=== PATIENT | male | born 1940 | race Caucasian/White ===

== ENCOUNTER 2017-03-01 20:22 | Emergency (ER) | payer OTHER ==
[~2017-03-01] VITALS: Ht 170.2 cm; Wt 110.2 kg
[~2017-03-01 20:22] MED LIST: ASPIRIN EC325 MG PO; COZAAR25 MG PO; DICLOFENAC SODI75 MG PO; FERROUS SULFAT325 MG PO; FOLIC ACID1 MG PO; HYDROCODON-ACE1 EA10 PO; IPRAT-ALBUT 0.5-3 ML INH; LIPITOR40 MG PO; METOPROLOL TART25 MG PO; NORCO 5-325 TA1 EACH PO; PROTONIX40 MG PO; SPIRIVA18 MCG INH; VITAMIN D1000 UNI1 PO
--- NOTE | 2017-03-02 17:24 | EKG ---
[facility] [address] [facility] [place] [address] Signed Sinus rhythm with marked sinus arrhythmia Otherwise normal ECG No previous ECGs available Confirmed by MAGDIEL CASANOVA MD ([id number]) on 03/02/2017 5:24:05 PM Electronically Signed By: MAGDIEL CASANOVA MD 03/02/17 1724 PATIENT NAME: MICHELINE BLACK Electrocardiogram DATE OF : 40 PHYSICIAN: MAGDIEL CASANOVA MD REPORT #: [id number] REPORT IS CONFIDENTIAL AND NOT TO BE RELEASED WITHOUT AUTHORIZATION
== END 2017-03-01 22:25 | disposition home or self-care (01) ==
LOC: ED 20:22
DX: R42 Dizziness and giddiness (principal); M54.2 Cervicalgia; I10 Essential (primary) hypertension; Z87.891 Personal history of nicotine dependence; Z95.5 Presence of coronary angioplasty implant and graft; Z90.49 Acquired absence of other specified parts of digestive tract; Z90.89 Acquired absence of other organs; Z98.890 Other specified postprocedural states; Z88.5 Allergy status to narcotic agent; Z79.82 Long term (current) use of aspirin; Z79.899 Other long term (current) drug therapy
CPT/HCPCS: 36415; 70450; 80053; 83880; 84484; 85025; 93005; 93010; 99284

== ENCOUNTER 2017-07-02 11:35 | Emergency (ER) | payer OTHER ==
[~2017-07-02] VITALS: Ht 170.2 cm; Wt 110.2 kg
== END 2017-07-02 11:51 | disposition short-term general hospital (02) ==
LOC: ED 11:35
DX: R05 Cough (principal); R50.9 Fever, unspecified

== ENCOUNTER 2018-08-16 18:41 | Emergency (ER) | payer OTHER ==
[~2018-08-16] VITALS: Ht 170.2 cm; Wt 99.3 kg
[2018-08-16] MEDS ORDERED: ZITHROMAX250 MG PO (20:11)
== END 2018-08-16 20:22 | disposition home or self-care (01) ==
LOC: ED 18:41
DX: J06.9 Acute upper respiratory infection, unspecified (principal); J44.9 Chronic obstructive pulmonary disease, unspecified; I10 Essential (primary) hypertension; Z87.891 Personal history of nicotine dependence; Z95.5 Presence of coronary angioplasty implant and graft; Z88.5 Allergy status to narcotic agent; Z79.82 Long term (current) use of aspirin; Z79.899 Other long term (current) drug therapy
CPT/HCPCS: 71046; 94640; 99283-25

== ENCOUNTER 2019-04-09 12:33 | Emergency (ER) | payer OTHER, MEDICARE ==
[~2019-04-09] VITALS: Ht 170.2 cm; Wt 99.3 kg
--- OUTSIDE RECORDS SUMMARY | ~2019-04-09 | XMS | Encounter Summary ---
Demographics + + + | Address | [address] | | | [place] [address] | + + + | Home Phone [...] | Author | [facility] | | | and [place] | + + + | Organization | [facility] | | | and [place] | + + + | Address | Unknown | + + + | Phone | Unavailable | + + + Support + + +---------+ + | Name | Relationship | Address | Phone | + + +---------+ + | luis buckley | ECON | Unknown | | + + +---------+ + Care Team Providers + +------+ + | Care Methods Analyst Name | Role | Phone | + [...] | +--------+ + + + + | 03/25/ | Hospital | [facility] | [place], | Abdominal aortic | | 2019 | Encounter | [facility] | [facility] [address] | aneurysm (AAA) | | | | [address] [place] | [place], | without rupture | | | | [place], [place] | [place] [address] | (HCC) | | | | [address] | [phone] | | | | | [phone] | | | +--------+ + + + [...] + +---------+ + | Alcohol Use | Drinks/We | oz/Week | Comments | | | ek | | | + + +---------+ + | No [...] + + documented as of this encounter Medications at Time of Discharge + + + +---------+ + + | Medication | Sig | Dispensed | Refills | Start | End Date | | | | | | Date | | + + + +---------+ + + | acetaminophen | Take 650 mg by mouth | | 0 | | | | (TYLENOL) 325 mg | every 4 hours as | | | | | | tablet | needed for Pain. | | | | | + + + +---------+ + + | aspirin 81 MG | Take 81 mg by mouth | | 0 | | | | tablet | Daily. | | | | | + + + +---------+ + + | atorvaSTATin | Take 1 tablet by | 90 | 3 | 03/19/20 | | | (LIPITOR) 40 mg | mouth Daily. | tablet | | 18 | | | tablet | | | | | | + + + +---------+ + + | clopidogrel | Take 1 tablet by | 90 | 3 | 03/21/20 | | | (PLAVIX) 75 mg | mouth Daily. | tablet | | 19 | | | tabletIndications: | | | | | | | Coronary artery | | | | | | | disease, angina | | | | | | | presence | | | | | | | unspecified, | | | | | | | unspecified vessel | | | | | | | or lesion type, | | | | | | | unspecified whether | | | | | | | yurok or | | | | | | | transplanted heart | | | | | | + + + +---------+ + + | colchicine 0.6 mg | Take 0.6 mg by mouth | | 0 | | | | tablet | as needed. | | | | | + + + +---------+ + + | diclofenac | Take 1 tablet by | 90 | 0 | 02/23/20 | | | (VOLTAREN) 75 mg EC | mouth Daily. | tablet | | 19 | | | tabletIndications: | | | | | | | Primary | | | | | | | 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| | | hands, bilateral, | | | | | | | Bilateral hand pain | | | | | | + + + +---------+ + + | ferrous sulfate | Take 325 mg by mouth | | 0 | | | | 325 mg tablet | daily (with | | | | | | | breakfast). | | | | | + + + +---------+ + + | FOLIC ACID PO | Take 1 tablet by | | 0 | | | | | mouth Daily. | | | | | + + + +---------+ + + | Glucosamine 750 MG | Take by mouth. | | 0 | | | | TABS | | | | | | + + + +---------+ + + | levothyroxine | Take 25 mcg by mouth | | 0 | | | | (SYNTHROID) 25 mcg | Daily. | | | | | | tablet | | | | | | + + + +---------+ + + | losartan (COZAAR) | Take 1 tablet by | 90 | 3 | 01/03/20 | | | 25 mg tablet | mouth Daily. | tablet | | 19 | | + + + +---------+ + + | metoprolol | Take 0.5 tablets by | 45 | 3 | 01/08/ | | | succinate | mouth Daily. At | tablet | | 19 | | | (TOPROL-XL) 25 mg 24 | night | | | | | | hr tablet | | | | | | + + + +---------+ + + | Misc Natural | Take 1 capsule by | | 0 | | | | Products (TURMERIC | mouth Daily. | | | | | | CURCUMIN) CAPS | | | | | | + + + +---------+ + + | Multiple | Take 1 capsule by | | 0 | | | | Vitamins-Minerals | mouth Daily. | | | | | | (OCUVITE EXTRA) TABS | | | | | | + + + +---------+ + + | nitroglycerin | Place 0.4 mg under | | 0 | | | | (NITROSTAT) 0.4 mg | the tongue every 5 | | | | | | SL tablet | minutes as needed | | | | | | | for Chest pain. | | | | | + + + +---------+ + + | | Take 750 mg by | | 0 | | | | Pseudoeph-Doxylamine | mouth. | | | | | | -DM-APAP (NYQUIL PO) | | | | | | + + + +---------+ + + documented as of this encounter Plan of Treatment +--------+---------+ + + + | Date | Type | Specialty | Care Team | Description | +--------+---------+ + + + | 09/22/ | Office | Cardiology | Radha, | | | 2020 | Visit | | [address] [address] | | | | | | [place], | | | | | | [place] [address] | | | | | | [phone] | | | | | | | | +--------+---------+ + + + documented as of this encounter Procedures + +--------+ + + + | Procedure Name | Priori | Date/Time | Associated Diagnosis | Comments | | | ty | | | | + +--------+ + + + | US AORTA LIMITED | Routin | 03/25/2019 | Abdominal aortic | Results for this | | | e | 10:44 PDT | aneurysm (AAA) | procedure are in the | | | | | without rupture | results section. | | | | | (HCC) | | + +--------+ + + + documented in this encounter Results US Aorta Limited (03/25/2019 10:44 PDT) + + | Specimen | + + | | + + + + + | Impressions | Performed At | + + + | Fusiform aneurysmal dilatation of the distal infrarenal abdominal | [facility] | | aorta measuring up to 4.8 x 4.4 cm. Dictated and Signed by: | | | James Waldrop MD Electronically signed: 03/25/2019 11:33 AM | | + + + + + + | Narrative | Performed At | + + + | US AORTA LIMITED 03/25/2019 10:21 AM HISTORY: Aorta Aneurysm. | [facility] | | COMPARISON: 06/20/2014. PROTOCOL: Dunham scale and Doppler images | | | of the abdominal aorta. FINDINGS: The proximal abdominal aorta | | | measures 3.1 x 3.1 cm (AP, transverse). The mid abdominal aorta is | | | 2.8 x 3.0 cm. Fusiform aneurysmal dilatation of the distal infrarenal | | | abdominal aorta measuring up to 4.8 x 4.4 cm. Small amount of mural | | | thrombus. The right common iliac artery is 1.2 x 1.1 cm. The left | | | common iliac artery measures 1.5 x 1.3 cm. | | + + + + + | Procedure Note | + + | Hugo, Rad Results In - 03/25/2019 1136 PDT US AORTA LIMITED 03/25/2019 10:21 AM | | | | HISTORY: Aorta Aneurysm. | | | | COMPARISON: 06/20/2014. | | | | PROTOCOL: Dunham scale and Doppler images of the abdominal aorta. | | | | FINDINGS: | | The proximal abdominal aorta measures 3.1 x 3.1 cm (AP, transverse). The mid | | abdominal aorta is 2.8 x 3.0 cm. Fusiform aneurysmal dilatation of the distal | | infrarenal abdominal aorta measuring up to 4.8 x 4.4 cm. Small amount of mural | | thrombus. | | | | The right common iliac artery is 1.2 x 1.1 cm. The left common iliac artery | | measures 1.5 x 1.3 cm. | | | | IMPRESSION: | | Fusiform aneurysmal dilatation of the distal infrarenal abdominal aorta | | measuring up to 4.8 x 4.4 cm. | | | | Dictated and Signed by: James Waldrop MD | | Electronically signed: 03/25/2019 11:33 AM | + + + +---------+ + + | Performing | Address | City[facility] | Phone Number | | Organization | | | | + +---------+ + + | [facility] | | | | + +---------+ + + documented in this encounter Visit Diagnoses + + | Diagnosis | + + | Abdominal aortic aneurysm (AAA) without rupture (HCC) | + + documented in this encounter"
--- OUTSIDE RECORDS SUMMARY | ~2019-04-09 | XMS | Encounter Summary ---
Demographics + + + | Address | [address] | | | [place] [address] | + + + | Home Phone | | + + + | Preferred Language | Unknown | + + + | Marital Status | | + + + | Mu-Ism Affiliation | Unknown | + + + | Race | Unknown | + + + | Ethnic Group | Unknown | + + + Author + + + | Author | [facility] | | | and [place] | + + + | Organization | [facility] | | | and [place] [...] Team Providers + +------+ + | Care Hay Sorter Name | Role | Phone | + +------+ + | Radha Feng | PCP | | + +------+ + Reason for Visit + + + | Reason | Comments | + + + | New Patient | NEW PT: Bilateral Hand Pain ONset x 10+ years | + + + Evaluate & Treat (Routine) + +--------+ + + + + | Status | Reason | Specialty | Diagnoses / | Referred By | Referred To | | | | | Procedures | Contact | Contact | + +--------+ + + + + | Authorized | | Orthopedic | Diagnoses | Jung, | Otoniel | | | | Surgery | Bilateral | Radha Gregory, | Héctor Fragoso MD | | | | | hand pain | [address] | [address] | | | | | | [place] | [place] | | | | | | [address] [place] | [place] [address] | | | | | | [place] | Phone: | | | | | | [address] | [phone] | | | | | | Phone: | Fax: | | | | | | [phone] | [phone] | | | | | | Fax: | | | | | | | [phone] | | + +--------+ + + + + Encounter Details +--------+---------+ + + + | Date | Type | Department | Care Team | Description | +--------+---------+ + + + | 02/22/ | Office | [facility] | Héctor Frederick, | Primary | | 2019 | Visit | ORTHOPEDIC SURGERY | [address] [place] [address] | 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[address] [place] [address] | [place] | hands, bilateral | | | | [place] | [address] | (Primary Dx); | | | | [address] | | Bilateral hand pain; | | | | [phone] | | Primary | | | | | | 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| | both hands | +--------+---------+ + + + Social History [...] Filed Vital Signs + + + + | Vital Sign | Reading | Time Taken | + + + + | Blood Pressure | - | - | + + + + | Pulse | - | - | + + + + | Temperature | - | - | + + + + | Respiratory Rate | - | - | + + + + | Oxygen Saturation | - | - | + + + + | Inhaled Oxygen | - | - | | Concentration | | | + + + + | Weight | 99.8 kg (220 lb) | 02/22/2019954 PDT | + + + + | Height | 170.2 cm (5' 7") | 02/22/2019954 PDT | + + + + | Body Mass Index | 34.46 | 02/22/2019954 PDT | + + + + documented in this encounter Progress Notes Héctor Frederick MD - 02/22/2019 1030 PDTFormatting of this note might be different from jennifer fragoso original. History of present illness: Cosme is a 78 y.o. 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 He doesn't have a history of systemic inflammatory arthritis He does have CAD and is on plavix chronically Past Medical History: Diagnosis Date AAA (abdominal aortic aneurysm) (HCC) Abdominal aortic aneurysm (AAA) (HCC) Achrochordon Adenomatous polyp of colon Age-related nuclear cataract, bilateral Anemia Aniseikonia Bilateral tinnitus Chest pain Chronic low back pain COPD (chronic obstructive pulmonary disease) (HCC) Coronary arteriosclerosis Cough Dry eyes Ectropion of eyelid Essential (primary) hypertension Gout Hearing loss Hemorrhoids Hypertension Hypertensive retinopathy Hypothyroidism Hypothyroidism IBS (irritable bowel syndrome) Keratoconjunctivitis sicca (HCC) Left arm pain Ocular hypertension Refractive amblyopia Sleep apnea Sleep related leg cramps 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 Mwiskvxlo-Ajtaoyhgkz-IO-APAP (NYQUIL PO) Take 750 mg by mouth. No current facility-administered medications on file prior to visit. Family History Problem Relation Age of Onset Cirrhosis Mother of her liver Heart attack Father Other (see comment) Sister back issues Other (see comment) Brother tractor accident Colon cancer Brother Obesity Sister Social History Socioeconomic History Marital status: Spouse name: Not on file Number of children: Not on file Years of education: Not on file Highest education level: Not on file Social Needs Financial resource strain: Not on file Food insecurity - worry: Not on file Food insecurity - inability: Not on file Transportation needs - medical: Not on file Transportation needs - non-medical: Not on file Occupational History Not on file Tobacco Use Smoking status: Former Smoker Smokeless tobacco: Never Used Substance and Sexual Activity Alcohol use: No Drug use: No Sexual activity: Not on file Other Topics Concern Not on file Social History Narrative Exercises- no Caffeine- 1 cup of coffee and 1 cup of tea Review of Systems Eyes: [] Double vision [x] Glasses/contacts [] Failing vision Ear/Nose/Throat: [] Frequent Colds [] Sinus Disease [] Nose obstruction [] Sneezing Spells [] Change in taste [] Artificial teeth [x] Ears ringing [] Ear pain [x] Hearing lo ss [] Teeth problems [x] Hoarseness [] Neck swelling [] Sore throat [] Congestion [] Nosebleeds [] Nasal allergies Respiratory: [x] Asthma/Wheezing [] Pneumonia [] Night sweats [] Shortness of breath [] Chronic cough [] Coughing up blood [] Exposure to tuberculosis Cardiovascular: [x] Heart Problems [x] Hypertension [] Heart murmur [] Palpitations [] Rheumatic fever [] Phlebitis [x] Chest pain [] Ankle swelling [x] Leg cramps [] Rac ing heart [] Skipping beats [] Blood clots Gastrointestinal: [] Abdominal pain [x] Heartburn [] Blood from rectum [x] Colitis [] Gallbladder problems [] Troub le swallowing [] Bloated stomach [x] Change in stools [] Vomiting blood [] Nausea [] Hemorrhoids [] Jaundice [ ] Hepatitis [] Diarrhea [] Constipation [] Diverticulitis Urinary Tract: [] Painful urination [] Kidney Stones [] Any urine leakage [x] Weak urine stream [x] Night urination [] Urine infections [] Bedwetting [] Blood in urine Skin: [] Skin rashes [] Itching/Burning [x] Skin bruises easi ly [] Artificial tanning [] Skin cancer [] Hair loss [] Changes in moles Musculoskeletal: [x] Physical handicaps [x] Back or shoulder pain []Rheumatoid disease [x] Osteoarthritis [x] Joint pain [x] Joint swelling [x]Gout [x] Leg cramps at night Neurological: [] Headaches [] Seizures [] Stroke/TIA [] Faintness [] Tremors [] Numbness [] Dizziness [] Changes in handwriting [] Memory loss [x] Shooting pains Psychiatric: [x] Depression [] Suicidal thoughts [] Sleep pattern changes [] Appetite changes [] Recent counseling [] Nervousness/anxiety [] Physical violence [] Marital problems Endocrine: [x] Thyroid [] Diabetes Systemic: [x]Weight loss/gain (over 10 lbs) []Fever/chills [x]Fatigue [] Sleeping Difficulties [] Speech change [] Voice change Vitals: 02/22/19 0955 PainSc: 6 PainLoc: Hand Estimated body mass index is 34.46 kg/m as calculated from the following: Height as of this encounter: 1.702 m (5' 7"). Weight as of this encounter: 99.8 kg (220 lb). On exam his right wrist has diffuse mild tenderness to palpation over the wrist dorsum He has mild tenderness over the ulnar styloid and with dorsiflexion and volarflexion his ra nge is from 20 degrees dorsiflexion to 30 degrees volarflexion - he has nearly full pronatio n and supination. He is not especially tender about the first cmc joint but both the index f kourtney and long finger mcps are tender and he has about 80 degrees mcp flexion both. The inde x pip joint is tender and has 90 degrees flexion and full extension The left wrist has more normal volarflexion and dorsiflexion but same exam of the index and long mcps and index pip joints No first cmc joint tenderness or clinical subluxation No triggering of any of the fingers Negative phalen sign or durkens compression sign xrays reviewed by me and compared with multiple mini izabella views of both hands and wrists He has diffuse osteoarthritis both wrists right worse than the left He has bone on bone osteoarthritis both index and long mcps both hands He has near bone on bone osteoarthritis both index pip joints 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 The natural history and treatment options discussed at length with him today He is not ready to give up the motion that he would lose with fusion surgery Under sterile conditions I injected both index and long mcps joints with 1/2cc celestone an d 1/2cc naropin I then injected both index finger pip joints with 1/2 cc celestone and 1/2cc naropin He tolerated well with no complications and will return as needed documented in this encou nter Plan of Treatment +--------+---------+ + + + | Date | Type | Specialty | Care Team | Description | +--------+---------+ + + + | 09/22/ | Office | Cardiology | Radha, | | | 2019 | Visit | | [facility] [address] | | | | | | [place], | | | | | | [place] [address] | | | | | | [phone] | | | | | | | | +--------+---------+ + + + documented as of this encounter Visit Diagnoses + + | Diagnosis | + + | Primary osteoarthritis of hands, bilateral - Primary | + + | Bilateral hand pain Pain in limb | + + | Primary osteoarthritis of both hands | + + documented in this encounter Administered Medications + +--------+ +------+------+ + | Medication Order | MAR | Action | Dose | Rate | Site | | | Action | Date | | | | + +--------+ +------+------+ + | betamethasone (CELESTONE | Given | 02/23/20 | 3 mg | | Other | | SOLUSPAN) injection 3 mg 3 mg, | | 19 11:29 | | | (Comment | | Intramuscular, ONCE, 02/22/19 | | PDT | | | ) | | at 1145, For 1 dose, Shake well. | | | | | | | Not for IV use., | | | | | | + +--------+ +------+------+ + +---+---+ | | | +---+---+ + +-------+ +------+---+ + | betamethasone (CELESTONE | Given | 02/23/20 | 3 mg | | Other | | SOLUSPAN) injection 3 mg 3 mg, | | 19 11:28 | | | (Comment | | Intramuscular, ONCE, Mon02/22/19 | | PDT | | | ) | | at 1145, For 1 dose, Shake well. | | | | | | | Not for IV use., | | | | | | + +-------+ +------+---+ + +---+---+ | | | +---+---+ + +-------+ +------+---+ + | betamethasone (CELESTONE | Given | 02/23/20 | 3 mg | | Other | | SOLUSPAN) injection 3 mg 3 mg, | | 19 11:28 | | | (Comment | | Intramuscular, ONCE, Mon02/22/19 | | PDT | | | ) | | at 1145, For 1 dose, Shake well. | | | | | | | Not for IV use., | | | | | | + +-------+ +------+---+ + +---+---+ | | | +---+---+ + +-------+ +------+---+ + | betamethasone (CELESTONE | Given | 02/23/20 | 3 mg | | Other | | SOLUSPAN) injection 3 mg 3 mg, | | 19 11:25 | | | (Comment | | Intramuscular, ONCE, 02/22/19 | | PDT | | | ) | | at 1145, For 1 dose, Shake well. | | | | | | | Not for IV use., | | | | | | + +-------+ +------+---+ + +---+---+ | | | +---+---+ documented in this encounter
--- OUTSIDE RECORDS SUMMARY | ~2019-04-09 | XMS | Clinical Summary ---
Demographics + + + | Address | [address] | | | [place] [address] | + + + | Home Phone | | + + + | Preferred Language | Unknown | + + + | Marital Status | Single | + + + | Orthodoxy Affiliation | Unknown | + + + | Race | Unknown | + + + | Ethnic Group | Unknown | + + + Author + + + | Author | [facility] (Historical as of | | | 01-26-19) | + + + | Organization | [facility] (Historical as of | | | 01-26-19) | + + + | Address | Unknown | + + + | Phone | Unavailable | + + + Support + + +---------+ + | Name | Relationship | Address | Phone | + + +---------+ + | Doris Wiseman ECON | Unknown | | + + +---------+ + Care Team Providers + +------+ + | Care Outpatient Psychiatrist Name | Role | Phone | + +------+ + | Sd Rosales MD | PP | | + +------+ + Allergies + + + + + + | Active Allergy | Reactions | Severity | Noted | Comments | | | | | Date | | + + + + + + | Tramadol | Vertigo | Low | 01/17/20 | | | | | | 13 | | + + + + + + Current Medications + + +--------+---------+------+------+-------+ | Prescription | Sig. | Disp. | Refills | Star | End | Statu | | | | | | t | Date | s | | | | | | Date | | | + + +--------+---------+------+------+-------+ | pantoprazole | Take 40 mg by mouth | | | | | Activ | | (PROTONIX) 40 MG | every morning before | | | | | e | | tablet | breakfast. | | | | | | + + +--------+---------+------+------+-------+ | simvastatin | Take 40 mg by mouth | | | | | Activ | | (ZOCOR) 40 MG tablet | nightly. | | | | | e | + + +--------+---------+------+------+-------+ | enalapril | Take 5 mg by mouth | | | | | Activ | | (VASOTEC) 5 MG | daily. | | | | | e | | tablet | | | | | | | + + +--------+---------+------+------+-------+ | fish oil-omega-3 | Take 1 g by mouth | | | | | Activ | | fatty acids 1000 MG | daily. | | | | | e | | capsule | | | | | | | + + +--------+---------+------+------+-------+ | aspirin 325 MG | Take 325 mg by mouth | | | | | Activ | | buffered tablet | daily. | | | | | e | + + +--------+---------+------+------+-------+ | albuterol | Inhale 2 puffs into | | | | | Activ | | (VENTOLIN HFA) 108 | the lungs every 4 | | | | | e | | (90 BASE) MCG/ACT | (four) hours as | | | | | | | inhaler | needed. | | | | | | + + +--------+---------+------+------+-------+ | levothyroxine | Take 25 mcg by mouth | | | | | Activ | | (SYNTHROID) 25 MCG | daily. | | | | | e | | tablet | | | | | | | + + +--------+---------+------+------+-------+ | clopidogrel | Take 1 tablet by | 90 | 3 | 05/0 | | Activ | | (PLAVIX) 75 MG | mouth daily. | tablet | | 2/20 | | e | | tablet | | | | 18 | | | + + +--------+---------+------+------+-------+ | metoprolol | Take 1 tablet by | 180 | 3 | 05/0 | | Activ | | (LOPRESSOR) 25 MG | mouth 2 (two) times | tablet | | 2/20 | | e | | tablet | daily. | | | 18 | | | + + +--------+---------+------+------+-------+ Active Problems No known active problems Family History + + +------+ + | Medical History | Relation | Name | Comments | + + +------+ + | Cancer | Cousin | | | + + +------+ + | Heart disease | Cousin | | | + + +------+ + | Hypertension | Cousin | | | + + +------+ + | Stroke | Cousin | | | + + +------+ + | Diabetes | Cousin | | | + + +------+ + + +------+--------+ + | Relation | Name | Status | Comments | + +------+--------+ + | Cousin | | | | + +------+--------+ + | Cousin | | | | + +------+--------+ + | Cousin | | | | + +------+--------+ + | Cousin | | | | + +------+--------+ + | Cousin | | | | + +------+--------+ + Social History + +-------+ +--------+------+ | Tobacco Use | Types | Packs/Day | Years | Date | | | | | Used | | + +-------+ +--------+------+ | Former Smoker | | 2 | 52 | | + +-------+ +--------+------+ + +---+---+---+ | Smokeless Tobacco: | | | | | Never Used | | | | + +---+---+---+ + + | Comments: quit 3 years ago | + + + + +---------+ + | Alcohol Use | Drinks/We | oz/Week | Comments | | | ek | | | + + +---------+ + | No | | | | + + +---------+ + + + + | Sex Assigned at | Date Recorded | | | | + + + | Not on file | | + + + Last Filed Vital Signs + + + + | Vital Sign | Reading | Time Taken | + + + + | Blood Pressure | 112/58 | 10/11/2017 7:30 AM PDT | + + + + | Pulse | 63 | 10/11/2017 8:56 AM PDT | + + + + | Temperature | 36.4 C (97.5 F) | 10/11/2017 7:30 AM PDT | + + + + | Respiratory Rate | 20 | 10/11/2017 7:30 AM PDT | + + + + | Oxygen Saturation | 93% | 10/11/2017 7:30 AM PDT | + + + + | Inhaled Oxygen | - | - | | Concentration | | | + + + + | Weight | 106.9 kg (235 lb | 10/10/2017 12:26 PM PDT | | | 10.8 oz) | | + + + + | Height | 170.2 cm (5' 7") | 10/10/2017 12:26 PM PDT | + + + + | Body Mass Index | 36.91 | 10/10/2017 12:26 PM PDT | + + + + Plan of Treatment + + + + + | Health Maintenance | Due Date | Last Done | Comments | + + + + + | Vaccine: | | | | | Dtap/Tdap/Td (1 - | 9 | | | | Tdap) | | | | + + + + + | Vaccine: Zoster (1 | | | | | of 2) | 0 | | | + + + + + | Vaccine: | | | | | Pneumococcal 65+ | 5 | | | | Low/Medium Risk (1 | | | | | of 2 - PCV13) | | | | + + + + + | Vaccine: Influenza | | | | | (#1) | 9 | | | + + + + + Implants + +-------+-------+ +--------+--------+--------+ | Implanted | Type | Area | Manufacture | Device | Expira | Model | | | | | r | | tion | / | | | | | | Identi | Date | Serial | | | | | | fier | | / Lot | + +-------+-------+ +--------+--------+--------+ | Synergy | Stent | Heart | [place] | | 02/02/ | [id number] | | Stent-10/10/2017Implanted: | | | SCIENTIFIC | | 2018 | [id number] | | 10/10/2017 by Kev Flores, | | | | | | 70 / | | MD (Quantity not on file) | | | | | | /[id number] | | | | | | | | 056 | + +-------+-------+ +--------+--------+--------+ Results Not on filefrom Last 3 Months Insurance + +--------+ +------+ + + | Payer | Benefi | Subscriber | Type | Phone | Address | | | t Plan | ID | | | | | | / | | | | | | | Group | | | | | + +--------+ +------+ + + | [place] | [id number] | | [phone]- | [employer] [id number] | | ADMINISTRATION | CHOICE | | | [phone] | [id number] | | | | | | | [address] [place] | | | | | | | [phone] | + +--------+ +------+ + + | [employer] | [place] | [id number] | | [phone] FEE SERVICES [id number] | | ADMINISTRATION | [place] | | | [phone] | [phone] | | | ADMINI | | | | [place] | | | STRATI | | | | [id number] | | | ON | | | | | | | GENERI | | | | | | | C | | | | | + +--------+ +------+ + + + +--------+ +--------+ + + | Guarantor Name | Accoun | Relation to | Date | Phone | Billing Address | | | t Type | Patient | of | | | | | | | | | | + +--------+ +--------+ + + | COSME BLACK | Vetera | Self | [birth year] | Home: | [address] | | | ns | | 1940 | [phone] [place] | | | Admini | | | [phone] | [phone] | | | guero | | | | | | | on | | | | | + +--------+ +--------+ + + | COSME BLAKC | Person | Self | [birth year] | Home: | [address] | | | al/Fam | | 1940 | [phone] | [place] | | | oliva | | | [phone] | [phone] | + +--------+ +--------+ + +
--- OUTSIDE RECORDS SUMMARY | ~2019-04-09 | XMS | Encounter Summary ---
Demographics + + + | Address | [address] | | | [place] [address] | + + + | Home Phone | | + + + | Preferred Language | Unknown | + + + | Marital Status | | + + + | Anglican Affiliation | Unknown | + + + | Race | Unknown | + + + | Ethnic Group | Unknown | + + + Author + + + | Author | [facility] | | | and Tevinana | + + + | Organization | [facility] | | | and [...] Team Providers + +------+ + | Care Patient Access Specialist Name | Role | Phone | [...] + + + | Authorized | | Cardiology | Diagnoses | Jung, | Ethel, | | | | | Abdominal | KRISTINA Nielsen | MD Freddy | | | | | aortic | 77 | [address] | | | | | aneurysm, | [employer] | [address] | | | | | without | [address] [place] | [place], | | | | | rupture | [place], [place] | [place] [address] | | | | | ([facility]) | [address] | Phone: | | | | | Atherosclero | Phone: | [phone] | | | | | tic heart | [phone] | Fax: | | | | | disease of | Fax: | [phone] | | | | | [place] | [phone] | | | | | | coronary [...] | | | FUP | | | + +--------+ + + + + Encounter Details +--------+---------+ + + + | Date | Type | Department | Care Team | Description | +--------+---------+ + + + | 03/21/ | Office | [facility] | Radha, | Coronary artery | | 2019 | Visit | CARDIOLOGY [address] | [address] | disease involving | | | | [place], | [place], | [place] coronary | | | | [place] [address] | [place] [address] | artery of [place] | | | | [phone] | [phone] | heart without angina | | | [...] whether | | | | | | [place] or | | | | | | [...] | Blood Pressure | 120/70 | 03/21/2019 1015 PDT | + + + + | [...] 101.2 kg (223 lb 1.7 | 03/21/2019 1015 PDT | | | oz) | | + + + + | Height | 170.2 cm (5' 7") | 03/21/2019 1015 PDT | + + + + | Body Mass Index | 34.94 | 03/21/2019 1015 PDT | + + + + documented in this encounter Patient Instructions Patient Instructions Jessica Garcia ARNP - 03/21/2019 11:00 PDT1. The current medical regimen is effective; continue present plan and medications. 2. He will follow up in 6 months, or sooner with concerns. documented in this encounter Progress Notes Jessica Garcia ARNP - 03/21/2019 1100 PDTFormatting of this note might be different fr om the original. PATIENT NAME: Cosme Michaud : [...] time a referral to cardiac rehab at [facility] for CAD , and she was to [...] Diagnosis Chest pain Coronary artery disease involving [place] coronary artery of [place] heart without angina pectoris Hypothyroidism AAA (abdominal [...] minute s as needed for Chest pain. Twgotllwj-Sqttvzgcgz-OZ-APAP (NYQUIL PO) Take 750 mg by mouth. [...] precludes rhythm comparison, needs review Confirmed by ETHEL BROOKE, FREDDY ([id number]) on 01/03/2019 11:29:26 AM LAB RESULTS reviewed during visit today primarily from [facility]: LIPID Lab Results Component Value Date [...] the HPI. RESULTS- I reviewed reports from [facility]: No results found. Above data and testing [...] drug-eluting stenton 10/10/[address] Flores. F. Today, 03/21/2019, he is asymptomatic, no chest discomfort. He i s on a medical regimen with dual antiplatelet therapy, aspirin, ARB, beta-rayna and statin . There are no signs or symptoms of overt congestive heart failure, and his physical exam sh ows no significant fluid retention. He is in class I- No symptoms; no limitations of activi ties of the [place] [employer] functional class. Heart failure stage [...] this chart may have been created with [employer] voice recognition software. Occasi onal wrong-word or sound-alike substitutions may have occurred due to the inherent villegas itations of voice recognition software. Please read the chart carefully and recognize, using context, where these substitutions have occurred. documented in this encounter Plan of Treatment +--------+---------+ + + + | Date | Type | Specialty | Care Team | Description | +--------+---------+ + + + | 09/22/ | Office | Cardiology | Radha, | | | 2019 | Visit | | [address]OU [address] | | | | | | [place], | | | | | | [place] [address] | | | | | | [phone] | | | | | | | | +--------+---------+ + + + documented as of this encounter Visit Diagnoses + + | Diagnosis | + + | Coronary artery disease involving [place] coronary artery of [place] heart without | | angina pectoris - Primary | + + | Essential hypertension with goal blood pressure less than 130/80 | + + | Coronary artery disease, angina presence unspecified, unspecified vessel or lesion | | type, unspecified whether [place] or transplanted heart | + + documented in this encounter
--- OUTSIDE RECORDS SUMMARY | ~2019-04-09 | XMS | Encounter Summary ---
Demographics + + + | Address | [address] | | | [place] [address] | + + + | Home Phone | | + + + | Preferred Language | Unknown | + + + | Marital Status | | + + + | Buddhism Affiliation | Unknown | + + + | Race | Unknown | + + + | Ethnic Group | Unknown | + + + Author + + + | Author | [facility] | | | and Tevinana | + + + | Organization | [facility] | [...] Team Providers + +------+ + | Care Purchase Analyst Name | Role | Phone | [...] | | CARDIOLOGY [address] | [address]OU [address] | | | | | [place], | [place], | | | | | [place] [address] | [place] [address] | | | | | [phone] | | | | | | | [...] | | | | | | [place] [address] | | | | | | [phone] | | | | | | | | +--------+---------+ + + + documented as of this encounter Visit Diagnoses Not on filedocumented in this encounter"
--- OUTSIDE RECORDS SUMMARY | ~2019-04-09 | XMS | Clinical Summary ---
Demographics + + + | Address | [address] | | | [place] [address] | + + + | Home Phone | | + + + | Preferred Language | Unknown | + + + | Marital Status | | + + + | Zoroastrian Affiliation | Unknown | + + + | Race | Unknown | + + + | Ethnic Group | Unknown | + + + Author + + + | Author | [facility] | | | and Tevinana | + + + | Organization | [facility] | | [...] Team Providers + +------+ + | Care Garnett Fixer Name | Role | Phone | + [...] + + +---------+------+------+-------+ | nitroglycerin | Place 0.4 mg under | | 0 | | | Activ | | (NITROSTAT) 0.4 mg | the tongue every 5 | | | | | e | | SL tablet | minutes as needed | | | | | | | | for Chest pain. | | | | | | + + + +---------+------+------+-------+ | atorvaSTATin | Take 1 tablet by | 90 | 3 | 10/0 | | Activ | | (LIPITOR) 40 mg | mouth Daily. | tablet | | 8/20 | | e | | tablet | | | | 18 | | | + + + +---------+------+------+-------+ | losartan (COZAAR) | Take 1 tablet by | 90 | 3 | 07/2 | | Activ | | 25 mg tablet | mouth Daily. | tablet | | 4/20 | | e | | | | | | 19 | | | + + + +---------+------+------+-------+ | metoprolol | Take 0.5 tablets by | 45 | 3 | 07/3 | | Activ | | succinate | mouth Daily. At | tablet | | 0/20 | | e | | (TOPROL-XL) 25 mg 24 | night | | | 19 | | | | hr tablet | | | | | | | + + + +---------+------+------+-------+ | diclofenac | Take 1 tablet by | 90 | 0 | / | | Activ | | (VOLTAREN) 75 mg EC | mouth Daily. | tablet | | 3/20 | | e | | tabletIndications: | [...] tablet by | 90 | 3 | / | | Activ | | (PLAVIX) 75 mg | mouth Daily. | tablet | | 0/20 | | e | | tabletIndications: | | | | 19 | | | | Coronary artery | [...] | | | | | | | [place] or | | | | | | | | transplanted heart | | | | | | | + + + +---------+------+------+-------+ | clopidogrel | Take 1 tablet by | 90 | 3 | / | 03/12 | Disco | | (PLAVIX) 75 mg | mouth Daily. | tablet | | / | 0/20 | ntinu | | tabletIndications: | | | | 18 | 19 | ed | | Coronary artery | | | [...] | | | | | | | [place] or | | | | | | | | transplanted heart | | | | | | | + + + +---------+------+------+-------+ | clopidogrel | Take 1 tablet by | 90 | 3 | 03/12 | 03/12 | Disco | | (PLAVIX) 75 mg | mouth Daily. | tablet | | 0/20 | 0/20 | ntinu | | tabletIndications: | | | | 19 | 19 | ed | | Coronary artery | | | [...] | | | | | | | [place] or | | | | | | | | transplanted heart | | | | | | | + + + +---------+------+------+-------+ Active Problems + + + | Problem | Noted Date | + + + | Chest pain [...] + +---+ | Coronary artery disease involving [place] coronary artery of | | | [place] heart without angina pectoris | | + +---+ + + | Overview: [facility] on 03/09/2011 shows non-Q-wave myocardial | | [...] aortic aneurysm (AAA) | | + +---+ | Sleep related leg cramps [...] + + | 03/25/ | Hospital | Radiology | Radha, | Abdominal aortic | | 2019 | Encounter | | LOU Lopez | aneurysm (AAA) | | | | | | without rupture | | | | | | (HCC) | +--------+ + + + + | 03/25/ | Telephone | Cardiology | Radha, | Other (test results) | | 2019 | | | LOU Lopez | | +--------+ + + + + | 03/21/ | Office | Cardiology | Radha, | Coronary artery | | 2018 | Visit | | LOU Lopez | disease involving | | | | | | [place] coronary | | | | | | artery of [place] | | | | | | heart [...] whether | | | | | | [place] or | | | | | | transplanted heart | +--------+ + + + + | 02/22/ | Office | Orthopedic Surgery | Héctor Frederick, | Primary | | 2018 | Visit | | MD | 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| | hands, bilateral | | | | | | (Primary Dx); | | | | | | Bilateral hand pain; | | | | | | Primary | | | | | | 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| | both hands | +--------+ + + + + | 01/08/ | Refill | Cardiology | Radha, | Medication Refill | | 2018 | | | LOU Lopez | | +--------+ + + + + from Last 3 Months Immunizations + + + + | Name | Dates Previously Given | Next Due | + + + + | INFLUENZA PF 4Y OR | 04/06/2017 | | | >,QUAD DERIVED FROM | | | | TISS-CULT | | | + + + + Family [...] + + + + | Pulse | 72 | 01/02/20191111 PDT | + + + + | Temperature | 36.4 C (97.5 F) | 10/11/2017 0857 PDT | + + + + | Respiratory Rate | 20 | 01/02/20191111 PDT | + + + + | Oxygen Saturation | 97% | 10/02/2017 1130 PDT | + + + + | [...] 1015 PDT | + + + + Plan [...] | | | | | | [place] [address] | | | | | | [phone] | | | | | | | [...] Influenza | | 04/06/2017 | | | (#1) | 9 | | | + + + + + Procedures + +--------+ + + + | [...] | + +--------+ + + + | IMAGING REPORT - | | 02/08/2019 | | Results for this | | EXTERNAL SCAN | | 0:00 PDT | | procedure are in the | | | | | | results section. | + +--------+ + + + from Last 3 Months Results US Aorta Limited (03/25/2019 10:44 PDT) [...] | | | + +---------+ + + IMAGING REPORT - EXTERNAL SCAN (02/08/2019 0:00 PDT) + + + | Narrative | Performed At | + + + | Ordered by an | | | unspecified provider. | | + + + from Last 3 Months Insurance + +--------+ +--------+-------+---------+--------+ | Payer | Benefi | Subscriber | Effect | Phone | Address | Type | | | t Plan | ID | denisse | | | | | | / | | Dates | | | | | | Group | | | | | | + +--------+ +--------+-------+---------+--------+ | [employer] | [place] | [id number] | 02/11/20 | | | Indemn | | | NS | | 14-Pre | | | ity | | | ADMIN | | sent | | | | | | [place] | | | | | | | [place] | | | | | | + +--------+ +--------+-------+---------+--------+ | [employer] | [place] | [id number] | 06/12/19 | | | Indemn | [...] | Self | [birth year] | | [address] | | | al/Fam | | 1940 | [phone] | [place] [address] | | | [place] | | | 1 (Home) | | + +--------+ +--------+ + + Advance Directives Patient has advance care planning documents on file. For more information, please contact:[facility] [place] [address]
--- OUTSIDE RECORDS SUMMARY | ~2019-04-09 | XMS | Encounter Summary ---
Demographics + + + | Address | [address] | | | [place] [address] | + + + | Home Phone [...] Author | [facility] | | | and Tevinana | + + + | Organization | [facility] [...] Team Providers + +------+ + | Care Ramp Service Agent Name | Role | Phone | + [...] | Refill | [facility] [place] | [place], | Medication Refill | | 2019 | | CARDIOLOGY [address] | Jessica FIRE [address] [address] | | | | | [place], | [place], | | | | | [place] [address] | [place] [address] | | | | | [phone] | [phone] | | | | | | | [...] [place] | | | | | | [place] [address] | | | | | | [phone] | | | | | | | | +--------+---------+ + + + documented as of this encounter Visit Diagnoses Not on filedocumented in this encounter"
[~2019-04-09 12:33] MED LIST changes: +ZITHROMAX250 MG PO
[2019-04-09] MEDS ORDERED: NORCO 5-325 TA1 EACH PO (14:25)
--- NOTE | 2019-04-10 08:36 | NUR ---
Cardiac Rehabilitation On 04/09/19 patient was noted to have acute pain while riding stationary bike. Patient was instructed to stop exercise and area of right ribs examined after patient states he had a mechanical fall at home a few days ago. 3 cm bruise noted lateral to right nipple and swelling noted inferior to breast. This area was very tender to touch. Patient instructed to seek care, recommended walk in clinic. Later in day patient notified this service that his rib was fractured and physician instructed him to continue being active and he would like to return to rehab session schedule. We will confer with Danica Shepard in physical therapy. Patient was seen at [facility] ED 04/09/19. Records reviewed.
--- NOTE | 2019-04-10 17:45 | EKG ---
[facility] [address] [place] [address] Signed Normal sinus rhythm Normal ECG When compared with ECG of 01-MAR-2017 20:49, No significant change was found Confirmed by MAGDIEL CASANOVA MD ([id number]) on 04/10/2019 5:45:36 PM Electronically Signed By: MAGDIEL CASANOVA MD 04/10/19 1745 PATIENT NAME: SOFIAMICHELINE Electrocardiogram DATE OF : 40 PHYSICIAN: MAGDIEL CASANOVA MD REPORT #: [id number] REPORT IS CONFIDENTIAL AND NOT TO BE RELEASED WITHOUT AUTHORIZATION
== END 2019-04-09 14:34 | disposition home or self-care (01) ==
LOC: ED 12:33
DX: S20.211A Contusion of right front wall of thorax, initial encounter (principal); W18.30XA Fall on same level, unspecified, initial encounter; J43.9 Emphysema, unspecified; I10 Essential (primary) hypertension; Z87.891 Personal history of nicotine dependence; Z88.5 Allergy status to narcotic agent; Z79.899 Other long term (current) drug therapy; Z79.82 Long term (current) use of aspirin
CPT/HCPCS: 71101; 93005; 93010; 99285-25

== ENCOUNTER 2019-07-03 17:27 | Emergency (ER) | payer OTHER ==
[~2019-07-03] VITALS: Ht 170.2 cm; Wt 99.3 kg
[2019-07-03] MEDS ORDERED: KAPSPARGO SPRIN25 MG PO (17:44)
[2019-07-03] MEDS ORDERED: SIMVASTATIN40 MG PO (17:45)
[2019-07-03] MEDS ORDERED: PLAVIX75 MG PO (17:46)
[2019-07-03] MEDS ORDERED: NORCO 5-325 TA1 EACH PO (18:42)
== END 2019-07-03 18:51 | disposition home or self-care (01) ==
LOC: ED 17:27
DX: S51.812A Laceration without foreign body of left forearm, initial encounter (principal); S49.92XA Unspecified injury of left shoulder and upper arm, initial encounter; W11.XXXA Fall on and from ladder, initial encounter; J43.9 Emphysema, unspecified; I10 Essential (primary) hypertension; Z87.891 Personal history of nicotine dependence; Z88.5 Allergy status to narcotic agent; Z79.899 Other long term (current) drug therapy; Z79.82 Long term (current) use of aspirin
CPT/HCPCS: 73030; 90471; 90715; 99283-25

== ENCOUNTER 2019-08-17 19:49 | Emergency (ER) | payer OTHER ==
[~2019-08-17] VITALS: Ht 170.2 cm; Wt 100.7 kg
[~2019-08-17 19:49] MED LIST changes: +KAPSPARGO SPRIN25 MG PO; +PLAVIX75 MG PO; +SIMVASTATIN40 MG PO
[2019-08-17] MEDS ORDERED: LIPITOR40 MG PO (19:59)
[2019-08-17] MEDS ORDERED: KEFLEX500 MG PO (20:41)
[2019-08-17] MEDS ORDERED: BACTRIM DS TAB1 EACH PO (20:41)
== END 2019-08-17 20:55 | disposition home or self-care (01) ==
LOC: ED 19:49
DX: L03.114 Cellulitis of left upper limb (principal); J43.9 Emphysema, unspecified; I10 Essential (primary) hypertension; Z88.5 Allergy status to narcotic agent; Z79.899 Other long term (current) drug therapy; Z79.82 Long term (current) use of aspirin
CPT/HCPCS: 73110; 99283-25; A9270

== ENCOUNTER 2019-10-24 14:33 | Emergency (ER) | payer OTHER ==
[~2019-10-24] VITALS: Ht 170.2 cm; Wt 100.7 kg
--- OUTSIDE RECORDS SUMMARY | ~2019-10-24 | XMS | Encounter Summary ---
Demographics + + + | Address | [address] | | | [place] [address] | + + + | Home Phone | | + + + | Preferred Language | Unknown | + + + | Marital Status | | + + + | Denominational Affiliation | Unknown | + + + | Race | Unknown | + + + | Ethnic Group | Unknown | + + + Author + + + | Author | [facility] | | | and [place] | + + + | Organization | [facility] | | | and [place] | + + + | Address | Unknown | + + + | Phone | Unavailable | + + + Support + + +---------+ + | Name | Relationship | Address | Phone | + + +---------+ + | Doris Neal ECON | Unknown | | + + +---------+ + Care Team Providers + +------+ + | [employer] Paralegal Name | Role | Phone | + +------+ + | Gia Feng NP | PCP | | + +------+ + Reason for Visit + + + | Reason | Comments | + + + | Cardiac Rehab | | + + + Auth/Cert +--------+--------+ + + + + | Status | Reason | Specialty | Diagnoses / | Referred By | Referred To | | | | | Procedures | Contact | Contact | +--------+--------+ + + + + | | | | | | | +--------+--------+ + + + + Encounter Details +--------+---------+ + + + | Date | Type | Department | Care Team | Description | +--------+---------+ + + + | 01/04/ | Office | [facility] | Kavitha Davenport, | Chronic obstructive | | 2018 | Visit | [facility] | [address] | pulmonary disease, | | | | REHABILITATION [address] | [facility], | unspecified COPD | | | | [facility] | [place] [address] | type (HCC) (Primary | | | | [place] [address] | [phone] | Dx) | | | | [phone] | | | +--------+---------+ + + + Social History + +-------+ +--------+------+ | Tobacco Use | Types | Packs/Day | Years | Date | | | | | Used | | + +-------+ +--------+------+ | Former Smoker | | | | | + +-------+ +--------+------+ + +---+---+---+ | Smokeless Tobacco: | | | | | Never Used | | | | + +---+---+---+ + + +---------+ + | Alcohol Use | Drinks/Week | oz/Week | Comments | + + +---------+ + | No | | | | + + +---------+ + + + + | Sex Assigned at | Date Recorded | | | | + + + | Not on file | | + + + + + + + | Job Start Date | Occupation | Industry | + + + + | Not on file | Not on file | Not on file | + + + + + + + + | Travel History | Travel Start | Travel End | + + + + + + | No recent travel history available. | + + documented as of this encounter Progress Estela Maharaj, RAILROAD MECHANIC - 01/04/2018 12:00 PM PDT [facility] [address] [place] [address] Cardiac Rehab Date: 01/04/2018 Patient Information Patient Name: Cosme Michaud Date of : 1940 Age: 77 y.o. Encounter Diagnoses Code Name Primary? J44.9 Chronic obstructive pulmonary disease, unspecified COPD type (HCC) Yes Number of Visits Approved: 21 KX Taken Medications Today? Yes Any Changes in Medications? No Any Problems to Report? No Pain level and location: Home exercise: Denies any adverse symptoms during exercise. Sinus rhythm without ectopy. SBP with an appropriate rise during exertion. Compliant with medications and therapeutic lifestyle changes. Continue monitored exercise. Please see Trendsetter for graphics. Any abnormal vital signs or symptoms will be recorded in progress note. Vital signs record and rhythm strips scanned into Media section each week. Appointment Duration: 50 min Electronically signed by: Estela Bernal RRT, 01/04/2018 12:29 Patient Name: Cosme Michaud/: 1940/ lly signed by Estela Bernal RRT at 01/04/2018 12:30 PM PDTdocumented in this e ncounter Plan of Treatment +--------+---------+ + + + | Date | Type | Specialty | Care Team | Description | +--------+---------+ + + + | 03/24/ | Office | Cardiology | Radha, | | | 2019 | Visit | | [facility] [place] [address] | | | | | [place], | | | | | | [place] [address] | | | | | | [phone] | | | | | | | | +--------+---------+ + + + documented as of this encounter Visit Diagnoses + + | Diagnosis | + + | Chronic obstructive pulmonary disease, unspecified COPD type (HCC) - Primary | + + documented in this encounter"
--- OUTSIDE RECORDS SUMMARY | ~2019-10-24 | XMS | Encounter Summary ---
Demographics + + + | Address | [address] | | | [place] [address] | + + + | Home Phone | | + + + | Preferred Language | Unknown | + + + | Marital Status | | + + + | Restorationist Affiliation | Unknown | + + + | Race | Unknown | + + + | Ethnic Group | Unknown | + + + Author + + + | Author | [facility] | | | and [place] | + + + | Organization | [facility] | | | and [place] [...] Team Providers + +------+ + | Care Shirt Trimmer Name | Role | Phone | + +------+ + | Sd Rosales | PCP | | | MD | | | + +------+ + Reason for Referral Diagnostic/Screening (Routine) +--------+--------+ + + + + | Status | Reason | Specialty | Diagnoses / | Referred By | Referred To | | | | | Procedures | Contact | Contact | +--------+--------+ + + + + | Closed | | Radiology | Diagnoses | Bobby | | | | | | Back pain | Sd | | | | | | Procedures | MD [address] | | | | | | MRI Lumbar | [address] | | | | | | Spine wo | [place] | | | | | | Contrast | [address] | | | | | | | [place] | | | | | | | [address] | | | | | | | Phone: | | | | | | | [phone] | | | | | | | Fax: | | | | | | | [phone] | | +--------+--------+ + + + + Reason for Visit Diagnostic/Screening (Routine) +--------+--------+ + + + + | Status | Reason | Specialty | Diagnoses / | Referred By | Referred To | | | | | Procedures | Contact | Contact | +--------+--------+ + + + + | Closed | | Radiology | Diagnoses | Bobby | | | | | | Back pain | Sd | | | | | | Procedures | MD [address] | | | | | | MRI Lumbar | [address] | | | | | | Spine wo | [place] | | | | | | Contrast | [address] | | | | | | | [place] | | | | | | | [address] | | | | | | | Phone: | | | | | | | [phone] | | | | | | | Fax: | | | | | | | [phone] | | +--------+--------+ + + + + Encounter Details +--------+ + + + + | Date | Type | Department | Care Team | Description | +--------+ + + + + | 02/24/ | Hospital | [facility] | Sd Rosales | Back pain | | 2013 | Encounter | MED CTR MRI [address] | [address] | | | | | [address] [place], | [place] | | | | | [place] [address] | [place] [address] | | | | | [phone] | [phone] | | | | | | | | +--------+ + + + + Social History + +-------+ +--------+------+ | Tobacco Use | Types | Packs/Day | Years | Date | | | | | Used | | + +-------+ +--------+------+ | Never Assessed | | | | | + +-------+ +--------+------+ + + + | Sex Assigned at [...] + + documented as of this encounter Plan of Treatment +--------+---------+ + + + | Date | Type | Specialty | Care Team | Description | +--------+---------+ + + + | 03/24/ | Office | Cardiology | Radha, | | | 2019 | Visit | | [place] [address] | | | | | | [address] [place], | | | | | | [place] [address] | | | | | | [phone] | | | | | | | | +--------+---------+ + + + documented as of this encounter Procedures + +--------+ + + + | Procedure Name | Priori | Date/Time | Associated Diagnosis | Comments | | | ty | | | | + +--------+ + + + | MRI LUMBAR SPINE WO | Routin | 02/24/2014 | Back pain | Results for this | | CONTRAST | e | 4:20 PM | | procedure are in the | | | | PDT | | results section. | + +--------+ + + + documented in this encounter Results MRI Lumbar Spine wo Contrast (02/24/2014 4:20 PM PDT) + + | Specimen | + + | | + + + +--------- --------+ | Narrative | Performe d At | + +--------- --------+ | MRI LUMBAR | [facility] | | SPINE WITHOUT CONTRAST: 02/24/2014 3:50 PM CLINICAL HISTORY: BACK PAIN | LAB | | COMPARISON: None TECHNIQUE: In the 1.5T scanner multiplanar, | | | multisequence imaging of the lumbarspine is performed. FINDINGS: There | | | are 5 lumbar-type vertebral bodies.50% compression deformity ofL1, | | | with no abnormal marrow signal to suggest acuity. Other vertebral | | | bodyheights are normally maintained. Straightening of the normal | | | lumbar lordosis.Minimal retrolisthesis of L1 on L2. Conus terminates | | | at L1. Cauda equina nerve roots are diffusely thickened. 3.8 cm | | | fusiform infrarenal abdominal aortic aneurysm. Multiple simple | | | rightrenal cysts, the largest measuring 2.5 cm. L1-L2: Large | | | broad-based disc bulge across the entire posterior aspect of | | | theinterspace. Mild posterior facet degenerative changes. This | | | combines to producea moderate central canal stenosis with crowding of | | | the cauda equina nerve roots. L2-L3: Moderate broad-based disc bulge. | | | Short pedicles. Moderate posterior facetdegenerative change. These | | | changes combine to produce moderately severe centralcanal stenosis (7 | | | mm) and compaction of the cauda equina nerve roots. L3-L4: Disc space | | | narrowing and posterior surgical changes suggesting laminotomyand | | | discectomy. Anterior epidural lipomatosis and moderate broad-based | | | discbulge. Moderately severe facet degenerative changes. This results | | | in mildcentral canal stenosis and mild bilateral foraminal narrowing. | | | L4-L5: Similar to L3-L4 with discectomy and laminectomy changes. Small | | | recurrentdisc bulge and anterior epidural lipomatosis. Moderately | | | severe facetdegenerative changes. Mild central canal stenosis with | | | moderate foraminalnarrowing right greater than left. L5-S1: Small | | | broad-based disc bulge and moderate facet degenerative | | | changes.Epidural lipomatosis. No central canal stenosis but moderately | | | severe leftforaminal narrowing. IMPRESSION - 1. 3.8 cm fusiform | | | infrarenal abdominal aortic aneurysm. 2. Prior L3-L4 and L4-L5 | | | laminectomy and discectomy. Small recurrent disc bulgesat each of | | | these levels, but only mild central canal stenosis and | | | foraminalnarrowing greatest on the right at L4-L5. 3. Multifactorial | | | moderately severe central canal stenosis at L2-L3. Similarmoderate | | | central canal stenosis at L1-L2. 4. Old 50% compression deformity of | | | L1. 5. 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 | | | Dictated and Signed by: Hua Olivas MD Electronically signed: | | | 02/24/2014 5:05 PM | | |foraminal narrowing. | | | | | |IMPRESSION - | | |1. 3.8 cm fusiform infrarenal abdominal aortic aneurysm. | | | | | |2. Prior L3-L4 and L4-L5 laminectomy and discectomy. Small recurrent disc bulges | | |at each of these levels, but only mild central canal stenosis and foraminal | | |narrowing greatest on the right at L4-L5. | | | | | |3. Multifactorial moderately severe central canal stenosis at L2-L3. Similar | | |moderate central canal stenosis at L1-L2. | | | | | |4. Old 50% compression deformity of L1. | | | | | |5. Thickened cauda equina nerve roots suggesting central canal stenosis has | | |produced some degree of compressive arachnoiditis. | | | | | |Dictated and Signed by: Hua Olivas MD | | | Electronically signed: 02/24/2014 5:05 PM | | + +--------- --------+ + + | Procedure Note | + + | Hugo, Rad Results In - 02/24/2014 5:08 PM PDT MRI LUMBAR SPINE WITHOUT CONTRAST: | | 02/24/2014 3:50 PMCLINICAL HISTORY: BACK PAINCOMPARISON: NoneTECHNIQUE: In the 1.5T | | scanner multiplanar, multisequence imaging of the lumbarspine is performed.FINDINGS: | | There are 5 lumbar-type vertebral bodies.50% compression deformity ofL1, with no | | abnormal marrow signal to suggest acuity. Other vertebral bodyheights are normally | | maintained. Straightening of the normal lumbar lordosis.Minimal retrolisthesis of L1 on | | L2.Conus terminates at L1. Cauda equina nerve roots are diffusely thickened.3.8 cm | | fusiform infrarenal abdominal aortic aneurysm. Multiple simple rightrenal cysts, the | | largest measuring 2.5 cm.L1-L2: Large broad-based disc bulge across the entire posterior | | aspect of theinterspace. Mild posterior facet degenerative changes. This combines to | | producea moderate central canal stenosis with crowding of the cauda equina nerve | | roots.L2-L3: Moderate broad-based disc bulge. Short pedicles. Moderate posterior | | facetdegenerative change. These changes combine to produce moderately severe | | centralcanal stenosis (7 mm) and compaction of the cauda equina nerve roots.L3-L4: Disc | | space narrowing and posterior surgical changes suggesting laminotomyand discectomy. | | Anterior epidural lipomatosis and moderate broad-based discbulge. Moderately severe | | facet degenerative changes. This results in mildcentral canal stenosis and mild | | bilateral foraminal narrowing.L4-L5: Similar to L3-L4 with discectomy and laminectomy | | changes. Small recurrentdisc bulge and anterior epidural lipomatosis. Moderately severe | | facetdegenerative changes. Mild central canal stenosis with moderate foraminalnarrowing | | right greater than left.L5-S1: Small broad-based disc bulge and moderate facet | | degenerative changes.Epidural lipomatosis. No central canal stenosis but moderately | | severe leftforaminal narrowing.IMPRESSION - 1. 3.8 cm fusiform infrarenal abdominal | | aortic aneurysm.2. Prior L3-L4 and L4-L5 laminectomy and discectomy. Small recurrent | | disc bulgesat each of these levels, but only mild central canal stenosis and | | foraminalnarrowing greatest on the right at L4-L5.3. Multifactorial moderately severe | | central canal stenosis at L2-L3. Similarmoderate central canal stenosis at L1-L2.4. Old | | 50% compression deformity of L1.5. 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 | | | |L4-L5: Similar to L3-L4 with discectomy and laminectomy changes. Small recurrent | |disc bulge and anterior epidural lipomatosis. Moderately severe facet | |degenerative changes. Mild central canal stenosis with moderate foraminal | |narrowing right greater than left. | | | |L5-S1: Small broad-based disc bulge and moderate facet degenerative changes. | |Epidural lipomatosis. No central canal stenosis but moderately severe left | |foraminal narrowing. | | | |IMPRESSION - | |1. 3.8 cm fusiform infrarenal abdominal aortic aneurysm. | | | |2. Prior L3-L4 and L4-L5 laminectomy and discectomy. Small recurrent disc bulges | |at each of these levels, but only mild central canal stenosis and foraminal | |narrowing greatest on the right at L4-L5. | | | |3. Multifactorial moderately severe central canal stenosis at L2-L3. Similar | |moderate central canal stenosis at L1-L2. | | | |4. Old 50% compression deformity of L1. | | | |5. Thickened cauda equina nerve roots suggesting central canal stenosis has | |produced some degree of compressive arachnoiditis. | | | |Dictated and Signed by: Hua Olivas MD | | Electronically signed: 02/24/2014 5:05 PM | + + + +---------+ + + | Performing | Address | City/State/Zipcode | Phone Number | | Organization | | | | + +---------+ + + | [facility] | | | [phone] | + +---------+ + + | [facility] | | | [phone] | + +---------+ + + documented in this encounter Visit Diagnoses + + | Diagnosis | + + | Back pain Backache, unspecified | + + documented in this encounter"
--- OUTSIDE RECORDS SUMMARY | ~2019-10-24 | XMS | Encounter Summary ---
Demographics + + + | Address | [address] | | | [place] [address] | + + + | Home Phone | | + + + | Preferred Language | Unknown | + + + | Marital Status | | + + + | Jain Affiliation | Unknown | + + + | Race | Unknown | + + + | Ethnic Group | Unknown | + + + Author + + + | Author | [facility] | | | and [place] | + + + | Organization | [facility] | | | and [place] | [...] Team Providers + +------+ + | Care Casino Cashier Name | Role | Phone | + +------+ + | Radha Feng | PCP | | + +------+ + Reason for Visit + + + | Reason | Comments | + + + | Follow-up | | + + + | Coronary Artery | | | Disease | | + + + | Bradycardia | | + + + | Hypertension | | + + + Follow Up (Routine) +--------+--------+ + + + + | Status | Reason | Specialty | Diagnoses / | Referred By | Referred To | | | | | Procedures | Contact | Contact | +--------+--------+ + + + + | Closed | | Cardiology | Diagnoses | Jung, | Ethel, | | | | | Abdominal | KRISTINA Nielsen | MD Freddy | | | | | aortic | 77 | [address] | | | | | aneurysm, | [place] | [address] | | | | | without | [address] [place] | [place], | | | | | rupture | [place], [place] | [place] [address] | | | | | ([facility]) | [id number] | Phone: | | | | | Atherosclero | Phone: | [phone] | | | | | tic heart | [phone] | Fax: | | | | | disease of | Fax: | [phone] | | | | | kenaitze | [phone] | | | | | | coronary | | | | | | | artery | | | | | | | without | | | | | | | angina | | | | | | | pectoris | | | | | | | Essential | | | | | | | (primary) | | | | | | | hypertension | | | | | | | Procedures | | | | | | | FUP | | | +--------+--------+ + + + + Encounter Details +--------+---------+ + + + | Date | Type | Department | Care Team | Description | +--------+---------+ + + + | 03/21/ | Office | [facility] | Radha, | Coronary artery | | 2018 | Visit | CARDIOLOGY [address] | [address] | disease involving | | | | [address] [place], | [address] [place], | kenaitze coronary | | | | [place] [address] | [place] [address] | artery of kenaitze | | | | [phone] | [phone] | heart without angina | | | | | | pectoris (Primary | | | | | | Dx); Essential | | | | | | hypertension with | | | | | | goal blood pressure | | | | | | less than 130/80; | | | | | | Coronary artery | | | | | | disease, angina | | | | | | presence | | | | | | unspecified, | | | | | | unspecified vessel | | | | | | or lesion type, | | | | | | unspecified whether | | | | | | kenaitze or | | | | | | transplanted heart | +--------+---------+ + + + Social History [...] + + documented as of this encounter Last Filed Vital Signs + + + + + | Vital Sign | Reading | Time Taken | Comments | + + + + + | Blood Pressure | 120/70 | 03/21/2019 10:15 AM | | | | | PDT | | + + + + + | Pulse | - | - | | + + + + + | Temperature | - | - | | + + + + + | Respiratory Rate | - | - | | + + + + + | Oxygen Saturation | - | - | | + + + + + | Inhaled Oxygen | - | - | | | Concentration | | | | + + + + + | Weight | 101.2 kg (223 lb 1.7 | 03/21/2019 10:15 AM | | | | oz) | PDT | | + + + + + | Height | 170.2 cm (5' 7") | 03/21/2019 10:15 AM | | | | | PDT | | + + + + + | Body Mass Index | 34.94 | 03/21/2019 10:15 AM | | | | | PDT | | + + + + + documented in this encounter Patient Instructions Patient Instructions Jessica Garcia ARNP - 03/21/2019 11:00 AM PDT1. The current medic al regimen is effective; continue present plan and medications. 2. He will follow up in 6 months, or sooner with concerns. documented in this encounter Progress Notes Jessica Garcia ARNP - 03/21/2019 11:00 AM PDTFormatting of this note might be differen t from the original. PATIENT NAME: Cosme Michaud : 1940: AGE: 78 y.o. PRIMARY CARE: [facility] OUTPATIENT FOLLOW UP VISIT Date of Service: 03/21/2019 HISTORY OF PRESENT ILLNESS: Cosme Michaud is a 78 y.o. male with a history of coronary artery disease, hypothyro idism, obesity, inactivity, hypertension and COPD. He is being seen today for 2 month follo w up. He was last seen 01/02/19 at which time a referral to cardiac rehab at [facility] for CAD , and she was to start metoprolol succinate 12.5 mg once nightly. Continue taking losartan 2 5 mg once daily, and she would check her blood pressure and pulse twice daily for two weeks and return the log to our office. Follow up in 2 months for office visit, or sooner with myrna canela. Since that time, she was seen by his PCP for 6 month follow up. He has had a good energy level. He tries to stay active. He is going to cardio rehab 2 sidney es a week He has not had any chest pain or discomfort at rest or with exertion. He has n ot noticed shortness of breath. He has not had any lightheadedness or dizziness. He has no t noticed palpitations. He has not had leg swelling. He sleeps on 2 pillows at night, whic h is his norm, and does not wake up at night feeling short of breath. he does not use a CP AP machine or oxygen. MEDICAL, SURGICAL, AND PERSONAL HISTORY Past Medical, Surgical, Family, and Social History are reviewed in EPIC. CURRENT PROBLEMS Patient Active Problem List Diagnosis Chest pain Coronary artery disease involving kenaitze coronary artery of kenaitze heart without angina pectoris Hypothyroidism AAA (abdominal aortic aneurysm) COPD (chronic obstructive pulmonary disease) Essential hypertension with goal blood pressure less than 130/80 Cough Dry eyes Anemia Trichiasis Bilateral tinnitus Ocular hypertension Refractive amblyopia Age-related nuclear cataract, bilateral Hypertensive retinopathy Keratoconjunctivitis sicca Ectropion of eyelid Achrochordon Wrist pain Coronary arteriosclerosis Left arm pain Abdominal aortic aneurysm (AAA) Sleep related leg cramps Aniseikonia Chronic low back pain IBS (irritable bowel syndrome) Hemorrhoids Adenomatous polyp of colon Sleep apnea Hypertension Tobacco dependence in remission Hearing loss Gout CURRENT MEDICATIONS Current Outpatient Medications Medication Sig Dispense Refill acetaminophen (TYLENOL) 325 mg tablet Take 650 mg by mouth every 4 hours as needed for Pain. aspirin 81 MG tablet Take 81 mg by mouth Daily. atorvaSTATin (LIPITOR) 40 mg tablet Take 1 tablet by mouth Daily. 90 tablet 3 clopidogrel (PLAVIX) 75 mg tablet Take 1 tablet by mouth Daily. 90 tablet 3 colchicine 0.6 mg tablet Take 0.6 mg by mouth as needed. diclofenac (VOLTAREN) 75 mg EC tablet Take 1 tablet by mouth Daily. 90 tablet 0 ferrous sulfate 325 mg tablet Take 325 mg by mouth daily (with breakfast). FOLIC ACID PO Take 1 tablet by mouth Daily. Glucosamine 750 MG TABS Take by mouth. levothyroxine (SYNTHROID) 25 mcg tablet Take 25 mcg by mouth Daily. losartan (COZAAR) 25 mg tablet Take 1 tablet by mouth Daily. 90 tablet 3 metoprolol succinate (TOPROL-XL) 25 mg 24 hr tablet Take 0.5 tablets by mouth Daily. At night 45 tablet 3 Misc Natural Products (TURMERIC CURCUMIN) CAPS Take 1 capsule by mouth Daily. Multiple Vitamins-Minerals (OCUVITE EXTRA) TABS Take 1 capsule by mouth Daily. nitroglycerin (NITROSTAT) 0.[address] 0.4 mg under the tongue every 5 minute s as needed for Chest pain. Wpmrmcorf-Eurfxeqsfu-KW-APAP (NYQUIL PO) Take 750 mg by mouth. No current facility-administered medications for this visit. ALLERGIES Allergies Allergen Reactions Tramadol Anxiety ROS Review of Systems Constitutional: Positive for malaise/fatigue. Respiratory: Negative for shortness of breath. Cardiovascular: Negative for chest pain, palpitations and leg swelling. Neurological: Negative for dizziness and weakness. Lightheaded = No OBJECTIVE: PHYSICAL EXAM BP 120/70 | Ht 1.702 m (5' 7") | Wt 101.2 kg (223 lb 1.7 oz) | BMI 34.94 kg/m Physical Exam Constitutional: He is oriented to person, place, and time. He appears well-developed and we ll-nourished. Elderly male individual arrives alone and using a cane, no acute distress. Neck: Normal carotid pulses and no JVD (No JVD) present. Carotid bruit is not present (Angely r). Cardiovascular: Normal rate, regular rhythm, S1 normal, S2 normal and intact distal pulses. PMI is not displaced. Exam reveals no gallop and no friction rub. Murmur heard. Systolic murmur is present with a grade of 2/6. Pulses: Carotid pulses are 2+ on the right side, and 2+ on the left side. Radial pulses are 2+ on the right side, and 2+ on the left side. Posterior tibial pulses are 2+ on the right side, and 2+ on the left side. Pulmonary/Chest: Effort normal and breath sounds normal. No accessory muscle usage. No resp iratory distress. He has no decreased breath sounds. He has no wheezes. He has no rhonchi. H e has no rales. Abdominal: Soft. Normal appearance and normal aorta. He exhibits no abdominal bruit. There is no hepatosplenomegaly. There is no tenderness. Musculoskeletal: He exhibits no edema (no leg edema). Neurological: He is alert and oriented to person, place, and time. Gait normal. Skin: Skin is warm and dry. No cyanosis. Nails show no clubbing. Psychiatric: He has a normal mood and affect. His mood appears not anxious. He does not exh ibit a depressed mood. Vitals reviewed. ECG: I personally independently reviewed ECG tracing during this visit (interpreted and hiral led by another provider): Results for orders placed or performed in visit on 01/02/19 ECG 12 lead Result Value Ref Range INTERPRETATION TEXT Sinus rhythm Otherwise normal ECG When compared with ECG of 17-NOV-2017 13:41, Current undetermined rhythm precludes rhythm comparison, needs review Confirmed by FREDDY DAVENPORT MD ([id number]) on 01/03/2019 11:29:26 AM LAB RESULTS reviewed during visit today primarily from [facility]: LIPID Lab Results Component Value Date CHOL 119 01/02/2019 TRIG 85 01/02/2019 HDL 34 (L) 01/02/2019 LDL 68 01/02/2019 CHOLHDL 3.5 01/02/2019 LDLEX 74 12/05/2018 HDLEX 43 12/05/2018 TRIGEX 99 12/05/2018 CHOLEX 137 12/05/2018 CHEMISTRY Lab Results Component Value Date GLU 110 (H) 01/02/2019 GLUEX 113 (A) 12/05/2018 NA 138 01/02/2019 NAEX 140 12/05/2018 K 3.9 01/02/2019 KEX 4.3 12/05/2018 CL 104 01/02/2019 CLEX 104 12/05/2018 CO2 28 01/02/2019 CO2EX 26 12/05/2018 CALCIUM 9.4 01/02/2019 ALKPHOS 68 01/02/2019 AST 22 01/02/2019 ASTEX 18 12/05/2018 ALT 14 01/02/2019 ALTEX 12 12/05/2018 BILITOT 0.7 01/02/2019 CREA 0.98 01/02/2019 BUN 23 01/02/2019 EGFR >60 10/11/2017 EGFREX 60 12/05/2018 CREEX 1.0 12/05/2018 HEMATOLOGY Lab Results Component Value Date WBC 8.2 01/02/2019 WBCEX 9.3 12/05/2018 HGB 14.2 01/02/2019 HGBEX 14.4 12/05/2018 HCT 43.1 01/02/2019 HCTEX 43.6 12/05/2018 PLT 187 01/02/2019 PLTEX 190 12/05/2018 Lab Results Component Value Date TSHEX 4.570 (A) 12/05/2018 I reviewed records from PCP for office visit on 11/11/18 which is summarized in the HPI. RESULTS- I reviewed reports from [facility]: No results found. Above data and testing is reviewed this visit; testing below is historical data unless othe rwise specified. ASSESSMENT: 1. Coronary artery disease with recurrent chest pain A. Echocardiogram on 11/30/2010 shows normal left ventricular size, wall thickness and motion, preserved left ventricular systolic function, LVEF is 60%, grade 1 left ventricular diastolic dysfunction, mild mitral valve regurgitation, mild tricuspid va lve regurgitation. B. LHC on 03/09/2011 shows non-Q-wave myocardial infarction with a cute coronary syndrome, three-vessel coronary artery disease. However, most important left a nterior descending with subtotal occlusion status post percutaneous transluminal coronary an gioplasty and stenting as above, abdominal aortic aneurysm, hypokinetic apex, likely seconda ry to stunned myocardium. The ejection fraction is around 60%. C. Stress Test on 06/27/2017 shows Regadenoson EKG is negative, abno rmal Regadenoson Sestamibi myocardial perfusion study with a small size, mainly reversible d efect of a mild severity in the mid and distal inferior wall, this suggests potential small size myocardial ischemia of a dominant right coronary artery territories. However, due to the patient's body habitus, inferior/diaphragmatic soft tissue attenuation cannot be complet ottoniel ruled out. Gated SPECT reveals a normal left ventricular wall thickness and motion, pres erved left ventricular systolic function. LVEF by gated SPECT is 75 %. D. Angiogram 10/02/[address] Davenport shows borderline coronary art silvia disease; 70% stenosis at the midportion of the LAD and 70% stenosis to the distal RCA, t here is a right dominate circulation, normal LV systolic function with an EF of 60%, Systemi c blood pressure is normal, there was successful hemostasis with a TR hemostatic band. E. Radial artery approach, instantaneous wave-free ratio of the lef t anterior descending, primary stenting of distal right coronary artery with a 2.75 x 24 mm synergy drug-eluting stenton 10/10/[address] Flores[address] Nile. Today, 03/21/2019, he is asymptomatic, no chest discomfort. He i s on a medical regimen with dual antiplatelet therapy, aspirin, ARB, beta-rayna and statin . There are no signs or symptoms of overt congestive heart failure, and his physical exam sh ows no significant fluid retention. He is in class I- No symptoms; no limitations of activi ties of the [employer] functional class. Heart failure stage A-pre-heart ami lure 2. Bradycardia and history of 4 second pause right after the intervention A. Holter Monitor on 12/21/18 shows the predominant rhythm is normal sinus with the heart rate ranging between 54 and 97 beats per minute, the average heart rat e was 75 beats per minute during the 44:37 hour recording, very rareprematureventricular beats including one couplet, occasional premature atrialbeats including 6paroxysmal atr ial tachycardiaruns and 8 couplets, the longest run was 4 beats at a maximum rate of 156 b eats per minute, 87 runs of sinusbradycardia, the longest run 47 beats (10:43-2) and the m inimum rate 51 beats per minute (09:25-2), the patient did not report any symptoms, by Venkata Davenport MD. B. Today, 03/21/2019, he feels palpitations are well controlled on current regimen. 3. Hypertension A. Today, 03/21/2019, his blood pressure is well controlled. 4. Hyperlipidemia A.Today, 03/21/2019, he remains on atorvastatin. 5. Obstructive sleep apnea A. Today, 03/21/2019, utilizing CPAP 6. Obesity A. Today, 03/21/2019, ongoing cardiac rehabilitation 7. Inactivity A. Today, 03/21/2019, ongoing cardiac rehabilitation 8. COPD A. He mentions this has been better in the past month. PLAN: 1. Patient is doing well and is working on lifestyle modifications and cardiac rehabilitati on. He will continue same therapeutic medical regimen 2. He will follow up in 6 months for office visit, or sooner with concerns. He will conta ct our office sooner if any concerns Portions of this chart may have been created with [employer] voice recognition software. Occasi onal wrong-word or sound-alike substitutions may have occurred due to the inherent villegas itations of voice recognition software. Please read the chart carefully and recognize, using context, where these substitutions have occurred. documented in th is encounter Plan of Treatment +--------+---------+ + + + | Date | Type | Specialty | Care Team | Description | +--------+---------+ + + + | 03/24/ | Office | Cardiology | Radha, | | | 2019 | Visit | | [facility] [address] | | | | | | [place], | | | | | | [place] [address] | | | | | | [phone] | | | | | | | | +--------+---------+ + + + documented as of this encounter Procedures + +--------+ + + + | Procedure Name | Priori | Date/Time | Associated Diagnosis | Comments | | | ty | | | | + +--------+ + + + | ECG - EXTERNAL SCAN | | 04/16/2019 | | Results for this | | | | 12:00 AM | | procedure are in the | | | | PST | | results section. | + +--------+ + + + documented in this encounter Results ECG - EXTERNAL SCAN (04/16/2019 12:00 AM PST) + + + | Narrative | Performed At | + + + | Ordered by an | | | unspecified provider. | | + + + documented in this encounter Visit Diagnoses + + | Diagnosis | + + | Coronary artery disease involving kenaitze coronary artery of kenaitze heart without | | angina pectoris - Primary | + + | Essential hypertension with goal blood pressure less than 130/80 | + + | Coronary artery disease, angina presence unspecified, unspecified vessel or lesion | | type, unspecified whether kenaitze or transplanted heart | + + documented in this encounter
--- OUTSIDE RECORDS SUMMARY | ~2019-10-24 | XMS | Encounter Summary ---
Demographics + + + | Address | [address] | | | [place] [address] | + + + | Home Phone | | + + + | Preferred Language | Unknown | + + + | Marital Status | | + + + | Scientology Affiliation | Unknown | + + + | Race | Unknown | + + + | Ethnic Group | Unknown | + + + Author + + + | Author | [facility] | | | and [place] | + + + | Organization | [facility] | | | and [place] [...] Team Providers + +------+ + | Care Wood Tool Maker Name | Role | Phone | + +------+ + | Radha Feng | PCP | | + +------+ + Reason for Visit +--------+ + | Reason | Comments | +--------+ + | Other | | +--------+ + Encounter Details +--------+ + + + + | Date | Type | Department | Care Team | Description | +--------+ + + + + | 09/22/ | Telephone | [facility] | Radha, | Other | | 2020 | | CARDIOLOGY [address] | Jessica BARREL ROLLER OPERATOR [address] | | | | | [place], | [place], | | | | | [place] [address] | [place] [address] | | | | | [phone] | | | | | | | [...] | | | | | | [place], | | | | | | [place] [address] | | | | | | [phone] | | | | | | | | +--------+---------+ + + + documented as of this encounter Visit Diagnoses Not on filedocumented in this encounter"
--- OUTSIDE RECORDS SUMMARY | ~2019-10-24 | XMS | Encounter Summary ---
Demographics + + + | Address | [address] | | | [place] [address] | + + + | Home Phone | | + + + | Preferred Language | Unknown | + + + | Marital Status | | + + + | Cheondoism Affiliation | Unknown | + + + | Race | Unknown | + + + | Ethnic Group | Unknown | + + + Author + + + | Author | [facility] | | | and [place] | + + + | Organization | [facility] | | | and [place] | [...] Team Providers + +------+ + | Care Tower Crane Operator Name | Role | Phone | + +------+ + | Gia Feng NP | PCP | | + +------+ + Reason for Visit + + + | Reason | Comments | + + + | Appointment | HOLTER MONITOR | + + + Encounter Details +--------+ + + + + | Date | Type | Department | Care Team | Description | +--------+ + + + + | 04/11/ | Telephone | [facility] | NielsvishalrupinderKavitha, | Appointment (HOLTER | | 2018 | | CARDIOLOGY [address] | MD [address] | MONITOR) | | | | [place], | [place], | | | | | [place] [address] | [place] [address] | | | | | [phone] | | | | | | | [...] | | | | | | [place] | | | | | | [place] [address] | | | | | | [phone] | | | | | | | | +--------+---------+ + + + documented as of this encounter Visit Diagnoses Not on filedocumented in this encounter"
--- OUTSIDE RECORDS SUMMARY | ~2019-10-24 | XMS | Encounter Summary ---
Demographics + + + | Address | [address] | | | [place] [address] | + + + | Home Phone | | + + + | Preferred Language | Unknown | + + + | Marital Status | | + + + | Scientologist Affiliation | Unknown | + + + | Race | Unknown | + + + | Ethnic Group | Unknown | + + + Author + + + | Author | [facility] | | | and Tevinana | + + + | Organization | [facility] | | | and Tevinana | [...] Team Providers + +------+ + | Care Center Manager Name | Role | Phone | + +------+ + | Gia Feng NP | PCP | | + +------+ + Encounter Details +--------+ + + + + | Date | Type | Department | Care Team | Description | +--------+ + + + + | 03/09/ | Orders Only | [facility] | Kev Dudley MD | | | 2010 | | CONVERSION | [address] | | | | | [address] | [place] [address] | | | | | [address] [place], [place] | [phone] | | | | | [address] | | | | | | [phone] | | | +--------+ + + + [...] | Cardiology | Radha, | | | 2020 | Visit | | [address] | | | | | | [place], | | | | | | [place] [address] | | | | | | [phone] | | | | | | | | +--------+---------+ + + + documented as of this encounter Procedures + +--------+ + + + | Procedure Name | Priori | Date/Time | Associated Diagnosis | Comments | | | ty | | | | + +--------+ + + + | CV CARDIAC PROCEDURE | Routin | 03/09/2011 | | Results for this | | | e | 1:21 PM | | procedure are in the | | | | PDT | | results section. | + +--------+ + + + documented in this encounter Results CV CARDIAC PROCEDURE (03/09/2011 1:21 PM PDT) + + | Specimen | + + | | + + + + + | Narrative | Performed At | + + + | formerly [facility] [id number] Ph: | | | Patient Name: COSME BLACK Date of : | | | 1940 Medical Record: [id number] Account: [id number] | | | Exam Date/Time: 03/09/2011 11:37 Ordering | | | Physician: KEV DUDLEY Order Detail: [id number] Exam Description: | | | [facility] CORONARY ANGIO | | | | | | PROCEDURES 1. Left heart catheterization with left ventriculogram. | | | 2. Selective coronary angiography. 3. Abdominal aortic angiography. | | | 4. Percutaneous transluminal coronary angioplasty of mid left anterior | | | descending with 3.0 x 12 mm Trek balloon followed by stenting | | | with 3.0 x 15 mm Promus drug-eluting stent. INDICATIONS This | | | is a 70 year old with tobacco dependence, hypertension, and | | | hyperlipidemia, who presented with chest pain and mildly positive | | | troponin. During his observation today in the hospital, he developed | | | 5/10 chest pain and he was brought down to the catheterization lab on | | | emergent basis. For details regarding his presentation, kindly refer | | | to the history and physical provided. DESCRIPTION OF PROCEDURE | | | The patient was brought to the catheterization lab in the fasting | | | state and was prepped and draped in the usual sterile fashion. | | | Arterial access was obtained via right femoral artery and a 6-Vatican Citizen | | | arterial sheath was placed. A 6-Vatican Citizen JL4 catheter was then advanced | | | under fluoroscopic guidance and engaged with the ostium of the left | | | main coronary artery, and multiple projections of the left coronary | | | systems were obtained with the use of contrast injections. The | | | catheter was then exchanged to a 6-V[place] Citizen JR4 catheter, which was | | | advanced under fluoroscopic guidance and engaged with the ostium of | | | the right coronary artery, and multiple projections of the right | | | coronary artery were obtained with the use of contrast injections. | | | The catheter was then exchanged to a 6-V[place] Citizen pigtail catheter which | | | was advanced into the left ventricle, and projections of left | | | ventricular function in the GONZALES view were done with contrast | | | injections. Because of the tortuosity of the iliac system, the | | | 6-Vatican Citizen sheath was exchanged to a 35 cm 7-Vatican Citizen sheath, which | | | allowed us to engage the JR4 guider with the left main. Aortogram was | | | done to evaluate the abdominal aorta. FINDINGS HEMODYNAMICS | | | Pressures: Aortic pressure 143/67 with a mean of 99. LV 144/17. | | | Gradient: There was no gradient between the LV and aorta. CORONARY | | | ANGIOGRAPHY The coronary system was right dominant. 1. Left main | | | bifurcated into the LAD and left circumflex. Left main artery was | | | free of significant disease. 2. Left anterior descending artery has | | | 30% proximal stenosis. The vessel, however, then had subtotal | | | occlusion with JAI-2 flow in it right before the second diagonal | | | branch. 3. The circumflex coronary artery has a 30% proximal | | | stenosis. 4. The right coronary artery was dominant vessel. A 50% | | | plaque stenosis was found after the RV branch. The PDA branch has | | | a 60% stenosis. LEFT VENTRICULOGRAM Left ventriculogram in GONZALES | | | view at the end of the procedure showed hypokinetic apex with | | | ejection fraction of 60%. ABDOMINAL ANGIOGRAM The abdominal | | | aortic angiography was remarkable for the presence of infrarenal | | | aneurysm. The ostium of the right common iliac artery appears to be | | | severely diseased. DESCRIPTION OF INTERVENTIONAL TECHNIQUE The | | | patient has unstable angina pectoris with enzyme leaks and subtotal | | | occlusion of the LAD with JAI-2 flow. With that, I proceeded with | | | intervention, and JL4 guider catheter was advanced and engaged with | | | the ostium of the left main, and heparin and Integrilin were given. | | | BMW guidewire was then threaded into the LAD and placed distally, | | | followed by angioplasty with 3.0 x 12 mm Trek balloon. The area of | | | concern was then stented with 3.0 x 15 mm Promus drug-eluting stent | | | with excellent result. The patient tolerated the procedure well and | | | became pain free at the end of the procedure. ESTIMATED BLOOD | | | LOSS Less than 50 mL. CONCLUSION 1. Non-Q-wave myocardial | | | infarction with acute coronary syndrome. 2. Three-vessel coronary | | | artery disease. However, most important left anterior descending | | | with subtotal occlusion status post percutaneous transluminal | | | coronary angioplasty and stenting as above. 3. Abdominal aortic | | | aneurysm. 4. 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 The ejection fraction is around 60%. | | | RECOMMENDATIONS Patient will need aggressive medical therapy. | | | P A KAMRYN/ana laura/[id number]/ | | | Read by KEV DUDLEY MD 03/09/2011 10:36 P Electronically | | | signed by Kev Dudley MD on 04/07/2011 9:14 AM | | + + + + + | Procedure Note | + + | Maximo Arias - 02/02/2019 10:51 AM PDT | | [facility] | | [facility] [address] | | | | | | Patient Name: COSME BLACK | | Date of : 1940 | | Medical Record: [id number] | | Account: [id number] | | | | | | Exam Date/Time: 03/09/2011 11:37 | | Ordering Physician: KEV DUDLEY | | Order Detail: [id number] | | Exam Description: [facility] | | | | PROCEDURES | | 1. Left heart catheterization with left ventriculogram. | | 2. Selective coronary angiography. | | 3. Abdominal aortic angiography. | | 4. Percutaneous transluminal coronary angioplasty of mid left anterior | | descending with 3.0 x 12 mm Trek balloon followed by stenting with | | 3.0 x 15 mm Promus drug-eluting stent. | | | | INDICATIONS | | This is a 70 year old with tobacco dependence, hypertension, and | | hyperlipidemia, who presented with chest pain and mildly positive | | troponin. During his observation today in the hospital, he developed | | 5/10 chest pain and he was brought down to the catheterization lab on | | emergent basis. For details regarding his presentation, kindly refer to | | the history and physical provided. | | | | DESCRIPTION OF PROCEDURE | | The patient was brought to the catheterization lab in the fasting state | | and was prepped and draped in the usual sterile fashion. Arterial access | | was obtained via right femoral artery and a 6-Vatican Citizen arterial sheath was | | placed. A 6-Vatican Citizen JL4 catheter was then advanced under fluoroscopic | | guidance and engaged with the ostium of the left main coronary artery, | | and multiple projections of the left coronary systems were obtained with | | the use of contrast injections. The catheter was then exchanged to a | | 6-[place] Citizen JR4 catheter, which was advanced under fluoroscopic guidance | | and engaged with the ostium of the right coronary artery, and multiple | | projections of the right coronary artery were obtained with the use of | | contrast injections. The catheter was then exchanged to a 6-[place] Citizen | | pigtail catheter which was advanced into the left ventricle, and | | projections of left ventricular function in the GONZALES view were done with | | contrast injections. Because of the tortuosity of the iliac system, the | | 6-V[place] Citizen sheath was exchanged to a 35 cm 7-Vatican Citizen sheath, which allowed | | us to engage the JR4 guider with the left main. Aortogram was done to | | evaluate the abdominal aorta. | | | | FINDINGS | | | | HEMODYNAMICS | | Pressures: Aortic pressure 143/67 with a mean of 99. LV 144/17. | | Gradient: There was no gradient between the LV and aorta. | | | | CORONARY ANGIOGRAPHY | | The coronary system was right dominant. | | 1. Left main bifurcated into the LAD and left circumflex. Left main | | artery was free of significant disease. | | 2. Left anterior descending artery has 30% proximal stenosis. The | | vessel, however, then had subtotal occlusion with JAI-2 flow in it | | right before the second diagonal branch. | | 3. The circumflex coronary artery has a 30% proximal stenosis. | | 4. The right coronary artery was dominant vessel. A 50% plaque stenosis | | was found after the RV branch. The PDA branch has a 60% stenosis. | | | | LEFT VENTRICULOGRAM | | Left ventriculogram in GONZALES view at the end of the procedure showed | | hypokinetic apex with ejection fraction of 60%. | | | | ABDOMINAL ANGIOGRAM | | The abdominal aortic angiography was remarkable for the presence of | | infrarenal aneurysm. The ostium of the right common iliac artery appears | | to be severely diseased. | | | | DESCRIPTION OF INTERVENTIONAL TECHNIQUE | | The patient has unstable angina pectoris with enzyme leaks and subtotal | | occlusion of the LAD with JAI-2 flow. With that, I proceeded with | | intervention, and JL4 guider catheter was advanced and engaged with the | | ostium of the left main, and heparin and Integrilin were given. BMW | | guidewire was then threaded into the LAD and placed distally, followed | | by angioplasty with 3.0 x 12 mm Trek balloon. The area of concern was | | then stented with 3.0 x 15 mm Promus drug-eluting stent with excellent | | result. The patient tolerated the procedure well and became pain free at | | the end of the procedure. | | | | ESTIMATED BLOOD LOSS | | Less than 50 mL. | | | | CONCLUSION | | 1. Non-Q-wave myocardial infarction with acute coronary syndrome. | | 2. Three-vessel coronary artery disease. However, most important left | | anterior descending with subtotal occlusion status post percutaneous | | transluminal coronary angioplasty and stenting as above. | | 3. Abdominal aortic aneurysm. | | 4. 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 The | | ejection fraction is around 60%. | | | | RECOMMENDATIONS | | Patient will need aggressive medical therapy. | | | | | | P | | A | | KAMRYN/ana laura/[id number]/ | | | | Read by | | KEV DUDLEY MD 03/09/2011 10:36 P | | | | | + + documented in this encounter Visit Diagnoses Not on filedocumented in this encounter"
--- OUTSIDE RECORDS SUMMARY | ~2019-10-24 | XMS | Encounter Summary ---
Demographics + + + | Address | [address] | | | [place] [address] | + + + | Home Phone | | + + + | Preferred Language | Unknown | + + + | Marital Status | | + + + | Gnosticist Affiliation | Unknown | + + + | Race | Unknown | + + + | Ethnic Group | Unknown | + + + Author + + + | Author | [facility] | | | and [place] | + + + | Organization | [facility] | | | and Tevinana [...] Team Providers + +------+ + | Care Police Detective Name | Role | Phone | + +------+ + PCP | Unavailable | + +------+ + Encounter Details +--------+ + + + + | Date | Type | Department | Care Team | Description | +--------+ + + + + | 07/15/ | Hospital | [facility] | Sd Rosales | | | 2011 - | Encounter | [facility] | MD [address] | | | | | [address] | [place] | | | / | | [place] [address] | [place] [address] | | | 2011 | | [phone] | [phone] | | | | | | | [...] [place], | | | | | | [place] [address] | | | | | | [phone] | | | | | | | | +--------+---------+ + + + documented as of this encounter Visit Diagnoses Not on filedocumented in this encounter"
--- OUTSIDE RECORDS SUMMARY | ~2019-10-24 | XMS | Encounter Summary ---
Demographics + + + | Address | [address] | | | [place] [address] | + + + | Home Phone | | + + + | Preferred Language | Unknown | + + + | Marital Status | | + + + | Denominational Affiliation | Unknown | + + + | Race | Unknown | + + + | Ethnic Group | Unknown | + + + Author + + + | Author | [facility] | | | and [place] | + + + | Organization | [facility] | | | and [place] | [...] Team Providers + +------+ + | Care Mud Grinder Name | Role | Phone | + +------+ + | Gai Feng NP | PCP | | + +------+ + Encounter Details +--------+ + + + + | Date | Type | Department | Care Team | Description | +--------+ + + + + | 10/02/ | Orders Only | [facility] | Conversion | | | 2018 | | CONVERSION [address] | Transaction, | | | | | [address] | Provider Unknown | | | | | [place] | [phone] | | | | | [address] | | | | | | | [...] [place], | | | | | | [place] [address] | | | | | | [phone] | | | | | | | | +--------+---------+ + + + documented as of this encounter Procedures + +--------+ + + + | Procedure Name | Priori | Date/Time | Associated Diagnosis | Comments | | | ty | | | | + +--------+ + + + | CV CARDIAC PROCEDURE | Routin | 10/02/2017 | | Results for this | | | e | 11:14 AM | | procedure are in the | | | | PDT | | results section. | + +--------+ + + + documented in this encounter Results CV CARDIAC PROCEDURE (10/02/2017 11:14 AM PDT) + + | Specimen | + + | | + + + + + | Narrative | Performed At | + + + | This is a non-reportable procedure without a radiologist report and | | | is used for image storage only | | + + + + + | Procedure Note | + + | Maximo Arias - 02/01/2019 10:31 AM PDT This is a non-reportable procedure | | without a radiologist report and isused for image storage only | + + documented in this encounter Visit Diagnoses Not on filedocumented in this encounter"
--- OUTSIDE RECORDS SUMMARY | ~2019-10-24 | XMS | Encounter Summary ---
Demographics + + + | Address | [address] | | | [place] [address] | + + + | Home Phone | | + + + | Preferred Language | Unknown | + + + | Marital Status | | + + + | Hoahaoism Affiliation | Unknown | + + + | Race | Unknown | + + + | Ethnic Group | Unknown | + + + Author + + + | Author | [facility] | | | and [place] | + + + | Organization | [facility] | | | and [...] Team Providers + +------+ + | Care Cocoa Bean Roaster Helper Name | Role | Phone | + +------+ + | Gia Feng NP | PCP | | + +------+ + Reason for Visit +--------+ + | Reason | Comments | +--------+ + | Other | records sent - [facility] | +--------+ + Encounter Details +--------+ + + + + | Date | Type | Department | Care Team | Description | +--------+ + + + + | 09/14/ | Telephone | [facility] | Kavitha Davenport, | Other (records sent | | 2018 | | CARDIOLOGY [address] | MD [address] [place] | - [facility]) | | | | [place], | [place], | | | | | [address] | [address] | | | | | [phone] | [phone] | | | | | | | [...] [place] | | | | | | [place] [address] | | | | | | [phone] | | | | | | | | +--------+---------+ + + + documented as of this encounter Visit Diagnoses Not on filedocumented in this encounter"
--- OUTSIDE RECORDS SUMMARY | ~2019-10-24 | XMS | Encounter Summary ---
Demographics + + + | Address | [address] | | | [place] [address] | + + + | Home Phone | | + + + | Preferred Language | Unknown | + + + | Marital Status | | + + + | Jehovah'S Witness Affiliation | Unknown | + + + | Race | Unknown | + + + | Ethnic Group | Unknown | + + + Author + + + | Author | [facility] | | | and [place] | + + + | Organization | [facility] | | | and [place]evinana [...] Team Providers + +------+ + | Care Contact Assembler Name | Role | Phone | + +------+ + | Gia Feng NP | PCP | | + +------+ + Reason for Visit +--------+ + | Reason | Comments | +--------+ + | Other | appointment rescheduled | +--------+ + Encounter Details +--------+ + + + + | Date | Type | Department | Care Team | Description | +--------+ + + + + | 09/12/ | Telephone | [facility] | Kavitha Davenport, | Other (appointment | | 2018 | | CARDIOLOGY [address] | MD [address] [place] | rescheduled) | | | | [place], | [place], | | | | | [place] [address] | [place] [address] | | | | | [phone] | [phone] | | | | | | | [...] [place], | | | | | | [place] [address] | | | | | | [phone] | | | | | | | | +--------+---------+ + + + documented as of this encounter Visit Diagnoses Not on filedocumented in this encounter"
--- OUTSIDE RECORDS SUMMARY | ~2019-10-24 | XMS | Encounter Summary ---
Demographics + + + | Address | [address] | | | [place] [address] | + + + | Home Phone | | + + + | Preferred Language | Unknown | + + + | Marital Status | | + + + | Amish Affiliation | Unknown | + + + | Race | Unknown | + + + | Ethnic Group | Unknown | + + + Author + + + | Author | [facility] | | | and Tevinana | + + + | Organization | [facility] | | | and Tevinana [...] Team Providers + +------+ + | Care Enterprise Application Administrator Name | Role | Phone | + [...] Bobby | | | | | | Spinal | Sd | | | | | | stenosis | MD Fernando | | | | | | Procedures | 77 | | | | | | MRI Lumbar | [place] | | | | | | Spine wo | DR [place] | | | | | | Contrast | [place] | | | | | | | [address] | | | | | | | Phone: | | | | | | | [phone] | | | | | | | Fax: | | | | | | | [phone] | | +--------+--------+ + + + + Reason for Visit Auth/Cert +--------+--------+ + + + + | Status | Reason | Specialty | Diagnoses / | Referred By | Referred To | | | | | Procedures | Contact | Contact | +--------+--------+ + + + + | Closed | | | | | | +--------+--------+ + + + + Encounter Details +--------+ + + + + | Date | Type | Department | Care Team | Description | +--------+ + + + + | 06/20/ | Hospital | [facility] | Sd Rosales | Spinal stenosis | | 2015 | Encounter | MED CTR MRI [address] | MD Fernando [address] | | | | | [place], | [place] | | | | | [place] [address] | [place] [address] | | | | | [phone] | [phone] | | | | | | | [...] [place], | | | | | | [place] [address] | | | | | | [phone] | | | | | | | | +--------+---------+ + + + documented as of this encounter Procedures + +--------+ + + + | Procedure Name | Priori | Date/Time | Associated Diagnosis | Comments | | | ty | | | | + +--------+ + + + | MRI LUMBAR SPINE WO | Routin | 06/20/2014 | Spinal stenosis | Results for this | | CONTRAST | e | 1:58 PM | | procedure are in the | | | | PST | | results section. | + +--------+ + + + documented in this encounter Results MRI Lumbar Spine wo Contrast (06/20/2014 1:58 PM PST) + + | Specimen | + + | | + + + + + | Narrative | Performed At | + + + | EXAM: MRI LUMBAR SPINE WO CONTRAST dated 06/20/2014 11:50 AM | [facility] | | HISTORY:SPINAL STENOSIS COMPARISON: Lumbar spine MRI dated | LAB | | February 24, 2014. TECHNIQUE: Multiplanar multisequence MR | | | imaging of the lumbar spine without contrast. This is performed on | | | a 1.5Tesla MRI scanner. FINDINGS:There are 5 lumbar-type | | | vertebral bodies. This is either assumed for counting purposes or | | | documented on prior studies. There is no significant scoliosis. | | | There is stable mild minimal retrolisthesis of L1, L2, and L5. | | | Stable moderate central compression deformity of L1. Stable mild | | | superior endplate deformity at T12. Diffuse disc desiccation and | | | disc narrowing. There are mild Modic type I endplate changes at | | | L3-L4 and L4-L5. The conus is seen terminating at the thoracolumbar | | | junction. The visible distal cord is unremarkable. Postsurgical | | | changes are present at L3 and L4 posteriorly. T11-T12 and T12-L1 are | | | relatively unremarkable and unchanged as seen on the sagittal | | | sequence. The following levels are evaluated in the axial plane: | | | L1-2: Retrolisthesis. Circumferential disc bulge. Facet | | | arthrosis bilaterally. Mild narrowing of the central spinal canal. | | | Mild to moderate encroachment on the left subarticular recess. | | | Mild bilateral neural foraminal narrowing. Prominent epidural fat. | | | This level is unchanged. L2-3: Circumferential disc bulge. | | | Facet arthrosis. Moderate narrowing of the central spinal canal. | | | Prominent epidural fat contributes to central spinal canal | | | narrowing. Mild right and jcgt-fi-wndhgjwf left neural foraminal | | | narrowing. This level has not significantly progressed. L3-4: | | | Circumferential disc bulge. Moderate bilateral facet arthrosis. | | | Encroachment in the subarticular recesses bilaterally. Posterior | | | decompressive changes. Moderate left and raep-ky-mpoushcm right | | | neural foraminal narrowing. This level is unchanged. L4-5: | | | Circumferential disc bulge and developing marginal osteophytes. | | | Bilateral facet arthrosis. Posterior decompressive changes. | | | Encroachment on the subarticular recesses right greater than left. | | | Bilateral neural foraminal narrowing. This is moderate to severe | | | on the right in moderate on the left. This may be slightly | | | progressed on the right. L5-S1: Retrolisthesis. Circumferential | | | disc bulge and marginal osteophytes. Mild facet arthrosis | | | bilaterally. The central spinal canal at this level is small mostly | | | due to epidural fat. The canal is unchanged. There is bilateral | | | neural foraminal narrowing. This is moderate to severe bilaterally | | | and unchanged. Stable T2 hyperintensity in the inferior right | | | kidney. This is probably a cyst. 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 | | | IMPRESSION - Slight progression of moderate to severe neural | | | foraminal narrowing on the right at L4-L5. Central spinal canal | | | narrowing and encroachment on the subarticular recesses at L2-L3, | | | L3-L4, L4-L5. Details are as above. Mild Modic type I endplate | | | changes at L3-L4 and L4-L5 could indicate a component of instability. | | | Dictated and Signed by: Weston Stephenson MD Electronically | | | signed: 06/20/2014 3:47 PM | | + + + + + | Procedure Note | + + | Maximo Arias Results In - 06/20/2014 3:51 PM PST EXAM: MRI LUMBAR SPINE WO CONTRAST | | dated 06/20/2014 11:50 AMHISTORY:SPINAL STENOSISCOMPARISON: Lumbar spine MRI dated | | February 24, 2014.TECHNIQUE: Multiplanar multisequence MR imaging of the lumbar spine | | withoutcontrast. This is performed on a 1.5Tesla MRI scanner. FINDINGS:There are 5 | | lumbar-type vertebral bodies. This is either assumed forcounting purposes or documented | | on prior studies. There is no significantscoliosis. There is stable mild minimal | | retrolisthesis of L1, L2, and L5. Stable moderate central compression deformity of L1. | | Stable mild superiorendplate deformity at T12. Diffuse disc desiccation and disc | | narrowing. Thereare mild Modic type I endplate changes at L3-L4 and L4-L5. The conus | | is seenterminating at the thoracolumbar junction. The visible distal cord | | isunremarkable. Postsurgical changes are present at L3 and L4 posteriorly. T11-T12 and | | T12-L1 are relatively unremarkable and unchanged as seen on thesagittal sequence.The | | following levels are evaluated in the axial plane:L1-2: Retrolisthesis. Circumferential | | disc bulge. Facet arthrosis bilaterally. Mild narrowing of the central spinal canal. | | Mild to moderate encroachment onthe left subarticular recess. Mild bilateral neural | | foraminal narrowing. Prominent epidural fat. This level is unchanged. L2-3: | | Circumferential disc bulge. Facet arthrosis. Moderate narrowing of thecentral spinal | | canal. Prominent epidural fat contributes to central spinalcanal narrowing. Mild right | | and irxr-iz-jbminpoi left neural foraminalnarrowing. This level has not significantly | | progressed.L3-4: Circumferential disc bulge. Moderate bilateral facet arthrosis. | | Encroachment in the subarticular recesses bilaterally. Posterior decompressivechanges. | | Moderate left and ipkm-cx-eyoeobnp right neural foraminal narrowing. This level is | | unchanged. L4-5: Circumferential disc bulge and developing marginal osteophytes. | | Bilateralfacet arthrosis. Posterior decompressive changes. Encroachment on | | thesubarticular recesses right greater than left. Bilateral neural foraminalnarrowing. | | This is moderate to severe on the right in moderate on the left. This may be slightly | | progressed on the right. L5-S1: Retrolisthesis. Circumferential disc bulge and marginal | | osteophytes. Mild facet arthrosis bilaterally. The central spinal canal at this level | | issmall mostly due to epidural fat. The canal is unchanged. There is bilateralneural | | foraminal narrowing. This is moderate to severe bilaterally andunchanged. Stable T2 | | hyperintensity in the inferior right kidney. This is probably a cyst. Aneurysmal | | dilatation of the infrarenal abdominal aorta measures about 3.8 cmand is | | unchanged.IMPRESSION - Slight progression of moderate to severe neural foraminal | | narrowing on the rightat L4-L5.Central spinal canal narrowing and encroachment on the | | subarticular recesses atL2-L3, L3-L4, L4-L5. Details are as above.Mild Modic type I | | endplate changes at L3-L4 and L4-L5 could indicate a componentof instability.Dictated | | and Signed by: Weston Stephenson MD Electronically signed: 06/20/2014 3:47 PM | |L4-5: Circumferential disc bulge and developing marginal osteophytes. Bilateral | |facet arthrosis. Posterior decompressive changes. Encroachment on the | |subarticular recesses right greater than left. Bilateral neural foraminal | |narrowing. This is moderate to severe on the right in moderate on the left. | |This may be slightly progressed on the right. | | | |L5-S1: Retrolisthesis. Circumferential disc bulge and marginal osteophytes. | |Mild facet arthrosis bilaterally. The central spinal canal at this level is | |small mostly due to epidural fat. The canal is unchanged. There is bilateral | |neural foraminal narrowing. This is moderate to severe bilaterally and | |unchanged. | | | |Stable T2 hyperintensity in the inferior right kidney. This is probably a cyst. | | Aneurysmal dilatation of the infrarenal abdominal aorta measures about 3.8 cm | |and is unchanged. | | | |IMPRESSION - | | | |Slight progression of moderate to severe neural foraminal narrowing on the right | |at L4-L5. | | | |Central spinal canal narrowing and encroachment on the subarticular recesses at | |L2-L3, L3-L4, L4-L5. Details are as above. | | | |Mild Modic type I endplate changes at L3-L4 and L4-L5 could indicate a component | |of instability. | | | |Dictated and Signed by: Weston Stephenson MD | | Electronically signed: 06/20/2014 3:47 PM | + + + +---------+ + + | Performing | Address | City/State/Zipcode | Phone Number | | Organization | | | | + +---------+ + + | [facility] | | | [phone] | + +---------+ + + | [facility] | | | [phone] | + +---------+ + + documented in this encounter Visit Diagnoses + + | Diagnosis | + + | Spinal stenosis Spinal stenosis, unspecified region other than cervical | + + documented in this encounter"
--- OUTSIDE RECORDS SUMMARY | ~2019-10-24 | XMS | Encounter Summary ---
Demographics + + + | Address | [address] | | | [place] [address] | + + + | Home Phone | | + + + | Preferred Language | Unknown | + + + | Marital Status | | + + + | Adventist Affiliation | Unknown | + + + | Race | Unknown | + + + | Ethnic Group | Unknown | + + + Author + + + | Author | [facility] | | | and Tevinana | + + + | Organization | [facility] [...] Team Providers + +------+ + | Care Laborer Vegetable Farm Name | Role | Phone | + +------+ + PCP | Unavailable | + +------+ + Encounter Details +--------+ + + + + | Date | Type | Department | Care Team | Description | +--------+ + + + + | 09/20/ | Hospital | [facility] | Eddie Lyles, | | | 2012 | Encounter | MED CTR EMERGENCY | [address] | | | | | CENTER [address] | [place] | | | | | [place] | [address] | | | | | [address] | | | | | | [phone] | | | +--------+ + + + [...] [place], | | | | | | [place] [address] | | | | | | [phone] | | | | | | | | +--------+---------+ + + + documented as of this encounter Procedures + +--------+ + + + | Procedure Name | Priori | Date/Time | Associated Diagnosis | Comments | | | ty | | | | + +--------+ + + + | XR CHEST PA AND | Routin | 09/20/2012 | | Results for this | | LATERAL | e | 4:33 PM | | procedure are in the | | | | PDT | | results section. | + +--------+ + + + documented in this encounter Results XR Chest PA and Lateral (09/20/2012 4:33 PM PDT) + + | Specimen | + + | | + + + + + | Narrative | Performed At | + + + | [facility] | [facility] | | [address] | [facility] | | [ rep [address]] [ rep [facility] | | st zip] Signed | - IMAGING | | | | | Patient Name: COSME BLACK | | | Physician: ALEXSANDER : 1940 Age: 72 Sex: M Unit | | | #: [id number] Exam Date: 09/20/12 Location: | | | ER Report #: [id number] Page: | | | %(RAD)RES..mtdd.print.filter("pg") of %(RAD) | | | RES..mtdd.print.filter("tpg") | | | | | | Accession Number: [id number] | | | CHEST X-RAY 09/20/2012 CLINICAL HISTORY: COUGH FOR TWO | | | WEEKS. COMPARISON: None. FINDINGS: Three views | | | of the chest were obtained. There is mild scar involving the | | | bilateral lung bases. There is hyperaeration. Bilateral lungs are | | | otherwise clear. Heart is of normal size. There is atherosclerosis | | | of the aorta. Mild spondylosis is present of the thoracic spine. | | | Moderate compression fracture is visualized of presumably L1. | | | IMPRESSION: 1. NO ACUTE FINDINGS. 2. MODERATE | | | COMPRESSION FRACTURE OF PRESUMABLY L1. Dictated Date/Time: | | | 09/20/2012 16:33 Transcribed Date/Time: 09/20/2012 16:41 | | | Soil Chemist: <<Signature on File>> | | | | | | Slade Lowe MD09/20/12 2301 <Electronically signed by Slade Lowe | | | MD> Slade Lowe MD 09/20/12 1633 Soil Chemist: | | | [employer] [id number]/11/13 1641 Eddie Lyles MD | | | | | + + + + + + + + | Performing | Address | City/State/Zipcode | Phone Number | | Organization | | | | + + + + + | [facility] | [address] | [place] | [phone] | | [facility] | | [address] | | | - IMAGING | | | | + + + + + documented in this encounter Visit Diagnoses Not on filedocumented in this encounter
--- OUTSIDE RECORDS SUMMARY | ~2019-10-24 | XMS | Encounter Summary ---
Demographics + + + | Address | [address] | | | [place] [address] | + + + | Home Phone | | + + + | Preferred Language | Unknown | + + + | Marital Status | | + + + | Taoist Affiliation | Unknown | + + + | Race | Unknown | + + + | Ethnic Group | Unknown | + + + Author + + + | Author | [facility] | | | and Tevinana | + + + | Organization | [facility] | | | and Tevinana [...] Team Providers + +------+ + | Care Special Crimes Investigator Name | Role | Phone | + +------+ + | Gia Feng NP | PCP | | + +------+ + Reason for Visit Auth/Cert +--------+--------+ + [...] Description | +--------+---------+ + + + | 01/11/ | Office | [facility] | Kavitha Davenport, | Chronic obstructive | | 2018 | Visit | MED CTR CARDIAC | MD Patrick Lamb [place] | pulmonary disease, | | | | REHABILITATION [address] | [facility], | unspecified COPD | | | | [facility] [place] [address] | type (HCC) (Primary | | | | [place] [address] | [phone] | Dx) | | | | [phone] | | | +--------+---------+ + + + [...] + documented as of this encounter Progress Milagros Gale-Estela Pandey, PSYCHODRAMATIST - 01/11/2018 12:00 PM PDT [facility] [address] [facility] [address] Cardiac Rehab Date: 01/11/2018 Patient Information Patient Name: Cosme Michaud Date [...] min Electronically signed by: Estela Bernal RRT, 01/11/2018 12:33 Patient Name: Cosme Michaud/: 1940/ lly signed by Estela Bernal RRT at 01/11/2018 12:33 PM PDTdocumented in this e ncounter Plan of Treatment +--------+---------+ + + + | Date | Type | Specialty | Care Team | Description | +--------+---------+ + + + | 03/24/ | Office | Cardiology | Radha, | | | 2019 | Visit | | [place] [address] | | | | | | [place], | | | | | | [place] [address] | | | | | | [phone] | | | | | | | | +--------+---------+ + + + documented as of this encounter Visit Diagnoses + + | Diagnosis | + + | Chronic obstructive pulmonary disease, unspecified COPD type (HCC) - Primary | + + documented in this encounter"
--- OUTSIDE RECORDS SUMMARY | ~2019-10-24 | XMS | Encounter Summary ---
Demographics + + + | Address | [address] | | | [place] [address] | + + + | Home Phone | | + + + | Preferred Language | Unknown | + + + | Marital Status | | + + + | Protestant Affiliation | Unknown | + + + | Race | Unknown | + + + | Ethnic Group | Unknown | + + + Author + + + | Author | [facility] | | | and Tevinana | + + + | Organization | [facility] | | | [...] Team Providers + +------+ + | Care Unitizer Name | Role | Phone | + [...] | | aortic | 77 | [address] | | | | | aneurysm, | [place] | [address] | | | | | without | [address] [place] | [place], | | | | | rupture | [place], [place] | [place] [address] | | | | | ([facility]) | [address] | Phone: | | | | | [employer] | Phone: | [phone] | | | | | tic heart | [phone] | Fax: | | | | | disease of | Fax: | [phone] | | | | | [place] | [phone] | | | | | | coronary [...] + + | 03/21/ | Office | [facility] | Radha, | Coronary artery | | 2018 | Visit | CARDIOLOGY [address] | [place] [address] | disease involving | | | | [place], | [place], | [place] coronary | | | | [place] [address] | [place] [address] | artery of [place] | | | | [phone] | [phone] | heart without angina | | | [...] whether | | | | | | [place] or | | | | | | [...] time a referral to cardiac rehab at [facility] for CAD , and she was to [...] Diagnosis Chest pain Coronary artery disease involving [place] coronary artery of [place] heart without angina pectoris Hypothyroidism AAA (abdominal [...] minute s as needed for Chest pain. Nfgadrxmk-Qvlbdwkupx-YZ-APAP (NYQUIL PO) Take 750 mg by mouth. [...] needs review Confirmed by FREDDY DAVENPORT MD ([id number]) on 01/03/2019 11:29:26 AM LAB RESULTS reviewed during visit today primarily from [facility]: LIPID Lab Results Component Value Date CHOL [...] the HPI. RESULTS- I reviewed reports from [facility]: No results found. Above data and testing [...] no limitations of activi ties of the [employer] functional class. Heart failure stage [...] this chart may have been created with [employer] voice recognition software. Occasi onal wrong-word or [...] [address] | | | | | | [place], | | | | | | [place] [address] | | | | | | [phone] | | | | | | | [...] + + | Coronary artery disease involving [place] coronary artery of [place] heart without | | angina pectoris - Primary | + + | Essential hypertension with goal blood pressure less than 130/80 | + + | Coronary artery disease, angina presence unspecified, unspecified vessel or lesion | | type, unspecified whether [place] or transplanted heart | + + documented in this encounter
--- OUTSIDE RECORDS SUMMARY | ~2019-10-24 | XMS | Encounter Summary ---
Demographics + + + | Address | [address] | | | [place] [address] | + + + | Home Phone | | + + + | Preferred Language | Unknown | + + + | Marital Status | | + + + | Taoist Affiliation | Unknown | + + + | Race | Unknown | + + + | Ethnic Group | Unknown | + + + Author + + + | Author | [facility] | | | and Tevinana | + + + | Organization | [facility] | | | and Tevinana [...] Team Providers + +------+ + | Care Student Development Advisor Name | Role | Phone | + +------+ + | Gia Feng NP | PCP | | + +------+ + Reason for Visit + + + | Reason | Comments | + + + | Follow-up | | + + + | Carotid Artery | | | Disease | | + + + | Chest Pain | | + + + | Hypertension | | + + + Evaluate & Treat (Routine) +--------+--------+ + + + + | Status | Reason | Specialty | Diagnoses / | Referred By | Referred To | | | | | Procedures | Contact | Contact | +--------+--------+ + + + + | Closed | | Cardiology | Diagnoses | Feng, | Ethel, | | | | | Chest pain | KRISTINA Nielsen | MD Kavitha | | | | | Procedures | [address] | | | | | PIE MAKER MACHINE - SUW | [place] | [address] | | | | | READ STRESS | DR [place] | [place], | | | | | TEST OF | [place] | [place] [address] | | | | | [birth year] | [id number] | Phone: | | | | | | Phone: | [phone] | | | | | | [phone] | Fax: | | | | | | Fax: | [phone] | | | | | | [phone] | | +--------+--------+ + + + + Encounter Details +--------+---------+ + + + | Date | Type | Department | Care Team | Description | +--------+---------+ + + + | 03/19/ | Office | [facility] | Kavitha Davenport, | Coronary artery | | 2018 | Visit | CARDIOLOGY [address] | disease involving | | | | [address] [place], | [place], | [place] coronary | | | | [place] [address] | [place] [address] | artery of [place] | | | | [phone] | [phone] | heart without angina | | | | | | pectoris (Primary | | | | | | Dx); Essential | | | | | | hypertension with | | | | | | goal blood pressure | | | | | | less than 130/80 | +--------+---------+ + + + Social History [...] + + + | Blood Pressure | 144/78 | 03/19/2018 2:25 PM | | | | | PDT | | + + + + + | Pulse | 50 | 03/19/2018 2:25 PM | | | | | PDT | | + + + + + | Temperature | - | - | | + + + + + | Respiratory Rate | 16 | 03/19/2018 2:25 PM | | | | | PDT | | + + + + + | Oxygen Saturation | - | - | | + + + + + | Inhaled Oxygen | - | - | | | Concentration | | | | + + + + + | Weight | 102 kg (224 lb 13.9 | 03/19/2018 2:25 PM | | | | oz) | PDT | | + + + + + | Height | 170.2 cm (5' 7") | 03/19/2018 2:25 PM | | | | | PDT | | + + + + + | Body Mass Index | 35.22 | 03/19/2018 2:25 PM | | | | | PDT | | + + + + + documented in this encounter Patient Instructions Patient Instructions Grisel Wilson RN - 03/19/2018 2:30 PM PDTIncrease Lipitor to 40 m g daily. Increase Losartan to 50 mg daily. Stop taking Metoprolol. Holter Monitor : 48 hour Date: Check-In Time: Where to Check in: Blood test: Fasting- 12 hours prior to test, no food, no caffiene, water is ok Date Due: 3 months Where to go for labs: [facility] [address] [facility]. Follow up appointment: 6 months Provider: Kavitha Davenport MD Date: Check-In Time: documented in this encounter Progress Notes Kavitha Davenport MD - 03/19/2018 2:30 PM PDTFormatting of this note might be different f rom the original. PATIENT NAME: Cosme Michaud : 1940: AGE: 77 y.o. PRIMARY CARE: Gia Feng NP OUTPATIENT FOLLOW UP VISIT Date of Service: 03/19/2018 HISTORY OF PRESENT ILLNESS: Cosme Michaud is a 77 y.o. male with a history of coronary artery disease, hypothyro idism, obesity, inactivity, hypertension and COPD. He is being seen today for follow up connie nary artery disease. He was last seen 11/17/2017 at which time patient was enrolled to cardiac rehab. Since that t maurilio, he stopped going to cardiac rehab due to taking care of his girl friend. Today, patient reports one episode of chest pain in the past four months. He did not use nitroglycerin. He reports feeling dizziness and lightheadedness at time. Patient is physically inactive. Syed ramos denies breathlessness or palpitations. There is no ankle or leg swelling. Patient can sleep on one pillow at night without difficulty breathing. MEDICAL, SURGICAL, AND PERSONAL HISTORY Past Medical, Surgical, Family, and Social History are reviewed in EPIC. CURRENT PROBLEMS Patient Active Problem List Diagnosis Chest pain Coronary artery disease involving [place] coronary artery of [place] heart without angina pectoris Hypothyroidism AAA (abdominal [...] Hearing loss Gout CURRENT MEDICATIONS Current Outpatient Prescriptions Medication Sig Dispense Refill acetaminophen (TYLENOL) 325 mg tablet Take 650 mg by mouth every 4 hours as needed for Pain. aspirin 81 MG tablet Take 81 mg by mouth Daily. atorvaSTATin (LIPITOR) 20 mg tablet Take 1 tablet by mouth Daily. clopidogrel (PLAVIX) 75 mg tablet Take 1 tablet by mouth Daily. 90 tablet 3 colchicine 0.6 mg tablet Take 0.6 mg by mouth as needed. ferrous sulfate 325 mg tablet Take 325 mg by mouth daily (with breakfast). FOLIC ACID PO Take 1 tablet by mouth Daily. Glucosamine 750 MG TABS Take by mouth. levothyroxine (SYNTHROID) 25 mcg tablet Take 25 mcg by mouth Daily. losartan (COZAAR) 25 mg tablet Take 25 mg by mouth Daily. metoprolol tartrate (LOPRESSOR) 25 mg tablet Take 25 mg by mouth 2 times daily. Misc Natural Products (TURMERIC CURCUMIN) CAPS Take 1 capsule by mouth Daily. Multiple Vitamins-Minerals (OCUVITE EXTRA) TABS Take 1 capsule by mouth Daily. nitroglycerin (NITROSTAT) 0.[address] 0.4 mg under the tongue every 5 minute s as needed for Chest pain. Sdtgsdmss-Baszqrymwk-XV-APAP (NYQUIL PO) Take 750 mg by mouth. No current facility-administered medications for this visit. ALLERGIES Allergies Allergen Reactions Tramadol Anxiety ROS Review of Systems Constitutional: Negative for malaise/fatigue. Respiratory: Negative for shortness of breath. Cardiovascular: Positive for chest pain. Negative for palpitations and leg swelling. Neurological: Positive for dizziness. Negative for weakness. Lightheaded = No OBJECTIVE: PHYSICAL EXAM BP 144/78 | Pulse 50 | Resp 16 | Ht 1.702 m (5' 7") | Wt 102 kg (224 lb 13.9 oz) | BMI 35.22 kg/m Physical Exam Constitutional: He is oriented to person, place, and time. He appears well-developed and we ll-nourished. Elderly male individual arrives with his dog, no acute distress. Neck: Normal carotid pulses and no JVD present. Carotid bruit is not present. Cardiovascular: Normal rate, regular rhythm, S1 normal, S2 normal, normal heart sounds and intact distal pulses. PMI is not displaced. Exam reveals no gallop and no friction rub. No murmur heard. Pulses: Carotid pulses are 2+ on the right side, and 2+ on the left side. Posterior tibial pulses are 2+ on the right side, and 2+ on the left side. Pulmonary/Chest: Effort normal and breath sounds normal. No accessory muscle usage. No resp iratory distress. He has no wheezes. He has no rhonchi. He has no rales. Abdominal: Soft. Normal appearance and normal aorta. He exhibits no abdominal bruit. There is no hepatosplenomegaly. There is no tenderness. Musculoskeletal: He exhibits no edema. Neurological: He is alert and oriented to person, place, and time. Gait normal. Skin: Skin is warm and dry. No cyanosis. Nails show no clubbing. Psychiatric: He has a normal mood and affect. His mood appears not anxious. He does not exh ibit a depressed mood. LAB RESULTS reviewed during visit today primarily from [facility]: LIPID Lab Results Component Value Date CHOL 124 (L) 11/17/2017 TRIG 148 11/17/2017 HDL 33 11/17/2017 LDL 61 11/17/2017 CHOLHDL 3.8 11/17/2017 LDLEX 49 12/04/2017 HDLEX 35 12/04/2017 TRIGEX 121 12/04/2017 CHOLEX 108 12/04/2017 CHEMISTRY Lab Results Component Value Date GLU 111 (H) 10/02/2017 GLUEX 118 12/04/2017 NA 135 (L) 10/02/2017 NAEX 137 12/04/2017 K 4.8 10/02/2017 KEX 4.3 12/04/2017 CL 102 10/02/2017 CLEX 103 12/04/2017 CO2 24 10/02/2017 CO2EX 24 12/04/2017 CALCIUM 8.8 10/02/2017 ASTEX 18 12/04/2017 CREA 0.91 10/02/2017 BUN 18 10/02/2017 EGFREX 81.8 12/04/2017 CREEX 0.9 12/04/2017 HEMATOLOGY Lab Results Component Value Date WBC 7.2 11/17/2017 WBCEX 7.7 12/04/2017 HGB 14.5 11/17/2017 HGBEX 14.0 12/04/2017 HCT 42.3 11/17/2017 HCTEX 41.3 12/04/2017 PLT 238 11/17/2017 PLTEX 226 12/04/2017 Above data and testing is reviewed this visit; testing below is historical data unless othe rwise specified. ASSESSMENT: 1. Coronary artery disease with recurrent chest pain A. Echocardiogram on 11/30/2010 shows normal left ventricular size, wall thickness and gladis on, preserved left ventricular systolic function, LVEF is 60%, grade 1 left ventricular west tolic dysfunction, mild mitral valve regurgitation, mild tricuspid valve regurgitation. B. LHC on 03/09/2011 shows non-Q-wave myocardial infarction with acute coronary syndrome, three-vessel coronary artery disease. However, most important left anterior descending with subtotal occlusion status post percutaneous transluminal coronary angioplasty and stenting a s above, abdominal aortic aneurysm, hypokinetic apex, likely secondary to stunned myocardium . The ejection fraction is around 60%. C. Stress Test on 06/27/2017 shows regadenoson EKG is negative, abnormal Regadenoson Sestam ibi myocardial perfusion study with a small size, mainly reversible defect of a mild severit y in the mid and distal inferior wall, this suggests potential small size myocardial ischemi a of a dominant right coronary artery territories. However, due to the patient's body habit us, inferior/diaphragmatic soft tissue attenuation cannot be completely ruled out. Gated SPE CT reveals a normal left ventricular wall thickness and motion, preserved left ventricular s ystolic function. LVEF by gated SPECT is 75 %. D. Angiogram 10/02/[address] Davenport shows borderline coronary artery disease; 70% stenos is at the midportion of the LAD and 70% stenosis to the distal RCA, there is a right dominat e circulation, normal LV systolic function with an EF of 60%, Systemic blood pressure is nor mal, there was successful hemostasis with a TR hemostatic band. E. Radial artery approach, instantaneous wave-free ratio of the left anterior descending, primary stenting of distal right coronary artery with a 2.75 x 24 mm synergy drug-eluting s tent on 10/10/[address] Jamali. Dowd. Today, patient reports one episode of chest pain in the past four months. He reports fe eling dizziness and lightheadedness. Patient is physically inactive. There is no signs and s ymptoms of overt congestive heart failure. He is in a class I of [place] [employer] functional class. There is no fluid retention on physical examination. 2. Bradycardia and history of 4 second pause right after the intervention A. He reports occasional dizziness and lightheadedness but no syncope. 3. Hypertension A. Today blood pressure in office is well controlled. 4. Hyperlipidemia A. Patient is on atorvastatin 20 mg and will be increased to 40 mg today. 5. Obstructive sleep apnea A. He does not want to wear CPAP machine. 6. Obesity 7. Inactivity A. Patient has not been physically active but would like to restart cardiac rehab. 8. COPD A. He mentions this has been better in the past month. PLAN: 1. Stop metoprolol to bring his heart rate up. 2. Schedule patient for 48 hour Holter monitor for bradycardia. 3. Increase atorvastatin to 40 mg once a day. Patient has history of CAD. Guidelines recom mend high-intensity statin. 4. Check LFT and lipid in three months. 5. Increase losartan to 50 mg once a day to offset high blood pressure. 6. Enroll patient into cardiac rehab program in [place]. 7. I recommend a therapeutic lifestyle change including walking 30 minutes a day, choosing healthy choices of diet , including DASH diet and weight reduction. 8. Follow up in 6 months or sooner with concerns. I, Kiley Pringle, am acting as a scribe on behalf of, and in the presence of Kavitha valenzuela MD. I have reviewed and edited this note. Kiley Pringle Press Operator Heavy Duty 03/19/2018 I, Kavitha Davenport MD, personally performed the services described in this documentation, as scribed in my presence and it is both accurate and complete. Kiley Pringle Med Ass t 03/19/2018 14:36 Electronically signed by: Kavitha Davenport MD [facility] 03/19/2018 Portions of this chart may have been created with [employer] voice recognition software. Occasi onal wrong-word or sound-alike substitutions may have occurred due to the inherent villegas itations of voice recognition software. Please read the chart carefully and recognize, using context, where these substitutions have occurred documented in this encounter Plan of Treatment +--------+---------+ + + + | Date | Type | Specialty | Care Team | Description | +--------+---------+ + + + | 03/24/ | Office | Cardiology | Radha, | | | 2020 | Visit | | [facility] [address] | | | | | | [place], | | | | | | [place] [address] | | | | | | [phone] | | | | | | | | +--------+---------+ + + + + +------+--------+ + + | Name | Type | Priori | Associated Diagnoses | Order Schedule | | | | ty | | | + +------+--------+ + + | Hepatic Function | Lab | Routin | Coronary artery | 1 Occurrences | | Panel | | e | disease involving | starting 03/19/2018 | | | | | [place] coronary | until 06/19/2018 | | | | | artery of [place] | | | | | | heart without angina | | | | | | pectoris | | + +------+--------+ + + | Lipid Panel | Lab | Routin | Coronary artery | 1 Occurrences | | | | e | disease involving | starting 03/19/2018 | | | | | [place] coronary | until 06/19/2018 | | | | | artery of [place] | | | | | | heart without angina | | | | | | pectoris | | + +------+--------+ + + documented as of this encounter Results Holter monitor - 48 hour (12/21/2018 3:36 PM PDT) + + + | Narrative | Performed At | + + + | Kavitha Davenport MD 12/21/2018 15:46 PATIENT NAME: Ángel SHI | | Cosme Michaud : 1940: AGE: 78 y.o. | | | PRIMARY CARE: Gia Feng | | | PIE MAKER MACHINE READING CARAMEL MAKER: Kavitha Davenport MD 48-HOUR HOLTER | | | MONITOR REPORT DATE: 12/19/2018 IMPRESSION: 1. | | | The predominant rhythm is normal sinus with the heart rate ranging | | | between 54 and 97 beats per minute. The average heart rate was 75 | | | beats per minute during the 44:37 hour recording. 2. Very rare | | | premature ventricular beats including one couplet. 3. Occasional | | | premature atrial beats including 6 paroxysmal atrial tachycardia | | | runs and 8 couplets. The longest run was 4 beats at a maximum rate | | | of 156 beats per minute. 4. 87 runs of sinus bradycardia, the | | | longest run 47 beats (10:43-2) and the minimum rate 51 beats per | | | minute (09:25-2). 5. The patient did not report any symptoms. | | | Signed by: Kavitha Davenport MD [facility] 12/21/2018, 15:36 | | + + + + +---------+ + + | Performing | Address | City/State/Zipcode | Phone Number | | Organization | | | | + +---------+ + + | [facility] | | | | + +---------+ + + documented in this encounter Visit Diagnoses + + | Diagnosis | + + | Coronary artery disease involving [place] coronary artery of [place] heart without | | angina pectoris - Primary | + + | Essential hypertension with goal blood pressure less than 130/80 | + + documented in this encounter
--- OUTSIDE RECORDS SUMMARY | ~2019-10-24 | XMS | Encounter Summary ---
Demographics + + + | Address | [address] | | | [place] [address] | + + + | Home Phone | | + + + | Preferred Language | Unknown | + + + | Marital Status | | + + + | Uatsdin Affiliation | Unknown | + + + | Race | Unknown | + + + | Ethnic Group | Unknown | + + + Author + + + | Author | [facility] | | | and [place] | + + + | Organization | [facility] | | | and [place] | [...] Team Providers + +------+ + | Care Endoscopy Registered Nurse Name | Role | Phone | + +------+ + | Gia Feng NP | PCP | | + +------+ + Reason for Referral Evaluate & Treat (Routine) +--------+ + + + + + | Status | Reason | Specialty | Diagnoses / | Referred By | Referred To | | | | | Procedures | Contact | Contact | +--------+ + + + + + | Closed | Specialty | Cardiac | Diagnoses | Ethel | [facility] | | | Services | Rehabilitatio | Coronary | MD Freddy | | | | Required | n | artery | [address] | Rehabilitatio | | | | | disease, | [address] | [address] | | | | | angina | [place], | [address] [place] | | | | | presence | [place] [address] | [place], [place] | | | | | unspecified, | Phone: | [phone] | | | | | unspecified | [phone] | Phone: | | | | | vessel or | Fax: | [phone] | | | | | lesion type, | [phone] | Fax: | | | | | unspecified | | [phone] | | | | | whether | | | | | | | [place] or | | | | | | | transplanted | | | | | | | heart Post | | | | | | | PTCA | | | | | | | Procedures | | | | | | | [place] | | | | | | | OUTPATIENT | | | | | | | CARDIAC | | | | | | | REHAB W/O | | | | | | | CONT ECG | | | | | | | MONITOR | | | +--------+ + + + + + Reason for Visit + + + | Reason | Comments | + + + | Follow-up | | + + + | Coronary Artery | | | Disease | | + + + | Chest Pain | | + + + Evaluate & [...] Chest pain | KRISTINA Nielsen | MD Freddy | | | | | Procedures | | [address] [place] [address] | | | | | BURNT LIME DRAWER - SUW | [place] | [address] | | | | | READ STRESS | DR [address]OPE[address] | [place], | | | | | TEST OF | [place] | [place] [address] | | | | | 06-27-17 | [address] | Phone: | | | | | | Phone: | [phone] | | | | | | [phone] | Fax: | | | | | | Fax: | [phone] | | | | | | [phone] | | +--------+--------+ + + + + Encounter Details +--------+---------+ + + + | Date | Type | Department | Care Team | Description | +--------+---------+ + + + | 11/17/ | Office | [facility] | Freddy Davenport, | Chest pain, | | 2017 | Visit | CARDIOLOGY [address] | [address] | unspecified type | | | | [address] [place], | [address], | (Primary Dx); | | | | [place] [address] | [place] [address] | Coronary artery | | | | [phone] | [phone] | disease, angina | | | | | | presence | | | | | | unspecified, | | | | | | unspecified vessel | | | | | | or lesion type, | | | | | | unspecified whether | | | | | | [place] or | | | | | | transplanted heart; | | | | | | Encounter for lipid | | | | | | screening for | | | | | | cardiovascular | | | | | | disease; Post PTCA | +--------+---------+ + + + Social History [...] + + + | Blood Pressure | 140/80 | 11/17/2017 1:31 PM | | | | | PDT | | + + + + + | Pulse | 42 | 11/17/2017 1:31 PM | irregular | | | | PDT | | + + + + + | Temperature | - | - | | + + + + + | Respiratory Rate | 16 | 11/17/2017 1:31 PM | | | | | PDT | | + + + + + | Oxygen Saturation | - | - | | + + + + + | Inhaled Oxygen | - | - | | | Concentration | | | | + + + + + | Weight | 105 kg (231 lb 7.7 | 11/17/2017 1:31 PM | | | | oz) | PDT | | + + + + + | Height | 170.2 cm (5' 7") | 11/17/2017 1:31 PM | | | | | PDT | | + + + + + | Body Mass Index | 36.26 | 11/17/2017 1:31 PM | | | | | PDT | | + + + + + documented in this encounter Patient Instructions Patient Instructions Francine Baker RN - 11/17/2017 2:00 PM PDT Referral to cardiac rehab, someone from that department will call and schedule with you Follow up appointment: 4-6 months Provider: Freddy Davenport MD Date: Check-In Time: documented in this encounter Progress Notes Freddy Davenport MD - 11/17/2017 2:00 PM PDTFormatting of this note might be different f rom the original. PATIENT NAME: Cosme Michaud : 1940: AGE: 77 y.o. PRIMARY CARE: Gia Feng NP OUTPATIENT FOLLOW UP VISIT Date of Service: 11/17/2017 HISTORY OF PRESENT ILLNESS: Cosme Michaud is a 77 y.o. male with a history of coronary artery disease, hypothyro idism, obesity, inactivity, hypertension and COPD. He is being seen today for chest pain. He was last seen 09/14/17 at which time patient was to increase atorvastatin to 40 mg and pat ient was to have his LFT and lipid panel checked. Since that time, patient had a left heart cath done as [place] which revealed significant stenosis on the mid RCA. Patient had a mi d RCA stent done by on 10/10/17. Today, patient is feeling better. No further chest pain. Shortness of breath and stamina is improving significantly. Patient has no complaints of ankle or leg swelling. Patient is physically inactive but enjoys walking his dog. Patient has no chest pain or chest discomf ort both at rest and on exertion. Patient denies breathlessness. Patient has no complaints o f palpitation dizziness or lightheadedness. Patient can sleep on one pillow at night withou t difficulty breathing. MEDICAL, SURGICAL, AND PERSONAL HISTORY Past Medical, Surgical, Family, and Social History are reviewed in EPIC. CURRENT PROBLEMS Patient Active Problem List Diagnosis Chest pain Coronary artery disease involving [place] coronary artery of [place] heart without angina pectoris Hypothyroidism AAA (abdominal aortic aneurysm) COPD (chronic obstructive pulmonary disease) Essential hypertension with goal blood pressure less than 130/80 CURRENT MEDICATIONS Current Outpatient Prescriptions Medication Sig [...] 25 mg by mouth 2 times daily. Multiple Vitamins-Minerals (OCUVITE EXTRA) TABS Take 1 capsule by mouth Daily. Ihrxjjjbj-Kszmxicgam-MG-APAP (NYQUIL PO) Take 750 mg by mouth. No current facility-administered medications for this visit. ALLERGIES Allergies Allergen Reactions Tramadol Anxiety ROS Review of Systems Constitutional: Negative for malaise/fatigue. Respiratory: Positive for shortness of breath. Wheezing: because of COPD. Cardiovascular: Positive for chest pain (very little thinks its heartburn). Negative for pa lpitations and leg swelling. Neurological: Positive for dizziness (vertigo). Negative for weakness. Lightheaded = No OBJECTIVE: PHYSICAL EXAM BP 140/80 | Pulse (!) 42 Comment: irregular | Resp 16 | Ht 1.702 m (5' 7") | Wt 105 kg ( 231 lb 7.7 oz) | BMI 36.26 kg/m Physical Exam Constitutional: He is oriented to person, place, and time. He appears well-developed and we ll-nourished. No distress. Male individual arrives with his dog, without acute distress. HENT: Head: Normocephalic. Mouth/Throat: Mucous membranes are not cyanotic. Eyes: Lids are normal. Neck: Normal carotid pulses, no hepatojugular reflux and no JVD present. Carotid bruit is n ot present. No tracheal deviation present. Cardiovascular: Normal rate, regular rhythm, S1 normal, S2 normal and normal pulses. PMI i s not displaced. Exam reveals no gallop, no S3 and no S4. No murmur heard. Pulses: Carotid pulses are 2+ on the right side, and 2+ on the left side. Femoral pulses are 2+ on the right side, and 2+ on the left side. Dorsalis pedis pulses are 2+ on the right side, and 2+ on the left side. Posterior tibial pulses are 2+ on the right side, and 2+ on the left side. Pulmonary/Chest: Effort normal and breath sounds normal. No accessory muscle usage. No resp iratory distress. He has no wheezes. He has no rhonchi. He has no rales. Abdominal: Soft. Normal appearance and bowel sounds are normal. He exhibits no abdominal br uit. There is no hepatosplenomegaly. There is no tenderness. Musculoskeletal: He exhibits edema (bilateral trace leg swelling). Neurological: He is alert and oriented to person, place, and time. Gait normal. Skin: Skin is warm and dry. He is not diaphoretic. No cyanosis. No pallor. Nails show no cl ubbing. Psychiatric: He has a normal mood and affect. His mood appears not anxious. He does not exh ibit a depressed mood. ECG: Sinus bradycardia LAB RESULTS reviewed during visit today primarily from [facility]: LIPID Lab Results Component Value Date CHOL 124 (L) 11/17/2017 TRIG 148 11/17/2017 HDL 33 11/17/2017 LDL 61 11/17/2017 CHOLHDL 3.8 11/17/2017 CHEMISTRY Lab Results Component Value Date GLU 111 (H) 10/02/2017 NA 135 (L) 10/02/2017 K 4.8 10/02/2017 CL 102 10/02/2017 CO2 24 10/02/2017 CALCIUM 8.8 10/02/2017 CREA 0.91 10/02/2017 BUN 18 10/02/2017 HEMATOLOGY Lab Results Component Value Date WBC 7.2 11/17/2017 HGB 14.5 11/17/2017 HCT 42.3 11/17/2017 PLT 238 11/17/2017 Above data and testing is reviewed this [...] 2.75 x 24 mm synergy drug-eluting s tent. F. Today, patient is feeling better. No further chest pain. Shortness of breath and stam michael is improving significantly. Patient has no complaints of ankle or leg swelling. Patient is physically inactive but enjoys walking his dog. Patient has no chest pain or chest dis comfort both at rest and on exertion. There is no signs and symptoms of overt congestive heart failure. He is in a class II of [place] Heart Association functional class. There is bilateral trace leg swelling on physi bianca examination. He is on a combination of aspirin, Lipitor, clopidogrel, metoprolol and losartan. 2. Bradycardia and history of 4 second pause right after the intervention A. Patient has no symptoms. 3.Hypertension A. Today's blood pressure is well-controlled. 4.. Hyperlipidemia A. He is on atorvastatin 20 mg. 5. Obstructive sleep apnea A. Patient does not wear CPAP machine 6. Obesity 7. Inactivity 8. COPD PLAN: 1. Enroll into cardiac rehab 2. Today, patient is doing well from cardiac standpoint. I will continue with current medi bianca regimen. 3. I recommend a therapeutic lifestyle change including walking 30 minutes a day, choosing healthy choices of diet , including DASH diet and weight reduction. 4. Follow-up 4 to 6 months I Shannan Leyva am acting as a scribe on behalf of, and in the presence of Karena Hudson. I have reviewed and edited this note. Shannan Leyva CMA 11/17/2017 I, Freddy Davenport MD, personally performed the services described in this documentation, as scribed in my presence and it is both accurate and complete. Shannan Leyva CMA 11/17/2017 14:09 Electronically signed by: Freddy Davenport MD [facility] 11/17/2017 Portions of this chart may have been created with [employer] voice recognition software. Occasi onal wrong-word or [...] [address] | | | | | | [address], | | | | | | [place] [address] | | | | | | [phone] | | | | | | | | +--------+---------+ + + + + + +--------+ + + | Name | Type | Priori | Associated Diagnoses | Order Schedule | | | | ty | | | + + +--------+ + + | Referral to Cardiac | Outpatient | Routin | Coronary artery | 1 Occurrences | | Rehab | Referral | e | disease, angina | starting 11/17/2017 | | | | | presence | until 11/17/2018 | | | | | unspecified, | | | | | | unspecified vessel | | | | | | or lesion type, | | | | | | unspecified whether | | | | | | [place] or | | | | | | transplanted heart | | | | | | Post PTCA | | + + +--------+ + + documented as of this encounter Procedures + +--------+ + + + | Procedure Name | Priori | Date/Time | Associated Diagnosis | Comments | | | ty | | | | + +--------+ + + + | ECG 12 LEAD | Routin | 11/17/2017 | Coronary artery | Results for this | | | e | 2:25 PM | disease, angina | procedure are in the | | | | PDT | presence | results section. | | | | | unspecified, | | | | | | unspecified vessel | | | | | | or lesion type, | | | | | | unspecified whether | | | | | | [place] or | | | | | | transplanted heart | | + +--------+ + + + | LIPID PANEL | Routin | 11/17/2017 | Encounter for | Results for this | | | e | 12:28 PM | lipid screening for | procedure are in the | | | | PDT | cardiovascular | results section. | | | | | disease | | + +--------+ + + + | CBC WITH | Routin | 11/17/2017 | Chest pain, | Results for this | | DIFFERENTIAL | e | 12:28 PM | unspecified type | procedure are in the | | | | PDT | Coronary artery | results section. | | | | | disease, angina | | | | | | presence | | | | | | unspecified, | | | | | | unspecified vessel | | | | | | or lesion type, | | | | | | unspecified whether | | | | | | [place] or | | | | | | transplanted heart | | + +--------+ + + + documented in this encounter Results ECG 12 lead (11/17/2017 2:25 PM PDT) + + + + + + | Component | Value | Ref Range | Performed | Pathologist | | | | | At | Signature | + + + + + + | VENTRICULAR | 51 | BPM | [facility] | | | RATE EKG | | | | | + + + + + + | ATRIAL RATE | 51 | BPM | [facility] | | + + + + + + | P-R | 192 | ms | [facility] | | | INTERVAL | | | | | + + + + + + | QRS | 76 | ms | [facility] | | | DURATION | | | | | + + + + + + | Q-T | 460 | ms | [facility] | | | INTERVAL | | | | | + + + + + + | Q-T | 423 | ms | [facility] | | | INTERVAL | | | | | | (CORRECTED) | | | | | + + + + + + | P WAVE AXIS | 45 | degrees | [facility] | | + + + + + + | QRS AXIS | 46 | degrees | [facility] | | + + + + + + | T AXIS | 60 | degrees | [facility] | | + + + + + + | INTERPRETAT | Sinus | | [facility] | | | ION TEXT | bradycardiaOtherwise | | | | | | normal ECGWhen compared | | | | | | with ECG of 14-SEP-2017 | | | | | | 13:59,No significant | | | | | | change was | | | | | | foundConfirmed by | | | | | | ETHEL BROOKE, FREDDY | | | | | | ([id number]) on 11/17/2017 | | | | | | 2:24:57 PM | | | | + + + + + + + + | Specimen | + + | | + + + + + | Narrative | Performed At | + + + | | | + + + + +---------+ + + | Performing | Address | City/State/Zipcode | Phone Number | | Organization | | | | + +---------+ + + | [facility] | | | | + +---------+ + + Lipid Panel (11/17/2017 12:28 PM PDT) + + + + + + | Component | Value | Ref Range | Performed | Pathologist | | | | | At | Signature | + + + + + + | Triglycerid | 148 | 35 - 160 mg/dL | [facility] | | | es | | | [facility] | | | | | | MEDICAL | | | | | | CENTER - | | | | | | LABORATORY | | + + + + + + | Cholesterol | 124 (L) | 150 - 200 mg/dL | [facility] | | | | | | [facility] | | | | | | MEDICAL | | | | | | CENTER - | | | | | | LABORATORY | | + + + + + + | HDL | 33Comment: New HDL | 28 - 83 mg/dL | [facility] | | | | Reference Range as of | | [facility] | | | | February 19, 2015 | | MEDICAL | | | | Values may be 10-20% | | CENTER - | | | | lower with new, | | LABORATORY | | | | standardized method. | | | | + + + + + + | Chol/HDL | 3.8 | | [facility] | | | Ratio | | | [facility] | | | | | | MEDICAL | | | | | | CENTER - | | | | | | LABORATORY | | + + + + + + | LDL, | 61 | <=130 mg/dL | [facility] | | | Calculated | | | [facility] | | | | | | MEDICAL | | | | | | CENTER - | | | | | | LABORATORY | | + + + + + + + + | Specimen | + + | Blood | + + + + + + + | Performing | Address | City/State/Zipcode | Phone Number | | Organization | | | | + + + + + | [facility] | [address] | [place] | [phone] | | [facility] | | [address] | | | - LABORATORY | | | | + + + + + CBC with Differential (11/17/2017 12:28 PM PDT) + +---------+ + + + | Component | Value | Ref Range | Performed | Pathologist | | | | | At | Signature | + +---------+ + + + | WBC | 7.2 | 4.0 - 11.0 K/uL | [facility] | | | | | | [facility] | | | | | | MEDICAL | | | | | | CENTER - | | | | | | LABORATORY | | + +---------+ + + + | RBC | 4.65 | 4.30 - 5.70 | [facility] | | | | | M/uL | [facility] | | | | | | MEDICAL | | | | | | CENTER - | | | | | | LABORATORY | | + +---------+ + + + | Hemoglobin | 14.5 | 13.5 - 18.0 | [facility] | | | | | g/dL | [facility] | | | | | | MEDICAL | | | | | | CENTER - | | | | | | LABORATORY | | + +---------+ + + + | Hematocrit | 42.3 | 40.0 - 51.0 % | [facility] | | | | | | [facility] | | | | | | MEDICAL | | | | | | CENTER - | | | | | | LABORATORY | | + +---------+ + + + | MCV | 91.0 | 83.0 - 101.0 fL | [facility] | | | | | | [facility] | | | | | | MEDICAL | | | | | | CENTER - | | | | | | LABORATORY | | + +---------+ + + + | MCH | 31.1 | 28.0 - 35.0 pg | [facility] | | | | | | [facility] | | | | | | MEDICAL | | | | | | CENTER - | | | | | | LABORATORY | | + +---------+ + + + | MCHC | 34.2 | 32.0 - 36.0 | [facility] | | | | | g/dL | [facility] | | | | | | MEDICAL | | | | | | CENTER - | | | | | | LABORATORY | | + +---------+ + + + | RDW-CV | 13.5 | <15.0 % | [facility] | | | | | | [facility] | | | | | | MEDICAL | | | | | | CENTER - | | | | | | LABORATORY | | + +---------+ + + + | Platelet | 238 | 140 - 440 K/uL | [facility] | | | Count | | | [facility] | | | | | | MEDICAL | | | | | | CENTER - | | | | | | LABORATORY | | + +---------+ + + + | MPV | 8.2 | fL | [facility] | | | | | | [facility] | | | | | | MEDICAL | | | | | | CENTER - | | | | | | LABORATORY | | + +---------+ + + + | % | 59.6 | 45.0 - 82.0 % | [facility] | | | Neutrophils | | | [facility] | | | | | | MEDICAL | | | | | | CENTER - | | | | | | LABORATORY | | + +---------+ + + + | % | 27.8 | 20.0 - 45.0 % | [facility] | | | Lymphocytes | | | [facility] | | | | | | MEDICAL | | | | | | CENTER - | | | | | | LABORATORY | | + +---------+ + + + | % Monocytes | 7.2 | 4.0 - 12.0 % | [facility] | | | | | | [facility] | | | | | | MEDICAL | | | | | | CENTER - | | | | | | LABORATORY | | + +---------+ + + + | % | 4.1 | 0.0 - 5.0 % | [facility] | | | Eosinophils | | | [facility] | | | | | | MEDICAL | | | | | | CENTER - | | | | | | LABORATORY | | + +---------+ + + + | % Basophils | 1.3 (H) | 0.0 - 1.0 % | [facility] | | | | | | [facility] | | | | | | [facility] | | | | | | CENTER - | | | | | | LABORATORY | | + +---------+ + + + | Absolute | 4.30 | 1.80 - 8.50 | [facility] | | | Neutrophils | | K/uL | [facility] | | | | | | MEDICAL | | | | | | CENTER - | | | | | | LABORATORY | | + +---------+ + + + | Absolute | 2.00 | 0.60 - 3.20 | [facility] | | | Lymphocytes | | K/uL | [facility] | | | | | | MEDICAL | | | | | | CENTER - | | | | | | LABORATORY | | + +---------+ + + + | Absolute | 0.50 | 0.00 - 1.00 | [facility] | | | Monocytes | | K/uL | [facility] | | | | | | MEDICAL | | | | | | CENTER - | | | | | | LABORATORY | | + +---------+ + + + | Absolute | 0.30 | 0.00 - 0.40 | [facility] | | | Eosinophils | | K/uL | [facility] | | | | | | MEDICAL | | | | | | CENTER - | | | | | | LABORATORY | | + +---------+ + + + | Absolute | 0.10 | 0.00 - 0.10 | [facility] | | | Basophils | | K/uL | [facility] | | | | | | MEDICAL | | | | | | CENTER - | | | | | | LABORATORY | | + +---------+ + + + + + | Specimen | + + | Blood | + + + + + + + | Performing | Address | City/State/Zipcode | Phone Number | | Organization | | | | + + + + + | [facility] | [address] | [place] | [phone] | | [facility] | | [address] | | | - LABORATORY | | | | + + + + + documented in this encounter Visit Diagnoses + + | Diagnosis | + + | Chest pain, unspecified type - Primary | + + | Coronary artery disease, angina presence unspecified, unspecified vessel or lesion | | type, unspecified whether [place] or transplanted heart | + + | Encounter for lipid screening for cardiovascular disease | + + | Post PTCA Postsurgical percutaneous transluminal coronary angioplasty status | + + documented in this encounter
--- OUTSIDE RECORDS SUMMARY | ~2019-10-24 | XMS | Encounter Summary ---
Demographics + + + | Address | [address] | | | [place] [address] | + + + | Home Phone | | + + + | Preferred Language | Unknown | + + + | Marital Status | | + + + | Mandaeism Affiliation | Unknown | + + + | Race | Unknown | + + + | Ethnic Group | Unknown | + + + Author + + + | Author | [facility] | | | and [place] | + + + | Organization | [facility] | | | and [...] Team Providers + +------+ + | Care Semiautomatic Taper Operator Name | Role | Phone | [...] | +--------+ + + + + | 12/19/ | Hospital | [facility] | Kavitha Davenport, | Coronary artery | | 2019 | Encounter | MED [facility] | [address] [facility] | disease involving | | | | MEDICINE [address] [place], | [place] coronary | | | | [place], | [place] [address] | artery of [place] | | | | [place] [address] | [phone] | heart without angina | | | | [phone] | | pectoris; | | | | | | Palpitations | +--------+ + + + + Social [...] Daily. | tablet | | 18 | 0 | | tablet | | | | | | + + + +---------+ + + | clopidogrel | Take 1 tablet by | 90 | 3 | 10/03/19 | | | (PLAVIX) 75 mg | mouth Daily. | tablet | | 18 | 9 | | tabletIndications: | | | | [...] | | | | | | | [place] or | | | | | | | transplanted heart | | | | | | + + + +---------+ + + | losartan (COZAAR) | Take 1 tablet by | 90 | 3 | 03/19/20 | | | 50 mg tablet | mouth Daily. | tablet | | 18 | 9 | + + + +---------+ + + | nitroglycerin | Place 0.4 mg under | | 0 | | | | (NITROSTAT) 0.4 mg | the tongue every 5 | | | | 0 | | SL tablet | minutes as [...] [place], | | | | | | [place] [address] | | | | | | [phone] | | | | | | | | +--------+---------+ + + + documented as of this encounter Procedures + +--------+ + + + | Procedure Name | Priori | Date/Time | Associated Diagnosis | Comments | | | ty | | | | + +--------+ + + + | HOLTER MONITOR - 48 | Routin | 12/21/2018 | Coronary artery | Results for this | | HOUR | e | 3:36 PM | disease involving | procedure are in the | | | | PDT | [place] coronary | results section. | | | | | artery of [place] | | | | | | heart without angina | | | | | | pectoris | | + +--------+ + + + documented in this encounter Results Holter monitor - 48 hour (12/21/2018 3:36 PM PDT) + + + | Narrative | Performed At | + + + | Kavitha Davenport MD 12/21/2018 15:46 PATIENT NAME: | NICOLE SHI | | Cosme Michaud : 1940: AGE: 78 y.o. | | | PRIMARY CARE: Gia Feng, | | | MACHINE PAN GREASER READING DISHWASHER: Kavitha Davenport MD 48-HOUR HOLTER | | [...] | | Signed by: Kavitha Davenport MD [facility] 12/21/2018, 15:36 | | + + + + +---------+ + + | Performing | Address | City/State/Zipcode | Phone Number | | Organization | | | | + +---------+ + + | [facility] | | | | + +---------+ + + documented in this encounter Visit Diagnoses + + | Diagnosis | + + | Coronary artery disease involving [place] coronary artery of [place] heart without | | angina pectoris | + + | Palpitations | + + documented in this encounter"
--- OUTSIDE RECORDS SUMMARY | ~2019-10-24 | XMS | Encounter Summary ---
Demographics + + + | Address | [address] | | | [place] [address] | + + + | Home Phone | | + + + | Preferred Language | Unknown | + + + | Marital Status | | + + + | Oriental Orthodox Affiliation | Unknown | + + + | Race | Unknown | + + + | Ethnic Group | Unknown | + + + Author + + + | Author | [facility] | | | and [place] | + + + | Organization | [facility] [...] Team Providers + +------+ + | Care Hair Cutter Name | Role | Phone | + [...] + + + | | | | Diagnoses | | | | | | | lhc | | | | | | | Procedures | | | | | | | IA CATH PLMT | | | | | | | L HRT & | | | | | | | ARTS W/NJX & | | | | | | | ANGIO IMG | | | | | | | S&I CV LHC | | | +--------+--------+ + + + + Encounter Details +--------+---------+ + + + | Date | Type | Department | Care Team | Description | +--------+---------+ + + + | 10/02/ | Surgery | [facility] | Kavitha Davenport, | CV LHC | | 2018 | | MED CTR CV INTRA OP | MD [address] | | | | | [address] | [address] [place], | | | | | [place], [place] | [place] [address] | | | | | [address] | [phone] | | | | | [phone] | | | +--------+---------+ + + + [...] + + + | Blood Pressure | 136/64 | 10/02/2017 11:30 AM | | | | | PDT | | + + + + + | Pulse | 77 | 10/02/2017 11:30 AM | | | | | PDT | | + + + + + | Temperature | 36.3 C (97.3 F) | 10/02/2017 8:58 AM | | | | | PDT | | + + + + + | Respiratory Rate | 16 | 10/02/2017 11:30 AM | | | | | PDT | | + + + + + | Oxygen Saturation | 97% | 10/02/2017 11:30 AM | | | | | PDT | | + + + + + | Inhaled Oxygen | - | - | | | Concentration | | | | + + + + + | Weight | 109.6 kg (241 lb 10 | 10/02/2017 7:21 AM | | | | oz) | PDT | | + + + + + | Height | 170.2 cm (5' 7") | 10/02/2017 7:21 AM | | | | | PDT | | + + + + + | Body Mass Index | 37.84 | 10/02/2017 7:21 AM | | | | | PDT | | + + + + + documented in this encounter Discharge Instructions Instructions Grace Mtz RN - 10/02/2017Formatting of this note might be different fro m the original. Discharge Instructions for Cardiac Catheterization Cardiac catheterizationis aprocedureto look for blocked areas in the blood vessels th at send blood to the heart.A thin, flexible tube (catheter) is put in a blood vessel in yo ur groin or arm. The healthcare provider injects contrast fluidinto your blood, which then flows to your heart.X-rays picturesare taken of your heart. Your provider will review t he results with you. Be sure to ask any questions you have before you leave. This sheet will help you take care of yourself at home. Home care Don't drive or make any important decisions for at least 24 hours after receiving any ty pe of sedation or anesthesia. Arrange to have a responsible adult drive you home after your procedure. Only do light and easy activities forthe next2 to 3days. Ask for help with chores and errands while you recover. Have someone drive you to your appointments. Don't lift anything heavyfor a while. Your healthcare team will tell you when it's saf e to lift again. Ask your healthcare team when you can expect to return to work. Unless your job involves lifting, you may be able to return to your normal activities within a couple of days. Take your medicines as directed. Don't skip doses. Drink6 to 8glasses of water a day. This is to help flush the contrast dye out of you r body. Call your healthcare team if your urine has any change in color. Take your temperature each day for 7 days. If you feel cold and clammy or start sweating , take your temperature right away and call your healthcare team. Check your incisions every day for signs of infection. These include redness, swelling, and drainage. It is normal to have a small bruise or bump where the catheter was inserted. A bruise that is getting larger is not normal and should be reported to your healthcare team. If you see blood forming in the incision, call your healthcare team. Go to the emergency de partment if you have uncontrolled bleeding from the artery site. This is especially true if you take medicines that make it hard for your blood to clot. Examples are aspirin, clopidogr el, and warfarin. Eat a healthy diet. Make sure it is low in fat, salt, and cholesterol. Ask your healthca re team for diet information. Stop smoking. Enroll in a stop-smoking program or ask your healthcare team for help. Sto p-smoking programs can be life saving. Exercise as your healthcare team tells you to. Your healthcare teammay recommend you s tart a cardiac rehabilitation program. Cardiac rehab is an exercise program in which trained healthcare staff watch your progress and stress on your heart while you exercise. Ask your team how to enroll. Don't swim or take baths until your healthcare team says it s OK. You can shower the d ay after the procedure. Keep the site clean and dry. This keeps the incision from getting we t and infected until the skin and artery can heal. Be sure to follow all after-care instructions. Follow-up care Make a follow-up appointment as advised by our staff. It's common to have a follow-up ap pointment 2 to 4 weeks after an angioplasty or coronary stent procedure. Make a yearly appointment, too. This isto make sure you are still doing well and not h aving any new symptoms. Don't wait for a follow-up appointment if your medicines aren't working or you are havin g heart-related symptoms. When to seek medical care Call your healthcare provider right away if you have any of the following: Chest pain Constant or increasing pain or numbness in your leg Fever of 100.4F(38.0C) or higher, or as directed by your healthcare provider Symptoms of infection. These include redness, swelling, drainage, or warmth at the incis ion site. Shortness of breath A leg that feels cold or appears blue Bleeding, bruising, or a lot ofswelling where the catheter was inserted Blood in your urine Black or tarry stools Any unusual bleeding Date Last Reviewed: 03/12/201619996720-5605 [employer]. [address] [place] [id number]. All righ ts reserved. This information is not intended as a substitute for professional medical care. Always follow your healthcare professional's instructions. documented in this encounter Medications at Time of Discharge [...] atorvaSTATin | Take 1 tablet by | | 0 | 10/03/19 | | | (LIPITOR) 20 mg | mouth Daily. | | | 18 | 8 | | tablet | | | | | | + + + +---------+ + + | cholecalciferol | Take 1,000 Units by | | 0 | | | | (VITAMIN D-3) 1000 | mouth Daily. | | | | 8 | | units TABS | | | | | | + + + +---------+ + + | diclofenac | Take 35 mg by mouth | | 0 | | | | (ZORVOLEX) 35 mg | as needed for Pain. | | | | 8 | | capsule | | | | | | + + + +---------+ + + | losartan (COZAAR) | Take 25 mg by mouth | | 0 | | | | 25 mg tablet | Daily. | | | | 8 | + + + +---------+ + + | metoprolol | Take 25 mg by mouth | | 0 | | | | tartrate (LOPRESSOR) | 2 times daily. | | | | 8 | | 25 mg tablet | | | | | | [...] [place], | | | | | | [place] [address] | | | | | | [phone] | | | | | | | | +--------+---------+ + + + documented as of this encounter Procedures + +--------+ + + + | Procedure Name | Priori | Date/Time | Associated Diagnosis | Comments | | | ty | | | | + +--------+ + + + | CV LHC | Routin | 10/02/2017 | | Results for this | | | e | 9:46 AM | | procedure are in the | | | | PDT | | results section. | + +--------+ + + + | EXTRA XAVIERENDER TOP | Routin | 10/02/2017 | | Results for this | | TUBE | e | 7:54 AM | | procedure are in the | | | | PDT | | results section. | + +--------+ + + + | EXTRA BLUE TOP TUBE | Routin | 10/02/2017 | | Results for this | | | e | 7:54 AM | | procedure are in the | | | | PDT | | results section. | + +--------+ + + + | BASIC METABOLIC | STAT | 10/02/2017 | | Results for this | | PANEL | | 7:54 AM | | procedure are in the | | | | PDT | | results section. | + +--------+ + + + documented in this encounter Results CV CARDIAC PROCEDURE (10/02/2017 9:46 AM PDT) + + | Specimen | + + | | + + + + + | Narrative | Performed At | + + + | [facility] | [facility] | | MD Ethel 10/02/2017 11:15 CARDIAC CATHETERIZATION and | | | CORONARY ANGIOGRAPHY PATIENT NAME/: Cosme Michaud, | | | (1940) OF PROCEDURE: | | | 10/02/2017 LENS GAUGER: Kavitha Davenport MD PROCEDURES | | | PERFORMED:Coronary AngiographyLeft Heart CatheterizationLeft | | | Ventriculography Indications: Chest pain DESCRIPTION OF PROCEDURE: | | | Informed consent was obtained from the patient, and a time-out was | | | performed to verify the patient's identification and planned | | | procedure. The patient's right wrist was then prepped and draped in | | | the usual sterile fashion, and anesthetized with 1mL of buffered 1% | | | lidocaine. For arterial access modified Seldinger technique was used | | | to place a 6 Fr. sheath in the right radial artery (a normal Dallin's | | | test was performed prior to the procedure). Right heart | | | catheterization was not performed on this patient. After crossing | | | the aortic valve, left ventriculography was performed in the GONZALES | | | projection. Selective coronary angiogram was then performed in | | | several sagittal and oblique projections. Alessia diagnostic catheters | | | were used for this procedure. The patient received a total of 1 mg | | | of Versed and 50 mcg of fentanyl intravenously for conscious sedation | | | during the procedure. A total of 80 mL Omnipaque 350 contrast was | | | utilized. During procedure a total of 400 mcg nitroglycerin, and 0 | | | mcg nicardipine were given via the radial sheath, and 4000 units | | | heparin was given intravenously. The procedure had no immediate | | | complications. At the conclusion of the procedure, the sheath was | | | removed and hemostasis obtained with a TR hemostatic band. FINDINGS: | | | Hemodynamics: Ao - 98/65 mm Hg with a mean of 79 mm HgLV - 113/27 mm | | | HgLVEDP -21 mm Hg Left ventriculography: The left ventricular size | | | and function were normal. LVEF is calculated at 60%. There is no | | | mitral valve regurgitation noted. Left main artery: The left main | | | artery is a medium caliber vessel that bifurcates into the left | | | anterior descending artery and left circumflex artery. Left main | | | artery has mild diffuse disease. Left anterior descending artery: | | | The left anterior descending artery is a large caliber vessel that | | | wraps around the apex and gives rise to 2 diagonal branches. 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 It gives rise to 3 diagonal branches. Left circumflex | | | artery: The left circumflex artery is a medium caliber vessel that | | | is non dominant. The vessel has mild diffuse disease. It gives | | | rise to 2 OM branches. Right coronary artery: The right coronary | | | artery is a large caliber vessel that is dominant. The vessel has | | | Borderline 70% stenosis at the distal portion. It gives rise to a | | | PDA and Posterolateral branches. CONCLUSIONS:1. Borderline coronary | | | artery disease; 70% stenosis at the midportion of the LAD and 70% | | | stenosis to the distal RCA2. There is a right dominate circulation.3. | | | Normal LV systolic function with an EF of 60%4. Systemic blood | | | pressure is normal.5. There was successful hemostasis with a TR | | | hemostatic band. PLAN:1. Coronary revascularization with PCI of LAD | | | were abnormal stress test is.2. Case was discussed with Dr. Flores, | | | interventionalists at [facility] in [facility]. Electronically | | | signed by: Kavitha Davenport MD on 10/02/2017 at 11:07 PRIMARY CARE | | | PROVIDER:Gia Feng NP | | |FINDINGS: | | | | | |Hemodynamics: | | | | | |Ao - 98/65 mm Hg with a mean of 79 mm Hg | | |LV - 113/27 mm Hg | | |LVEDP -21 mm Hg | | | | | |Left ventriculography: The left ventricular size and function | | |were normal. LVEF is calculated at 60%. There is no mitral | | |valve regurgitation noted. | | | | | |Left main artery: The left main artery is a medium caliber | | |vessel that bifurcates into the left anterior descending artery | | |and left circumflex artery. Left main artery has mild diffuse | | |disease. | | | | | |Left anterior descending artery: The left anterior descending | | |artery is a large caliber vessel that wraps around the apex and | | |gives rise to 2 diagonal branches. 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 It gives | | |rise to 3 diagonal branches. | | | | | |Left circumflex artery: The left circumflex artery is a medium | | |caliber vessel that is non dominant. The vessel has mild | | |diffuse disease. It gives rise to 2 OM branches. | | | | | | | | |Right coronary artery: The right coronary artery is a large | | |caliber vessel that is dominant. The vessel has Borderline 70% | | |stenosis at the distal portion. It gives rise to a PDA and | | |Posterolateral branches. | | | | | | | | | | | | | | |CONCLUSIONS: | | |1. Borderline coronary artery disease; 70% stenosis at the | | |midportion of the LAD and 70% stenosis to the distal RCA | | |2. There is a right dominate circulation. | | |3. Normal LV systolic function with an EF of 60% | | |4. Systemic blood pressure is normal. | | |5. There was successful hemostasis with a TR hemostatic band. | | | | | | | | |PLAN: | | |1. Coronary revascularization with PCI of LAD were abnormal | | |stress test is. | | |2. Case was discussed with Dr. Flores, interventionalists at | | |[facility] in [facility]. | | | | | | | | | | | | | | | | | | | | | | | |PRIMARY CARE PROVIDER: | | |Gia Feng NP | | | | | + + + + +---------+ + + | Performing | Address | City/State/Zipcode | Phone Number | | Organization | | | | + +---------+ + + | [facility] | | | | + +---------+ + + Extra Lavender Top Tube (10/02/2017 7:54 AM PDT) + +-------+ + + + | Component | Value | Ref Range | Performed | Pathologist | | | | | At | Signature | + +-------+ + + + | Extra | Done | | [facility] | | | Lavender | | | [facility] | | | Top Tube | | | MEDICAL | | | | | | CENTER - | | | | | | LABORATORY | | + +-------+ + + + + + | Specimen | + + | Blood | + + + + + + + | Performing | Address | City/State/Zipcode | Phone Number | | Organization | | | | + + + + + | [facility] | [address] | [place] | [phone] | | [facility] | | [address] | | | - LABORATORY | | | | + + + + + Extra Blue Top Tube (10/02/2017 7:54 AM PDT) + +-------+ + + + | Component | Value | Ref Range | Performed | Pathologist | | | | | At | Signature | + +-------+ + + + | Extra Blue | Done | | [facility] | | | Top Tube | | | [facility] | | | | | | MEDICAL | | | | | | CENTER - | | | | | | LABORATORY | | + +-------+ + + + + + | Specimen | + + | Blood | + + + + + + + | Performing | Address | City/State/Zipcode | Phone Number | | Organization | | | | + + + + + | [facility] | [address] | [place] | [phone] | | [facility] | | [address] | | | - LABORATORY | | | | + + + + + Basic Metabolic Panel (10/02/2017 7:54 AM PDT) + + + + + + | Component | Value | Ref Range | Performed | Pathologist | | | | | At | Signature | + + + + + + | Na | 135 (L) | 136 - 149 | [facility] | | | | | mmol/L | [facility] | | | | | | MEDICAL | | | | | | CENTER - | | | | | | LABORATORY | | + + + + + + | K | 4.8Comment: AMYLASE, | 3.5 - 5.1 | [facility] | | | | AMMONIA, CPK, INORGANIC | mmol/L | [facility] | | | | PHOSPHORUS, IRON, K+, | | MEDICAL | | | | LACTIC ACID, LDH, | | CENTER - | | | | MAGNESIUM, SGOT/AST, | | LABORATORY | | | | SGPT/ALT, TOTAL | | | | | | BILIRUBIN, DIRECT | | | | | | BILIRUBIN URIC ACID, | | | | | | AND GAMMA GT may be | | | | | | adversely affected by 3+ | | | | | | hemolysis. | | | | + + + + + + | Cl | 102 | 98 - 109 mmol/L | [facility] | | | | | | [facility] | | | | | | MEDICAL | | | | | | CENTER - | | | | | | LABORATORY | | + + + + + + | CO2 | 24 | 24 - 31 mmol/L | [facility] | | | | | | [facility] | | | | | | MEDICAL | | | | | | CENTER - | | | | | | LABORATORY | | + + + + + + | Anion Gap | 9 | 3 - 16 mmol/L | [facility] | | | | | | [facility] | | | | | | MEDICAL | | | | | | CENTER - | | | | | | LABORATORY | | + + + + + + | Glucose | 111 (H) | 70 - 109 mg/dL | [facility] | | | | | | [facility] | | | | | | MEDICAL | | | | | | CENTER - | | | | | | LABORATORY | | + + + + + + | BUN | 18 | 7 - 18 mg/dL | [facility] | | | | | | [facility] | | | | | | MEDICAL | | | | | | CENTER - | | | | | | LABORATORY | | + + + + + + | Creatinine | 0.91 | 0.60 - 1.30 | [facility] | | | | | mg/dL | [facility] | | | | | | MEDICAL | | | | | | CENTER - | | | | | | LABORATORY | | + + + + + + | eGFR if not | >60Comment: GLOMERULAR | >=60 | [facility] | | | | FILTRATION | mL/min/1.73m2 | [facility] | | | STATELESS | RATE,ESTIMATED | | MEDICAL | | | | mL/min/1.52v3Zmht than | | CENTER - | | | | 60 Chronic kidney | | LABORATORY | | | | disease,if found over a | | | | | | 3-month period.Less than | | | | | | 15 Kidney failureFor | | | | | | | | | | | | Americans,multiply the | | | | | | calculated GFR by 1.21. | | | | | | | | | | + + + + + + | Calcium | 8.8 | 8.3 - 10.5 | [facility] | | | | | mg/dL | [facility] | | | | | | MEDICAL | | | | | | CENTER - | | | | | | LABORATORY | | + + + + + + | BUN/Creatin | 19.8 | | [facility] | | | ine Ratio | | | [facility] | | [...] | + + + + + | [facility] | [address] | [place] | [phone] | | [facility] | | [address] | | | - LABORATORY | | | | + + + + + documented in this encounter Visit Diagnoses Not on filedocumented in this encounter Administered Medications + +--------+---------+------+------+------+ | Medication Order | MAR | Action | Dose | Rate | Site | | | Action | Date | | | | + +--------+---------+------+------+------+ + +---+ | acetaminophen (TYLENOL) tablet | | | 650 mg 650 mg, Oral, EVERY 6 | | | HOURS PRN, Pain, Fever, Starting | | | 10/02/17 at 1000, | | | Post-op/Phase II | | + +---+ | | | + +---+ + +-------+ +-------+---+---+ | albuterol-ipratropium (DUONEB) | Given | 10/03/19 | 3 mLs | | | | 2.5-0.5 mg/3 mL nebulizer | | 18 7:51 | | | | | solution 3 mL 3 mL, | | AM PDT | | | | | Nebulization, ONCE, Mon10/02/17 | | | | | | | at 0800, For 1 dose, Pre-op | | | | | | + +-------+ +-------+---+---+ +---+---+ | | | +---+---+ + +-------+ +--------+---+ + | fentaNYL (PF) injection ONCE | Given | 10/03/19 | 25 mcg | | Left Arm | | PRN, Starting 10/02/17 at | | 18 9:37 | | | | | 0924, Intra-op | | AM PDT | | | | + +-------+ +--------+---+ + +-------+ +--------+---+ + | Given | 10/03/19 | 50 mcg | | Left Arm | | | 18 9:24 | | | | | | AM PDT | | | | +-------+ +--------+---+ + +---+---+ | | | +---+---+ + +-------+ +--------+---+---+ | heparin 1,000 units/mL | Given | 10/03/19 | 4,000 | | | | injection ONCE PRN, Starting Mon | | 18 9:30 | Units | | | | 10/02/17 at 0930, Intra-op | | AM PDT | | | | + +-------+ +--------+---+---+ +---+---+ | | | +---+---+ + +-------+ +--------+---+---+ | iohexol (OMNIPAQUE 350) 350 | Given | 10/03/19 | 80 mLs | | | | mg/mL injection ONCE PRN, | | 18 9:42 | | | | | Starting Mon10/02/17 at 0942, | | AM PDT | | | | | Intra-op | | | | | | + +-------+ +--------+---+---+ + +---+ | | | + +---+ | lidocaine 1%-EPINEPHrine | | | 1:100,000 injection 5 mL 5 mL, | | | Infiltration, ONCE PRN, for | | | oozing at cardiac cath site, | | | Starting 10/02/17 at 1000, For | | | 1 dose, For continued oozing | | | after sheath removal despite | | | pressure dressing and manual | | | pressure. Inject to affected area | | | x 1 followed by 10 minutes of | | | manual compression., | | | Post-op/Phase II | | + +---+ | | | + +---+ + +-------+ +------+---+---+ | lidocaine buffered 1% injection | Given | 10/03/19 | 1 mL | | | | ONCE PRN, Starting 10/02/17 | | 18 9:27 | | | | | at 0927, Intra-op | | AM PDT | | | | + +-------+ +------+---+---+ +---+---+ | | | +---+---+ + +-------+ +------+---+---+ | midazolam (VERSED) 1 mg/mL | Given | 10/03/19 | 1 mg | | | | injection ONCE PRN, Starting Mon | | 18 9:24 | | | | | 10/02/17 at 0924, Intra-op | | AM PDT | | | | + +-------+ +------+---+---+ +---+---+ | | | +---+---+ + +-------+ +--------+---+---+ | nitroglycerin (NITROSTAT) SL | Given | 10/03/19 | 0.4 mg | | | | tablet 0.4 mg 0.4 mg, | | 18 11:50 | | | | | Sublingual, EVERY 5 MIN PRN, | | AM PDT | | | | | Chest pain, Starting 10/02/17 | | | | | | | at 1000, May give up to 3 doses. | | | | | | | Notify physician after 2nd dose | | | | | | | given. Hold for SBP<100, | | | | | | | Post-op/Phase II | | | | | | + +-------+ +--------+---+---+ +---+---+ | | | +---+---+ + +-------+ +---------+---+---+ | nitroglycerin 100 mcg/mL | Given | 10/03/19 | 200 mcg | | | | syringe ONCE PRN, Starting Mon | | 18 9:30 | | | | | 10/02/17 at 0930, Intra-op | | AM PDT | | | | + +-------+ +---------+---+---+ + +---+ | | | + +---+ | ondansetron (ZOFRAN) injection | | | 4-8 mg 4-8 mg, Intravenous, | | | EVERY 6 HOURS PRN, Nausea, | | | Vomiting, Starting 10/02/17 at | | | 1000, Post-op/Phase II | | + +---+ | | | + +---+ + +---------+ +---+-------+---+ | sodium chloride 0.9% (NS) | New Bag | 10/03/19 | | 125 | | | infusion at 125 mL/hr, | | 18 7:54 | | mL/hr | | | Intravenous, CONTINUOUS, Starting | | AM PDT | | | | | 10/02/17 at 0745, For | | | | | | | procedure only, not to exceed 1 | | | | | | | liter., Pre-op | | | | | | + +---------+ +---+-------+---+ +---+---+ | | | +---+---+ documented in this encounter
--- OUTSIDE RECORDS SUMMARY | ~2019-10-24 | XMS | Encounter Summary ---
Demographics + + + | Address | [address] | | | [place] [address] | + + + | Home Phone | | + + + | Preferred Language | Unknown | + + + | Marital Status | | + + + | Sabianism Affiliation | Unknown | + + + | Race | Unknown | + + + | Ethnic Group | Unknown | + + + Author + + + | Author | [facility] | | | and [place] | + + + | Organization | [facility] | | | and [...] Team Providers + +------+ + | Care Field Operations Supervisor Name | Role | Phone | + +------+ + | Radha Feng | PCP | | + +------+ + Encounter Details +--------+ + + + + | Date | Type | Department | Care Team | Description | +--------+ + + + + | 09/18/ | Abstract | [facility] | Lori Gaspar | | | 2020 | | CARDIOLOGY [address] | | | | | [place], | [address] [place], | | | | | [place] [address] | [place] [address] | | | | | [phone] | [phone] | | | | | | | [...] [place], | | | | | | [place] [address] | | | | | | [phone] | | | | | | | | +--------+---------+ + + + documented as of this encounter Procedures + +--------+ + + + | Procedure Name | Priori | Date/Time | Associated Diagnosis | Comments | | | ty | | | | + +--------+ + + + | EXTERNAL LAB: BUN | Routin | 05/03/2019 | | Results for this | | | e | | | procedure are in the | | | | | | results section. | + +--------+ + + + | EXTERNAL LAB: | Routin | 05/03/2019 | | Results for this | | GLUCOSE | e | | | procedure are in the | | | | | | results section. | + +--------+ + + + | EXTERNAL LAB: PSA | Routin | 05/03/2019 | | Results for this | | | e | | | procedure are in the | | | | | | results section. | + +--------+ + + + | EXTERNAL LAB: ALT | Routin | 05/03/2019 | | Results for this | | | e | | | procedure are in the | | | | | | results section. | + +--------+ + + + | EXTERNAL LAB: AST | Routin | 05/03/2019 | | Results for this | | | e | | | procedure are in the | | | | | | results section. | + +--------+ + + + | EXTERNAL LAB: | Routin | 05/03/2019 | | Results for this | | ALKALINE PHOSPHATASE | e | | | procedure are in the | | | | | | results section. | + +--------+ + + + | EXTERNAL LAB: | Routin | 05/03/2019 | | Results for this | | BILIRUBIN, TOTAL | e | | | procedure are in the | | | | | | results section. | + +--------+ + + + | EXTERNAL LAB: | Routin | 05/03/2019 | | Results for this | | ALBUMIN | e | | | procedure are in the | | | | | | results section. | + +--------+ + + + | EXTERNAL LAB: | Routin | 05/03/2019 | | Results for this | | PROTEIN, TOTAL | e | | | procedure are in the | | | | | | results section. | + +--------+ + + + | EXTERNAL LAB: | Routin | 05/03/2019 | | Results for this | | CALCIUM | e | | | procedure are in the | | | | | | results section. | + +--------+ + + + | EXTERNAL LAB: CARBON | Routin | 05/03/2019 | | Results for this | | DIOXIDE | e | | | procedure are in the | | | | | | results section. | + +--------+ + + + | EXTERNAL LAB: | Routin | 05/03/2019 | | Results for this | | CHLORIDE | e | | | procedure are in the | | | | | | results section. | + +--------+ + + + | EXTERNAL LAB: | Routin | 05/03/2019 | | Results for this | | POTASSIUM | e | | | procedure are in the | | | | | | results section. | + +--------+ + + + | EXTERNAL LAB: SODIUM | Routin | 05/03/2019 | | Results for this | | | e | | | procedure are in the | | | | | | results section. | + +--------+ + + + | EXTERNAL LAB: CBC | Routin | 05/03/2019 | | Results for this | | | e | | | procedure are in the | | | | | | results section. | + +--------+ + + + | EXTERNAL LAB: CBC | Routin | 05/03/2019 | | Results for this | | | e | | | procedure are in the | | | | | | results section. | + +--------+ + + + | EXTERNAL LAB: TSH | Routin | 05/03/2019 | | Results for this | | | e | | | procedure are in the | | | | | | results section. | + +--------+ + + + | EXTERNAL LAB: | Routin | 05/03/2019 | | Results for this | | TRIGLYCERIDES | e | | | procedure are in the | | | | | | results section. | + +--------+ + + + | EXTERNAL LAB: | Routin | 05/03/2019 | | Results for this | | CHOLESTEROL, HDL | e | | | procedure are in the | | | | | | results section. | + +--------+ + + + | EXTERNAL LAB: | Routin | 05/03/2019 | | Results for this | | CHOLESTEROL, TOTAL | e | | | procedure are in the | | | | | | results section. | + +--------+ + + + | EXTERNAL LAB: | Routin | 05/03/2019 | | Results for this | | CHOLESTEROL, LDL | e | | | procedure are in the | | | | | | results section. | + +--------+ + + + | EXTERNAL LAB: EGFR | Routin | 05/03/2019 | | Results for this | | | e | | | procedure are in the | | | | | | results section. | + +--------+ + + + | EXTERNAL LAB: | Routin | 05/03/2019 | | Results for this | | CREATININE | e | | | procedure are in the | | | | | | results section. | + +--------+ + + + | LIPID PANEL | Routin | 05/03/2019 | | Results for this | | | e | | | procedure are in the | | | | | | results section. | + +--------+ + + + | CBC WITH | Routin | 05/03/2019 | | Results for this | | DIFFERENTIAL | e | | | procedure are in the | | | | | | results section. | + +--------+ + + + | COMPREHENSIVE | Routin | 05/03/2019 | | Results for this | | METABOLIC PANEL | e | | | procedure are in the | | | | | | results section. | + +--------+ + + + documented in this encounter Results Lipid Panel (05/03/2019) + +---------+ + + + | Component | Value | Ref Range | Performed | Pathologist | | | | | At | Signature | + +---------+ + + + | Chol/HDL | 2.6 (A) | 3.7 - 6.7 | | | | Ratio | | | | | + +---------+ + + + | Non-HDL | 67 (A) | 130 | | | | Cholesterol | | | | | + +---------+ + + + + + | Specimen | + + | Blood | + + Comprehensive Metabolic Panel (05/03/2019) + +-------+ + + + | Component | Value | Ref Range | Performed | Pathologist | | | | | At | Signature | + +-------+ + + + | Globulin | 2.3 | 2.3 - 3.5 | | | + +-------+ + + + + + | Specimen | + + | Blood | + + External Lab: BUN (05/03/2019) + +-------+ + + + | Component | Value | Ref Range | Performed | Pathologist | | | | | At | Signature | + +-------+ + + + | BUN, | 16 | 7 - 23 | EXTERNAL | | | External | | | LAB | | + +-------+ + + + + +---------+ + + | Performing | Address | City/State/Zipcode | Phone Number | | Organization | | | | + +---------+ + + | EXTERNAL LAB | | | | + +---------+ + + External Lab: Glucose (05/03/2019) + +-------+ + + + | Component | Value | Ref Range | Performed | Pathologist | | | | | At | Signature | + +-------+ + + + | Glucose, | 87 | 71 - 109 | EXTERNAL | | | External | | | LAB | | + +-------+ + + + + +---------+ + + | Performing | Address | City/State/Zipcode | Phone Number | | Organization | | | | + +---------+ + + | EXTERNAL LAB | | | | + +---------+ + + External Lab: ALT (05/03/2019) + +-------+ + + + | Component | Value | Ref Range | Performed | Pathologist | | | | | At | Signature | + +-------+ + + + | ALT, | 12 | 9 - 57 | EXTERNAL | | | External | | | LAB | | + +-------+ + + + + +---------+ + + | Performing | Address | City/State/Zipcode | Phone Number | | Organization | | | | + +---------+ + + | EXTERNAL LAB | | | | + +---------+ + + External Lab: AST (05/03/2019) + +-------+ + + + | Component | Value | Ref Range | Performed | Pathologist | | | | | At | Signature | + +-------+ + + + | AST, | 20 | 14 - 44 | EXTERNAL | | | External | | | LAB | | + +-------+ + + + + +---------+ + + | Performing | Address | City/State/Zipcode | Phone Number | | Organization | | | | + +---------+ + + | EXTERNAL LAB | | | | + +---------+ + + External Lab: Alkaline Phosphatase (05/03/2019) + +-------+ + + + | Component | Value | Ref Range | Performed | Pathologist | | | | | At | Signature | + +-------+ + + + | ALP, | 82 | 45 - 129 | EXTERNAL | | | External | | | LAB | | + +-------+ + + + + +---------+ + + | Performing | Address | City/State/Zipcode | Phone Number | | Organization | | | | + +---------+ + + | EXTERNAL LAB | | | | + +---------+ + + External Lab: Bilirubin, Total (05/03/2019) + +-------+ + + + | Component | Value | Ref Range | Performed | Pathologist | | | | | At | Signature | + +-------+ + + + | Bilirubin, | 0.5 | 0.2 - 1.3 | EXTERNAL | | | Total, | | | LAB | | | External | | | | | + +-------+ + + + + +---------+ + + | Performing | Address | City/State/Zipcode | Phone Number | | Organization | | | | + +---------+ + + | EXTERNAL LAB | | | | + +---------+ + + External Lab: Albumin (05/03/2019) + +-------+ + + + | Component | Value | Ref Range | Performed | Pathologist | | | | | At | Signature | + +-------+ + + + | Albumin, | 4.5 | 3.5 - 5 | EXTERNAL | | | External | | | LAB | | + +-------+ + + + + +---------+ + + | Performing | Address | City/State/Zipcode | Phone Number | | Organization | | | | + +---------+ + + | EXTERNAL LAB | | | | + +---------+ + + External Lab: Protein, Total (05/03/2019) + +-------+ + + + | Component | Value | Ref Range | Performed | Pathologist | | | | | At | Signature | + +-------+ + + + | Protein, | 6.8 | 6.5 - 8.2 | EXTERNAL | | | Total, | | | LAB | | | External | | | | | + +-------+ + + + + +---------+ + + | Performing | Address | City/State/Zipcode | Phone Number | | Organization | | | | + +---------+ + + | EXTERNAL LAB | | | | + +---------+ + + External Lab: Calcium (05/03/2019) + +-------+ + + + | Component | Value | Ref Range | Performed | Pathologist | | | | | At | Signature | + +-------+ + + + | Calcium, | 9.3 | 8.4 - 10.5 | EXTERNAL | | | External | | | LAB | | + +-------+ + + + + +---------+ + + | Performing | Address | City/State/Zipcode | Phone Number | | Organization | | | | + +---------+ + + | EXTERNAL LAB | | | | + +---------+ + + External Lab: Carbon Dioxide (05/03/2019) + +-------+ + + + | Component | Value | Ref Range | Performed | Pathologist | | | | | At | Signature | + +-------+ + + + | Carbon | 25 | 21 - 32 | EXTERNAL | | | Dioxide, | | | LAB | | | External | | | | | + +-------+ + + + + +---------+ + + | Performing | Address | City/State/Zipcode | Phone Number | | Organization | | | | + +---------+ + + | EXTERNAL LAB | | | | + +---------+ + + External Lab: Chloride (05/03/2019) + +-------+ + + + | Component | Value | Ref Range | Performed | Pathologist | | | | | At | Signature | + +-------+ + + + | Chloride, | 103 | 98 - 107 | EXTERNAL | | | External | | | LAB | | + +-------+ + + + + +---------+ + + | Performing | Address | City/State/Zipcode | Phone Number | | Organization | | | | + +---------+ + + | EXTERNAL LAB | | | | + +---------+ + + External Lab: Potassium (05/03/2019) + +-------+ + + + | Component | Value | Ref Range | Performed | Pathologist | | | | | At | Signature | + +-------+ + + + | Potassium, | 4.4 | 3.5 - 5.1 | EXTERNAL | | | External | | | LAB | | + +-------+ + + + + +---------+ + + | Performing | Address | City/State/Zipcode | Phone Number | | Organization | | | | + +---------+ + + | EXTERNAL LAB | | | | + +---------+ + + External Lab: Sodium (05/03/2019) + +-------+ + + + | Component | Value | Ref Range | Performed | Pathologist | | | | | At | Signature | + +-------+ + + + | Sodium, | 140 | 133 - 145 | EXTERNAL | | | External | | | LAB | | + +-------+ + + + + +---------+ + + | Performing | Address | City/State/Zipcode | Phone Number | | Organization | | | | + +---------+ + + | EXTERNAL LAB | | | | + +---------+ + + External Lab: Triglycerides (05/03/2019) + +-------+ + + + | Component | Value | Ref Range | Performed | Pathologist | | | | | At | Signature | + +-------+ + + + | Triglycerid | 104 | 51 - 152 | EXTERNAL | | | es, | | | LAB | | | External | | | | | + +-------+ + + + + + | Specimen | + + | Blood | + + + +---------+ + + | Performing | Address | City/State/Zipcode | Phone Number | | Organization | | | | + +---------+ + + | EXTERNAL LAB | | | | + +---------+ + + External Lab: Cholesterol, HDL (05/03/2019) + +-------+ + + + | Component | Value | Ref Range | Performed | Pathologist | | | | | At | Signature | + +-------+ + + + | HDL | 42 | 35 - 80 mg/dl | EXTERNAL | | | Cholesterol | | | LAB | | | , External | | | | | + +-------+ + + + + + | Specimen | + + | Blood | + + + +---------+ + + | Performing | Address | City/State/Zipcode | Phone Number | | Organization | | | | + +---------+ + + | EXTERNAL LAB | | | | + +---------+ + + External Lab: Cholesterol, Total (05/03/2019) + +-------+ + + + | Component | Value | Ref Range | Performed | Pathologist | | | | | At | Signature | + +-------+ + + + | Cholesterol | 109 | 50 - 200 mg/dl | EXTERNAL | | | , Total, | | | LAB | | | External | | | | | + +-------+ + + + + + | Specimen | + + | Blood | + + + +---------+ + + | Performing | Address | City/State/Zipcode | Phone Number | | Organization | | | | + +---------+ + + | EXTERNAL LAB | | | | + +---------+ + + External Lab: Cholesterol, LDL (05/03/2019) + +-------+ + + + | Component | Value | Ref Range | Performed | Pathologist | | | | | At | Signature | + +-------+ + + + | LDL | 63 | 0 - 129 | EXTERNAL | | | Cholesterol | | | LAB | | | , Direct, | | | | | | External | | | | | + +-------+ + + + + + | Specimen | + + | Blood | + + + +---------+ + + | Performing | Address | City/State/Zipcode | Phone Number | | Organization | | | | + +---------+ + + | EXTERNAL LAB | | | | + +---------+ + + External Lab: eGFR (05/03/2019) + +-------+ + + + | Component | Value | Ref Range | Performed | Pathologist | | | | | At | Signature | + +-------+ + + + | eGFR, | 60 | 60 | EXTERNAL | | | External | | | LAB | | + +-------+ + + + + + | Specimen | + + | Blood | + + + +---------+ + + | Performing | Address | City/State/Zipcode | Phone Number | | Organization | | | | + +---------+ + + | EXTERNAL LAB | | | | + +---------+ + + External Lab: Creatinine (05/03/2019) + +-------+ + + + | Component | Value | Ref Range | Performed | Pathologist | | | | | At | Signature | + +-------+ + + + | Creatinine, | 1.1 | 0.8 - 1.5 | EXTERNAL | | | External | | | LAB | | + +-------+ + + + + + | Specimen | + + | Blood | + + + +---------+ + + | Performing | Address | City/State/Zipcode | Phone Number | | Organization | | | | + +---------+ + + | EXTERNAL LAB | | | | + +---------+ + + CBC with Differential (05/03/2019) + +-------+ + + + | Component | Value | Ref Range | Performed | Pathologist | | | | | At | Signature | + +-------+ + + + | MCH | 30.7 | 27.0 - 31.0 pg | | | + +-------+ + + + | MCHC | 33.2 | 32.0 - 36.0 | | | | | | g/dL | | | + +-------+ + + + | % Basophils | 1.3 | 0.0 - 2.0 % | | | + +-------+ + + + + + | Specimen | + + | Blood | + + External Lab: PSA (05/03/2019) + +-------+ + + + | Component | Value | Ref Range | Performed | Pathologist | | | | | At | Signature | + +-------+ + + + | PSA, | 1.4 | 0 - 4 | EXTERNAL | | | External | | | LAB | | + +-------+ + + + + +---------+ + + | Performing | Address | City/State/Zipcode | Phone Number | | Organization | | | | + +---------+ + + | EXTERNAL LAB | | | | + +---------+ + + External Lab: CBC (05/03/2019) + +-------+ + + + | Component | Value | Ref Range | Performed | Pathologist | | | | | At | Signature | + +-------+ + + + | WBC, | 6.9 | 3 - 10.6 | EXTERNAL | | | External | | | LAB | | + +-------+ + + + | HGB, | 13.5 | 11.8 - 17.1 | EXTERNAL | | | External | | | LAB | | + +-------+ + + + | HCT, | 40.7 | 36 - 51 | EXTERNAL | | | External | | | LAB | | + +-------+ + + + | PLT, | 205 | 150 - 400 | EXTERNAL | | | External | | | LAB | | + +-------+ + + + | Neutrophils | 65.8 | 44 - 74 | EXTERNAL | | | %, | | | LAB | | | External | | | | | + +-------+ + + + | Lymphocytes | 21.7 | 15 - 42 | EXTERNAL | | | %, | | | LAB | | | External | | | | | + +-------+ + + + | Monocytes | 7.0 | 4 - 13 | EXTERNAL | | | %, External | | | LAB | | + +-------+ + + + | Eosinophils | 3.9 | 0 - 7 | EXTERNAL | | | %, | | | LAB | | | External | | | | | + +-------+ + + + | Neutrophils | 4.5 | 1.2 - 7 | EXTERNAL | | | , Absolute, | | | LAB | | | External | | | | | + +-------+ + + + | Lymphocytes | 1.5 | 0.6 - 3.4 | EXTERNAL | | | , Absolute, | | | LAB | | | External | | | | | + +-------+ + + + | Monocytes, | 0.5 | 0.5 - 1 | EXTERNAL | | | Absolute, | | | LAB | | | External | | | | | + +-------+ + + + | Eosinophils | 0.3 | 0 - 0.5 | EXTERNAL | | | , Absolute | | | LAB | | + +-------+ + + + | Basophils, | 0.1 | 0 - 0.2 | EXTERNAL | | | Absolute | | | LAB | | + +-------+ + + + | RBC, | 4.40 | 3.86 - 5.7 | EXTERNAL | | | External | | | LAB | | + +-------+ + + + | MCV, | 93 | 81 - 102 | EXTERNAL | | | External | | | LAB | | + +-------+ + + + | RDW, | 12.7 | 11.2 - 16.2 | EXTERNAL | | | External | | | LAB | | + +-------+ + + + + +---------+ + + | Performing | Address | City/State/Zipcode | Phone Number | | Organization | | | | + +---------+ + + | EXTERNAL LAB | | | | + +---------+ + + External Lab: TSH (05/03/2019) + +-------+ + + + | Component | Value | Ref Range | Performed | Pathologist | | | | | At | Signature | + +-------+ + + + | TSH, | 4.080 | 0.3 - 4.25 | EXTERNAL | | | External | | | LAB | | + +-------+ + + + + + | Specimen | + + | Blood | + + + +---------+ + + | Performing | Address | City/State/Zipcode | Phone Number | | Organization | | | | + +---------+ + + | EXTERNAL LAB | | | | + +---------+ + + External Lab: CBC (05/03/2019) + +-------+ + + + | Component | Value | Ref Range | Performed | Pathologist | | | | | At | Signature | + +-------+ + + + | WBC, | n | | EXTERNAL | | | External | | | LAB | | + +-------+ + + + + +---------+ + + | Performing | Address | City/State/Zipcode | Phone Number | | Organization | | | | + +---------+ + + | EXTERNAL LAB | | | | + +---------+ + + documented in this encounter Visit Diagnoses Not on filedocumented in this encounter"
--- OUTSIDE RECORDS SUMMARY | ~2019-10-24 | XMS | Encounter Summary ---
Demographics + + + | Address | [address] | | | [place] [address] | + + + | Home Phone | | + + + | Preferred Language | Unknown | + + + | Marital Status | | + + + | Jainism Affiliation | Unknown | + + + | Race | Unknown | + + + | Ethnic Group | Unknown | + + + Author + + + | Author | [facility] | | | and [place] | + + + | Organization | [facility] | | | and [place] [...] Team Providers + +------+ + | Care Print Developer Automatic Name | Role | Phone | + [...] Description | +--------+---------+ + + + | 12/21/ | Office | [facility] | Kavitha Davenport, | Coronary artery | | 2018 | Visit | [facility] | MD [address] | disease involving | | | | REHABILITATION [address] [place], | comanche coronary | | | | [address] [place] | [place] [address] | artery of comanche | | | | [place] [address] | [phone] | heart without angina | | | | [phone] | | pectoris (Primary | | | | | | Dx); Post PTCA | +--------+---------+ + + + [...] + + documented as of this encounter Jose Eduardo Elizondo - 12/21/2017 12:[address] [facility] [address] [place] [address] Cardiac Rehab Date: 12/21/2017 Patient Information Patient Name: Cosme Michaud Date of : 1940 Age: 77 y.o. Encounter Diagnoses Code Name Primary? 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 Yes Z98.61 Post PTCA Number of Visits Approved: 21 KX Taken [...] Appointment Duration: 50 min Electronically signed by: Jose Eduardo Rice, 12/21/2017 11:49 Patient Name: Cosme Michaud/: 1940/ lly signed by Jose Eduardo Rice at 12/21/2017 11:50 AM PDTdocumented in this encounter Plan of Treatment +--------+---------+ + + + | Date | Type | Specialty | Care Team | Description | +--------+---------+ + + + | 03/24/ | Office | Cardiology | Radha, | | | 2019 | Visit | | [place] [address] | | | | | [place], | | | | | | [place] [address] | | | | | | [phone] | | | | | | | | +--------+---------+ + + + documented as of this encounter Visit Diagnoses + + | Diagnosis | + + | Coronary artery disease involving comanche coronary artery of comanche heart without | | angina pectoris - Primary | + + | Post PTCA Postsurgical percutaneous transluminal coronary angioplasty status | + + documented in this encounter"
--- OUTSIDE RECORDS SUMMARY | ~2019-10-24 | XMS | Encounter Summary ---
Demographics + + + | Address | [address] | | | [place] [address] | + + + | Home Phone | | + + + | Preferred Language | Unknown | + + + | Marital Status | | + + + | Rastafarian Affiliation | Unknown | + + + | Race | Unknown | + + + | Ethnic Group | Unknown | + + + Author + + + | Author | [facility] | | | and [place]evin[place] | + + + | Organization | [facility] | | | and [...] Team Providers + +------+ + | Care Avionics Technician Name | Role | Phone | + +------+ + | Gia Feng NP | PCP | | + +------+ + Encounter Details +--------+ + + + + | Date | Type | Department | Care Team | Description | +--------+ + + + + | 02/14/ | Orders Only | [facility] | [place] | | | 2013 | | CONVERSION | [address] | | | | | INTERFACES [address] | [place] | | | | | [address] [place], [place] | [address] | | | | | [address] | | | | | | [phone] | | | +--------+ + + + [...] [place], | | | | | | [place] [address] | | | | | | [phone] | | | | | | | | +--------+---------+ + + + documented as of this encounter Procedures + +--------+ + + + | Procedure Name | Priori | Date/Time | Associated Diagnosis | Comments | | | ty | | | | + +--------+ + + + | MRI LUMBAR SPINE WO | Routin | 02/14/2013 | | Results for this | | CONTRAST | e | 1:50 PM | | procedure are in the | | | | PDT | | results section. | + +--------+ + + + documented in this encounter Results MRI Lumbar Spine wo Contrast (02/14/2013 1:50 PM PDT) + + | Specimen | + + | | + + + + + | Impressions | Performed At | + + + | 1. Fairly stable examination over the intervening year, but there | | | is moderate and likely significant spinal stenosis at L3-L4 and | | | L4-L5. Scarring in the operative bed, discussed by disease and perhaps | | | scarring descending nerve roots also. 2. Stable L1 compression | | | fracture. No acute signal abnormalities although this pain lumbar | | | osteophytosis and disc disease 3. Infrarenal abdominal aortic | | | aneurysm, not new but perhaps larger by 1 or 2 mm. 4. Moderate | | | symmetric and likely significant foraminal stenosis at L5-S1 may be | | | slightly worse. Significant borderline severe foraminal stenosis at | | | L3-L4 and at L4-L5 as discussed above. See above report for full | | | details, incidental findings and other levels. Electronically | | | signed by Frank Scott MD on 02/15/2013 8:57 AM | | + + + + + + | Narrative | Performed At | + + + | HISTORY: 72 year-old male with pain, periodic loss of sensation in | | | both legs, bilateral radiculopathy TECHNIQUE: MR of the lumbar | | | spine without contrast. Prior study for comparison, 20 December 2011 | | | FINDINGS: Lumbar spine is stable in alignment, straightened than | | | slightly focally kyphotic at the stable L1 compression fracture. No | | | focal anterolisthesis, but this translocates the upper lumbar spine | | | posteriorly somewhat, although gradually-accentuates effects of the | | | local disc endplate disease at L1-L2 to be discussed below. L1 has | | | lost about 40% of its height. Signal texture of the spinal column | | | is is without aggressive lesion or acute fracture, but there is | | | endplate signal abnormality particularly across the node desiccated | | | L3-L4 disc space. Ambriz lumbar osteoarthropathy-the signal changes at | | | other levels are senescent and nonacute in appearance. Disc | | | spaces are most desiccated at L3-L4 and L4-L5 but there is an element | | | of disc desiccation and disc space narrowing throughout. Conus | | | ends at L1, normal in position, signal texture and configuration. | | | Paraspinal soft tissues, to limitations of collimation and technique | | | are notable for a aneurysm of the infrarenal abdominal aorta which | | | measures maximally 3.5 cm, with mixed signal texture and | | | atherosclerotic vascular disease-no adjacent fluid or inflammatory | | | change. Cysts from both kidneys and a small intramuscular lipoma | | | in the left iliopsoas muscle. T12-L1: Facet hypertrophy symmetric | | | with mild impact upon the bilateral foramina only L1-L2: Disc | | | osteophyte complex extends about 4 mm behind L2 endplate, with facet | | | arthropathy there is mild narrowing of the canal with focal anterior, | | | ventral indentation of the thecal sac near the descending left L2 | | | nerve. Lateral disc osteophyte disease is greater on right, | | | apparently abuts the exiting right L1 nerve. Findings here are | | | slightly worse, but not new. L2-L3: Ligamentous hypertrophy and | | | facet arthropathy. Lateral bulge of the disc is greater on the right, | | | no image 14 series 6. Measures about 3 mm from the endplate. The | | | exiting nerves seem to escape. Mild narrowing of the canal. L3-L4: | | | Significant left lateral osteophytosis, facet arthropathy and | | | ligamentous thickening combine to cause moderate narrowing of the | | | canal. Stable. There is moderate to severe stenosis of the left | | | foramina and the exiting left L4, and descending L3 nerve is may all | | | be affected. The right L3 nerve likely escapes, but there is at least | | | some intact and mild to moderate narrowing of the right foramina, | | | unchanged. L4-L5: Patient is post right laminectomy. Marked facet | | | and ligamentous hypertrophy with significant disc osteophyte disease, | | | stable but likely significant moderate stenosis of the canal. Exiting | | | L4 nerves, descending nerves are all likely affected and there is | | | probably scarring to the right of midline. The disc osteophyte | | | complex itself measures at least 4 mm from the endplate, but is | | | difficult to fully distinguish given poor tissue planes and scarring. | | | L5-S1: Facet arthropathy and lateral disc endplate production | | | causing moderate and likely significant bilateral foraminal stenosis. | | | Maybe some spurring about the descending nerves-the canal is not | | | highly stenosed. SI joints are symmetric with arthropathy | | + + + + ----+ | Procedure Note | + ----+ | Maximo Arias - 02/01/2019 3:02 PM PDT HISTORY: 72 year-old male with pain, | | periodic loss of sensation in both legs, bilateral radiculopathy TECHNIQUE: MR of the | | lumbar spine without contrast. Prior study for comparison, 20 December 2011 FINDINGS: Lumbar | | spine is stable in alignment, straightened than slightly focally kyphotic at the stable | | L1 compression fracture. No focal anterolisthesis, but this translocates the upper | | lumbar spine posteriorly somewhat, although gradually-accentuates effects of the local | | disc endplate disease at L1-L2 to be discussed below. L1 has lost about 40% of its | | height. Signal texture of the spinal column is is without aggressive lesion or acute | | fracture, but there is endplate signal abnormality particularly across the node | | desiccated L3-L4 disc space. Ambriz lumbar osteoarthropathy-the signal changes at other | | levels are senescent and nonacute in appearance. Disc spaces are most desiccated at | | L3-L4 and L4-L5 but there is an element of disc desiccation and disc space narrowing | | throughout. Conus ends at L1, normal in position, signal texture and configuration. | | Paraspinal soft tissues, to limitations of collimation and technique are notable for a | | aneurysm of the infrarenal abdominal aorta which measures maximally 3.5 cm, with mixed | | signal texture and atherosclerotic vascular disease-no adjacent fluid or inflammatory | | change. Cysts from both kidneys and a small intramuscular lipoma in the left iliopsoas | | muscle. T12-L1: Facet hypertrophy symmetric with mild impact upon the bilateral foramina | | only L1-L2: Disc osteophyte complex extends about 4 mm behind L2 endplate, with facet | | arthropathy there is mild narrowing of the canal with focal anterior, ventral | | indentation of the thecal sac near the descending left L2 nerve. Lateral disc osteophyte | | disease is greater on right, apparently abuts the exiting right L1 nerve. Findings here | | are slightly worse, but not new. L2-L3: Ligamentous hypertrophy and facet arthropathy. | | Lateral bulge of the disc is greater on the right, no image 14 series 6. Measures about | | 3 mm from the endplate. The exiting nerves seem to escape. Mild narrowing of the canal. | | L3-L4: Significant left lateral osteophytosis, facet arthropathy and ligamentous | | thickening combine to cause moderate narrowing of the canal. Stable. There is moderate | | to severe stenosis of the left foramina and the exiting left L4, and descending L3 nerve | | is may all be affected. The right L3 nerve likely escapes, but there is at least some | | intact and mild to moderate narrowing of the right foramina, unchanged. L4-L5: Patient | | is post right laminectomy. Marked facet and ligamentous hypertrophy with significant | | disc osteophyte disease, stable but likely significant moderate stenosis of the canal. | | Exiting L4 nerves, descending nerves are all likely affected and there is probably | | scarring to the right of midline. The disc osteophyte complex itself measures at least 4 | | mm from the endplate, but is difficult to fully distinguish given poor tissue planes | | and scarring. L5-S1: Facet arthropathy and lateral disc endplate production causing | | moderate and likely significant bilateral foraminal stenosis. Maybe some spurring about | | the descending nerves-the canal is not highly stenosed. SI joints are symmetric with | | arthropathy IMPRESSION: 1. Fairly stable examination over the intervening year, but | | there is moderate and likely significant spinal stenosis at L3-L4 and L4-L5. Scarring in | | the operative bed, discussed by disease and perhaps scarring descending nerve roots | | also. 2. Stable L1 compression fracture. No acute signal abnormalities although this | | pain lumbar osteophytosis and disc disease 3. Infrarenal abdominal aortic aneurysm, not | | new but perhaps larger by 1 or 2 mm. 4. Moderate symmetric and likely significant | | foraminal stenosis at L5-S1 may be slightly worse. Significant borderline severe | | foraminal stenosis at L3-L4 and at L4-L5 as discussed above. See above report for full | | details, incidental findings and other levels. | | | |3. Infrarenal abdominal aortic aneurysm, not new but perhaps larger by 1 or 2 mm. | | | |4. Moderate symmetric and likely significant foraminal stenosis at L5-S1 may be slightly wo rse. Significant borderline severe foraminal stenosis at L3-L4 and at L4-L5 as discussed abo ve. | | | |See above report for full details, incidental findings and other levels. | | | | | + ----+ documented in this encounter Visit Diagnoses Not on filedocumented in this encounter"
--- OUTSIDE RECORDS SUMMARY | ~2019-10-24 | XMS | Encounter Summary ---
Demographics + + + | Address | [address] | | | [place] [address] | + + + | Home Phone | | + + + | Preferred Language | Unknown | + + + | Marital Status | | + + + | Baptist Affiliation | Unknown | + + + | Race | Unknown | + + + | Ethnic Group | Unknown | + + + Author + + + | Author | and [facility] | | | and [place] | + + + | Organization | [facility] | | | and Tevinana [...] Team Providers + +------+ + | Care Clinical Trial Manager Name | Role | Phone | [...] Description | +--------+---------+ + + + | 12/14/ | Office | [facility] | Kavitha Davenport, | Coronary artery | | 2018 | Visit | MED CTR [facility]AC | [place] [address] [facility] | disease, angina | | | | REHABILITATION [address] | [address] [place], | presence | | | | [address] [place] | [place] [address] | unspecified, | | | | [place] [address] | [phone] | unspecified vessel | | | | [phone] | | or lesion type, | | | | | | unspecified whether | | | | | | [place] or | | | | | | transplanted heart | | | | | | (Primary Dx); Post | | | | | | PTCA; Coronary | | | | | | artery disease | | | | | | involving [place] | | | | | | coronary artery of | | | | | | [place] heart without | | | | | | angina pectoris | +--------+---------+ + + + Social History [...] + documented as of this encounter Progress Notes Regla Light RN - 12/14/2017 12:00 PM PDT [facility] [address] [place] [address] Cardiac Rehab Date: 12/14/2017 Patient Information Patient Name: Cosme Michaud Date of : 1940 Age: 77 y.o. Encounter Diagnoses Code Name Primary? I25.10 Coronary artery disease, angina presence unspecified, unspecified vessel or lesi on type, unspecified whether [place] or transplanted heart Yes Z98.61 Post PTCA Number of Visits [...] Appointment Duration: 50 min Electronically signed by: Regla Light RN, 12/14/2017 12:17 Patient Name: Cosme Michaud/: 1940/ documented in this enco unter Plan of Treatment +--------+---------+ + + + | Date | Type | Specialty | Care Team | Description | +--------+---------+ + + + | 03/24/ | Office | Cardiology | [place], | | | 2019 | Visit | | [place] [address] | | | | | | [place], | | | | | | [place] [address] | | | | | | [phone] | | | | | | | | +--------+---------+ + + + documented as of this encounter Visit Diagnoses + + | Diagnosis | + + | Coronary artery disease, angina presence unspecified, unspecified vessel or lesion | | type, unspecified whether [place] or transplanted heart - Primary | + + | Post PTCA Postsurgical percutaneous transluminal coronary angioplasty status | + + | Coronary artery disease involving [place] coronary artery of [place] heart without | | angina pectoris | + + documented in this encounter"
--- OUTSIDE RECORDS SUMMARY | ~2019-10-24 | XMS | Encounter Summary ---
Demographics + + + | Address | [address] | | | [place] [address] | + + + | Home Phone | | + + + | Preferred Language | Unknown | + + + | Marital Status | | + + + | Rastafari Affiliation | Unknown | + + + | Race | Unknown | + + + | Ethnic Group | Unknown | + + + Author + + + | Author | [facility] | | | and [place]evinana | + + + | Organization | [facility] | | | and [...] Team Providers + +------+ + | Care Cinnamon Grinder Name | Role | Phone | + +------+ + | Radha Feng | PCP | | + +------+ + Reason for Visit +--------+ + | Reason | Comments | +--------+ + | Other | test results | +--------+ + Encounter Details +--------+ + + + + | Date | Type | Department | Care Team | Description | +--------+ + + + + | 03/25/ | Telephone | [facility] | Radha, | Other (test results) | | 2019 | | CARDIOLOGY [address] | [facility] [address] | | | | | [place], | [place], | | | | | [place] [address] | [place] [address] | | | | | [phone] | [phone] | | | | | | | [...] [place] | | | | | | [place] [address] | | | | | | [phone] | | | | | | | | +--------+---------+ + + + documented as of this encounter Visit Diagnoses Not on filedocumented in this encounter"
--- OUTSIDE RECORDS SUMMARY | ~2019-10-24 | XMS | Encounter Summary ---
Demographics + + + | Address | [address] | | | [place] [address] | + + + | Home Phone | | + + + | Preferred Language | Unknown | + + + | Marital Status | | + + + | Moravian Affiliation | Unknown | + + + | Race | Unknown | + + + | Ethnic Group | Unknown | + + + Author + + + | Author | [facility] | | | and Tevinana | + + + | Organization | [facility] | | | and [place]evinana [...] Team Providers + +------+ + | Care Mutuel Teller Name | Role | Phone | + [...] Description | +--------+---------+ + + + | 01/25/ | Office | [facility] | Kavitha Davenport, | Post PTCA (Primary | | 2018 | Visit | MED CTR CARDIAC | [place] [address] | Dx); Coronary artery | | | | REHABILITATION [address] | [address] [place], | disease involving | | | | [address] [place] | [place] [address] | [place] coronary | | | | [place] [address] | [phone] | artery of [place] | | | | [phone] | | heart without angina | | | | | | pectoris | +--------+---------+ + + + Social [...] + documented as of this encounter Progress Jose Eduardo Lee - [facility]2018 [facility] [address] [place] [address] Cardiac Rehab Date: 01/25/2018 Patient Information Patient Name: Cosme Michaud Date of : 1940 Age: 77 y.o. No diagnosis found. Number of Visits Approved: 21 KX Taken [...] min Electronically signed by: Jose Eduardo Rice, 01/25/2018 12:17 Patient Name: Cosme Michaud/: 1940/ lly signed by Jose Eduardo Rice at 01/25/2018 12:18 PM PDTdocumented in this encounter Plan of Treatment +--------+---------+ + + + | Date | Type | Specialty | Care Team | Description | +--------+---------+ + + + | 03/24/ | Office | Cardiology | Radha, | | | 2019 | Visit | | [place] [address] | | | | | | [place], | | | | | | [place] [address] | | | | | | [phone] | | | | | | | | +--------+---------+ + + + documented as of this encounter Visit Diagnoses + + | Diagnosis | + + | Post PTCA - Primary Postsurgical percutaneous transluminal coronary angioplasty | | status | + + | Coronary artery disease involving [place] coronary artery of [place] heart without | | angina pectoris | + + documented in this encounter"
--- OUTSIDE RECORDS SUMMARY | ~2019-10-24 | XMS | Encounter Summary ---
Demographics + + + | Address | [address] | | | [place] [address] | + + + | Home Phone | | + + + | Preferred Language | Unknown | + + + | Marital Status | | + + + | Zoroastrianism Affiliation | Unknown | + + + | Race | Unknown | + + + | Ethnic Group | Unknown | + + + Author + + + | Author | [facility] | | | and Tevinana | + + + | Organization | [facility] | | | and [...] Team Providers + +------+ + | Care Tie Maker Name | Role | Phone | [...] [place] | | | | | [address], [place] | [address] | | | | | [address] | | | | | | [phone] | | | +--------+ + + + [...] [place], | | | | | | [place] [address] | | | | | | [phone] | | | | | | | | +--------+---------+ + + + documented as of this encounter Procedures + +--------+ + + + | Procedure Name | Priori | Date/Time | Associated Diagnosis | Comments | | | ty | | | | + +--------+ + + + | MRI THORACIC SPINE | Routin | 02/14/2013 | | Results for this | | WO CONTRAST | e | 1:31 PM | | procedure are in the | | | | PDT | | results section. | + +--------+ + + + documented in this encounter Results MRI Thoracic Spine wo Contrast (02/14/2013 1:31 PM PDT) + + | Specimen | + + | | + + + + + | Impressions | Performed At | + + + | 1. Degenerative changes, with uniform disc endplate disease | | | throughout the thoracic column. A Schmorl's node about the anterior | | | superior aspect of T5-there is no compression, acute signal | | | abnormality or atypical process. 2. Specifically, no thoracic disc | | | herniation, spinal stenosis or active thoracic vertebral disease to | | | explain symptoms 3. Atherosclerotic vascular disease and a | | | infrarenal abdominal aortic aneurysm of about 3.5 cm | | | | | + + + + + + | Narrative | Performed At | + + + | HISTORY: 72 year-old male, back pain and radiculopathy | | | TECHNIQUE: 1. MR evaluation of the thoracic spine without contrast | | | Prior study for review : None FINDINGS: Assuming accurate | | | numbering from C2, there are 7 cervical, 12 thoracic and 5 lumbar | | | vertebral bodies. This maps the compression fracture known from December | | | 2011 to L1. Suggestion of occasional small hemangiomata. The | | | thoracic cord is without evidence of signal abnormality or intrinsic | | | lesion. The CSF ventral and dorsal to the cord is preserved at all | | | points throughout the thoracic column. There is an L1 compression | | | fracture and significant disc endplate disease at H0-V2-[id number] | | | the linux support engineer examination for details there. Here, there is a | | | Schmorl's node at the superior anterior aspect of T5. There are | | | degenerative signal abnormalities across narrowed desiccated discs and | | | disc spaces-but no atypical or active lesion. No compression of the | | | thoracic column, malalignment or fracture There is an infrarenal | | | abdominal aortic aneurysm which measures at least 3.5 cm, positive | | | caliber change without destructive osseous disease. The paraspinal | | | soft tissues are otherwise notable for a right renal cyst | | + + + + + | Procedure Note | + + | Maximo Arias Conversion - 02/01/2019 3:02 PM PDT HISTORY: 72 year-old male, back pain | | and radiculopathy TECHNIQUE: 1. MR evaluation of the thoracic spine without contrast | | Prior study for review : None FINDINGS: Assuming accurate numbering from C2, there are 7 | | cervical, 12 thoracic and 5 lumbar vertebral bodies. This maps the compression | | fracture known from December 2011 to L1. Suggestion of occasional small hemangiomata. The | | thoracic cord is without evidence of signal abnormality or intrinsic lesion. The CSF | | ventral and dorsal to the cord is preserved at all points throughout the thoracic | | column. There is an L1 compression fracture and significant disc endplate disease at | | C0-T0-[id number] the linux support engineer examination for details there. Here, there is a Schmorl's | | node at the superior anterior aspect of T5. There are degenerative signal abnormalities | | across narrowed desiccated discs and disc spaces-but no atypical or active lesion. No | | compression of the thoracic column, malalignment or fracture There is an infrarenal | | abdominal aortic aneurysm which measures at least 3.5 cm, positive caliber change | | without destructive osseous disease. The paraspinal soft tissues are otherwise notable | | for a right renal cyst IMPRESSION: 1. Degenerative changes, with uniform disc endplate | | disease throughout the thoracic column. A Schmorl's node about the anterior superior | | aspect of T5-there is no compression, acute signal abnormality or atypical process. 2. | | Specifically, no thoracic disc herniation, spinal stenosis or active thoracic vertebral | | disease to explain symptoms 3. Atherosclerotic vascular disease and a infrarenal | | abdominal aortic aneurysm of about 3.5 cm | | | |IMPRESSION: | | | |1. Degenerative changes, with uniform disc endplate disease throughout the thoracic column. A Schmorl's node about the anterior superior aspect of T5-there is no compression, acute si gnal abnormality or atypical process. | | | |2. Specifically, no thoracic disc herniation, spinal stenosis or active thoracic vertebral disease to explain symptoms | | | |3. Atherosclerotic vascular disease and a infrarenal abdominal aortic aneurysm of about 3.5 cm | | | | | + + documented in this encounter Visit Diagnoses Not on filedocumented in this encounter"
--- OUTSIDE RECORDS SUMMARY | ~2019-10-24 | XMS | Encounter Summary ---
Demographics + + + | Address | [address] | | | [place] [address] | + + + | Home Phone | | + + + | Preferred Language | Unknown | + + + | Marital Status | | + + + | Mormon Affiliation | Unknown | + + + | Race | Unknown | + + + | Ethnic Group | Unknown | + + + Author + + + | Author | [facility] | | | and Tevinana | + + + | Organization | [facility] | | | and Tevinana [...] Team Providers + +------+ + | Care Safety Investigator/Cause Analyst Name | Role | Phone | + +------+ + | Gia Feng NP | PCP | | + +------+ + Encounter Details +--------+ + + + + | Date | Type | Department | Care Team | Description | +--------+ + + + + | 10/10/ | Orders Only | [facility] | Kev Dudley MD | | | 2018 | | CARDIOLOGY [place] | [address] | | | | | [address] | [place] [address] | | | | | [place], [place] | [phone] | | | | | [address] | | | | | | [phone] | | | +--------+ + + + [...] | | | | | | [place] [address] | | | | | | [phone] | | | | | | | | +--------+---------+ + + + documented as of this encounter Procedures + +--------+ + + + | Procedure Name | Priori | Date/Time | Associated Diagnosis | Comments | | | ty | | | | + +--------+ + + + | CV CARDIAC PROCEDURE | Routin | 10/10/2017 | | Results for this | | | e | 3:03 PM | | procedure are in the | | | | PDT | | results section. | + +--------+ + + + documented in this encounter Results CV CARDIAC PROCEDURE (10/10/2017 3:03 PM PDT) + + | Specimen | + + | | + + + + + | Narrative | Performed At | + + + | | | | | | | DATE OF SERVICE October 10, 2017 BRIEF HISTORY Mr. Michaud is a | | | 77-year-old male with a history of COPD and chest | | | discomfort who had a stress test showing reversible inferior defect. | | | Coronary angiography was done in [facility] by | | | Dr. Davenport and showed at least moderate disease in the proximal | | | LAD prior to a widely patent stent but what appears to be severe | | | disease in the distal RCA. He was referred for coronary intervention. | | | For details regarding his presentation, kindly refer to my H+P. | | | PROCEDURES 1. Radial artery approach. 2. Instantaneous wave-free | | | ratio of the left anterior descending. 3. Primary stenting of distal | | | right coronary artery with a 2.75 x 24 mm Synergy drug-eluting stent. | | | ESTIMATED BLOOD LOSS Less than 50 mL. TECHNIQUE The patient | | | was brought to the catheterization lab in the fasting state. He was | | | prepped and draped in the usual sterile fashion. Arterial access was | | | obtained via right radial artery, and a 6-Bahamian [place] sheath was | | | placed. A JL3.5 guider catheter was then advanced and engaged with | | | the left main coronary artery, and heparin was given. Projection of | | | the vessel showed what appears to be at least moderate disease in the | | | proximal LAD prior to the previously placed stent. An IFR | | | [place] wire was then advanced and normalized in the left main and | | | then was advanced into the LAD. The lowest IFR was 0.95 suggesting | | | hemodynamically insignificant lesion in the proximal LAD. I then | | | redirected my attention toward treatment of the distal RCA lesion, | | | and a JR4 guider catheter was advanced and engaged with the right | | | coronary artery. Projection of the right coronary artery showed | | | severe tubular stenosis in the distal vessel. A BMW guidewire was | | | then threaded into the RCA and placed distally. Primary stenting was | | | done with a 2.75 x 24 mm Synergy drug-eluting stent with excellent | | | result. All equipment was then removed. | | | CONCLUSION/RECOMMENDATIONS 1. Insignificant disease in the proximal | | | left anterior descending with instantaneous wave-free ratio of 0.95. | | | 2. Primary stenting of the distal right coronary artery with a 2.75 x | | | 24 mm Synergy stent. Read by KEV DUDLEY MD 10/11/2017 | | | 06:22 A | | | AM | | + + + + + | Procedure Note | + + | Maximo Arias Conversion - 02/01/2019 10:31 AM PDT | | | | | | DATE OF SERVICE | | October 10, 2017 | | | | BRIEF HISTORY | | Mr. Michaud is a 77-year-old male with a history of COPD and | | chest discomfort who had a stress test showing reversible inferior defect. | | Coronary angiography was done in [facility] by . | | Ethel and showed at least moderate disease in the proximal LAD prior to | | a widely patent stent but what appears to be severe disease in the distal | | RCA. He was referred for coronary intervention. For details regarding his | | presentation, kindly refer to my H+P. | | | | PROCEDURES | | 1. Radial artery approach. | | 2. Instantaneous wave-free ratio of the left anterior descending. | | 3. Primary stenting of distal right coronary artery with a 2.75 x 24 mm | | Synergy drug-eluting stent. | | | | ESTIMATED BLOOD LOSS | | Less than 50 mL. | | | | TECHNIQUE | | The patient was brought to the catheterization lab in the fasting state. He | | was prepped and draped in the usual sterile fashion. Arterial access was | | obtained via right radial artery, and a 6-B[place]amian [place] sheath was placed. A | | JL3.5 guider catheter was then advanced and engaged with the left main | | coronary artery, and heparin was given. Projection of the vessel showed | | what appears to be at least moderate disease in the proximal LAD prior to | | the previously placed stent. | | | | An IFR [place] wire was then advanced and normalized in the left main and | | then was advanced into the LAD. The lowest IFR was 0.95 suggesting | | hemodynamically insignificant lesion in the proximal LAD. | | | | I then redirected my attention toward treatment of the distal RCA lesion, | | and a JR4 guider catheter was advanced and engaged with the right coronary | | artery. Projection of the right coronary artery showed severe tubular | | stenosis in the distal vessel. A BMW guidewire was then threaded into the | | RCA and placed distally. Primary stenting was done with a 2.75 x 24 mm | | Synergy drug-eluting stent with excellent result. All equipment was then | | removed. | | | | CONCLUSION/RECOMMENDATIONS | | 1. Insignificant disease in the proximal left anterior descending with | | instantaneous wave-free ratio of 0.95. | | 2. Primary stenting of the distal right coronary artery with a 2.75 x 24 mm | | Synergy stent. | | | | | | | | | | Read by KEV DUDLEY MD 10/11/2017 06:22 A | | | | | + + documented in this encounter Visit Diagnoses Not on filedocumented in this encounter"
--- OUTSIDE RECORDS SUMMARY | ~2019-10-24 | XMS | Encounter Summary ---
Demographics + + + | Address | [address] | | | [place] [address] | + + + | Home Phone | | + + + | Preferred Language | Unknown | + + + | Marital Status | | + + + | Presybeterian Affiliation | Unknown | + + + | Race | Unknown | + + + | Ethnic Group | Unknown | + + + Author + + + | Author | [facility] | | | and [place]evin[place] | + + + | Organization | [facility] [...] Team Providers + +------+ + | Care Inside Sales Account Representative Name | Role | Phone | + [...] Description | +--------+---------+ + + + | 01/02/ | Office | [facility] | Kavitha Davenport, | Coronary artery | | 2018 | Visit | MED CTR CARDIAC | MD [address] | disease involving | | | | REHABILITATION [address] | [address], | [place] coronary | | | | [address] [place] | [place] [address] | artery of [place] | | | | [place] [address] | [phone] | heart without angina | | | | [phone] | | pectoris (Primary | | | | | | Dx) | +--------+---------+ + + + Social History [...] as of this encounter Progress Estela Maharaj, COMPUTER APPLICATION DEVELOPER - 01/02/2018 12:00 PM PDT [facility] CARDIAC REHABILITATION [address] [place] [address] Cardiac Rehab Date: 01/02/2018 Patient Information Patient Name: Cosme Michaud Date of : 1940 Age: 77 y.o. Encounter Diagnoses Code Name Primary? I25.10 Coronary artery disease involving [place] coronary artery of [place] heart without angina pectoris Yes Number of Visits Approved: 21 KX [...] min Electronically signed by: Estela Bernal RRT, 01/02/2018 12:54 Patient Name: Cosme Michaud/: 1940/ lly signed by Estela Bernal RRT at 01/02/2018 12:54 PM PDTdocumented in this e ncounter Plan of Treatment +--------+---------+ + + + | Date | Type | Specialty | Care Team | Description | +--------+---------+ + + + | 03/24/ | Office | Cardiology | Radha, | | | 2019 | Visit | | [place] [address] | | | | | | [place], | | | | | | [place] [address] | | | | | | [phone] | | | | | | | | +--------+---------+ + + + documented as of this encounter Visit Diagnoses + + | Diagnosis | + + | Coronary artery disease involving [place] coronary artery of [place] heart without | | angina pectoris - Primary | + + documented in this encounter"
--- OUTSIDE RECORDS SUMMARY | ~2019-10-24 | XMS | Encounter Summary ---
Demographics + + + | Address | [address] | | | [place] [address] | + + + | Home Phone | | + + + | Preferred Language | Unknown | + + + | Marital Status | | + + + | Baptism Affiliation | Unknown | + + + | Race | Unknown | + + + | Ethnic Group | Unknown | + + + Author + + + | Author | [facility] | | | and [place]evin[place] | + + + | Organization | [facility] | | | and [...] Team Providers + +------+ + | Care Software Test Specialist Name | Role | Phone | + [...] Description | +--------+---------+ + + + | 01/30/ | Office | [facility] | Kavitha Davenport, | Post PTCA (Primary | | 2018 | Visit | MED CTR CARDIAC | MD [address] | Dx); Coronary artery | | | | REHABILITATION [address] | [address], | disease involving | | | | [address] [place] | [place] [address] | [place] coronary | | | | [place] [address] | [phone] | artery of [place] | | | | [phone] | | heart without angina | | [...] of this encounter Jose Eduardo Elizondo - 01/30/2018 12:[address] PM [address] [facility] CARDIAC REHABILITATION [address] [place] [address] Cardiac Rehab Date: 01/30/2018 Patient Information Patient Name: Cosme Michaud Date of : 1940 Age: 77 y.o. Encounter Diagnoses Code Name Primary? Z98.61 Post PTCA Yes I25.10 Coronary artery disease involving [place] coronary artery of [place] heart without angina pectoris Number of Visits Approved: 21 KX Taken [...] min Electronically signed by: Jose Eduardo Rice, 01/30/2018 15:02 Patient Name: Cosme Michaud/: 1940/ lly signed by Jose Eduardo Rice at 01/30/2018 3:03 PM PDTdocumented in this encounter Plan of Treatment +--------+---------+ + + + | Date | Type | Specialty | Care Team | Description | +--------+---------+ + + + | 03/24/ | Office | Cardiology | Radha, | | | 2019 | Visit | | [place] [address] | | | | | | [place], | | | | | | [place] [address] | | | | | | [phone] | | | | | | | | +--------+---------+ + + + documented as of this encounter Visit Diagnoses + + | Diagnosis | + + | Post PTCA - Primary Postsurgical percutaneous transluminal coronary angioplasty | | status | + + | Coronary artery disease involving [place] coronary artery of [place] heart without | | angina pectoris | + + documented in this encounter"
--- OUTSIDE RECORDS SUMMARY | ~2019-10-24 | XMS | Encounter Summary ---
Demographics + + + | Address | [address] | | | [place] [address] | + + + | Home Phone | | + + + | Preferred Language | Unknown | + + + | Marital Status | | + + + | Jehovah'S Witness Affiliation | Unknown | + + + | Race | Unknown | + + + | Ethnic Group | Unknown | + + + Author + + + | Author | [facility] | | | and [place] | + + + | Organization | [facility] | | | and [place]evinana [...] Team Providers + +------+ + | Care Merchandising Consultant Name | Role | Phone | + [...] | +--------+ + + + + | 06/27/ | Hospital | [facility] | Gia Feng NP | | | 2018 | Encounter | MED CTR NUCLEAR | [address] | | | | | MEDICINE [address] | [place] [address] | | | | | [place], | [phone] | | | | | [place] [address] | | | | | | [phone] | | | +--------+ + + + [...] [place], | | | | | | [place] [address] | | | | | | [phone] | | | | | | | | +--------+---------+ + + + documented as of this encounter Procedures + +--------+ + + + | Procedure Name | Priori | Date/Time | Associated Diagnosis | Comments | | | ty | | | | + +--------+ + + + | NM NUCLEAR STRESS | Routin | 06/27/2017 | Chest pain, | Results for this | | TEST (PHARMACOLOGIC | e | 11:07 AM | unspecified type | procedure are in the | | - VASODILATOR) | | PST | | results section. | + +--------+ + + + documented in this encounter Visit Diagnoses Not on filedocumented in this encounter Administered Medications + +--------+ + +------+------+ | Medication Order | MAR | Action | Dose | Rate | Site | | | Action | Date | | | | + +--------+ + +------+------+ | technetium TC-[id number] sestamibi | Given | 06/27/19 | 30 | | | | (CARDIOLITE) injection 30 | | 18 11:00 | millicur | | | | millicurie 30 millicurie, | | AM PST | ies | | | | Intravenous, ONCE PRN, Other, | | | | | | | Starting 06/27/17 at 1059, For | | | | | | | 1 dose, Nuclear Medicine | | | | | | + +--------+ + +------+------+ +---+---+ | | | +---+---+ documented in this encounter"
--- OUTSIDE RECORDS SUMMARY | ~2019-10-24 | XMS | Encounter Summary ---
Demographics + + + | Address | [address] | | | [place] [address] | + + + | Home Phone | | + + + | Preferred Language | Unknown | + + + | Marital Status | | + + + | Nondenominational Affiliation | Unknown | + + + | Race | Unknown | + + + | Ethnic Group | Unknown | + + + Author + + + | Author | [facility] | | | and [place] | + + + | Organization | [facility] | | [...] Team Providers + +------+ + | Care Boot Turner Name | Role | Phone | + +------+ + | Gia Feng NP | PCP | | + +------+ + Encounter Details +--------+ + + + + | Date | Type | Department | Care Team | Description | +--------+ + + + + | 02/19/ | Orders Only | [facility] | [place] | | | 2013 | | CONVERSION | [address] | | | | | INTERFACES [address] | [address] [place] | | | | | [address] [place], [place] | [address] | | | | | [address] | | | | | | [phone] | | | +--------+ + + + [...] | | | | | | [place] [address] | | | | | | [phone] | | | | | | | | +--------+---------+ + + + documented as of this encounter Procedures + +--------+ + + + | Procedure Name | Priori | Date/Time | Associated Diagnosis | Comments | | | ty | | | | + +--------+ + + + | XR CERVICAL SPINE 2 | Routin | 02/19/2013 | | Results for this | | OR 3 VIEWS | e | 12:22 PM | | procedure are in the | | | | PDT | | results section. | + +--------+ + + + documented in this encounter Results XR Cervical Spine 2 or 3 Views (02/19/2013 12:22 PM PDT) + + | Specimen | + + | | + + + + + | Impressions | Performed At | + + + | 1. Anterolisthesis of C4 relative to C5 seems increased in | | | flexion. 2. 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 There is anterolisthesis of C4 relative to C5 by about | | | 4 mm in flexion. In extension-2 mm. Anterior translocation of C3 | | | relative to C4 measures about 3 mm, 1-2 mm in extension. Bones | | | are without fracture or aggressive lesion, but there is significant | | | anterior osteophytosis from C5 to the thoracic junction and facet | | | arthropathy of the lower cervical spine. Disk spaces and endplates | | | reveal dominant disc space narrowing and endplate production at | | | C5-C7. Adjacent soft tissues are unremarkable | | + + + + + | Procedure Note | + + | Maximo Arias Conversion - 02/01/2019 3:02 PM PDT HISTORY: 72 year old male with pain | | TECHNIQUE: 4 view examination of the cervical spine to include flexion and extension | | filmsPrior examination : None FINDINGS: Alignment is straightened below C4, across | | flexion and extension range of motion is quite limited. There is anterolisthesis of C4 | | relative to C5 by about 4 mm in flexion. In extension-2 mm. Anterior translocation of C3 | | relative to C4 measures about 3 mm, 1-2 mm in extension. Bones are without fracture or | | aggressive lesion, but there is significant anterior osteophytosis from C5 to the | | thoracic junction and facet arthropathy of the lower cervical spine. Disk spaces and | | endplates reveal dominant disc space narrowing and endplate production at C5-C7. | | Adjacent soft tissues are unremarkable IMPRESSION: 1. Anterolisthesis of C4 relative to | | C5 seems increased in flexion. 2. Significant disc endplate disease from C5-C7 with | | facet arthropathy of the cervicothoracic junction | |Disk spaces and endplates reveal dominant disc space narrowing and endplate production at C 5-C7. | | | |Adjacent soft tissues are unremarkable | | | |IMPRESSION: | | | |1. Anterolisthesis of C4 relative to C5 seems increased in flexion. | | | |2. Significant disc endplate disease from C5-C7 with facet arthropathy of the cervicothorac ic junction | | | | | + + documented in this encounter Visit Diagnoses Not on filedocumented in this encounter"
--- OUTSIDE RECORDS SUMMARY | ~2019-10-24 | XMS | Encounter Summary ---
Demographics + + + | Address | [address] | | | [place] [address] | + + + | Home Phone | | + + + | Preferred Language | Unknown | + + + | Marital Status | | + + + | Latter-Day Affiliation | Unknown | + + + | Race | Unknown | + + + | Ethnic Group | Unknown | + + + Author + + + | Author | [facility] | | | and [place]evin[place] | + + + | Organization | [facility] | | | and [place] | [...] Team Providers + +------+ + | Care Pulmonary Care Nurse Name | Role | Phone | [...] | Cardiac | Diagnoses | Ethel | OP ST | | | Services | Rehabilitatio | Coronary | MD Kavitha | KARLA | | | Required | n | artery | [address] [facility] | | | | | disease | [address] | [address] | | | | | involving | [place], | [address]VE | | | | | [place] | [place] [address] | [place], [place] | | | | | coronary | Phone: | [phone] | | | | | artery of | [phone] | Phone: | | | | | [place] heart | Fax: | [phone] | | | | | without | [phone] | Fax: | | | | | angina | | [phone] | | | | | pectoris | | | | | | | Abdominal | | | | | | | aortic | | | | | | | aneurysm | | | | | | | (AAA) | | | | | | | without | | | | | | | rupture | | | | | | | (HCC) | | | | | | | Coronary | | | | | | | arterioscler | | | | | | | osis | | | | | | | Hypertension | | | | | | | , | | | | | | | unspecified | | | | | | | type | | | +--------+ + + + + + Reason for Visit +--------+ + | Reason | Comments | +--------+ + | Other | cardiac rehab referral | +--------+ + Encounter Details +--------+ + + + + | Date | Type | Department | Care Team | Description | +--------+ + + + + | 01/02/ | Telephone | [facility] | Kavitha Davenport, | Other (cardiac rehab | | 2019 | | CARDIOLOGY [address] | referral ) | | | | [place], | [place], | | | | | [place] [address] | [place] [address] | | | | | [phone] | [phone] | | | | | | | [...] [place], | | | | | | [place] [address] | | | | | | [phone] | | | | | | | [...] | Rehab | Referral | e | disease involving | starting 01/03/2019 | | | | | [place] coronary | until 01/03/2020 | | | | | artery of [place] | | | | | | heart without angina | | | | | | pectoris Abdominal | | | | | | aortic aneurysm | | | | | | (AAA) without | | | | | | rupture (HCC) | | | | | | Coronary | | | | | | arteriosclerosis | | | | | | Hypertension, | | | | | | unspecified type | | + + +--------+ + + documented as of this encounter Visit Diagnoses + + | Diagnosis | + + | Coronary artery disease involving [place] coronary artery of [place] heart without | | angina pectoris - Primary | + + | Abdominal aortic aneurysm (AAA) without rupture (HCC) | + + | Coronary arteriosclerosis Coronary atherosclerosis of unspecified type of vessel, | | [place] or graft | + + | Hypertension, unspecified type | + + documented in this encounter"
--- OUTSIDE RECORDS SUMMARY | ~2019-10-24 | XMS | Encounter Summary ---
Demographics + + + | Address | [address] | | | [place] [address] | + + + | Home Phone | | + + + | Preferred Language | Unknown | + + + | Marital Status | | + + + | Tenriism Affiliation | Unknown | + + + | Race | Unknown | + + + | Ethnic Group | Unknown | + + + Author + + + | Author | [facility] | | | and [place]evin[place] | + + + | Organization | [facility] | | | and [place]evinana [...] Team Providers + +------+ + | Care Retail Marketing Executive Name | Role | Phone | + +------+ + | Gia Feng NP | PCP | | + +------+ + Reason for Visit + + + | Reason | Comments | + + + | Medication Refill | | + + + Encounter Details +--------+--------+ + + + | Date | Type | Department | Care Team | Description | +--------+--------+ + + + | 01/08/ | Refill | [facility] | [place], | Medication Refill | | 2019 | | CARDIOLOGY [address] | Jessica, SUPERVISOR BONDING [address] | | | | | [place], | [place], | | | | | [place] [address] | [place] [address] | | | | | [phone] | [phone] | | | | | | | | +--------+--------+ + + + Social History + +-------+ [...] [place] | | | | | | [place] [address] | | | | | | [phone] | | | | | | | | +--------+---------+ + + + documented as of this encounter Visit Diagnoses Not on filedocumented in this encounter"
--- OUTSIDE RECORDS SUMMARY | ~2019-10-24 | XMS | Encounter Summary ---
Demographics + + + | Address | [address] | | | [place] [address] | + + + | Home Phone | | + + + | Preferred Language | Unknown | + + + | Marital Status | | + + + | Pentecostal Affiliation | Unknown | + + + | Race | Unknown | + + + | Ethnic Group | Unknown | + + + Author + + + | Author | [facility] | | | and Tevinana | + + + | Organization | [facility] | | | and Tevinana [...] Team Providers + +------+ + | Care Channel Rougher Name | Role | Phone | + +------+ + | Gia Feng NP | PCP | | + +------+ + Encounter Details +--------+ + + + + | Date | Type | Department | Care Team | Description | +--------+ + + + + | 07/17/ | Orders Only | [facility] | [place] | | | 2013 | | [facility] | [address] | | | | | CLINIC [address] [place], [place] | | | | | [address]VD [place], [place] | [address] | | | | | [address] | | | | | | [phone] | | | +--------+ + + + [...] | | | | | | [place] [address] | | | | | | [phone] | | | | | | | | +--------+---------+ + + + documented as of this encounter Procedures + +--------+ + + + | Procedure Name | Priori | Date/Time | Associated Diagnosis | Comments | | | ty | | | | + +--------+ + + + | XR CHEST 2 VIEWS | Routin | 07/17/2013 | | Results for this | | | e | 2:41 PM | | procedure are in the | | | | PST | | results section. | + +--------+ + + + | EXTERNAL LAB: CBC | Routin | 07/17/2013 | | Results for this | | | e | 2:30 PM | | procedure are in the | | | | PST | | results section. | + +--------+ + + + | MRSA NAAT | Timed | 07/17/2013 | | Results for this | | | | 2:15 PM | | procedure are in the | | | | PST | | results section. | + +--------+ + + + | ECG 12 LEAD | Routin | 07/17/2013 | | Results for this | | | e | 2:02 PM | | procedure are in the | | | | PST | | results section. | + +--------+ + + + documented in this encounter Results XR Chest 2 Vws (07/17/2013 2:41 PM PST) + + | Specimen | + + | | + + + + + | Impressions | Performed At | + + + | 1. Bilaterally moderate bronchial thickening, suggesting | | | acute or chronic bronchitis or chronic asthma. 2. Atherosclerotic | | | aorta. 3. Compression fracture of the L1 vertebral body with | | | osteopenia. Electronically signed by Won Ames MD on | | | 07/17/2013 4:11 PM | | + + + + + + | Narrative | Performed At | + + + | [facility] CHEST 2 VIEW FRONTAL AND LATERAL 07/17/2013 | | | 2:41 PM History: 73 years. Male. 52 year history of smoking. | | | Preoperative evaluation. Technique: PA and lateral views of the | | | chest. Comparison: No prior comparison at this facility.. There | | | is moderate bronchial thickening in the perihilar and lower lung | | | becerra, bilaterally symmetrical, suggesting acute or chronic | | | bronchitis, or chronic asthma. No lung consolidation of pleural | | | effusion. The cardiac volume and contour are normal. The | | | pulmonary vasculature is normal, without dilatation. The pulmonary | | | maria d and mediastinal contours are normal. There is mild calcification | | | of the thoracic aorta, with mild dilatation due to atherosclerosis. | | | Osteopenia is mild. A 50% compression fracture of the L1 vertebral | | | body is noted, probably chronic. Thoracic vertebral bodies appear | | | normal in height. | | + + + + + | Procedure Note | + + | Hugo, Maximo Conversion - 02/01/2019 9:38 AM PDT [facility] CHEST 2 VIEW | | FRONTAL AND LATERAL07/17/2013 2:41 PM History: 73 years. Male. 52 year history of | | smoking. Preoperative evaluation. Technique: PA and lateral views of the | | chest.Comparison: No prior comparison at this facility.. There is moderate bronchial | | thickening in the perihilar and lower lung becerra, bilaterally symmetrical, suggesting | | acute or chronic bronchitis, or chronic asthma. No lung consolidation of pleural | | effusion. The cardiac volume and contour are normal. The pulmonary vasculature is | | normal, without dilatation. The pulmonary maria d and mediastinal contours are normal. | | There is mild calcification of the thoracic aorta, with mild dilatation due to | | atherosclerosis. Osteopenia is mild. A 50% compression fracture of the L1 vertebral body | | is noted, probably chronic. Thoracic vertebral bodies appear normal in height. | | IMPRESSION: 1. Bilaterally moderate bronchial thickening, suggesting acute or | | chronic bronchitis or chronic asthma.2. Atherosclerotic aorta.3. Compression fracture | | of the L1 vertebral body with osteopenia. | |IMPRESSION: | |1. Bilaterally moderate bronchial thickening, suggesting acute or chronic bronchitis or chronic asthma. | |2. Atherosclerotic aorta. | |3. Compression fracture of the L1 vertebral body with osteopenia. | | | | | | | + + External Lab: CBC (07/17/2013 2:30 PM PST) + + + + + + | Component | Value | Ref Range | Performed | Pathologist | | | | | At | Signature | + + + + + + | WBC | 8.1Comment: Testing | 3.8 - 11.0 K/uL | EXTERNAL | | | | performed at [facility], [address] | | LAB | | | | [address], | | | | | | [place] [address] | | | | + + + + + + | Red Blood | 4.81Comment: Testing | 4.20 - 5.70 | EXTERNAL | | | Cells | performed at [facility], [address] | M/uL | LAB | | | Counted | [address], | | | | | | [place] [address] | | | | + + + + + + | Hemoglobin | 14.8Comment: Testing | 13.2 - 17.0 | EXTERNAL | | | | performed at [facility], [address] | g/dL | LAB | | | | [address], | | | | | | [place] [address] | | | | + + + + + + | Hematocrit, | 43.3Comment: Testing | 39.0 - 50.0 % | EXTERNAL | | | POC | performed at [facility], [address] | | LAB | | | | [address], | | | | | | [place] [address] | | | | + + + + + + | MCV | 90.0Comment: Testing | 80.0 - 100.0 fl | EXTERNAL | | | | performed at [facility], [address] | | LAB | | | | [address], | | | | | | [place] [address] | | | | + + + + + + | MCH | 30.8Comment: Testing | 27.0 - 34.0 pg | EXTERNAL | | | | performed at [facility], [address] | | LAB | | | | [address], | | | | | | [place] [address] | | | | + + + + + + | MCHC | 34.2Comment: Testing | 32.0 - 35.5 | EXTERNAL | | | | performed at [facility], [address] | g/dL | LAB | | | | [address], | | | | | | [place] [address] | | | | + + + + + + | RDW-CV | 41.6Comment: Testing | 37 - 53 fl | EXTERNAL | | | | performed at [facility], [address] | | LAB | | | | [address], | | | | | | [place] [address] | | | | + + + + + + | Platelet | 164Comment: Testing | 150 - 400 K/uL | EXTERNAL | | | Count | performed at [facility], [address] | | LAB | | | Plasma | [address], | | | | | | [place] [address] | | | | + + + + + + | MPV | 8.9Comment: Testing | fl | EXTERNAL | | | | performed at [facility], [address] | | LAB | | | | [address], | | | | | | [place] [address] | | | | + + + + + + | Differentia | AUTOMATEDComment: | | EXTERNAL | | | l Type | Testing performed at | | LAB | | | | [facility], [address] | | | | | | [place] | | | | | | [address] | | | | + + + + + + | % Segmented | 62.5 | % | EXTERNAL | | | | | | LAB | | | Neutrophils | | | | | + + + + + + | % | 26.1 | % | EXTERNAL | | | Lymphocytes | | | LAB | | + + + + + + | % Monocytes | 7.3 | % | EXTERNAL | | | | | | LAB | | + + + + + + | % | 3.1 | % | EXTERNAL | | | Eosinophils | | | LAB | | + + + + + + | % Basophils | 1.0 | % | EXTERNAL | | | | | | LAB | | + + + + + + | Absolute | 5.1 | 1.9 - 7.4 K/uL | EXTERNAL | | | Segmented | | | LAB | | | Neutrophils | | | | | + + + + + + | Absolute | 2.1 | 1.0 - 3.9 K/uL | EXTERNAL | | | Lymphocytes | | | LAB | | + + + + + + | Absolute | 0.6 | 0 - 0.8 K/uL | EXTERNAL | | | Monocytes | | | LAB | | + + + + + + | Absolute | 0.3 | 0 - 0.5 K/uL | EXTERNAL | | | Eosinophils | | | LAB | | + + + + + + | Absolute | 0.1 | 0 - 0.1 K/uL | EXTERNAL | | | Basophils | | | LAB | | + + + + + + + + | Specimen | + + | Blood specimen | | (specimen) | + + + +---------+ + + | Performing | Address | City/State/Zipcode | Phone Number | | Organization | | | | + +---------+ + + | EXTERNAL LAB | | | | + +---------+ + + MRSA NAAT (07/17/2013 2:15 PM PST) + + | Specimen | + + | | + + + + + | Narrative | Performed At | + + + | [facility](NOSE) | EXTERNAL LAB | | Testing performed at [facility];[place] [address] MRSA PCR | | | NEGATIVE Testing performed at | | | [facility];[place] [address] | | + + + + +---------+ + + | Performing | Address | City/State/Zipcode | Phone Number | | Organization | | | | + +---------+ + + | EXTERNAL LAB | | | | + +---------+ + + ECG 12 lead (07/17/2013 2:02 PM PST) + + + + + + | Component | Value | Ref Range | Performed | Pathologist | | | | | At | Signature | + + + + + + | DIAGNOSIS: | Sinus | | EXTERNAL | | | | bradycardiaOtherwise | | LAB | | | | normal ECGWhen compared | | | | | | with ECG of 09-MAR-2011 | | | | | | 14:32,Premature atrial | | | | | | complexes are no longer | | | | | | PresentNonspecific T | | | | | | wave abnormality no | | | | | | longer evident in | | | | | | Anterolateral | | | | | | leadsConfirmed by | | | | | | LISA MO ([id number]) on | | | | | | 07/17/2013 4:34:10 PM | | | | + + + + + + + + | Specimen | + + | | + + + + + | Narrative | Performed At | + + + | Historically converted procedure from [facility] environment | EXTERNAL LAB | + + + + +---------+ + + | Performing | Address | City/State/Zipcode | Phone Number | | Organization | | | | + +---------+ + + | EXTERNAL LAB | | | | + +---------+ + + documented in this encounter Visit Diagnoses Not on filedocumented in this encounter"
--- OUTSIDE RECORDS SUMMARY | ~2019-10-24 | XMS | Encounter Summary ---
Demographics + + + | Address | [address] | | | [place] [address] | + + + | Home Phone [...] | Author | [facility] | | | and Tevinana | + + + | Organization | [facility] | | | and Tevinana | [...] Team Providers + +------+ + | Care Representative Phlebotomy Services Name | Role | Phone | + [...] Description | +--------+---------+ + + + | 12/12/ | Office | [facility] | Kavitha Davenport, | Coronary artery | | 2018 | Visit | MED CTR C[facility] | [address] [facility] | disease, angina | | | | REHABILITATION [address] | [place], | presence | | | | [address] [place] | [place] [address] | unspecified, | | | | [place] [address] | [phone] | unspecified vessel | | | | [phone] | | or lesion type, | | | | | Regla Light RN | unspecified whether | | | | | | [place] or | | | | | | transplanted heart; | | | | | | Post PTCA | +--------+---------+ + + + [...] encounter Progress Notes Regla Light RN - 12/12/2017 11:30 AM PDT [facility] [address] [place] [address] Cardiac Rehab Evaluation Date: 12/12/2017 Patient Information Patient Name: Cosme Michaud Date of : 1940 Age: 77 y.o. Referring Provider: Kavitha Davenport MD Encounter Diagnoses Code Name Primary? I25.10 Coronary artery disease, angina presence unspecified, unspecified vessel or lesi on type, unspecified whether [place] or transplanted heart Z98.61 Post PTCA Cardiac Rehab Phase II Marcos atment Plan Cosme Michaud is a 77 y.o. male with a history of coronary artery disease, hypothyro idism, obesity, inactivity, hypertensionand COPD. He has a history of non-Q wave AR and st enting in 2010, and recent stent to RCA in October [address] Flores. He had a 4 second sinus p ause while under observation. Since stenting, he no longer has chest pain or adverse symptoms during exertion. He does no t exercise, but walks his dog. He scraps metal, which he claims to be sitting mostly for thi s. He has drastically changed his diet since recent stenting and has lost 20#. Fall Ri sk Assessment Fall Risk: 2 or more falls in the past year or concern for a fall?: No If yes, reason for fall risk: Assistive device: I nterventions Designate Fall Risk by placing a star on exercise folder Assess and encourage fall risk reduction behaviors Manage and monitor hypotension if applicable Optimize home safety Refer to PT if applicable Abuse Assessment Do you feel safe in your current relationship or home? Yes Have you been hit/hurt or threatened by someone close to you? No Possible clinical concerns noted by clinician? No Action taken: No concerns Exercise LVEF: 60% Risk stratification category: Low Initial exercise/activity assessment: Date: 12/12/17 Mode: Biostep Duration: 12 min X 2.88 ME Ts RPE: 3-4/10 30 Day exercise assessment: Date: Mode: Duration: RPE: /10 60 Day exercise assessment: Date: Mode: Duration: RPE: /10 Discharge exercise assessment: Date: Mode: Duration: RPE: /10 Sessio n Prescription Modes: Recumbent elliptical, Upright elliptical, Ergometer Frequency: 3 X week Duration: 30 minutes Progression: Increase duration and/or intensity to maintain THR and/or RPE 3-4/10 THR: Rest +30 bpm Resistance training: Yes Precautions: Watch for sinus pause Home E xercise Modes: Walk Frequency: 5 X week Duration: 30 minutes Progression: Increase duration and/or intensity of exercise to maintain at least 30 min of cardio exercise, 5 days per week and RPE 3-4/10 with warm up and cool down. Interventio ns and Education Initial orientation to cardiac rehab as listed below, Completed Date: 12/12 - Equipment orientation -Warm up and cool down -Rating of Perceived Exertion- Modified Jose Scale -Exercise Safety -Signs and Symptoms to report -Individualized exercise prescription Education: Benefits of exercise, Health consequences of inactivity, Exercise goal of 30 min utes aerobic most days of the week, Importance of hydration, Target heart rate, Determining pulse, effects of beta-blockers on heart rate and dehydrating effects of diuretics if applic able. Realistic goal setting. Plan at discharge. Comprehension assessment: Through conversation they appear to have good comprehension. Ketty: Living Well with Heart Disease book Date received: 12/12/17 Ta rget Goal(s) Aerobic- moderate intensity activity 30 to 60 minutes per day for at least 5 days per week Supplementing aerobic activity with an increase in daily lifestyle activities Resistance training at least two days per week COOP score: 15/40 Progression/Pro patricia toward Goals Date: 12/12/17 Notes: He walks his dog, but no formal exercise. He will begin [place] michelle for 30 minutes at a moderate pace each day. Nutr ition and Weight Assessment: Height: 5'7 " Admission Weight: 231# 30 Day We ight: BMI: 36 60 Day Weight: Discharge Weight: Weight Goal: Lose 1-2 pounds per week Waist Circumference: D/C Circum ference: Diet Assessment Initial Rate Your Plate Score: 46 Discharge Rate Your Plate Sco re: Special diet? No Alcohol? Inte rvention and Education Points listed below- Date Completed: 12/12/17 -Goals of BMI, Waist circumference - Encourage weight reduction and/or maintenance through physical activity/ structured exe rcise, caloric intake, and/ or behavioral management, goal setting -Heart Healthy Dietary Education Date: 12/12/17 -Referral to Calender Worker Helper: Date: -DVD: Healthy Eating For Life Date: Target Goal(s) -Patient weight has maintained or improved toward BMI <25 -Waist circumference <35 inches for women < 40 inches for men -Diet low in saturated fats, simple carbs, high in fruits, vegetables and whole grains Progression/ Progress toward Goals Date: 12/12/17 Notes: He has cut way back on portions and is making healthier ch oices for snacks. He has lost 20# since stenting. Hypertension History of hypertension: yes Treatment: On medication Initial Resting BP: 118/72 Peak Exercise BP: 162/80 30 Day Resting BP: 30 Day Exercise BP: 60 Day Resting BP: 60 Day Exercise BP: Discharge BP: Discharge Exercise BP: Inte rventions and Education Points listed below- Date Completed: -Understanding blood pressure and goal blood pressure -BP medictions - Lifestyle modifications: weight control, increased physical activity, alcohol moderation, sodium reduction, emphasis on increased fruit, vegetable and low fat dairy consumption Individual cardiac risk factors reviewed Progress toward Goals: Date: Target Goal Blood pressure Goal: <130/80 Progression /Progress toward Goals Date: 12/12/17 Notes:He is losing weight, has cut down on sodium, willing to exe rcise daily. Dyslipidemia History of Dyslipidemia: Yes Treatment: On medication Most recent lipid panel: CHOL 124 TRIG 148 HDL 33 LDL 61 Interven tions and Education Points listed below- Date Completed: 12/12/17 -Advocate for cholesterol medication if appropriate -Encourage lifestyle changes including regular lipid monitoring to achieve goals, include education on the importance of physical activity and weight management, dietary reduction o f saturated fats(<7% of total calories,) trans fats (<1% of total calories,) and cholesterol (<200mg/day.) How to raise HDL through exercise and diet. Target Goal Total 170 LDL 70 HDL >40 Triglycerides <130 Progression/P rogress toward Goals Date: 12/12/17 Notes: He is losing weight, reduced fat diet, compliant with medi cation, willing to exercise. Janis chairez Mellitus History of diabetes: No Treatment: Last hemoglobin A1C: Value: Date: Interventions -Evaluate blood sugar pre- and post- exercise until stable. Date: Range: -Referral to Garment Parts Cutter Hand Date: Education Points listed below- Date Completed: -Signs and symptoms of hypoglycemia -Impact of diabetes on cardiovascular risk, including understanding the importance of lifes tyle modifications, including physical activity, weight management, blood pressure control a nd lipid management Date completed: Diabetic diet instruction Date completed: Target Goals -Stable pre and post exercise glucoscans -HgbA1C: <7% Progression/ Progress toward Goals Date: Notes: Tobacco Use Active tobacco user: No Type of tobacco: None Current amount: n/a Stage of change: Willing to set Quit Da te: n/a Barriers/Challenges: Inter vention and Education Points listed below- Date Completed: -Assist patient to set a quit date and provide encouragement -Educate on benefits of complete cessation, tobacco triggers, tips for success, relapse pre vention, no smoking >90 minutes before exercise Target Goal Complete smoking cessation Progression/P rogress toward Goals Date: Notes: Psychosocial Depression: No Initial PHQ-9: 1 30 Day PHQ-9: 90 Day PHQ-9 Discharge PHQ-9: Support systems: and friends Notes: trouble sleeping Inter vention and Education Points listed below- Date Completed: -Assess presence or absence of depression using a validated screening tool on admission and every 30 days or prn if depression positive on admission or if set backs or changes in affe ct -Educate Stress management techniques, Deep breathing, progressive relaxation, encourage re gular execise -Educate and medical management -Notify PCP of depression symptoms or high PHQ-9 score. Date: Target Goal Mood improvement as indicated by broadened affect, increased interaction, reassesses with i mproved PHQ-9, Maximized coping skills, utilizing support system Progression/Progress to squires Goals Date: Notes: Patients stated Goals for Cardiac Rehab: To get back into regular exercise and gain strengt h. Electronically signed by: Regla Light RN, 12/12/2017 11:38 Patient Name: Cosme Michaud/: 1940/ lly signed by Kavitha Davenport MD at 12/12/2017 2:14 PM PDTdocumented in this encounter Plan of Treatment +--------+---------+ + + + | Date | Type | Specialty | Care Team | Description | +--------+---------+ + + + | 03/24/ | Office | Cardiology | Radha, | | | 2019 | Visit | | [facility] [address] | | | | | | [address] [place], | | | | | | [place] [address] | | | | | | [phone] | | | | | | | | +--------+---------+ + + + documented as of this encounter Visit Diagnoses + + | Diagnosis | + + | Coronary artery disease, angina presence unspecified, unspecified vessel or lesion | | type, unspecified whether [place] or transplanted heart | + + | Post PTCA Postsurgical percutaneous transluminal coronary angioplasty status | + + documented in this encounter
--- OUTSIDE RECORDS SUMMARY | ~2019-10-24 | XMS | Encounter Summary ---
Demographics + + + | Address | [address] | | | [place] [address] | + + + | Home Phone | | + + + | Preferred Language | Unknown | + + + | Marital Status | | + + + | Roman Catholic Affiliation | Unknown | + + + | Race | Unknown | + + + | Ethnic Group | Unknown | + + + Author + + + | Author | [facility] | | | and Tevinana | + + + | Organization | [facility] | | | and [...] Team Providers + +------+ + | Care Product Support Consultant Name | Role | Phone | [...] Description | +--------+---------+ + + + | 12/28/ | Office | [facility] | Kavitha Davenport, | Coronary artery | | 2018 | Visit | MED CTR CARD[facility]AC | [address] [facility] | disease involving | | | | REHABILITATION [address] | [place], | [place] coronary | | | | [address] [place] | [place] [address] | artery of [place] | | | | [place] [address] | [phone] | heart without angina | | | | [phone] | | pectoris (Primary | | | [...] this encounter Progress Jose Eduardo Lee - 12/28/2017 12:00 PM PDT [facility] [address] [facility] [address] Cardiac Rehab Date: 12/28/2017 Patient Information Patient Name: Cosme Michaud Date of : 1940 Age: 77 y.o. Encounter Diagnoses Code Name Primary? I25.10 Coronary artery disease involving [place] coronary artery of [place] heart without angina pectoris Yes Z98.61 Post [...] min Electronically signed by: Jose Eduardo Rice, 12/28/2017 14:33 Patient Name: Cosme Michaud/: 1940/ lly signed by Jose Eduardo Rice at 12/28/2017 2:42 PM PDTdocumented in this encounter Plan of Treatment +--------+---------+ + + + | Date | Type | Specialty | Care Team | Description | +--------+---------+ + + + | 03/24/ | Office | Cardiology | Radha, | | | 2019 | Visit | | [facility] [address] | | | | | | [address] [place], | | | | | | [place] [address] | | | | | | [phone] | | | | | | | | +--------+---------+ + + + documented as of this encounter Visit Diagnoses + + | Diagnosis | + + | Coronary artery disease involving [place] coronary artery of [place] heart without | | angina pectoris - Primary | + + | Post PTCA Postsurgical percutaneous transluminal coronary angioplasty status | + + documented in this encounter"
--- OUTSIDE RECORDS SUMMARY | ~2019-10-24 | XMS | Encounter Summary ---
Demographics + + + | Address | [address] | | | [place] [address] | + + + | Home Phone | | + + + | Preferred Language | Unknown | + + + | Marital Status | | + + + | Restorationist Affiliation | Unknown | + + + | Race | Unknown | + + + | Ethnic Group | Unknown | + + + Author + + + | Author | [facility] | | | and Tevinana | + + + | Organization | [facility] | | [...] Team Providers + +------+ + | Care Passenger Car Conductor Name | Role | Phone | + [...] | | | | [place] | [phone] | | | | | [phone] | | | | | | | [...] | 03/24/ | Office | Cardiology | Rahda, | | | 2020 | Visit | | [facility] [address] | | | | | | [address], | | | | | | [place] [address] | | | | | | [phone] | | | | | | | [...]
--- OUTSIDE RECORDS SUMMARY | ~2019-10-24 | XMS | Encounter Summary ---
Demographics + + + | Address | [address] | | | [place] [address] | + + + | Home Phone | | + + + | Preferred Language | Unknown | + + + | Marital Status | | + + + | Lutheran Affiliation | Unknown | + + + | Race | Unknown | + + + | Ethnic Group | Unknown | + + + Author + + + | Author | [facility] | | | and [place] | + + + | Organization | [facility] | | | and Tevinana [...] Team Providers + +------+ + | Care Green Chain Puller Name | Role | Phone | + +------+ + | Gia Feng NP | PCP | | + +------+ + Encounter Details +--------+ + + + + | Date | Type | Department | Care Team | Description | +--------+ + + + + | 07/17/ | Orders Only | [facility] | [place] | | | 2013 | | [facility] | [address] | | | | | CLINIC [address] | [address] [place], [place] | | | | | BLVD [place], [place] | [address] | | | | | [address] | | | | | | [phone] | | | +--------+ + + + [...] | | | | | | [place] [address] | | | | | | [phone] | | | | | | | [...] | | | | | [place] [address] | | | | + + + + + + | Red Blood | 4.81Comment: Testing | 4.20 - 5.70 | EXTERNAL | | | Cells | performed at [facility], [address] | M/uL | LAB | | | Counted | [address], | | | | | | [place] [address] | | | | + + + + + + | Hemoglobin | 14.8Comment: Testing | 13.2 - 17.0 | EXTERNAL | | | | performed at [facility], [address] | g/dL | LAB | | | | [address], | | | | | | [place] [address] | | | | + + + + + + | Hematocrit, | 43.3Comment: Testing | 39.0 - 50.0 % | EXTERNAL | | | POC | performed at [facility], [address] | | LAB | | | | [address], | | | | | | [place] [address] | | | | + + + + + + | MCV | 90.0Comment: Testing | 80.0 - 100.0 fl | EXTERNAL | | | | performed at [facility], [address] | | LAB | | | | [address], | | | | | | [place] [address] | | | | + + + + + + | MCH | 30.8Comment: Testing | 27.0 - 34.0 pg | EXTERNAL | | | | performed at [facility], [address] | | LAB | | | | [address], | | | | | | [place] [address] | | | | + + + + + + | MCHC | 34.2Comment: Testing | 32.0 - 35.5 | EXTERNAL | | | | performed at [facility], [address] | g/dL | LAB | | | | [address], | | | | | | [place] [address] | | | | + + + + + + | RDW-CV | 41.6Comment: Testing | 37 - 53 fl | EXTERNAL | | | | performed at [facility], [address] | | LAB | | | | [address], | | | | | | [place] [address] | | | | + + + + + + | Platelet | 164Comment: Testing | 150 - 400 K/uL | EXTERNAL | | | Count | performed at [facility], [address] | | LAB | | | Plasma | [address], | | | | | | [place] [address] | | | | + + + + + + | MPV | 8.9Comment: Testing | fl | EXTERNAL | | | | performed at [facility], [address] | | LAB | | | | [address], | | | | | | [place] [address] | | | | + + + + + + | Differentia | AUTOMATEDComment: | | EXTERNAL | | | l Type | Testing performed at | | LAB | | | | [facility], [address] | | | | | | [place] | | | | | | [address] | | | | + + + [...] EXTERNAL LAB | | Testing performed at [facility];[address] [facility];[place] [address] MRSA PCR | | | NEGATIVE Testing performed at | | | [facility];[address];[place] [address] | | + + + + +---------+ [...] + + | Historically converted procedure from [facility] environment | EXTERNAL LAB | + + + + +---------+ + + | Performing | Address | City/State/Zipcode | Phone Number | | Organization | | | | + +---------+ + + | EXTERNAL LAB | | | | + +---------+ + + documented in this encounter Visit Diagnoses Not on filedocumented in this encounter"
--- OUTSIDE RECORDS SUMMARY | ~2019-10-24 | XMS | Encounter Summary ---
Demographics + + + | Address | [address] | | | [place] [address] | + + + | Home Phone | | + + + | Preferred Language | Unknown | + + + | Marital Status | | + + + | Buddhist Affiliation | Unknown | + + + | Race | Unknown | + + + | Ethnic Group | Unknown | + + + Author + + + | Author | [facility] | | | and [place]evin[place] | + + + | Organization | [facility] | | [...] Team Providers + +------+ + | Care Lace Winder Name | Role | Phone | + [...] Description | +--------+---------+ + + + | 01/16/ | Office | [facility] | Kavitha Davenport, | Chronic obstructive | | 2017 | Visit | [facility] | MD [place] | pulmonary disease, | | | | REHABILITATION [address] | [facility] [place], | unspecified COPD | | | | [facility] | [place] [address] | type (HCC) (Primary | | | | [place] [address] | [phone] | Dx) | | | | [phone] | | | +--------+---------+ + + + [...] of this encounter Progress Milagros Gale-Estela Pandey, INNERSOLE FITTER - 01/16/2018 12:00 PM PDT [facility] [address] [facility] [address] Cardiac Rehab Date: 01/16/2018 Patient Information Patient Name: Cosme Michaud Date [...] min Electronically signed by: Estela Bernal RRT, 01/16/2018 12:17 Patient Name: Cosme Michaud/: 1940/ lly signed by Estela Bernal RRT at 01/16/2018 12:17 PM PDTdocumented in this e ncounter Plan [...] | | | | | | [place] [address] | | | | | | [phone] | | | | | | | | +--------+---------+ + + + documented as of this encounter Visit Diagnoses + + | Diagnosis | + + | Chronic obstructive pulmonary disease, unspecified COPD type (HCC) - Primary | + + documented in this encounter"
--- OUTSIDE RECORDS SUMMARY | ~2019-10-24 | XMS | Encounter Summary ---
Demographics + + + | Address | [address] | | | [place] [address] | + + + | Home Phone | | + + + | Preferred Language | Unknown | + + + | Marital Status | | + + + | Episcopal Affiliation | Unknown | + + + | Race | Unknown | + + + | Ethnic Group | Unknown | + + + Author + + + | Author | [facility] | | | and [place]evin[place] | + + + | Organization | [facility] | | | and [place]evinana [...] Team Providers + +------+ + | Care Radiology Rn Name | Role | Phone | + +------+ + | Gai Feng NP | PCP | | + +------+ + Encounter Details +--------+ + + + + | Date | Type | Department | Care Team | Description | +--------+ + + + + | 09/06/ | Abstract | [facility] | Provider, | Hypothyroidism, | | 2018 | | CARDIOLOGY [address] | [address] | unspecified type; | | | | [place], | Arlene [place] | Chronic obstructive | | | | [place] [address] | [place] [address] | pulmonary disease, | | | | [phone] | | unspecified COPD | | | | | | type (HCC); | | | | | | Essential | | | | | | hypertension with | | | | | | goal blood pressure | | | | | | less than 130/80 | +--------+ + + + + Social [...] | | | | | | [place] [address] | | | | | | [phone] | | | | | | | | +--------+---------+ + + + documented as of this encounter Visit Diagnoses + + | Diagnosis | + + | Hypothyroidism, unspecified type | + + | Chronic obstructive pulmonary disease, unspecified COPD type (HCC) | + + | Essential hypertension with goal blood pressure less than 130/80 | + + documented in this encounter"
--- OUTSIDE RECORDS SUMMARY | ~2019-10-24 | XMS | Clinical Summary ---
Demographics + + + | Address | [address] | | | [place] [address] | + + + | Home Phone | | + + + | Preferred Language | Unknown | + + + | Marital Status | | + + + | Christianity Affiliation | Unknown | + + + | Race | Unknown | + + + | Ethnic Group | Unknown | + + + Author + + + | Author | [facility] | | | and [place]evinana | + + + | Organization | [facility] | | | and [...] Team Providers + +------+ + | Care Disintegrator Feeder Name | Role | Phone | + +------+ + | Radha Feng | PCP | | + +------+ + Allergies + + + + + + | Active Allergy | Reactions | Severity | Noted | Comments | | | | | Date | | + + + + + + | Tramadol | Anxiety | Low | 10/20/19 | | | | | | 16 | | + + + + + + Medications + + + +---------+------+------+-------+ | Medication | Sig | Dispensed | Refills | Star | End | Statu | | | | | | t | Date | s | | | | | | Date | | | + + + +---------+------+------+-------+ | colchicine 0.6 mg | Take 0.6 mg by mouth | | 0 | | | Activ | | tablet | as needed. | | | | | e | + + + +---------+------+------+-------+ | levothyroxine | Take 25 mcg by mouth | | 0 | | | Activ | | (SYNTHROID) 25 mcg | Daily. | | | | | e | | tablet | | | | | | | + + + +---------+------+------+-------+ | aspirin 81 MG | Take 81 mg by mouth | | 0 | | | Activ | | tablet | Daily. | | | | | e | + + + +---------+------+------+-------+ | ferrous sulfate | Take 325 mg by mouth | | 0 | | | Activ | | 325 mg tablet | daily (with | | | | | e | | | breakfast). | | | | | | + + + +---------+------+------+-------+ | FOLIC ACID PO | Take 1 tablet by | | 0 | | | Activ | | | mouth Daily. | | | | | e | + + + +---------+------+------+-------+ | acetaminophen | Take 650 mg by mouth | | 0 | | | Activ | | (TYLENOL) 325 mg | every 4 hours as | | | | | e | | tablet | needed for Pain. | | | | | | + + + +---------+------+------+-------+ | | Take 750 mg by | | 0 | | | Activ | | Pseudoeph-Doxylamine | mouth. | | | | | e | | -DM-APAP (NYQUIL PO) | | | | | | | + + + +---------+------+------+-------+ | Glucosamine 750 MG | Take by mouth. | | 0 | | | Activ | | TABS | | | | | | e | + + + +---------+------+------+-------+ | Multiple | Take 1 capsule by | | 0 | | | Activ | | Vitamins-Minerals | mouth Daily. | | | | | e | | (OCUVITE EXTRA) TABS | | | | | | | + + + +---------+------+------+-------+ | Misc Natural | Take 1 capsule by | | 0 | | | Activ | | Products (TURMERIC | mouth Daily. | | | | | e | | CURCUMIN) CAPS | | | | | | | + + + +---------+------+------+-------+ | diclofenac | Take 1 tablet by | 90 | 0 | 02/10 | | Activ | | (VOLTAREN) 75 mg EC | mouth Daily. | tablet | | 320 | | e | | tabletIndications: | | | | 19 | | | | Primary | | | | | | | | 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| | | | hands, bilateral, | | | | | | | | Bilateral hand pain | | | | | | | + + + +---------+------+------+-------+ | clopidogrel | Take 1 tablet by | 90 | 3 | 09/10 | | Activ | | (PLAVIX) 75 mg | mouth Daily. | tablet | | 08/29 | | e | | tabletIndications: | | | | 20 | | | | Coronary artery | [...] | | | | | | | nondalton or | | | | | | | | transplanted heart | | | | | | | + + + +---------+------+------+-------+ | nitroglycerin | Place 1 tablet under | 100 | 3 | 09/10 | | Activ | | (NITROSTAT) 0.4 mg | the tongue every 5 | tablet | | 08/29 | | e | | SL tablet | minutes as needed | | | 20 | | | | | for Chest pain. | | | | | | + + + +---------+------+------+-------+ | metoprolol | Take 0.5 tablets by | 45 | 3 | 04/1 | | Activ | | succinate | mouth Daily. At | tablet | | 3/20 | | e | | (TOPROL-XL) 25 mg 24 | night | | | 20 | | | | hr tablet | | | | | | | + + + +---------+------+------+-------+ | rosuvastatin | Take 1 tablet by | 90 | 3 | 04/1 | | Activ | | (CRESTOR) 20 mg | mouth nightly. | tablet | | 3/20 | | e | | tablet | | | | 20 | | | + + + +---------+------+------+-------+ | valsartan (DIOVAN) | Take 1 tablet by | 90 | 3 | 04/2 | | Activ | | 40 mg tablet | mouth Daily. | tablet | | 3/20 | | e | | | | | | 20 | | | + + + +---------+------+------+-------+ | losartan (COZAAR) | Take 1 tablet by | 90 | 3 | 09/10 | 09/11 | Disco | | 25 mg tablet | mouth Daily. | tablet | | 08/29 | 08/29 | ntinu | | | | | | 20 | 20 | ed | | | | | | | | (Alte | | | | | | | | rnate | | | | | | | | | | | | | | | | thera | | | | | | | | py) | + + + +---------+------+------+-------+ Active Problems + + + | Problem | Noted Date | + + + | Gastroesophageal reflux disease | 03/04/2019 | + + + | Chest pain | | + + + + + | Overview: Echocardiogram on 11/30/2010 shows normal left | | ventricular size, wall thickness and motion, preserved left | | ventricular systolic function, LVEF is 60%, grade 1 left | | ventricular diastolic dysfunction, mild mitral valve | | regurgitation, mild tricuspid valve regurgitation.Stress Test on | | 06/27/2017 shows regadenoson EKG is negative, abnormal Regadenoson | | Sestamibi myocardial perfusion study with a small size, mainly | | reversible defect of a mild severity in the mid and distal | | inferior wall, this suggests potential small size myocardial | | ischemia of a dominant right coronary artery territories. | | However, due to the patient's body habitus, | | inferior/diaphragmatic soft tissue attenuation cannot be | | completely ruled out. Gated SPECT reveals a normal left | | ventricular wall thickness and motion, preserved left ventricular | | systolic function. LVEF by gated SPECT is 75 %. | + + + +---+ | Coronary artery disease involving nondalton coronary artery of | | | nondalton heart without angina pectoris | | + +---+ + + | Overview: [facility] on 03/09/2011 shows non-Q-wave myocardial | | infarction with acute coronary syndrome, three-vessel coronary | | artery disease. However, most important left anterior descending | | with subtotal occlusion status post percutaneous transluminal | | coronary angioplasty and stenting as above, abdominal aortic | | aneurysm, hypokinetic apex, likely secondary to stunned | | myocardium. The ejection fraction is around 60%.Left heart | | catheterization 10/02/2017 shows borderline coronary artery | | disease; 70% stenosis at the midportion of the LAD and 70% | | stenosis to the distal RCA, there is a right dominate | | circulation, normal LV systolic function with an EF of 60%, | | systemic blood pressure is normal, there was successful | | hemostasis with a TR hemostatic band. Stenting 10/11/2017 shows | | insignificant disease in the proximal left anterior descending | | with instantaneous wave-free ratio of 0.95, primary stenting of | | the distal right coronary artery with a 2.75 x 24 mm synergy | | stent. Kev Flores MD 10/11/2017 06:22 AHolter Monitor on | | 12/21/18 shows the predominant rhythm is normal sinus with the | | heart rate ranging between 54 and 97 beats per minute, the | | average heart rate was 75 beats per minute during the 44:37 hour | | recording, very rare premature ventricular beats including one | | couplet, occasional premature atrial beats including 6 paroxysmal | | atrial tachycardia runs and 8 couplets, the longest run was 4 | | beats at a maximum rate of 156 beats per minute, 87 runs of sinus | | bradycardia, the longest run 47 beats (10:43-2) and the minimum | | rate 51 beats per minute (09:25-2), the patient did not report | | any symptoms, by Kavitha Davenport MD. | + + + +---+ | Hypothyroidism | | + +---+ | AAA (abdominal aortic aneurysm) | | + +---+ | COPD (chronic obstructive pulmonary disease) | | + +---+ | Essential hypertension with goal blood pressure less than 130/80 | | + +---+ | Cough | | + +---+ | Dry eyes | | + +---+ | Anemia | | + +---+ | Trichiasis | | + +---+ | Bilateral tinnitus | | + +---+ | Ocular hypertension | | + +---+ | Refractive amblyopia | | + +---+ | Age-related nuclear cataract, bilateral | | + +---+ | Hypertensive retinopathy | | + +---+ | Keratoconjunctivitis sicca | | + +---+ | Ectropion of eyelid | | + +---+ | Achrochordon | | + +---+ | Wrist pain | | + +---+ | Coronary arteriosclerosis | | + +---+ | Left arm pain | | + +---+ | Abdominal aortic aneurysm (AAA) | | + +---+ + + | Overview: US Aorta Limited on 03/25/19 shows fusiform | | aneurysmal dilatation of the distal infrarenal abdominal aorta | | measuring up to 4.8 x 4.4 cm, by James Waldrop MD. | + + + +---+ | Sleep related leg cramps | | + +---+ | Aniseikonia | | + +---+ | Chronic low back pain | | + +---+ | IBS (irritable bowel syndrome) | | + +---+ | Hemorrhoids | | + +---+ | Adenomatous polyp of colon | | + +---+ | Sleep apnea | | + +---+ | Hypertension | | + +---+ | Tobacco dependence in remission | | + +---+ | Hearing loss | | + +---+ | Gout | | + +---+ Encounters +--------+ + + + + | Date | Type | Specialty | Care Team | Description | +--------+ + + + + | 10/01/ | Telephone | Cardiology | Radha, | Medication Related | | 2019 | | | [facility] | | +--------+ + + + + | 09/22/ | Office | Cardiology | Radha, | Coronary artery | | 2019 | Visit | | [facility] | disease involving | | | | | | nondalton coronary | | | | | | artery of nondalton | | | | | | heart without angina | | | | | | pectoris (Primary | | | | | | Dx); Chest pain, | | | | | | unspecified type; | | | | | | Essential | | | | | | hypertension with | | | | | | goal blood pressure | | | | | | less than 130/80; | | | | | | Abdominal aortic | | | | | | aneurysm (AAA) | | | | | | without rupture | | | | | | (HCC); Coronary | | | | | | artery disease, | | | | | | angina presence | | | | | | unspecified, | | | | | | unspecified vessel | | | | | | or lesion type, | | | | | | unspecified whether | | | | | | nondalton or | | | | | | transplanted heart | +--------+ + + + + | 09/22/ | Telephone | Cardiology | Radha, | Other | | 2019 | | | [facility] | | +--------+ + + + + | 09/18/ | Abstract | Cardiology | Lori Gaspar | | | 2019 | | | [facility] | | +--------+ + + + + from Last 3 Months Immunizations + + + + | Name | Administration Dates | Next Due | + + + + | INFLUENZA PF 4Y OR | 04/06/2017 | | | >,QUAD DERIVED FROM | | | | TISS-CULT | | | + + + + | TDAP, (ADOL/ADULT) | 07/03/2019 | | + + + + Family History + + +------+ + | Medical History | Relation | Name | Comments | + + +------+ + | Other (see comment) | Brother | | tractor accident | + + +------+ + | Colon cancer | Brother | | | + + +------+ + | Heart attack | Father | | | + + +------+ + | Cirrhosis | Mother | | of her liver | + + +------+ + | Other (see comment) | Sister | | back issues | + + +------+ + | Obesity | Sister | | | + + +------+ + + +------+ + + | Relation | Name | Status | Comments | + +------+ + + | Brother | | | | + +------+ + + | Brother | | | | + +------+ + + | Father | | | | | | | (Age | | | | | 84) | | + +------+ + + | Mother | | | | | | | (Age | | | | | 76) | | + +------+ + + | Sister | | Alive | | + +------+ + + | Sister | | Alive | | + +------+ + + Social History + +-------+ +--------+------+ [...] recent travel history available. | + + Last Filed Vital Signs + + + + + | Vital Sign | Reading | Time Taken | Comments | + + + + + | Blood Pressure | 140/70 | 09/23/2019 9:21 AM | | | | | PDT | | + + + + + | Pulse | 64 | 09/23/2019 9:21 AM | | | | | PDT | | + + + + + | Temperature | 36.4 C (97.5 F) | 10/11/2017 8:57 AM | | | | | PDT | | + + + + + | Respiratory Rate | 16 | 09/23/2019 9:21 AM | | | | | PDT | | + + + + + | Oxygen Saturation | 97% | 10/02/2017 11:30 AM | | | | | PDT | | + + + + + | Inhaled Oxygen | - | - | | | Concentration | | | | + + + + + | Weight | 102.8 kg (226 lb | 09/23/2019 9:21 AM | | | | 10.1 oz) | PDT | | + + + + + | Height | 170.2 cm (5' 7") | 09/23/2019 9:21 AM | | | | | PDT | | + + + + + | Body Mass Index | 35.5 | 09/23/2019 9:21 AM | | | | | PDT | | + + + + + Plan of Treatment +--------+---------+ + + + | Date | Type | Specialty | Care Team | Description | +--------+---------+ + + + | 03/24/ | Office | Cardiology | Radha, | | | 2020 | Visit | | [facility] [address] | | | | | | [place], | | | | | | [place] [address] | | | | | | [phone] | | | | | | | | +--------+---------+ + + + + + + + + | Health Maintenance | Due Date | Last Done | Comments | + + + + + | Vaccine: Zoster (1 | | | | | of 2) | 0 | | | + + + + + | Vaccine: | | | | | Pneumococcal 65+ (1 | 5 | | | | of 2 - PCV13) | | | | + + + + + | Adult Annual | | | | | Wellness Visit | 5 | | | + + + + + | Vaccine: Influenza | | 04/06/2017 | | | (Season Ended) | 0 | | | + + + + + | Vaccine: | | 07/03/2019 | | | Dtap/Tdap/Td (2 - | 0 | | | | Td) | | | | + + + + + Implants + +-------+------+ +--------+--------+--------+ | Implanted | Type | Area | Manufacture | Device | Shelf | Model | | | | | r | | Expira | / | | | | | | Identi | tion | Serial | | | | | | fier | Date | / Lot | + +-------+------+ +--------+--------+--------+ | Implant Id: [id number] - Synergy | Stent | | [place] | | 02/02/ | [id number] | | Stent-10/10/2017Implanted: | | | SCIENTIFIC | | 2017 | [id number] | | 10/10/2017 by Kev Flores, | | | ELIZABETH - BSCI | | | 70 / | | MD (Quantity not on file) | | | | | | /[id number] | | | | | | | | 056 | + +-------+------+ +--------+--------+--------+ Results Not on filefrom Last 3 Months Insurance + +--------+ +--------+-------+---------+--------+ | Payer | Benefi | Subscriber | Effect | Phone | Address | Type | | | t Plan | ID | denisse | | | | | | / | | Dates | | | | | | Group | | | | | | + +--------+ +--------+-------+---------+--------+ | [employer] | [employer] | [id number] | 02/11/20 | | | Indemn | | | NS | | 14-Pre | | | ity | | | ADMIN | | sent | | | | | | [place] | | | | | | | | [place] | | | | | | + +--------+ +--------+-------+---------+--------+ | [employer] | [place] | [id number] | 06/12/19 | | | Indemn | | | CHOICE | | 15-Pre | | | ity | | | PC3 | | sent | | | | + +--------+ +--------+-------+---------+--------+ + +--------+ +--------+ + + | Guarantor Name | Accoun | Relation to | Date | Phone | Billing Address | | | t Type | Patient | of | | | | | | | | | | + +--------+ +--------+ + + | Cosme Michaud | Person | Self [birth year] | [address] | | | al/Fam | | 1940 | [phone] | [place] [address] | | | oliva | | | 1 (Home) | | + +--------+ +--------+ + + Advance Directives + + + + + | Type | Date Recorded | Patient | Explanation | | | | Deployment Specialist | | + + + + + | Power of | | | | | Installation Superintendent | | | | + + + + + | Advance | 02/24/2014 2:45 | | | | Directive | PM | | | + + + + +
--- OUTSIDE RECORDS SUMMARY | ~2019-10-24 | XMS | Encounter Summary ---
Demographics + + + | Address | [address] | | | [place] [address] | + + + | Home Phone | | + + + | Preferred Language | Unknown | + + + | Marital Status | | + + + | Pentecostalism Affiliation | Unknown | + + + | Race | Unknown | + + + | Ethnic Group | Unknown | + + + Author + + + | Author | [facility] | | | and Tevinana | + + + | Organization | [facility] | | | and [...] Team Providers + +------+ + | Care Counter Attendant Name | Role | Phone | + [...] MER[place] AVERY | | | | | [address], [place] | [address] | | | | | [address] | | | | | | [phone] | | | +--------+ + + + [...] [place], | | | | | | [place] [address] | | | | | | [phone] | | | | | | | | +--------+---------+ + + + documented as of this encounter Procedures + +--------+ + + + | Procedure Name | Priori | Date/Time | Associated Diagnosis | Comments | | | ty | | | | + +--------+ + + + | XR LUMBAR SPINE 2 OR | Routin | 02/19/2013 | | Results for this | | 3 VW | e | 12:22 PM | | procedure are in the | | | | PDT | | results section. | + +--------+ + + + documented in this encounter Results XR Lumbar Spine 2 or 3 Vw (02/19/2013 12:22 PM PDT) + + | Specimen | + + | | + + + + + | Impressions | Performed At | + + + | 1. Infrarenal abdominal aortic aneurysm 2. No evidence of | | | abnormal motion, but range of motion is limited. There is goode lumbar | | | disc endplate disease as above 3. Compression fracture of L1. A | | | known finding from the MRI from February of this year-nonacute | | | | | + + + + + + | Narrative | Performed At | + + + | HISTORY: 72 year old male with pain TECHNIQUE: 2 view | | | examination of the lumbar spine with flexion/extension views Prior | | | examination : None FINDINGS: Alignment is straightened, a | | | cross flexion and extension the slight degenerative anterior | | | translocation of L4 is stable at less than 3 mm. Range of motion is | | | limited Bones are demineralized and there is a relatively | | | high-grade roughly 60% compression fracture of L1 of unknown | | | chronicity-no retropulsion Disk spaces and endplates are narrowed | | | throughout with vacuum phenomena from L3 through the sacrum. Facet | | | arthropathy of the lower lumbar spine and and lumbar osteophytosis | | | Adjacent soft tissues demonstrate a aneurysm of the abdominal aorta | | | maximally measuring 4.4 cm | | + + + + + | Procedure Note | + + | Maximo Arias Conversion - 02/01/2019 3:02 PM PDT HISTORY: 72 year old male with pain | | TECHNIQUE: 2 view examination of the lumbar spine with flexion/extension viewsPrior | | examination : None FINDINGS: Alignment is straightened, a cross flexion and extension | | the slight degenerative anterior translocation of L4 is stable at less than 3 mm. Range | | of motion is limited Bones are demineralized and there is a relatively high-grade | | roughly 60% compression fracture of L1 of unknown chronicity-no retropulsion Disk spaces | | and endplates are narrowed throughout with vacuum phenomena from L3 through the sacrum. | | Facet arthropathy of the lower lumbar spine and and lumbar osteophytosis Adjacent soft | | tissues demonstrate a aneurysm of the abdominal aorta maximally measuring 4.4 cm | | IMPRESSION: 1. Infrarenal abdominal aortic aneurysm 2. No evidence of abnormal motion, | | but range of motion is limited. There is goode lumbar disc endplate disease as above 3. | | Compression fracture of L1. A known finding from the MRI from February this | | year-nonacute | |Adjacent soft tissues demonstrate a aneurysm of the abdominal aorta maximally measuring 4.4 cm | | | |IMPRESSION: | | | |1. Infrarenal abdominal aortic aneurysm | | | |2. No evidence of abnormal motion, but range of motion is limited. There is goode lumbar disc endplate disease as above | | | |3. Compression fracture of L1. A known finding from the MRI from February this year-non acute | | | | | + + documented in this encounter Visit Diagnoses Not on filedocumented in this encounter"
--- OUTSIDE RECORDS SUMMARY | ~2019-10-24 | XMS | Encounter Summary ---
Demographics + + + | Address | [address] | | | [place] [address] | + + + | Home Phone | | + + + | Preferred Language | Unknown | + + + | Marital Status | | + + + | Sikhism Affiliation | Unknown | + + + | Race | Unknown | + + + | Ethnic Group | Unknown | + + + Author + + + | Author | [facility] | | | and Tevinana | + + + | Organization | [facility] | | | and Tevinana [...] Team Providers + +------+ + | Care Reporting Process Consultant Name | Role | Phone | [...] 2019 | | CARDIOLOGY [address] | [address] | | | | | [place], | [place], | | | | | [place] [address] | [place] [address] | | | | | [phone] | [phone] | | | | | | | [...] [place] | | | | | | [place] [address] | | | | | | [phone] | | | | | | | | +--------+---------+ + + + documented as of this encounter Visit Diagnoses Not on filedocumented in this encounter"
--- OUTSIDE RECORDS SUMMARY | ~2019-10-24 | XMS | Encounter Summary ---
Demographics + + + | Address | [address] | | | [place] [address] | + + + | Home Phone [...] | Author | [facility] | | | and Tevinana | + + + | Organization | [facility] | | | and Tevinana [...] Team Providers + +------+ + | Care Cotton Weigher Name | Role | Phone | + +------+ + | Gia Feng NP | PCP | | + +------+ + Reason for Visit +--------+ + | Reason | Comments | +--------+ + | Other | | +--------+ + Encounter Details +--------+ + + + + | Date | Type | Department | Care Team | Description | +--------+ + + + + | 09/29/ | Telephone | [facility] | Kavitha Davenport, | Other | | 2017 | | CARDIOLOGY [address] | MD [address] [place] | | | | | [place], | [place], | | | | | [place] [address] | [place] [address] | | | | | [phone] | | | | | | | [...] [place], | | | | | | [place] [address] | | | | | | [phone] | | | | | | | | +--------+---------+ + + + documented as of this encounter Visit Diagnoses Not on filedocumented in this encounter"
--- OUTSIDE RECORDS SUMMARY | ~2019-10-24 | XMS | Encounter Summary ---
Demographics + + + | Address | [address] | | | [place] [address] | + + + | Home Phone | | + + + | Preferred Language | Unknown | + + + | Marital Status | | + + + | Rastafari Affiliation | Unknown | + + + | Race | Unknown | + + + | Ethnic Group | Unknown | + + + Author + + + | Author | [facility] | | | and Tevinana | + + + | Organization | [facility] | | | and Tevinana [...] Team Providers + +------+ + | Care Director Of Outpatient Services Name | Role | Phone | [...] Description | +--------+---------+ + + + | 02/01/ | Office | [facility] | Kavitha Davenport, | Coronary artery | | 2018 | Visit | MED CTR CARDIAC | MD [address] [place] | disease involving | | | | REHABILITATION [address] [place] [place], | [place] coronary | | | | [address] [place] | [place] [address] | artery of [place] | | | | [place] [address] | [phone] | heart without angina | | | | [phone] | | pectoris (Primary | | | [...] documented as of this encounter Progress Estela Maharaj RRT - 02/01/2018 12:00 PM PDT [facility] CARDIAC REHABILITATION [address] [place] [address] Cardiac Rehab Date: 02/01/2018 Patient Information Patient Name: Cosme Michaud Date of : 1940 Age: 77 y.o. Encounter Diagnoses Code Name Primary? I25.10 Coronary artery disease involving [place] coronary artery of [place] heart without angina pectoris Yes Number of [...] Duration: 50 min Electronically signed by: Estela Bernal, TRISTAN, 02/01/2018 12:21 Patient Name: Cosme Michaud/: 1940/ lly signed by Estela Bernal RRT at 02/01/2018 12:21 PM PDTdocumented in this e ncounter Plan of Treatment +--------+---------+ + + + | Date | Type | Specialty | Care Team | Description | +--------+---------+ + + + | 03/24/ | Office | Cardiology | Radha, | | | 2019 | Visit | | [place] [address] | | | | | | [place], | | | | | | [place] [address] | | | | | | [phone] | | | | | | | | +--------+---------+ + + + documented as of this encounter Visit Diagnoses + + | Diagnosis | + + | Coronary artery disease involving [place] coronary artery of [place] heart without | | angina pectoris - Primary | + + documented in this encounter"
--- OUTSIDE RECORDS SUMMARY | ~2019-10-24 | XMS | Encounter Summary ---
Demographics + + + | Address | [address] | | | [place] [address] | + + + | Home Phone | | + + + | Preferred Language | Unknown | + + + | Marital Status | | + + + | Buddhism Affiliation | Unknown | + + + | Race | Unknown | + + + | Ethnic Group | Unknown | + + + Author + + + | Author | [facility] | | | and Tevinana | + + + | Organization | [facility] | | | and [...] Team Providers + +------+ + | Care Union Organiser Name | Role | Phone | + +------+ + | Gia Feng NP | PCP | | + +------+ + Encounter Details +--------+ + + + + | Date | Type | Department | Care Team | Description | +--------+ + + + + | 02/04/ | Imaging | [facility] | Provider, | | | 2019 | Exam | MED CTR EXTERNAL | MD [address] | | | | | IMAGING [address] | Arlene MICHEL | | | | | [address] [place] | [place] [address] | | | | | [place] [address] | | | | | | [phone] | | | +--------+ + + + [...] [place], | | | | | | [place] [address] | | | | | | [phone] | | | | | | | | +--------+---------+ + + + documented as of this encounter Procedures + +--------+ + + + | Procedure Name | Priori | Date/Time | Associated Diagnosis | Comments | | | ty | | | | + +--------+ + + + | XR WRIST LEFT 3 + VW | Routin | 10/20/2016 | | Results for this | | | e | 12:05 AM | | procedure are in the | | | | PDT | | results section. | + +--------+ + + + documented in this encounter Results XR Wrist Left 3 + Vw (10/20/2016 12:05 AM PDT) + + | Specimen | + + | | + + + + + | Narrative | Performed At | + + + | External films for comparison only | [facility] | | | | | No results will be in the chart. | | + + + + +---------+ + + | Performing | Address | City/State/Zipcode | Phone Number | | Organization | | | | + +---------+ + + | [facility] | | | | + +---------+ + + documented in this encounter Visit Diagnoses Not on filedocumented in this encounter"
--- OUTSIDE RECORDS SUMMARY | ~2019-10-24 | XMS | Encounter Summary ---
Demographics + + + | Address | [address] | | | [place] [address] | + + + | Home Phone | | + + + | Preferred Language | Unknown | + + + | Marital Status | | + + + | Anglican Affiliation | Unknown | + + + | Race | Unknown | + + + | Ethnic Group | Unknown | + + + Author + + + | Author | [facility] | | | and Tevinana | + + + | Organization | [facility] | | | and Tevinana [...] Team Providers + +------+ + | Care Agricultural Equipment Test Engineer Name | Role | Phone | + [...] | + + + Follow Up (Routine) + +--------+ + + + + | Status | Reason | Specialty | Diagnoses / | Referred By | Referred To | | | | | Procedures | Contact | Contact | + +--------+ + + + + | Authorized | | Nurse | Diagnoses | Jung, | Radha, | | | | Practitioner | | Radha Gregory, | [place] | | | | / Cardiology | Atherosclero | MEDICAL RECORDS AUDITOR [address] | [address] | | | | | tic heart | [place] | [place] | | | | | disease of | [address] [place] | [place], [place] | | | | | [place] | [place] | [address] | | | | | coronary | [address] | Phone: | | | | | artery | Phone: | [phone] | | | | | without | [phone] | Fax: | | | | | angina | Fax: | [phone] | | | | | pectoris | [phone] | | | | | | Essential | | | | | | | (primary) | | | | | | | hypertension | | | | | | | | | | | | | | Atherosclero | | | | | | | tic heart | | | | | | | disease of | | | | | | | [place] | | | | | | | coronary | | | | | | | artery | | | | | | | without | | | | | | | angina | | | | | | | pectoris | | | + +--------+ + + + + Encounter Details +--------+---------+ + + + | Date | Type | Department | Care Team | Description | +--------+---------+ + + + | 09/22/ | Office | [facility] | Radha, | Coronary artery | | 2020 | Visit | CARDIOLOGY [address] | [place] [address] | disease involving | | | | [place], | [place], | [place] coronary | | | | [place] [address] | [place] [address] | artery of [place] | | | | [phone] | [phone] | heart without angina | | | [...] whether | | | | | | [place] or | | | | | | [...] in this encounter Patient Instructions Patient Instructions Shyann Peterson, Senior Copywriter - 09/23/2019 12:45 PM PDT1. We wi ll switch from atorvastatin to rosuvastatin. 2. Start taking rosuvastatin (CRESTOR) 20 mg nightly. 3. He will follow up in 6 months for office visit, or sooner with concerns. At that time w ill recheck abdominal aortic ultrasound. 4. He is recommend a therapeutic lifestyle change including moderate aerobic activity at l east 150 minutes per week, with strengthening and stretching exercises at least twice per we ek, and healthful dietary choices following the principles of the mediterranean or plant-bas ed diet. documented in this encounter Progress Notes Jessica Garcia ARNP - 09/23/2019 12:45 PM PDTFormatting of this note might be andrew t from the original. PATIENT NAME: Cosme Michaud : 1940: AGE: 79 y.o. PRIMARY CARE: L[facility] Saunders OUTPATIENT FOLLOW UP VISIT Date of Service: 09/23/2019 HISTORY OF PRESENT ILLNESS: Cosme Michaud is a 79 y.o. male with a history of coronary artery disease, hypothyro idism, obesity, inactivity, hypertensionand COPD aortic abdominal aneurysm. He is being s een today for his 6 months follow up. He was last seen 03/21/2019 at which time patient was doing well and is working on lifestyl e modifications and cardiac rehabilitation. He will continue same therapeutic medical regim en. He will follow up in 6 months for office visit, or sooner with concerns. He will conta ct our office sooner if any concerns Since that time, On 03/25/2019 he had a US aorta ultrasound. On 03/25/2019 we called meseret fleming to notify per Jessica BLAKE that the ultrasound of his aorta showed that he has a aneurysm measuring 4.8 x 4.4. This is seem to be unchanged and for now we will just need t o monitor it. On 08/23/2019 he was seen by PCP for left arm cellulitis. He has had a good energy level. He has not been very active. He has not had any chest pain or discomfort at rest or with exertion. He has had shortness of breath with exertion of w alking.. He has not had any lightheadedness or dizziness. He has not noticed palpitations. He has not had leg swelling. He does not uses CPAP machine to sleep. His BP is slightly e levated here but he states it's normal at home. MEDICAL, SURGICAL, AND PERSONAL HISTORY Past Medical, Surgical, Family, and Social History are reviewed in EPIC. CURRENT PROBLEMS Patient Active Problem List Diagnosis Chest pain Coronary artery disease involving [place] coronary artery of [place] heart without angina pectoris Hypothyroidism AAA (abdominal [...] Tobacco dependence in remission Hearing loss Gout Gastroesophageal reflux disease CURRENT MEDICATIONS Current Outpatient Medications Medication Sig [...] minute s as needed for Chest pain. Naadystts-Apmbaghupf-PX-APAP (NYQUIL PO) Take 750 mg by mouth. No current facility-administered medications for this visit. ALLERGIES Allergies Allergen Reactions Tramadol Anxiety ROS Review of Systems Constitutional: Negative for malaise/fatigue. Respiratory: Positive for shortness of breath. Cardiovascular: Negative for chest pain, palpitations and leg swelling. Neurological: Negative for dizziness and weakness. Lightheadedness = OBJECTIVE: PHYSICAL EXAM BP 140/70 | Pulse 64 | Resp 16 | Ht 1.702 m (5' 7") | Wt 102.8 kg (226 lb 10.1 oz) | B W[place] 35.50 kg/m Physical Exam Constitutional: He is oriented to person, place, and time. He appears well-developed and we ll-nourished. Elderly male individual arrives alone and using a cane, no acute distress. Neck: Normal carotid pulses and no JVD (No JVD) present. Carotid bruit is not present (Angely r). Cardiovascular: Regular rhythm, S1 normal, S2 normal and intact distal pulses. Bradycardia present. PMI is not displaced. Exam reveals no gallop and no friction rub. Murmur heard. Systolic murmur is present with a grade of 2/6. Pulses: Carotid pulses are 2+ on the right side and 2+ on the left side. Radial pulses are 2+ on the right side and 2+ on the left side. Posterior tibial pulses are 2+ on the right side and 2+ on the left side. Pulmonary/Chest: Effort normal and breath sounds normal. No accessory muscle usage. No resp iratory distress. He has no decreased breath sounds. He has no wheezes. He has no rhonchi. H e has no rales. Abdominal: Soft. Normal appearance and normal aorta. He exhibits no abdominal bruit. There is no hepatosplenomegaly. There is no abdominal tenderness. Musculoskeletal: General: No edema (no leg edema). Neurological: He is [...] needs review Confirmed by FREDDY DAVENPORT MD ([id number]) on 01/03/2019 11:29:26 AM LAB RESULTS reviewed during visit today primarily from [facility]: LIPID Lab Results Component Value Date CHOL 119 01/02/2019 TRIG 85 01/02/2019 HDL 34 (L) 01/02/2019 LDL 68 01/02/2019 CHOLHDL 2.6 (A) 05/03/2019 LDLEX 63 05/03/2019 HDLEX 42 05/03/2019 TRIGEX 104 05/03/2019 CHOLEX 109 05/03/2019 CHEMISTRY Lab Results Component Value Date GLU 110 (H) 01/02/2019 GLUEX 87 05/03/2019 NA 138 01/02/2019 NAEX 140 05/03/2019 K 3.9 01/02/2019 KEX 4.4 05/03/2019 CL 104 01/02/2019 CLEX 103 05/03/2019 CO2 28 01/02/2019 CO2EX 25 05/03/2019 CALCIUM 9.4 01/02/2019 ALKPHOS 68 01/02/2019 AST 22 01/02/2019 ASTEX 20 05/03/2019 ALT 14 01/02/2019 ALTEX 12 05/03/2019 BILITOT 0.7 01/02/2019 CREA 0.98 01/02/2019 BUN 23 01/02/2019 EGFR >60 10/11/2017 EGFREX 60 05/03/2019 CREEX 1.1 05/03/2019 HEMATOLOGY Lab Results Component Value Date WBC 8.2 01/02/2019 WBCEX n 05/03/2019 WBCEX 6.9 05/03/2019 HGB 14.2 01/02/2019 HGBEX 13.5 05/03/2019 HCT 43.1 01/02/2019 HCTEX 40.7 05/03/2019 PLT 187 01/02/2019 PLTEX 205 05/03/2019 Lab Results Component Value Date TSHEX 4.080 05/03/2019 I reviewed records from [facility] for office visit on 03/21/2019 w hich is summarized in the HPI. RESULTS- I reviewed reports from [facility]: US Aorta Limited on 03/25/19 shows fusiform aneurysmal dilatation of the distal infrarenal abdominal aorta measuring up to 4.8 x 4.4 cm, by James Waldrop MD. Above data and testing is reviewed this [...] synergy drug-eluting stenton 10/10/[address] Flores. F. US Aorta Limited on 03/25/19 shows fusiform aneurysmal dilatatio n of the distal infrarenal abdominal aorta measuring up to 4.8 x 4.4 cm, by James Waldrop MD . G. Today, 09/23/2019, he is symptomatic with dyspnea on exertion. He is on a medical regim en with dual antiplatelet therapy, aspirin, ARB, beta-rayna and statin. There are no signs or symptoms of overt congestive heart failure, and his physical exam shows no significant f luid retention. He is in class I- No symptoms; no limitations of activities of the [place] [employer] functional class. Heart failure stage A-pre-heart failure. 2. Bradycardia and history of 4 second [...] symptoms, by Venkata Davenport MD. B. Today, 09/23/2019, he feels palpitations are well controlled on current regim en. 3. Hypertension A.Today, 09/23/2019, his blood pressure is elevated in visit, stat es that at home it has been in normal range. 4. Hyperlipidemia A.Today, 09/23/2019, he remains on atorvastatin, he states he was on ly taking 20 mg of atorvastatin daily because it hurts his knees. We will switch from atorva statin to rosuvastatin (CRESTOR) 20 mg nightly. 5. Obstructive sleep apnea: A.Today, 09/23/2019, he does not uses CPAP machine to sleep. 6. Obesity: A.Today, 09/23/2019, There is no height or weight on file to calcu late BMI.. This is stable since his last visit. 7. Inactivity: A.Today, 09/23/2019, he states he will be buying a new bike to [place]. 8. COPD: A. He mentions this has been better in the past month. PLAN: 1. We will switch from atorvastatin to rosuvastatin. 2. Start taking rosuvastatin (CRESTOR) 20 mg nightly. 3. He will follow up in 6 months for office visit, or sooner with concerns. At that time w ill recheck abdominal aortic ultrasound. He is recommend a therapeutic lifestyle change including moderate aerobic activity at leas t 150 minutes per week, with strengthening and stretching exercises at least twice per week, and healthful dietary choices following the principles of the mediterranean or plant-based diet. He has been recommended to start bicycling again IShyann, Senior Copywriter am acting as a scribe on behalf of, and in the prese nce of LOU Matamoros. - Shyann Peterson, Senior Copywriter 09/23/2019 11:53 AM I, LOU Matamor[place], personally performed the services described in this documentati on, as scribed in my presence and it is both accurate and complete. -LOU Matamoros 09/23/2019 Portions of this chart may have been created with [employer] voice recognition software. Occasi onal wrong-word or [...] [place], | | | | | | [place] [address] | | | | | | [phone] | | | | | | | | +--------+---------+ + + + documented as of this encounter Visit Diagnoses + + | Diagnosis | + + | Coronary artery disease involving [place] coronary artery of [place] heart without | | angina pectoris - Primary | + + | Chest pain, unspecified type | + + | Essential hypertension with goal blood pressure less than 130/80 | + + | Abdominal aortic aneurysm (AAA) without rupture (HCC) | + + | Coronary artery disease, angina presence unspecified, unspecified vessel or lesion | | type, unspecified whether [place] or transplanted heart | + + documented in this encounter
--- OUTSIDE RECORDS SUMMARY | ~2019-10-24 | XMS | Encounter Summary ---
Demographics + + + | Address | [address] | | | [place] [address] | + + + | Home Phone | | + + + | Preferred Language | Unknown | + + + | Marital Status | | + + + | Worship Affiliation | Unknown | + + + | Race | Unknown | + + + | Ethnic Group | Unknown | + + + Author + + + | Author | [facility] | | | and Tevinana | + + + | Organization | [facility] | | [...] Team Providers + +------+ + | Care Molding Machine Operator Name | Role | Phone | [...] Closed | | Radiology | Diagnoses | Jung | José Luis Nuclear | | | | | Chest pain, | KRISTINA Nielsen | Medicine | | | | | unspecified | 77 | [address] | | | | | type | [place] | [place] | | | | | Procedures | DR JOHN [address]AGE | | | | | [place] Nuclear | [place] | [address] | | | | | Stress Test | [id number] | Phone: | | | | | (Vasodilator | Phone: | [phone] | | | | | ) | [phone] | Fax: | | | | | | Fax: | [phone] | | | | | | [phone] | | +--------+--------+ + + + + [...] + + | 06/27/ | Hospital | [facility] | Gia Feng NP | Chest pain, | | 2018 | Encounter | MED CTR NUCLEAR | [address] | unspecified type | | | | MEDICINE [address] | [place] [address] | | | | | [place], | [phone] | | | | | [place] [address] | | | | | | [phone] | Head Paper TesterJosé Luis | | +--------+ + + + + [...] [place], | | | | | | [place] [address] | | | | | | [phone] | | | | | | | [...] + + documented in this encounter Results [place] Nuclear Stress Test (Vasodilator) (06/27/2017 11:07 AM PST) + + | Specimen | + + | | + + + + + | Impressions | Performed At | + + + | 1. Regadenoson EKG is negative. 2. Abnormal Regadenoson | [facility] | | Sestamibi myocardial perfusion study with a small size, mainly | | | reversible defect of a mild severity in the mid and distal inferior | | | wall. This suggests potential small size myocardial ischemia of a | | | dominant right coronary artery territories. However, due to the | | | patient's body habitus, inferior/diaphragmatic soft tissue attenuation | | | cannot be completely ruled out. Gated SPECT reveals a normal left | | | ventricular wall thickness and motion. Preserved left ventricular | | | systolic function. LVEF by gated SPECT is 75 %. | | | Signed by: Kavitha Davenport MD [facility] 06/27/2017, 11:02 | | + + + + + --+ | Narrative | Performed At | + + --+ | | [facility] | | NUCLEAR MEDICINE STRESS TEST REPORT Patient Name: Cosme Martin | | | Keily Study Date: 06/27/2017 Primary Care Provider: Gia | | | KRISTINA Feng : 1940 Age: 77 y.o. | | | Gender: male CLINICAL HISTORY/DIAGNOSIS: Chest pain/CAD | | | REGADENOSON SESTAMIBI STRESS TESTIndication: chest pain/CAD | | | Procedure: In the supine position, .4 mg of Regadenoson was infused | | | intravenously over 10 seconds. Blood pressure and EKG were monitored | | | every 1 minute. 5 mL of normal saline was utilized to flush the IV | | | line. Twenty seconds later, 10.9 mCi sestamibi intravenous | | | injection. SPECT myocardial perfusion imaging was acquired with wall | | | motion analysis. Rest imaging was performed using 32.7 mCi | | | Sestamibi intravenous injection. Repeated SPECT myocardial perfusion | | | imaging was acquired with wall motion analysis. Hemodynamics: | | | Heart rate baseline 60 beats per minute, peak 69 beats per minute. | | | Blood pressure baseline 144/70 mmHg, peak 125/63 mmHg. EKG | | | baseline underlying sinus rhythm. Normal EKG. Peak unchanged. Side | | | Effects: None. Arrhythmia: None. Regadenoson Sestamibi Myocardial | | | Perfusion Imaging Result: The Regadenoson Sestamibi | | | tomographic images, reviewed without the attenuation compensation | | | resolution, revealed a small size, mainly reversible defect of a mild | | | severity in the mid and distal inferior wall. Abnormality can be | | | seen in short axis, vertical long axis, and horizontal long axis | | | projections comprising approximately 10% of the left ventricular | | | myocardium. The left ventricular cavity is normal. The rest imaging | | | shows a partial reversibility of the inferior wall defect. | | | Gated SPECT reveals a normal left ventricular wall thickness and | | | motion. Preserved left ventricular systolic function. LVEF by gated | | | SPECT is 75 %. | | |sinus rhythm. Normal EKG. Peak unchanged. | | | | | |Side Effects: None. | | | | | |Arrhythmia: None. | | | | | |Regadenoson Sestamibi Myocardial Perfusion Imaging Result: | | | The Regadenoson Sestamibi tomographic images, reviewed without the | | |attenuation compensation resolution, revealed a small size, mainly | | |reversible defect of a mild severity in the mid and distal inferior wall. | | |Abnormality can be seen in short axis, vertical long axis, and | | |horizontal long axis projections comprising approximately 10% of the left | | |ventricular myocardium. The left ventricular cavity is normal. The rest | | |imaging shows a partial reversibility of the inferior wall defect. | | | | | | Gated SPECT reveals a normal left ventricular wall thickness and motion. | | |Preserved left ventricular systolic function. LVEF by gated SPECT is 75 %. | | | | | | | | + + --+ + +---------+ + + | Performing | Address | City/State/Zipcode | Phone Number | | Organization | | | | + +---------+ + + | [facility] | | | | + +---------+ + + documented in this encounter Visit Diagnoses + + | Diagnosis | + + | Chest pain, unspecified type | + + documented in this encounter Administered Medications + +--------+ + +------+------+ | Medication Order | MAR | Action | Dose | Rate | Site | | | Action | Date | | | | + +--------+ + +------+------+ | technetium TC-[id number] sestamibi | Given | 06/27/19 | 9 | | | | (CARDIOLITE) injection 9 | | 18 9:10 | millicur | | | | millicurie 9 millicurie, | | AM PST | ies | | | | Intravenous, ONCE PRN, Other, | | | | | | | Starting 06/27/17 at 0909, For | | | | | | | 1 dose, Nuclear Medicine | | | | | | + +--------+ + +------+------+ +---+---+ | | | +---+---+ documented in this encounter"
--- OUTSIDE RECORDS SUMMARY | ~2019-10-24 | XMS | Encounter Summary ---
Demographics + + + | Address | [address] | | | [place] [address] | + + + | Home Phone | | + + + | Preferred Language | Unknown | + + + | Marital Status | | + + + | Methodist Affiliation | Unknown | + + + | Race | Unknown | + + + | Ethnic Group | Unknown | + + + Author + + + | Author | [facility] | | | and Tevinana | + + + | Organization | [facility] | | | and Tevinana [...] Team Providers + +------+ + | Care Staff Development Coordinator Name | Role | Phone | + [...] | CARDIOLOGY [address] | MD [address] [place] | | | | | [place], | [place], | | | | | [place] [address] | [place] [address] | | | | | [phone] | [phone] | | | | | | | [...] [place], | | | | | | [place] [address] | | | | | | [phone] | | | | | | | | +--------+---------+ + + + documented as of this encounter Visit Diagnoses Not on filedocumented in this encounter"
--- OUTSIDE RECORDS SUMMARY | ~2019-10-24 | XMS | Encounter Summary ---
Demographics + + + | Address | [address] | | | [place] [address] | + + + | Home Phone [...] Author | [facility] | | | and Tevinana | + + + | Organization | [facility] | | | and Tevinana | [...] Team Providers + +------+ + | Care Vp Ancillary Name | Role | Phone | + [...] + + | 12/14/ | Office | [facility] | Kavitha Davenport, | Coronary artery | | 2018 | Visit | MED CTR CARDIAC | [place] [address] [facility] | disease, angina | | | | REHABILITATION [address] | [address], | presence | | | | [address] [place] | [place] [address] | unspecified, | | | | [place] [address] | [phone] | unspecified vessel | | | | [phone] | | or lesion type, | | | | | | unspecified whether | | | | | | [place] or | | | | | | transplanted heart | | | | | | (Primary Dx); Post | | | | | | PTCA; Coronary | | | | | | artery disease | | | | | | involving [place] | | | | | | coronary artery of | | | | | | [place] heart without | | | | | [...] Light RN - 12/14/2017 12:00 PM PDT [facility] [address] [place] [address] Cardiac Rehab Date: 12/14/2017 Patient Information Patient Name: Cosme Michaud Date of : 1940 Age: 77 y.o. Encounter Diagnoses Code Name Primary? I25.10 Coronary artery disease, angina presence unspecified, unspecified vessel or lesi on type, unspecified whether [place] or transplanted heart Yes Z98.61 Post PTCA [...] | 03/24/ | Office | Cardiology | [place], | | | 2019 | Visit | | [place] [address] | | | | | | [place], | | | | | | [place] [address] | | | | | | [phone] | | | | | | | | +--------+---------+ + + + documented as of this encounter Visit Diagnoses + + | Diagnosis | + + | Coronary artery disease, angina presence unspecified, unspecified vessel or lesion | | type, unspecified whether [place] or transplanted heart - Primary | + + | Post PTCA Postsurgical percutaneous transluminal coronary angioplasty status | + + | Coronary artery disease involving [place] coronary artery of [place] heart without | | angina pectoris | + + documented in this encounter"
--- OUTSIDE RECORDS SUMMARY | ~2019-10-24 | XMS | Encounter Summary ---
Demographics + + + | Address | [address] | | | [place] [address] | + + + | Home Phone | | + + + | Preferred Language | Unknown | + + + | Marital Status | | + + + | Advent Affiliation | Unknown | + + + | Race | Unknown | + + + | Ethnic Group | Unknown | + + + Author + + + | Author | [facility] | | | and Tevinana | + + + | Organization | [facility] | | | and Tevinana [...] Team Providers + +------+ + | Care District Engineer Name | Role | Phone | [...] [place] | | | | | [address], [place] | [address] | | | | | [address] | | | | | | [phone] | | | +--------+ + + + [...] | | | | | | [place] [address] | | | | | | [phone] | | | | | | | | +--------+---------+ + + + documented as of this encounter Procedures + +--------+ + + + | Procedure Name | Priori | Date/Time | Associated Diagnosis | Comments | | | ty | | | | + +--------+ + + + | MRI CERVICAL SPINE | Routin | 02/14/2013 | | Results for this | | WO CONTRAST | e | 1:21 PM | | procedure are in the | | | | PDT | | results section. | + +--------+ + + + documented in this encounter Results MRI Cervical Spine wo Contrast (02/14/2013 1:21 PM PDT) + + | Specimen | + + | | + + + + + | Impressions | Performed At | + + + | 1. Straightening of the cervical column, accentuates the effects | | | of the disc endplate disease from C5 through the thoracic spine, there | | | is moderate stenosis of the canal at C5-C6 and C6-C7. Disease is | | | greatest at C5-C6 and the CSF ventral and dorsal to the cord is | | | regionally lost 2. Bilateral foraminal stenosis, multilevel and | | | severe at C5-C6 and C6-C7. With lesser disease at other levels as | | | described above. 3. Facet and endplate arthropathy throughout the | | | cervical column likely contribute to symptoms 3. Other levels with | | | lesser disease and incidental findings as delineated above | | | | | + + + + + + | Narrative | Performed At | + + + | HISTORY: 72 year-old male with pain. Site of upper extremity | | | radicular symptoms is not specified. TECHNIQUE: MR of the cervical | | | spine. Prior study for comparison, none. FINDINGS: The | | | alignment of the cervical spine slightly reversed from C4-C7. Signal | | | texture without fracture or aggressive lesion, but there is certainly | | | multilevel degenerative changes across the endplates which are | | | greatest from C5-T1. Intravertebral disc spaces are narrowed and | | | desiccated, most so throughout these levels but the disease is goode | | | spinal The signal texture of the cervical cord is normal and | | | there is no endometrium 6 signal or structural abnormality-the cord is | | | certainly abutted, impacted by the disc endplate disease to be | | | discussed below, fracture or greatest at C2-C3 and significant at | | | C5-C6-C7. The cervical occipital relationships are normal but | | | there is arthropathy and hypertrophy of the ligament behind the dens. | | | Paraspinal soft tissues, to the constraints of collimation and | | | technique are unremarkable. C2-C3: Disc bulges about 2 mm, but the | | | ventral cord is abutted. Moderate narrowing the left and mild on the | | | right foramina due to lateral uncovertebral joint and facet disease, | | | greater on the left. C3- C4: Central bulge of the disc at least | | | indents the thecal sac. Associated with moderate to severe left | | | foraminal stenosis, uncovertebral joint and facet arthropathy are | | | mostly expiratory. Moderate right foraminal narrowing. C4- C5: | | | Broad disc osteolytic disease, about 2-3 mm from the endplate. Blends | | | with uncovertebral joint arthropathy and causes moderate borderline | | | severe left and moderate right femoral stenosis. The ventral cord is | | | abutted. C5- C6: Moderate and likely significant spinal stenosis. | | | The cord is abutted ventrally and dorsally, the canal in the | | | anteroposterior dimension measures 7 mm. Disc endplate production | | | extends laterally, measures about 3 mm from the endplate. | | | Uncovertebral joint arthropathy contributes to moderate to severe | | | bilateral symmetric foraminal stenosis. C6- C7: Moderate narrowing | | | of the canal. The ventricle is abutted by the posterior discussed by | | | disease, mostly endplate production, measures about 3 mm from the | | | endplate. The foramina demonstrate bilateral severe stenosis. C7- | | | T1: The canal is now open, CSF ventral to the cord is now seem. There | | | is however moderate right foraminal narrowing due to uncovertebral | | | joint production. What is seem of the upper thoracic spine | | | demonstrates multilevel disc endplate disease, would represents a | | | yield loss inspector examination for further details | | + + + + ----+ | Procedure Note | + ----+ | Hugo, Rad Conversion - 02/01/2019 3:02 PM PDT HISTORY: 72 year-old male with pain. | | Site of upper extremity radicular symptoms is not specified. TECHNIQUE: MR of the | | cervical spine. Prior study for comparison, none. FINDINGS: The alignment of the | | cervical spine slightly reversed from C4-C7. Signal texture without fracture or | | aggressive lesion, but there is certainly multilevel degenerative changes across the | | endplates which are greatest from C5-T1. Intravertebral disc spaces are narrowed and | | desiccated, most so throughout these levels but the disease is goode spinal The signal | | texture of the cervical cord is normal and there is no endometrium 6 signal or | | structural abnormality-the cord is certainly abutted, impacted by the disc endplate | | disease to be discussed below, fracture or greatest at C2-C3 and significant at | | C5-C6-C7. The cervical occipital relationships are normal but there is arthropathy and | | hypertrophy of the ligament behind the dens. Paraspinal soft tissues, to the constraints | | of collimation and technique are unremarkable. C2-C3: Disc bulges about 2 mm, but the | | ventral cord is abutted. Moderate narrowing the left and mild on the right foramina due | | to lateral uncovertebral joint and facet disease, greater on the left. C3- C4: Central | | bulge of the disc at least indents the thecal sac. Associated with moderate to severe | | left foraminal stenosis, uncovertebral joint and facet arthropathy are mostly | | expiratory. Moderate right foraminal narrowing. C4- C5: Broad disc osteolytic disease, | | about 2-3 mm from the endplate. Blends with uncovertebral joint arthropathy and causes | | moderate borderline severe left and moderate right femoral stenosis. The ventral cord is | | abutted. C5- C6: Moderate and likely significant spinal stenosis. The cord is abutted | | ventrally and dorsally, the canal in the anteroposterior dimension measures 7 mm. Disc | | endplate production extends laterally, measures about 3 mm from the endplate. | | Uncovertebral joint arthropathy contributes to moderate to severe bilateral symmetric | | foraminal stenosis. C6- C7: Moderate narrowing of the canal. The ventricle is abutted by | | the posterior discussed by disease, mostly endplate production, measures about 3 mm | | from the endplate. The foramina demonstrate bilateral severe stenosis. C7- T1: The canal | | is now open, CSF ventral to the cord is now seem. There is however moderate right | | foraminal narrowing due to uncovertebral joint production. What is seem of the upper | | thoracic spine demonstrates multilevel disc endplate disease, would represents a | | yield loss inspector examination for further details IMPRESSION: 1. Straightening of the cervical | | column, accentuates the effects of the disc endplate disease from C5 through the | | thoracic spine, there is moderate stenosis of the canal at C5-C6 and C6-C7. Disease is | | greatest at C5-C6 and the CSF ventral and dorsal to the cord is regionally lost 2. | | Bilateral foraminal stenosis, multilevel and severe at C5-C6 and C6-C7. With lesser | | disease at other levels as described above. 3. Facet and endplate arthropathy throughout | | the cervical column likely contribute to symptoms 3. Other levels with lesser disease | | and incidental findings as delineated above | | | |3. Facet and endplate arthropathy throughout the cervical column likely contribute to sympt oms | | | |3. Other levels with lesser disease and incidental findings as delineated above | | | | | + ----+ documented in this encounter Visit Diagnoses Not on filedocumented in this encounter"
--- OUTSIDE RECORDS SUMMARY | ~2019-10-24 | XMS | Encounter Summary ---
Demographics + + + | Address | [address] | | | [place] [address] | + + + | Home Phone | | + + + | Preferred Language | Unknown | + + + | Marital Status | | + + + | Zoroastrian Affiliation | Unknown | + + + | Race | Unknown | + + + | Ethnic Group | Unknown | + + + Author + + + | Author | [facility] | | | and Tevinana | + + + | Organization | [facility] | [...] Team Providers + +------+ + | Care Radiocommunications Technician Name | Role | Phone | [...] + + + | Closed | | Orthopedic | Diagnoses | Jung, | Otoniel | | | | Surgery | Bilateral | Radha Gregory, | Héctor Hobson MD | | | | | hand pain | LOAN ASSISTANT [address] | [address] | | | | | | [place] | [place], | | | | | | [address] [place] | [place] [address] | | | | | | [place] | Phone: | | | | | | [address] | [phone] | | | | | | Phone: | Fax: | | | | | | [phone] | [phone] | | | | | | Fax: | | | | | | | [phone] | | +--------+--------+ + + + + Encounter Details +--------+---------+ + + + | Date | Type | Department | Care Team | Description | +--------+---------+ + + + | 02/22/ | Office | [facility] | Héctor Frederick, | Primary | | 2019 | Visit | ORTHOPEDIC SURGERY | [address] | 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[address] [place] [address] | [place] | hands, bilateral | | | | [place], [place] | [address] | (Primary Dx); | | | | [address] | | Bilateral hand pain; | | | | [phone] | | Primary | | | | [...] Blood Pressure | - | - | | + [...] Weight | 99.8 kg (220 lb) | 02/22/2019 9:55 AM | | | | | PDT | | + + + + + | Height | 170.2 cm (5' 7") | 02/22/2019 9:55 AM | | | | | PDT | | + + + + + | Body Mass Index | 34.46 | 02/22/2019 9:55 AM | | | | | PDT | | + + + + + documented in this encounter Progress Notes Héctor Frederick MD - 02/22/2019 10:30 AM PDTFormatting of this note might be different fro m the original. History of present illness: Cosme is [...] History: Diagnosis Date AAA (abdominal aortic aneurysm) ([facility]) Abdominal aortic aneurysm (AAA) ([facility]) Achrochordon Adenomatous polyp of colon Age-related nuclear cataract, bilateral Anemia Aniseikonia Bilateral tinnitus Chest pain Chronic low back pain COPD (chronic obstructive pulmonary disease) ([facility]) Coronary arteriosclerosis Cough Dry eyes Ectropion of eyelid Essential (primary) hypertension Gout Hearing loss Hemorrhoids Hypertension Hypertensive retinopathy Hypothyroidism Hypothyroidism IBS (irritable bowel syndrome) Keratoconjunctivitis sicca ([facility]) Left arm pain Ocular hypertension Refractive amblyopia Sleep apnea Sleep related leg cramps 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 Suzescmez-Lvvccchora-EN-APAP (NYQUIL PO) Take 750 mg by mouth. [...] will return as needed documented in this en counter Plan of Treatment +--------+---------+ + + + | Date | Type | Specialty | Care Team | Description | +--------+---------+ + + + | 03/24/ | Office | Cardiology | Radha, | | | 2020 | Visit | | [place] [address] | | | | | | [place], | | | | | | [place] [address] | | | | | | [phone] | | | | | | | [...] | | Intramuscular, ONCE, 02/22/19 | | AM PDT | | | ) | | [...] | | Intramuscular, ONCE, Mon02/22/19 | | AM PDT | | | ) | | [...] | | Intramuscular, ONCE, Mon02/22/19 | | AM PDT | | | ) | | [...] | | Intramuscular, ONCE, 02/22/19 | | AM PDT | | | ) | | at 1145, For 1 dose, Shake well. | | | | | | | Not for IV use., | | | | | | + +-------+ +------+---+ + +---+---+ | | | +---+---+ documented in this encounter
--- OUTSIDE RECORDS SUMMARY | ~2019-10-24 | XMS | Encounter Summary ---
Demographics + + + | Address | [address] | | | [place] [address] | + + + | Home Phone | | + + + | Preferred Language | Unknown | + + + | Marital Status | | + + + | Baptism Affiliation | Unknown | + + + | Race | Unknown | + + + | Ethnic Group | Unknown | + + + Author + + + | Author | [facility] | | | and Tevinana | + + + | Organization | [facility] | | | and Tevinana [...] Team Providers + +------+ + | Care Infection Control Preventionist Name | Role | Phone | + +------+ + | Gia Feng NP | PCP | | + +------+ + Encounter Details +--------+ + + + + | Date | Type | Department | Care Team | Description | +--------+ + + + + | 03/08/ | Abstract | [facility] | Provider, | Cough; Dry eyes; | | 2018 | | CARDIOLOGY [address] | [address] | Anemia, unspecified | | | | [address], | [address] | type; [place], | | | | [place] [address] | [place] [address] | unspecified | | | | [phone] | | laterality; | | | | | | Bilateral tinnitus; | | | | | | Ocular hypertension, | | | | | | unspecified | | | | | | laterality; | | | | | | Refractive | | | | | | amblyopia, | | | | | | unspecified | | | | | | laterality; | | | | | | Age-related nuclear | | | | | | cataract, bilateral; | | | | | | Hypertensive | | | | | | retinopathy, | | | | | | unspecified | | | | | | laterality; | | | | | | Keratoconjunctivitis | | | | | | sicca (HCC); | | | | | | Ectropion, | | | | | | unspecified | | | | | | ectropion type, | | | | | | unspecified | | | | | | laterality; | | | | | | Achrochordon; Pain | | | | | | in wrist, | | | | | | unspecified | | | | | | laterality; Coronary | | | | | | arteriosclerosis; | | | | | | Left arm pain; | | | | | | Abdominal aortic | | | | | | aneurysm (AAA) | | | | | | without rupture | | | | | | (HCC); Sleep related | | | | | | leg cramps; | | | | | | Aniseikonia; Chronic | | | | | | low back pain, | | | | | | unspecified back | | | | | | pain laterality, | | | | | | with sciatica | | | | | | presence | | | | | | unspecified; | | | | | | Irritable bowel | | | | | | syndrome, | | | | | | unspecified type; | | | | | | Hemorrhoids, | | | | | | unspecified | | | | | | hemorrhoid type; | | | | | | Adenomatous polyp of | | | | | | colon, unspecified | | | | | | part of colon; Sleep | | | | | | apnea, unspecified | | | | | | type; Hypertension, | | | | | | unspecified type; | | | | | | 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; | | | | | | Hearing loss, | | | | | | unspecified hearing | | | | | | loss type, | | | | | | unspecified | | | | | | laterality; Gout, | | | | | | unspecified cause, | | | | | | unspecified | | | | | | chronicity, | | | | | | unspecified site | +--------+ + + + + Social [...] [place], | | | | | | [place] [address] | | | | | | [phone] | | | | | | | | +--------+---------+ + + + documented as of this encounter Procedures + +--------+ + + + | Procedure Name | Priori | Date/Time | Associated Diagnosis | Comments | | | ty | | | | + +--------+ + + + | EXTERNAL LAB: BUN | Routin | 12/04/2017 | | Results for this | | | e | | | procedure are in the | | | | | | results section. | + +--------+ + + + | EXTERNAL LAB: | Routin | 12/04/2017 | | Results for this | | GLUCOSE | e | | | procedure are in the | | | | | | results section. | + +--------+ + + + | EXTERNAL LAB: AST | Routin | 12/04/2017 | | Results for this | | | e | | | procedure are in the | | | | | | results section. | + +--------+ + + + | EXTERNAL LAB: | Routin | 12/04/2017 | | Results for this | | CALCIUM | e | | | procedure are in the | | | | | | results section. | + +--------+ + + + | EXTERNAL LAB: CARBON | Routin | 12/04/2017 | | Results for this | | DIOXIDE | e | | | procedure are in the | | | | | | results section. | + +--------+ + + + | EXTERNAL LAB: | Routin | 12/04/2017 | | Results for this | | CHLORIDE | e | | | procedure are in the | | | | | | results section. | + +--------+ + + + | EXTERNAL LAB: | Routin | 12/04/2017 | | Results for this | | POTASSIUM | e | | | procedure are in the | | | | | | results section. | + +--------+ + + + | EXTERNAL LAB: SODIUM | Routin | 12/04/2017 | | Results for this | | | e | | | procedure are in the | | | | | | results section. | + +--------+ + + + | EXTERNAL LAB: CBC | Routin | 12/04/2017 | | Results for this | | | e | | | procedure are in the | | | | | | results section. | + +--------+ + + + | EXTERNAL LAB: CBC | Routin | 12/04/2017 | | Results for this | | | e | | | procedure are in the | | | | | | results section. | + +--------+ + + + | EXTERNAL LAB: | Routin | 12/04/2017 | | Results for this | | TRIGLYCERIDES | e | | | procedure are in the | | | | | | results section. | + +--------+ + + + | EXTERNAL LAB: | Routin | 12/04/2017 | | Results for this | | CHOLESTEROL, HDL | e | | | procedure are in the | | | | | | results section. | + +--------+ + + + | EXTERNAL LAB: | Routin | 12/04/2017 | | Results for this | | CHOLESTEROL, TOTAL | e | | | procedure are in the | | | | | | results section. | + +--------+ + + + | EXTERNAL LAB: | Routin | 12/04/2017 | | Results for this | | CHOLESTEROL, LDL | e | | | procedure are in the | | | | | | results section. | + +--------+ + + + | EXTERNAL LAB: EGFR | Routin | 12/04/2017 | | Results for this | | | e | | | procedure are in the | | | | | | results section. | + +--------+ + + + | EXTERNAL LAB: | Routin | 12/04/2017 | | Results for this | | CREATININE | e | | | procedure are in the | | | | | | results section. | + +--------+ + + + | CBC WITH | Routin | 12/04/2017 | | Results for this | | DIFFERENTIAL | e | | | procedure are in the | | | | | | results section. | + +--------+ + + + documented in this encounter Results External Lab: BUN (12/04/2017) + +-------+ + + + | Component | Value | Ref Range | Performed | Pathologist | | | | | At | Signature | + +-------+ + + + | BUN, | 18 | | | | | External | | | | | + +-------+ + + + External Lab: Glucose (12/04/2017) + +-------+ + + + | Component | Value | Ref Range | Performed | Pathologist | | | | | At | Signature | + +-------+ + + + | Glucose, | 118 | | | | | External | | | | | + +-------+ + + + External Lab: AST (12/04/2017) + +-------+ + + + | Component | Value | Ref Range | Performed | Pathologist | | | | | At | Signature | + +-------+ + + + | AST, | 18 | | | | | External | | | | | + +-------+ + + + External Lab: Calcium (12/04/2017) + +-------+ + + + | Component | Value | Ref Range | Performed | Pathologist | | | | | At | Signature | + +-------+ + + + | Calcium, | 8.4 | | | | | External | | | | | + +-------+ + + + External Lab: Carbon Dioxide (12/04/2017) + +-------+ + + + | Component | Value | Ref Range | Performed | Pathologist | | | | | At | Signature | + +-------+ + + + | Carbon | 24 | | | | | Dioxide, | | | | | | External | | | | | + +-------+ + + + External Lab: Chloride (12/04/2017) + +-------+ + + + | Component | Value | Ref Range | Performed | Pathologist | | | | | At | Signature | + +-------+ + + + | Chloride, | 103 | | | | | External | | | | | + +-------+ + + + External Lab: Potassium (12/04/2017) + +-------+ + + + | Component | Value | Ref Range | Performed | Pathologist | | | | | At | Signature | + +-------+ + + + | Potassium, | 4.3 | | | | | External | | | | | + +-------+ + + + External Lab: Sodium (12/04/2017) + +-------+ + + + | Component | Value | Ref Range | Performed | Pathologist | | | | | At | Signature | + +-------+ + + + | Sodium, | 137 | | | | | External | | | | | + +-------+ + + + External Lab: CBC (12/04/2017) + +-------+ + + + | Component | Value | Ref Range | Performed | Pathologist | | | | | At | Signature | + +-------+ + + + | Neutrophils | 4.7 | | | | | , Absolute, | | | | | | External | | | | | + +-------+ + + + | Lymphocytes | 2.1 | | | | | , Absolute, | | | | | | External | | | | | + +-------+ + + + | Monocytes, | 0.5 | | | | | Absolute, | | | | | | External | | | | | + +-------+ + + + | Eosinophils | 0.3 | | | | | , Absolute | | | | | + +-------+ + + + | Basophils, | 0.1 | | | | | Absolute | | | | | + +-------+ + + + External Lab: Triglycerides (12/04/2017) + +-------+ + + + | Component | Value | Ref Range | Performed | Pathologist | | | | | At | Signature | + +-------+ + + + | Triglycerid | 121 | | | | | es, | | | | | | External | | | | | + +-------+ + + + + + | Specimen | + + | Blood | + + External Lab: Cholesterol, HDL (12/04/2017) + +-------+ + + + | Component | Value | Ref Range | Performed | Pathologist | | | | | At | Signature | + +-------+ + + + | HDL | 35 | mg/dl | | | | Cholesterol | | | | | | , External | | | | | + +-------+ + + + + + | Specimen | + + | Blood | + + External Lab: Cholesterol, Total (12/04/2017) + +-------+ + + + | Component | Value | Ref Range | Performed | Pathologist | | | | | At | Signature | + +-------+ + + + | Cholesterol | 108 | mg/dl | | | | , Total, | | | | | | External | | | | | + +-------+ + + + + + | Specimen | + + | Blood | + + External Lab: Cholesterol, LDL (12/04/2017) + +-------+ + + + | Component | Value | Ref Range | Performed | Pathologist | | | | | At | Signature | + +-------+ + + + | LDL | 49 | | | | | Cholesterol | | | | | | , Direct, | | | | | | External | | | | | + +-------+ + + + + + | Specimen | + + | Blood | + + External Lab: eGFR (12/04/2017) + +-------+ + + + | Component | Value | Ref Range | Performed | Pathologist | | | | | At | Signature | + +-------+ + + + | eGFR, | 81.8 | | | | | External | | | | | + +-------+ + + + + + | Specimen | + + | Blood | + + External Lab: Creatinine (12/04/2017) + +-------+ + + + | Component | Value | Ref Range | Performed | Pathologist | | | | | At | Signature | + +-------+ + + + | Creatinine, | 0.9 | | | | | External | | | | | + +-------+ + + + + + | Specimen | + + | Blood | + + CBC with Differential (12/04/2017) + +-------+ + + + | Component | Value | Ref Range | Performed | Pathologist | | | | | At | Signature | + +-------+ + + + | MCHC | 33.9 | g/dL | | | + +-------+ + + + | MCH | 30.6 | 26.0 - 33.0 pg | | | + +-------+ + + + | % Basophils | 1.0 | 1.0 % | | | + +-------+ + + + + + | Specimen | + + | Blood | + + External Lab: CBC (12/04/2017) + +-------+ + + + | Component | Value | Ref Range | Performed | Pathologist | | | | | At | Signature | + +-------+ + + + | WBC, | 7.7 | | | | | External | | | | | + +-------+ + + + | HGB, | 14.0 | | | | | External | | | | | + +-------+ + + + | HCT, | 41.3 | | | | | External | | | | | + +-------+ + + + | PLT, | 226 | | | | | External | | | | | + +-------+ + + + | Neutrophils | 61.4 | | | | | %, | | | | | | External | | | | | + +-------+ + + + | Lymphocytes | 26.8 | | | | | %, | | | | | | External | | | | | + +-------+ + + + | Monocytes | 7.0 | | | | | %, External | | | | | + +-------+ + + + | Eosinophils | 3.4 | | | | | %, | | | | | | External | | | | | + +-------+ + + + | RBC, | 4.58 | | | | | External | | | | | + +-------+ + + + | MCV, | 90 | | | | | External | | | | | + +-------+ + + + | RDW, | 12.8 | | | | | External | | | | | + +-------+ + + + documented in this encounter Visit Diagnoses + + | Diagnosis | + + | Cough | + + | Dry eyes Tear film insufficiency, unspecified | + + | Anemia, unspecified type | + + | Trichiasis, unspecified laterality | + + | Bilateral tinnitus | + + | Ocular hypertension, unspecified laterality | + + | Refractive amblyopia, unspecified laterality | + + | Age-related nuclear cataract, bilateral Senile nuclear sclerosis | + + | Hypertensive retinopathy, unspecified laterality | + + | Keratoconjunctivitis sicca (HCC) Sicca syndrome | + + | Ectropion, unspecified ectropion type, unspecified laterality | + + | Achrochordon Unspecified hypertrophic and atrophic condition of skin | + + | Pain in wrist, unspecified laterality | + + | Coronary arteriosclerosis Coronary atherosclerosis of unspecified type of vessel, | | pilot station or graft | + + | Left arm pain Pain in limb | + + | Abdominal aortic aneurysm (AAA) without rupture (HCC) | + + | Sleep related leg cramps | + + | Aniseikonia | + + | Chronic low back pain, unspecified back pain laterality, with sciatica presence | | unspecified | + + | Irritable bowel syndrome, unspecified type | + + | Hemorrhoids, unspecified hemorrhoid type | + + | Adenomatous polyp of colon, unspecified part of colon | + + | Sleep apnea, unspecified type | + + | Hypertension, unspecified type | + + | Tobacco dependence in remission Personal history of tobacco use, presenting hazards | | to health | + + | Hearing loss, unspecified hearing loss type, unspecified laterality | + + | Gout, unspecified cause, unspecified chronicity, unspecified site | + + documented in this encounter"
--- OUTSIDE RECORDS SUMMARY | ~2019-10-24 | XMS | Encounter Summary ---
Demographics + + + | Address | [address] | | | [place] [address] | + + + | Home Phone [...] | Author | [facility] | | | and Tevinana | + + + | Organization | [facility] | | | and [...] Team Providers + +------+ + | Care Design Quality Engineer Name | Role | Phone | [...] Description | +--------+---------+ + + + | 01/09/ | Office | [facility] | Kavitha Davenport, | Coronary artery | | 2018 | Visit | MED CTR CARDIAC | MD [address] | disease involving | | | | REH[address]ILIT[address], | council coronary | | | | [address] [place] | [place] [address] | artery of council | | | | [place] [address] | [phone] | heart without angina | | | | [phone] | | pectoris | +--------+---------+ + + [...] this encounter Progress Estela Maharaj RRT - [facility]/09[facility]2018 12[facility]00 [facility] [address] [place] [address] Cardiac Rehab Date: 01/09/2018 Patient Information Patient Name: Cosme Michaud Date [...] min Electronically signed by: Estela Bernal RRT, 01/09/2018 12:14 Patient Name: Cosme Michaud/: 1940/ lly signed by Estela Bernal RRT at 01/09/2018 12:15 PM PDTdocumented in this e ncounter Plan of Treatment +--------+---------+ + + + | Date | Type | Specialty | Care Team | Description | +--------+---------+ + + + | 03/24/ | Office | Cardiology | Radha, | | | 2019 | Visit | | [place] [address] | | | | | | [place], | | | | | | [place] [address] | | | | | | [phone] | | | | | | | | +--------+---------+ + + + documented as of this encounter Visit Diagnoses + + | Diagnosis | + + | Coronary artery disease involving council coronary artery of council heart without | | angina pectoris | + + documented in this encounter"
--- OUTSIDE RECORDS SUMMARY | ~2019-10-24 | XMS | Encounter Summary ---
Demographics + + + | Address | [address] | | | [place] [address] | + + + | Home Phone [...] + | Author | [facility] | | | and Tevinana | + + + | Organization | [facility] | | | [...] Team Providers + +------+ + | Care Quarter Inspector Name | Role | Phone | + [...] | | | | | | | [address] | | | | | | | Phone: | | | | | | | [phone] | | | | | | | Fax: | | | | | | | [phone] | | +--------+--------+ + + + + [...] | | | | | | | [address] | | | | | | | Phone: | | | | | | | [phone] | | | | | | | Fax: | | | | | | | [phone] | | +--------+--------+ + + + + Encounter Details +--------+ + + + + | Date | Type | Department | Care Team | Description | +--------+ + + + + | 02/24/ | Hospital | [facility] | Sd Rosales | Back pain | | 2013 | Encounter | MED CTR MRI [address] | [address] | | | | | [place], | [place] | | | | | [place] [address] | [place] [address] | | | | | [phone] | [phone] | | | | | | | [...] [place], | | | | | | [place] [address] | | | | | | [phone] | | | | | | | [...] + | MISCELLANEOUS LAB | | | [phone] | + +---------+ + + | MISCELANIOUS LAB | | | [phone] | + +---------+ + + documented in this encounter Visit Diagnoses + + | Diagnosis | + + | Back pain Backache, unspecified | + + documented in this encounter"
--- OUTSIDE RECORDS SUMMARY | ~2019-10-24 | XMS | Encounter Summary ---
Demographics + + + | Address | [address] | | | [place] [address] | + + + | Home Phone | | + + + | Preferred Language | Unknown | + + + | Marital Status | | + + + | Adventism Affiliation | Unknown | + + + | Race | Unknown | + + + | Ethnic Group | Unknown | + + + Author + + + | Author | [facility] | | | and Tevinana | + + + | Organization | [facility] | | | and [...] Team Providers + +------+ + | Care Telecom Engineer Name | Role | Phone | + +------+ + | Gia Feng NP | PCP | | + +------+ + Encounter Details +--------+ + + + + | Date | Type | Department | Care Team | Description | +--------+ + + + + | 10/10/ | Orders Only | [facility] | Kev Dudley MD | | | 2018 | | CARDIOLOGY [place] | [address] | | | | | [address] | [place] [address] | | | | | [place], [place] | [phone] | | | | | [address] | | | | | | [phone] | | | +--------+ + + + [...] [place], | | | | | | [place] [address] | | | | | | [phone] | | | | | | | [...] | | Coronary angiography was done in [facility] by | | | Dr. Davenport and [...] obtained via right radial artery, and a 6-[place] Warren sheath was | | | placed. A JL3.5 guider catheter was then advanced and engaged with | | | the left main coronary artery, and heparin was given. Projection of | | | the vessel showed what appears to be at least moderate disease in the | | | proximal LAD prior to the previously placed stent. An IFR | | | Wheaton wire was then advanced and normalized in [...] | | Coronary angiography was done in [facility] by . | | Ethel and showed [...] obtained via right radial artery, and a 6-[place] Warren sheath was placed. A | | JL3.5 guider catheter was then advanced and engaged with the left main | | coronary artery, and heparin was given. Projection of the vessel showed | | what appears to be at least moderate disease in the proximal LAD prior to | | the previously placed stent. | | | | An IFR Wheaton wire was then advanced and normalized in [...]
--- OUTSIDE RECORDS SUMMARY | ~2019-10-24 | XMS | Encounter Summary ---
Demographics + + + | Address | [address] | | | [place] [address] | + + + | Home Phone [...] Author | [facility] | | | and Tevinana | + + + | Organization | [facility] | | | and Tevinana [...] Team Providers + +------+ + | Care Tire Repairman Name | Role | Phone | + [...] | | | | | disease, | [address] | [address] | | | | | angina | [place], | [place] | | | | | presence | [place] [address] | [place], [place] | | | | | unspecified, | Phone: | [phone] | | | | | unspecified | [phone] | Phone: | | | | | vessel or | Fax: | [phone] | | | | | lesion type, | [phone] | Fax: | | | | | unspecified | | [phone] | | | | | whether | | | | | | | lime or | | | | | | | transplanted | | | | | | | heart Post | | | | | | | PTCA | | | | | | | Procedures | | | | | | | AL | | | | | | | [...] | | | | Procedures | | [address] [place] [address] | | | | | LAND ACQUISITION MANAGER - SUW | [facility] [place] | [address] | | | | | READ STRESS | DR [place] | [place], | | | | | TEST OF | [place] | [place] [address] | | | | | 06-27-17 | [address] | Phone: | | | | | | Phone: | [phone] | | | | | | [phone] | Fax: | | | | | | Fax: | [phone] | | | | | | [phone] | | +--------+--------+ + + + + Encounter Details +--------+---------+ + + + | Date | Type | Department | Care Team | Description | +--------+---------+ + + + | 11/17/ | Office | [facility] | Freddy Davenport, | Chest pain, | | 2017 | Visit | CARDIOLOGY [address] | [address] [place] | unspecified type | | | | [place], | [place], | (Primary Dx); | | | | [place] [address] | [place] [address] | Coronary artery | | | | [phone] | [phone] | disease, angina | | | | | | presence | | | | | | unspecified, | | | | | | unspecified vessel | | | | | | or lesion type, | | | | | | unspecified whether | | | | | | lime or | | | | | | [...] had a left heart cath done as [place] which revealed significant stenosis on the mid [...] Diagnosis Chest pain Coronary artery disease involving lime coronary artery of lime heart without angina pectoris Hypothyroidism AAA (abdominal [...] TABS Take 1 capsule by mouth Daily. Xqgslenyu-Wzlmetgjac-ZJ-APAP (NYQUIL PO) Take 750 mg by mouth. [...] RESULTS reviewed during visit today primarily from [facility]: LIPID Lab Results Component Value Date [...] He is in a class II of [place] [employer] functional class. There is bilateral [...] 14:09 Electronically signed by: Freddy Davenport MD [facility] 11/17/2017 Portions of this chart may have been created with [employer] voice recognition software. Occasi onal wrong-word or [...] W | | | | | | [place], | | | | | | [place] [address] | | | | | | [phone] | | | | | | | [...] whether | | | | | | lime or | | | | | | [...] whether | | | | | | lime or | | | | | | [...] whether | | | | | | lime or | | | | | | [...] FREDDY | | | | | | ([id number]) on 11/17/2017 | | | | | [...] [address] | [place] | [phone] | | [facility] | | [address] | | | - LABORATORY | | [...] ST. | [address] | [place] | [phone] | | [facility] | | [address] | | | - LABORATORY | | | | + + + + + documented in this encounter Visit Diagnoses + + | Diagnosis | + + | Chest pain, unspecified type - Primary | + + | Coronary artery disease, angina presence unspecified, unspecified vessel or lesion | | type, unspecified whether lime or transplanted heart | + + | Encounter for lipid screening for cardiovascular disease | + + | Post PTCA Postsurgical percutaneous transluminal coronary angioplasty status | + + documented in this encounter
--- OUTSIDE RECORDS SUMMARY | ~2019-10-24 | XMS | Encounter Summary ---
Demographics + + + | Address | [address] | | | [place] [address] | + + + | Home Phone | | + + + | Preferred Language | Unknown | + + + | Marital Status | | + + + | Christian Affiliation | Unknown | + + + | Race | Unknown | + + + | Ethnic Group | Unknown | + + + Author + + + | Author | [facility] | | | and Tevinana | + + + | Organization | [facility] | | | and [...] Team Providers + +------+ + | Care Igniter Capper Name | Role | Phone | + +------+ + | Gia Feng NP | PCP | | + +------+ + Reason for Visit + + + | Reason | Comments | + + + | New Patient | | + + + | Coronary [...] | Cardiology | Diagnoses | Jung, | Ethel | | | | | Chest pain | KRISTINA Nielsen | MD Freddy | | | | | Procedures | [address] | | | | | YOUTH PROGRAM DIRECTOR - SUW | [place] | [address] | | | | | READ STRESS | DR [place] | [place], | | | | | TEST OF | [place], [place] | [place] [address] | | | | | 06-27-17 | [address] | Phone: | | | | | | Phone: | [phone] | | | | | | [phone] | Fax: | | | | | | Fax: | [phone] | | | | | | [phone] | | +--------+--------+ + + + + Encounter Details +--------+---------+ + + + | Date | Type | Department | Care Team | Description | +--------+---------+ + + + | 09/14/ | Office | [facility] | Freddy Davenport, | Chest pain, | | 2018 | Visit | CARDIOLOGY [address] | MD [address] | unspecified type | | | | [place], | [place], | (Primary Dx) | | | | [place] [address] | [place] [address] | | | | | [phone] | [phone] | | | | | | | [...] + + + | Blood Pressure | 140/88 | 09/14/2017 2:01 PM | | | | | PDT | | + + + + + | Pulse | 62 | 09/14/2017 2:01 PM | | | | | PDT | | + + + + + | Temperature | - | - | | + + + + + | Respiratory Rate | 14 | 09/14/2017 2:01 PM | | | | | PDT | | + + + + + | Oxygen Saturation | - | - | | + + + + + | Inhaled Oxygen | - | - | | | Concentration | | | | + + + + + | Weight | 110.1 kg (242 lb | 09/14/2017 2:01 PM | | | | 11.6 oz) | PDT | | + + + + + | Height | 167.6 cm (5' 6") | 09/14/2017 2:01 PM | | | | | PDT | | + + + + + | Body Mass Index | 39.18 | 09/14/2017 2:01 PM | | | | | PDT | | + + + + + documented in this encounter Patient Instructions Patient Instructions Padma Cadena RN - 09/14/2017 2:00 PM PDT Increase Lipitor (Atorvastatin) to 40mg one time daily INSTRUCTIONS Cosme Michaud 1940 Procedure: Left heart catheterization Day: Date: Check-in time: 1. [facility] (same-day surgery). 2. Do not eat or drink anything after midnight prior to the procedure. 3. Take all of your regular medications including Aspirin with a sip of water the morning o f the procedure . 4. The procedure lasts approximately one hour, and you will have conscious sedation for the procedure which will help decrease pain and will make you groggy. 5. After the procedure you will remain either in recovery or same day surgery center for at least 2 hours, part of this time you may have to lie flat depending on the procedure. 6. Make sure you have a driver license technician to take you home. Your driver license technician will also need to sign you ou t, to take responsibility for you, so it can not be a taxi or transportation system, unless there is a caregiver with transportation. 7. Please call us with any questions or concerns at . If you need to cancel the procedure at the last minute, such as due to illness, and you are calling after regular office hours, call the main hospital line at and ask for nursing blacksmith supervisor t o let them know you are cancelling . Follow up appointment in Cardiology: 2-3 months Provider: Freddy Davenport MD Date: Check-in time: documented in this encounter Progress Notes Freddy Davenport MD - 09/14/2017 2:00 PM PDTFormatting of this note might be different f rom the original. PATIENT NAME: Cosme Michaud : 1940: AGE: 77 y.o. REFERRED BY: Gia Feng PRIMARY CARE: Gia Feng NP NEW PATIENT OFFICE VISIT Date of Service: 09/14/17 HISTORY OF PRESENT ILLNESS: Cosme Michaud is a 77 y.o. male with a history of coronary artery disease, hypothyro idism, obesity, inactivity, hypertension and COPD. He is being seen today for chest pain. Patient was in his usual state of health until a few months ago when he started having a ch est burning that happens after every meal and when he takes nitroglycerin it helps. He also reports some leg swelling. Patient is physically inactive. He enjoys scraping metals for fun . Patient denies breathlessness. There is no palpitations, dizziness or lightheadedness. P atient can sleep on one pillow at night without difficulty breathing. CURRENT PROBLEMS Patient Active Problem List Diagnosis Chest pain Coronary artery disease involving [place] coronary artery of [place] heart without angina pectoris Hypothyroidism AAA (abdominal aortic aneurysm) COPD (chronic obstructive pulmonary disease) Essential hypertension with goal blood pressure less than 130/80 MEDICAL, SURGICAL, AND PERSONAL HISTORY History reviewed. No pertinent surgical history. History reviewed. No pertinent family history. No family status information on file. Social History Social History Marital status: Spouse name: N/A Number of children: N/A Years of education: N/A Social History Main Topics Smoking status: Never Smoker Smokeless tobacco: Never Used Alcohol use No Drug use: No Sexual activity: Not Asked Other Topics Concern None Social History Narrative None CURRENT MEDICATIONS Current Outpatient Prescriptions Medication Sig Dispense Refill acetaminophen (TYLENOL) 325 mg tablet Take 650 mg by mouth every 4 hours as needed for Pain. aspirin 81 MG tablet Take 81 mg by mouth Daily. atorvaSTATin (LIPITOR) 20 mg tablet Take 20 mg by mouth Daily. cholecalciferol (VITAMIN D-3) 1000 units TABS Take 1,000 Units by mouth Daily. colchicine 0.6 mg tablet Take 0.6 mg by mouth as needed. diclofenac (ZORVOLEX) 35 mg capsule Take 35 mg by mouth as needed for Pain. ferrous sulfate 325 mg tablet Take 325 mg by mouth daily (with breakfast). FOLIC ACID PO Take 1 tablet by mouth Daily. levothyroxine (SYNTHROID) 25 mcg tablet Take 25 mcg by mouth Daily. losartan (COZAAR) 25 mg tablet Take 25 mg by mouth Daily. metoprolol tartrate (LOPRESSOR) 25 mg tablet Take 25 mg by mouth Daily. No current facility-administered medications for this visit. ALLERGIES Allergies Allergen Reactions Tramadol Anxiety ROS Review of Systems Constitutional: Positive for malaise/fatigue. Negative for chills, diaphoresis, fever and w eight loss. HENT: Positive for hearing loss. Negative for congestion, nosebleeds and tinnitus. Dental Problems = No Eyes: Negative for blurred vision and double vision. Respiratory: Positive for shortness of breath (COPD). Cardiovascular: Positive for chest pain and leg swelling. Negative for palpitations. Gastrointestinal: Positive for diarrhea (when taking pills for gout). Negative for blood in stool, constipation, nausea and vomiting. Genitourinary: Negative for dysuria, frequency, hematuria and urgency. Musculoskeletal: Positive for back pain and joint pain (leg). Negative for falls, myalgias and neck pain. Gait Problems = No Skin: Negative for itching and rash. Neurological: Positive for dizziness. Negative for tingling, tremors, speech change, seizur es, loss of consciousness and weakness. Lightheaded = No Endo/Heme/Allergies: Does not bruise/bleed easily. Psychiatric/Behavioral: Negative for memory loss. The patient is not nervous/anxious and do es not have insomnia. OBJECTIVE: PHYSICAL EXAM BP 140/88 | Pulse 62 | Resp 14 | Ht 1.676 m (5' 6") | Wt 110.1 kg (242 lb 11.6 oz) | B GA 39.18 kg/m Physical Exam Constitutional: He is oriented [...] not exh ibit a depressed mood. ECG: Normal sinus rhythm, normal ECG. LAB RESULTS: LIPID No results found for: CHOL, TRIG, HDL, LDL, CHOLHDL, LDLEX, HDLEX, TRIGEX, CHOLEX CHEMISTRY No results found for: GLU, GLUEX, NA, NAEX, K, KEX, CL, CLEX, CO2, CO2EX, CALCIUM, ALKPHOS, AST, ASTEX, ALT, ALTEX, BILITOT, CREA, BUN, EGFR, EGFREX, CREEX HEMATOLOGY No results found for: WBC, WBCEX, HGB, HGBEX, HCT, HCTEX, PLT, PLTEX ASSESSMENT: 1. Coronary artery disease with recurrent chest pain A. Echocardiogram on 11/30/2010 shows normal left ventricular size, wall thickness and gladis on, preserved left ventricular systolic function, LVEF is 60%, grade 1 left ventricular west tolic dysfunction, mild mitral valve regurgitation, mild tricuspid valve regurgitation. B. LHC on 03/09/2011 shows non-Q-wave myocardial infarction with acute coronary syndrome, t hree-vessel coronary artery disease. However, most important left anterior descending with s ubtotal occlusion status post percutaneous transluminal coronary angioplasty and stenting as above, abdominal aortic aneurysm, hypokinetic apex, likely secondary to stunned myocardium. The ejection fraction is [...] by gated SPECT is 75 %. D. Patient was in his usual state of health until a few months ago he started having a ch est burning that happens after every meal and when he takes nitroglycerin it helps. He also reports some leg swelling. Patient is physically inactive. He enjoys scraping metals for fun . Patient denies breathlessness. There is no signs and symptoms of overt congestive heart failure. He is in a class II of [place] Heart Association functional class. There is bilateral trace leg swelling on physi bianca examination. Due to the combination of abnormal stress test and ongoing chest pain, patient is a candid ate for left heart cath. 2. Hypertension A. Today's blood pressure is well-controlled. 3. Hyperlipidemia A. He is on atorvastatin 20 mg. 4. Obstructive sleep apnea A. Patient does not wear CPAP machine 5. Obesity 6. Inactivity 7. COPD PLAN: 1. I spend time at length talking about natural course, treatment and prognosis of coronary artery disease. 2. Increase atorvastatin to 40 mg once a day. Patient has history of CAD. Guidelines recom mend high-intensity statin. 3. Check LFT and lipid panel in three months. 4. Patient is candidate for left heart catheterization via right radial. The risks and bene fits of the procedure including alternative treatment were discussed with the patient in [facility]. The patient decides to proceed with the procedure. 5. I recommend a therapeutic lifestyle change including walking 30 minutes a day, choosing healthy choices of diet, including DASH diet and weight reduction. 6. Follow up in 2-3 months. Kiley Pringle am acting as a scribe on behalf of, and in the presence of Freddy Davenport MD. I have reviewed and edited this note. Kiley Pringle Special Education Superintendent 09/14/2017 I, Freddy Davenport MD, personally performed the services described in this documentation, as scribed in my presence and it is both accurate and complete. Kiley Pringle Med Ass t 09/14/2017 14:02 Electronically signed by: Freddy Davenport MD [facility] 09/14/2017 Portions of this chart may have been created with Dragon voice recognition software. Occasi onal wrong-word or [...] | | | | | | [place] [address] | | | | | | [phone] | | | | | | | | +--------+---------+ + + + documented as of this encounter Procedures + +--------+ + + + | Procedure Name | Priori | Date/Time | Associated Diagnosis | Comments | | | ty | | | | + +--------+ + + + | ECG 12 LEAD | Routin | 09/14/2017 | Chest pain, | Results for this | | | e | 1:59 PM | unspecified type | procedure are in the | | | | PDT | | results section. | + +--------+ + + + documented in this encounter Results ECG 12 lead (09/14/2017 1:59 PM PDT) + + + + + + | Component | Value | Ref Range | Performed | Pathologist | | | | | At | Signature | + + + + + + | VENTRICULAR | 62 | BPM | [facility] | | | RATE EKG | | | | | + + + + + + | ATRIAL RATE | 62 | BPM | [facility] | | + + + + + + | P-R | 192 | ms | [facility] | | | INTERVAL | | | | | + + + + + + | QRS | 82 | ms | [facility] | | | DURATION | | | | | + + + + + + | Q-T | 422 | ms | [facility] | | | INTERVAL | | | | | + + + + + + | Q-T | 428 | ms | [facility] | | | INTERVAL | | | | | | (CORRECTED) | | | | | + + + + + + | P WAVE AXIS | 58 | degrees | [facility] | | + + + + + + | QRS AXIS | 41 | degrees | [facility] | | + + + + + + | T AXIS | 56 | degrees | [facility] | | + + + + + + | INTERPRETAT | Normal sinus | | [facility] | | | ION TEXT | rhythmNormal ECGNo | | | | | | previous ECGs | | | | | | availableConfirmed by | | | | | | FREDDY DAVENPORT MD | | | | | | ([id number]) on 09/14/2017 | | | | | | 4:34:34 PM | | | | + + [...] unspecified type - Primary | + + documented in this encounter
--- OUTSIDE RECORDS SUMMARY | ~2019-10-24 | XMS | Encounter Summary ---
Demographics + + + | Address | [address] | | | [place] [address] | + + + | Home Phone | | + + + | Preferred Language | Unknown | + + + | Marital Status | | + + + | Sikhism Affiliation | Unknown | + + + | Race | Unknown | + + + | Ethnic Group | Unknown | + + + Author + + + | Author | [facility] | | | and Tevinana | + + + | Organization | [facility] | [...] Team Providers + +------+ + | Care Digital Marketing Apprentice Name | Role | Phone | + [...] Description | +--------+---------+ + + + | 12/19/ | Office | [facility] | Kavitha Davenport, | Post PTCA (Primary | | 2018 | Visit | MED CTR CARDIAC | MD [address] | Dx); Coronary artery | | | | REHABILITATION [address] | [place], | disease involving | | | | [address] [place] | [place] [address] | [place] coronary | | | | [place] [address] | [phone] | artery of [place] | | | | [phone] | | heart without angina | | [...] of this encounter Jose Eduardo Elizondo - 12/19/2017 12:00 PM PDT [facility] C[facility]AC RE[facility]ILITATION [address] [place] [address] Cardiac Rehab Date: 12/19/2017 Patient Information Patient Name: Cosme Michaud Date of : 1940 Age: 77 y.o. Encounter Diagnoses Code Name Primary? Z98.61 Post PTCA Yes I25.10 Coronary artery disease involving [place] coronary artery of [place] heart without angina pectoris Number of Visits [...] min Electronically signed by: Jose Eduardo Rice, 12/19/2017 12:09 Patient Name: Cosme Michaud/: 1940/ lly signed by Jose Eduardo Rice at 12/19/2017 12:09 PM PDTdocumented in this encounter Plan of Treatment +--------+---------+ + + + | Date | Type | Specialty | Care Team | Description | +--------+---------+ + + + | 03/24/ | Office | Cardiology | Radha, | | | 2019 | Visit | | [place] [address] | | | | | | [place], | | | | | | [place] [address] | | | | | | [phone] | | | | | | | | +--------+---------+ + + + documented as of this encounter Visit Diagnoses + + | Diagnosis | + + | Post PTCA - Primary Postsurgical percutaneous transluminal coronary angioplasty | | status | + + | Coronary artery disease involving [place] coronary artery of [place] heart without | | angina pectoris | + + documented in this encounter"
--- OUTSIDE RECORDS SUMMARY | ~2019-10-24 | XMS | Encounter Summary ---
Demographics + + + | Address | [address] | | | [place] [address] | + + + | Home Phone | | + + + | Preferred Language | Unknown | + + + | Marital Status | | + + + | Protestant Affiliation | Unknown | + + + | Race | Unknown | + + + | Ethnic Group | Unknown | + + + Author + + + | Author | [facility] | | | and Tevinana | + + + | Organization | [facility] | | | and [...] Team Providers + +------+ + | Care Color Depositing Machine Tender Name | Role | Phone | + +------+ + PCP | Unavailable | + +------+ + Encounter Details +--------+ + + + + | Date | Type | Department | Care Team | Description | +--------+ + + + + | 06/15/ | Hospital | [facility] | Sd Rosales | | | 2011 - | Encounter | MED CTR OP REHAB | MD [address] | | | | | [address] | [place] | | | 07/[birth year]/ | | [place] [address] | [place] [address] | | | 2011 | | [phone] | [phone] | | | | | | | [...] [place], | | | | | | [place] [address] | | | | | | [phone] | | | | | | | | +--------+---------+ + + + documented as of this encounter Visit Diagnoses Not on filedocumented in this encounter"
--- OUTSIDE RECORDS SUMMARY | ~2019-10-24 | XMS | Encounter Summary ---
Demographics + + + | Address | [address] | | | [place] [address] | + + + | Home Phone | | + + + | Preferred Language | Unknown | + + + | Marital Status | | + + + | Mormon Affiliation | Unknown | + + + | Race | Unknown | + + + | Ethnic Group | Unknown | + + + Author + + + | Author | [facility] | | | and Tevinana | + + + | Organization | [facility] | [...] Team Providers + +------+ + | Care C++ Quant Developer Name | Role | Phone | + [...] + + | 01/04/ | Office | [facility] | Kavitha Davenport, | Chronic obstructive | | 2018 | Visit | MED CTR CARDIAC | [address] | pulmonary disease, | | | | REH[address]ILITATION [address] | [facility], | unspecified COPD | | | | [facility] | [place] [address] | type (HCC) (Primary | | | | [place] [address] | [phone] | Dx) | | | | [phone] | | | +--------+---------+ + + + [...] as of this encounter Progress Estela Maharaj, AIR DEFENCE OFFICER - 01/04/2018 12:00 PM PDT [facility] C[facility] REHABILITATION [address] [place] [address] Cardiac Rehab Date: 01/04/2018 Patient Information Patient [...] [place], | | | | | | [place] [address] | | | | | | [phone] | | | | | | | | +--------+---------+ + + + documented as of this encounter Visit Diagnoses + + | Diagnosis | + + | Chronic obstructive pulmonary disease, unspecified COPD type (HCC) - Primary | + + documented in this encounter"
--- OUTSIDE RECORDS SUMMARY | ~2019-10-24 | XMS | Encounter Summary ---
Demographics + + + | Address | [address] | | | [place] [address] | + + + | Home Phone | | + + + | Preferred Language | Unknown | + + + | Marital Status | | + + + | Christian Affiliation | Unknown | + + + | Race | Unknown | + + + | Ethnic Group | Unknown | + + + Author + + + | Author | [facility] | | | and Tevinana | + + + | Organization | [facility] | | | and [...] Team Providers + +------+ + | Care Iron Installer Name | Role | Phone | + [...] | MED CTR EXTERNAL | [address] | | | | | IMAGING [address] | [address]lene [place] | | | | | [address] [place] | [place] [address] | | | | | [place] [address] | | | | | | [phone] | | | +--------+ + + + [...] | | | | | | [place] [address] | | | | | | [phone] | | | | | | | | +--------+---------+ + + + documented as of this encounter Procedures + +--------+ + + + | Procedure Name | Priori | Date/Time | Associated Diagnosis | Comments | | | ty | | | | + +--------+ + + + | XR WRIST RIGHT 3 + | Routin | 10/20/2016 | | Results for this | | VW | e | 12:00 AM | | procedure are in the | | | | PDT | | results section. | + +--------+ + + + documented in this encounter Results XR Wrist Right 3 + Vw (10/20/2016 12:00 AM PDT) + + | Specimen | [...]
--- OUTSIDE RECORDS SUMMARY | ~2019-10-24 | XMS | Encounter Summary ---
Demographics + + + | Address | [address] | | | [place] [address] | + + + | Home Phone | | + + + | Preferred Language | Unknown | + + + | Marital Status | | + + + | Anglican Affiliation | Unknown | + + + | Race | Unknown | + + + | Ethnic Group | Unknown | + + + Author + + + | Author | [facility] | | | and Tevinana | + + + | Organization | [facility] | | | and [...] Team Providers + +------+ + | Care X Ray Physician Name | Role | Phone | + [...] + + | 01/02/ | Office | [facility] | Kavitha Davenport, | Coronary artery | | 2018 | Visit | MED CTR CARDIAC | MD [address] | disease involving | | | | REHABILITATION [address] | [facility] [place], | [place] coronary | | | | [address] [place] | [place] [address] | artery of [place] | | | | [place] [address] | [phone] | heart without angina | | | | [phone] | | pectoris (Primary | | | [...] as of this encounter Progress Estela Maharaj, COTTAGE CHEESE MAKER - 01/02/2018 12:00 PM PDT [facility] CARDIAC REHABILITATION [address] [place] [address] Cardiac Rehab Date: 01/02/2018 Patient Information Patient Name: Cosme Michaud Date of : 1940 Age: 77 y.o. Encounter Diagnoses Code Name Primary? I25.10 Coronary artery disease involving [place] coronary artery of [place] heart without angina pectoris Yes Number of [...] [address] | | | | | | [place], | | | | | | [place] [address] | | | | | | [phone] | | | | | | | | +--------+---------+ + + + documented as of this encounter Visit Diagnoses + + | Diagnosis | + + | Coronary artery disease involving [place] coronary artery of [place] heart without | | angina pectoris - Primary | + + documented in this encounter"
--- OUTSIDE RECORDS SUMMARY | ~2019-10-24 | XMS | Encounter Summary ---
Demographics + + + | Address | [address] | | | [place] [address] | + + + | Home Phone | | + + + | Preferred Language | Unknown | + + + | Marital Status | | + + + | Voodoo Affiliation | Unknown | + + + | Race | Unknown | + + + | Ethnic Group | Unknown | + + + Author + + + | Author | [facility] | | | and Tevinana | + + + | Organization | [facility] [...] Team Providers + +------+ + | Care Cisco Administrator Name | Role | Phone | [...] | | | | hand pain | PHONE SPECIALIST [address] | [address] | | | | | | [place] | [place], | | | | | | [address] [place] | [place] [address] | | | | | | [place] | Phone: | | | | | | [address] | [phone] | | | | | | Phone: | Fax: | | | | | | [phone] | [phone] | | | | | | Fax: | | | | | | | [phone] | | +--------+--------+ + + + + Encounter Details +--------+---------+ + + + | Date | Type | Department | Care Team | Description | +--------+---------+ + + + | 02/22/ | Office | [facility] [place] | Héctor Frederick, | Primary | | 2019 | Visit | ORTHOPEDIC SURGERY | [address] | 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[address] [place] [address] | [place] | hands, bilateral | | | | [place], [place] | [address] | (Primary Dx); | | | | [address] | | Bilateral hand pain; | | | | [phone] | | Primary | | | | [...] History: Diagnosis Date AAA (abdominal aortic aneurysm) ([facility]) Abdominal aortic aneurysm (AAA) ([facility]) Achrochordon Adenomatous polyp of colon Age-related nuclear cataract, bilateral Anemia Aniseikonia Bilateral tinnitus Chest pain Chronic low back pain COPD (chronic obstructive pulmonary disease) ([facility]) Coronary arteriosclerosis Cough Dry eyes Ectropion of eyelid Essential (primary) hypertension Gout Hearing loss Hemorrhoids Hypertension Hypertensive retinopathy Hypothyroidism Hypothyroidism IBS (irritable bowel syndrome) Keratoconjunctivitis sicca ([facility]) Left arm pain Ocular hypertension Refractive amblyopia Sleep apnea Sleep related leg cramps 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 Owaujyhty-Sdwrphxixq-UC-APAP (NYQUIL PO) Take 750 mg by mouth. [...] [place], | | | | | | [place] [address] | | | | | | [phone] | | | | | | | [...]
--- OUTSIDE RECORDS SUMMARY | ~2019-10-24 | XMS | Encounter Summary ---
Demographics + + + | Address | [address] | | | [place] [address] | + + + | Home Phone [...] | Author | [facility] | | | and Tevinana | + + + | Organization | [facility] | | | and [...] Team Providers + +------+ + | Care Tarring Machine Operator Name | Role | Phone [...] [place] | | | | | [address], [place] | [address] | | | | | [address] | | | | | | [phone] | | | +--------+ + + + [...] | | | | | | [place] [address] | | | | | | [phone] | | | | | | | [...] fracture and significant disc endplate disease at [id number] | | | the adjustment supervisor examination for details there. Here, there is [...] significant disc endplate disease at | | [id number]-K2-[id number] the adjustment supervisor examination for details there. Here, there is [...]
--- OUTSIDE RECORDS SUMMARY | ~2019-10-24 | XMS | Encounter Summary ---
Demographics + + + | Address | [address] | | | [place] [address] | + + + | Home Phone | | + + + | Preferred Language | Unknown | + + + | Marital Status | | + + + | Catholic Affiliation | Unknown | + + + | Race | Unknown | + + + | Ethnic Group | Unknown | + + + Author + + + | Author | [facility] | | | and Tevinana | + + + | Organization | [facility] | [...] Team Providers + +------+ + | Care Icu Clerk Name | Role | Phone | + [...] + + | 06/27/ | Hospital | [facility] | Gia Feng NP | | | 2018 | Encounter | MED CTR NUCLEAR | [address] | | | | | MEDICINE [address] | [place] [address] | | | | | [place], | [phone] | | | | | [place] [address] | | | | | | [phone] | | | +--------+ + + + [...] | | | | | | [place] [address] | | | | | | [phone] | | | | | | | [...]
--- OUTSIDE RECORDS SUMMARY | ~2019-10-24 | XMS | Encounter Summary ---
Demographics + + + | Address | [address] | | | [place] [address] | + + + | Home Phone | | + + + | Preferred Language | Unknown | + + + | Marital Status | | + + + | Restorationism Affiliation | Unknown | + + + | Race | Unknown | + + + | Ethnic Group | Unknown | + + + Author + + + | Author | [facility] | | | and Tevinana | + + + | Organization | [facility] | | | and [...] Team Providers + +------+ + | Care Public Works Supervisor Name | Role | Phone | [...] + + | 01/11/ | Office | [facility] | Kavitha Davenport, | Chronic obstructive | | 2018 | Visit | MED CTR CARDIAC | MD [address] [place] | pulmonary disease, | | | | REHABILITATION [address] | [facility], | unspecified COPD | | | | [facility] | [place] [address] | type (HCC) (Primary | | | | [place] [address] | [phone] | Dx) | | | | [phone] | | | +--------+---------+ + + + [...] of this encounter Progress Milagros Gale-Estela Pandey, PT ESCORT - 01/11/2018 12:00 PM PDT [facility] CARDIAC REHABILITATION [address] [facility] [address] Cardiac Rehab Date: 01/11/2018 Patient Information Patient [...] | | | | | | [place] [address] | | | | | | [phone] | | | | | | | | +--------+---------+ + + + documented as of this encounter Visit Diagnoses + + | Diagnosis | + + | Chronic obstructive pulmonary disease, unspecified COPD type (HCC) - Primary | + + documented in this encounter"
--- OUTSIDE RECORDS SUMMARY | ~2019-10-24 | XMS | Encounter Summary ---
Demographics + + + | Address | [address] | | | [place] [address] | + + + | Home Phone | | + + + | Preferred Language | Unknown | + + + | Marital Status | | + + + | Orthodoxy Affiliation | Unknown | + + + | Race | Unknown | + + + | Ethnic Group | Unknown | + + + Author + + + | Author | [facility] | | | and Tevinana | + + + | Organization | [facility] | | | and [...] Team Providers + +------+ + | Care Money Position Officer Name | Role | Phone | + +------+ + | Radha Feng | PCP | | + +------+ + Reason for Visit + + + | Reason | Comments | + + + | Medication Related | | + + + Encounter Details +--------+ + + + + | Date | Type | Department | Care Team | Description | +--------+ + + + + | 10/01/ | Telephone | [facility] [place] | Zullinger, | Medication Related | | 2019 | | CARDIOLOGY [address] | Jessica WIND FIELD MANAGER [address] | | | | | [place], | [place], | | | | | [place] [address] | [place] [address] | | | | | [phone] | [phone] | | | | | | | [...] [place] | | | | | | [place] [address] | | | | | | [phone] | | | | | | | | +--------+---------+ + + + documented as of this encounter Visit Diagnoses Not on filedocumented in this encounter"
--- OUTSIDE RECORDS SUMMARY | ~2019-10-24 | XMS | Encounter Summary ---
Demographics + + + | Address | [address] | | | [place] [address] | + + + | Home Phone | | + + + | Preferred Language | Unknown | + + + | Marital Status | | + + + | Alevism Affiliation | Unknown | + + + | Race | Unknown | + + + | Ethnic Group | Unknown | + + + Author + + + | Author | [facility] | | | and Tevinana | + + + | Organization | [facility] | | [...] Team Providers + +------+ + | Care Conference Planning Manager Name | Role | Phone | [...] [place] | | | | | [address] [place], [place] | [address] | | | | | [address] | | | | | | [phone] | | | +--------+ + + + [...] [place], | | | | | | [place] [address] | | | | | | [phone] | | | | | | | [...]
--- OUTSIDE RECORDS SUMMARY | ~2019-10-24 | XMS | Encounter Summary ---
Demographics + + + | Address | [address] | | | [place] [address] | + + + | Home Phone | | + + + | Preferred Language | Unknown | + + + | Marital Status | | + + + | Hoahaoism Affiliation | Unknown | + + + | Race | Unknown | + + + | Ethnic Group | Unknown | + + + Author + + + | Author | [facility] | | | and Tevinana | + + + | Organization | [facility] | | | and Tevinana [...] Team Providers + +------+ + | Care Cafe Or Restaurant Manager Name | Role | Phone | [...] + + | 12/19/ | Hospital | [facility] | Kavitha Davenport, | Coronary artery | | 2019 | Encounter | MED CTR NUCLEAR | [address] [facility] | disease involving | | | | MEDICINE [address] | [place], | [place] coronary | | | | [place], | [place] [address] | artery of [place] | | | | [place] [address] | [phone] | heart without angina | | | | [phone] | | pectoris; | | | | [...] | | | | | | | [place] or | | | | | | [...] | | | | | | [place] [address] | | | | | | [phone] | | | | | | | [...] the | | | | PDT | [place] coronary | results section. | | | | | artery of [place] | | | | | | heart [...] PRIMARY CARE: Gia Feng, | | | FURNITURE DESIGNER READING HAND I TUBE BENDER: Kavitha Davenoprt MD [employer] HOLTER | | | MONITOR [...] | | Signed by: Kavitha Davenport MD [facility] 12/21/2018, 15:36 | | + + + + +---------+ + + | Performing | Address | City/State/Zipcode | Phone Number | | Organization | | | | + +---------+ + + | [facility] | | | | + +---------+ + + documented in this encounter Visit Diagnoses + + | Diagnosis | + + | Coronary artery disease involving [place] coronary artery of [place] heart without | | angina pectoris | + + | Palpitations | + + documented in this encounter"
--- OUTSIDE RECORDS SUMMARY | ~2019-10-24 | XMS | Encounter Summary ---
Demographics + + + | Address | [address] | | | [place] [address] | + + + | Home Phone | | + + + | Preferred Language | Unknown | + + + | Marital Status | | + + + | Latter Day Affiliation | Unknown | + + + | Race | Unknown | + + + | Ethnic Group | Unknown | + + + Author + + + | Author | [facility] | | | and [place] | + + + | Organization | [facility] | | | and [place]evin[place] | [...] Team Providers + +------+ + | Care Inspector Packer Glass Container Name | Role | Phone | + +------+ + | Gia Feng NP | PCP | | + +------+ + Encounter Details +--------+ + + + + | Date | Type | Department | Care Team | Description | +--------+ + + + + | 01/02/ | Abstract | [facility] | Radha, | | | 2019 | | CARDIOLOGY [address] | [address] | | | | | [place], | [place], | | | | | [place] [address] | [place] [address] | | | | | [phone] | [phone] | | | | | | | [...] | | | | | | [place] [address] | | | | | | [phone] | | | | | | | | +--------+---------+ + + + documented as of this encounter Procedures + +--------+ + + + | Procedure Name | Priori | Date/Time | Associated Diagnosis | Comments | | | ty | | | | + +--------+ + + + | EXTERNAL LAB: BUN | Routin | 12/05/2018 | | Results for this | | | e | | | procedure are in the | | | | | | results section. | + +--------+ + + + | EXTERNAL LAB: | Routin | 12/05/2018 | | Results for this | | GLUCOSE | e | | | procedure are in the | | | | | | results section. | + +--------+ + + + | EXTERNAL LAB: A[facility]A | Routin | 12/05/2018 | | Results for this | | | e | | | procedure are in the | | | | | | results section. | + +--------+ + + + | EXTERNAL LAB: AST | Routin | 12/05/2018 | | Results for this | | | e | | | procedure are in the | | | | | | results section. | + +--------+ + + + | EXTERNAL LAB: | Routin | 12/05/2018 | | Results for this | | ALKALINE PHOSPHATASE | e | | | procedure are in the | | | | | | results section. | + +--------+ + + + | EXTERNAL LAB: | Routin | 12/05/2018 | | Results for this | | BILIRUBIN, TOTAL | e | | | procedure are in the | | | | | | results section. | + +--------+ + + + | EXTERNAL LAB: | Routin | 12/05/2018 | | Results for this | | ALBUMIN | e | | | procedure are in the | | | | | | results section. | + +--------+ + + + | EXTERNAL LAB: | Routin | 12/05/2018 | | Results for this | | PROTEIN, TOTAL | e | | | procedure are in the | | | | | | results section. | + +--------+ + + + | EXTERNAL LAB: | Routin | 12/05/2018 | | Results for this | | CALCIUM | e | | | procedure are in the | | | | | | results section. | + +--------+ + + + | EXTERNAL LAB: CARBON | Routin | 12/05/2018 | | Results for this | | DIOXIDE | e | | | procedure are in the | | | | | | results section. | + +--------+ + + + | EXTERNAL LAB: | Routin | 12/05/2018 | | Results for this | | CHLORIDE | e | | | procedure are in the | | | | | | results section. | + +--------+ + + + | EXTERNAL LAB: | Routin | 12/05/2018 | | Results for this | | POTASSIUM | e | | | procedure are in the | | | | | | results section. | + +--------+ + + + | EXTERNAL LAB: SODIUM | Routin | 12/05/2018 | | Results for this | | | e | | | procedure are in the | | | | | | results section. | + +--------+ + + + | EXTERNAL LAB: CBC | Routin | 12/05/2018 | | Results for this | | | e | | | procedure are in the | | | | | | results section. | + +--------+ + + + | EXTERNAL LAB: CBC | Routin | 12/05/2018 | | Results for this | | | e | | | procedure are in the | | | | | | results section. | + +--------+ + + + | EXTERNAL LAB: TSH | Routin | 12/05/2018 | | Results for this | | | e | | | procedure are in the | | | | | | results section. | + +--------+ + + + | EXTERNAL LAB: | Routin | 12/05/2018 | | Results for this | | TRIGLYCERIDES | e | | | procedure are in the | | | | | | results section. | + +--------+ + + + | EXTERNAL LAB: | Routin | 12/05/2018 | | Results for this | | CHOLESTEROL, HDL | e | | | procedure are in the | | | | | | results section. | + +--------+ + + + | EXTERNAL LAB: | Routin | 12/05/2018 | | Results for this | | CHOLESTEROL, TOTAL | e | | | procedure are in the | | | | | | results section. | + +--------+ + + + | EXTERNAL LAB: | Routin | 12/05/2018 | | Results for this | | CHOLESTEROL, LDL | e | | | procedure are in the | | | | | | results section. | + +--------+ + + + | EXTERNAL LAB: EGFR | Routin | 12/05/2018 | | Results for this | | | e | | | procedure are in the | | | | | | results section. | + +--------+ + + + | EXTERNAL LAB: | Routin | 12/05/2018 | | Results for this | | CREATININE | e | | | procedure are in the | | | | | | results section. | + +--------+ + + + | LIPID PANEL | Routin | 12/05/2018 | | Results for this | | | e | | | procedure are in the | | | | | | results section. | + +--------+ + + + | CBC WITH | Routin | 12/05/2018 | | Results for this | | DIFFERENTIAL | e | | | procedure are in the | | | | | | results section. | + +--------+ + + + | COMPREHENSIVE | Routin | 12/05/2018 | | Results for this | | METABOLIC PANEL | e | | | procedure are in the | | | | | | results section. | + +--------+ + + + documented in this encounter Results CBC with Differential (12/05/2018) + +-------+ + + + | Component | Value | Ref Range | Performed | Pathologist | | | | | At | Signature | + +-------+ + + + | MCH | 30.3 | 27.0 - 31.0 pg | | | + +-------+ + + + | MCHC | 33.0 | 32.0 - 36.0 | | | | | | g/dL | | | + +-------+ + + + | % Basophils | 0.9 | 0.0 - 2.0 % | | | + +-------+ + + + + + | Specimen | + + | Blood | + + Comprehensive Metabolic Panel (12/05/2018) + +-------+ + + + | Component | Value | Ref Range | Performed | Pathologist | | | | | At | Signature | + +-------+ + + + | Globulin | 2.5 | 2.3 - 3.5 | | | + +-------+ + + + + + | Specimen | + + | Blood | + + Lipid Panel (12/05/2018) + +---------+ + + + | Component | Value | Ref Range | Performed | Pathologist | | | | | At | Signature | + +---------+ + + + | Chol/HDL | 3.2 (A) | 3.7 - 6.7 | | | | Ratio | | | | | + +---------+ + + + | Non-HDL | 94 | 130 | | | | Cholesterol | | | | | + +---------+ + + + + + | Specimen | + + | Blood | + + External Lab: CBC (12/05/2018) + +-------+ + + + | Component | Value | Ref Range | Performed | Pathologist | | | | | At | Signature | + +-------+ + + + | Neutrophils | 66.5 | 44 - 74 | EXTERNAL | | | %, | | | LAB | | | External | | | | | + +-------+ + + + | Lymphocytes | 21.2 | 15 - 42 | EXTERNAL | | | %, | | | LAB | | | External | | | | | + +-------+ + + + | Monocytes | 7.0 | 4 - 13 | EXTERNAL | | | %, External | | | LAB | | + +-------+ + + + | Eosinophils | 4.1 | 0 - 7 | EXTERNAL | | | %, | | | LAB | | | External | | | | | + +-------+ + + + | Neutrophils | 6.2 | 1.2 - 7 | EXTERNAL | | | , Absolute, | | | LAB | | | External | | | | | + +-------+ + + + | Lymphocytes | 2.0 | 0.6 - 3.4 | EXTERNAL | | | , Absolute, | | | LAB | | | External | | | | | + +-------+ + + + | Monocytes, | 0.7 | 0.2 - 1 | EXTERNAL | | | Absolute, | | | LAB | | | External | | | | | + +-------+ + + + | Eosinophils | 0.4 | 0 - 0.5 | EXTERNAL | | | , Absolute | | | LAB | | + +-------+ + + + + +---------+ + + | Performing | Address | City/State/Zipcode | Phone Number | | Organization | | | | + +---------+ + + | EXTERNAL LAB | | | | + +---------+ + + External Lab: TSH (12/05/2018) + + + + + + | Component | Value | Ref Range | Performed | Pathologist | | | | | At | Signature | + + + + + + | TSH, | 4.570 (A) | 0.3 - 4.25 | EXTERNAL | [...] | + +---------+ + + External Lab: BUN (12/05/2018) + +-------+ + + + | Component | Value | Ref Range | Performed | Pathologist | | | | | At | Signature | + +-------+ + + + | BUN, | 19 | 7 - 23 | EXTERNAL | | | External | | | LAB | | + +-------+ + + + + +---------+ + + | Performing | Address | City/State/Zipcode | Phone Number | | Organization | | | | + +---------+ + + | EXTERNAL LAB | | | | + +---------+ + + External Lab: Glucose (12/05/2018) + +---------+ + + + | Component | Value | Ref Range | Performed | Pathologist | | | | | At | Signature | + +---------+ + + + | Glucose, | 113 (A) | 71 - 109 | EXTERNAL | | | External | | | LAB | | + +---------+ + + + + +---------+ + + | Performing | Address | City/State/Zipcode | Phone Number | | Organization | | | | + +---------+ + + | EXTERNAL LAB | | | | + +---------+ + + External Lab: ALT (12/05/2018) + +-------+ + + + | Component [...] + +---------+ + + External Lab: AST (12/05/2018) + +-------+ + + + | Component | Value | Ref Range | Performed | Pathologist | | | | | At | Signature | + +-------+ + + + | AST, | 18 | 14 - 44 | EXTERNAL | | | External | | | LAB | | + +-------+ + + + + +---------+ + + | Performing | Address | City/State/Zipcode | Phone Number | | Organization | | | | + +---------+ + + | EXTERNAL LAB | | | | + +---------+ + + External Lab: Alkaline Phosphatase (12/05/2018) + +-------+ + + + | Component | Value | Ref Range | Performed | Pathologist | | | | | At | Signature | + +-------+ + + + | ALP, | 73 | 45 - 129 | EXTERNAL | | | External | | | LAB | | + +-------+ + + + + +---------+ + + | Performing | Address | City/State/Zipcode | Phone Number | | Organization | | | | + +---------+ + + | EXTERNAL LAB | | | | + +---------+ + + External Lab: Bilirubin, Total (12/05/2018) + +-------+ + + + | Component | Value | Ref Range | Performed | Pathologist | | | | | At | Signature | + +-------+ + + + | Bilirubin, | 0.6 | 0.2 - 1.3 | EXTERNAL | [...] + +---------+ + + External Lab: Albumin (12/05/2018) + +-------+ + + + | Component | Value | Ref Range | Performed | Pathologist | | | | | At | Signature | + +-------+ + + + | Albumin, | 4.4 | 3.5 - 5 | EXTERNAL | | | External | | | LAB | | + +-------+ + + + + +---------+ + + | Performing | Address | City/State/Zipcode | Phone Number | | Organization | | | | + +---------+ + + | EXTERNAL LAB | | | | + +---------+ + + External Lab: Protein, Total (12/05/2018) + +-------+ + + + | Component | Value | Ref Range | Performed | Pathologist | | | | | At | Signature | + +-------+ + + + | Protein, | 6.9 | 6.5 - 8.2 | EXTERNAL | [...] + +---------+ + + External Lab: Calcium (12/05/2018) + +-------+ + + + | Component | Value | Ref Range | Performed | Pathologist | | | | | At | Signature | + +-------+ + + + | Calcium, | 8.9 | 8.4 - 10.5 | EXTERNAL | | | External | | | LAB | | + +-------+ + + + + +---------+ + + | Performing | Address | City/State/Zipcode | Phone Number | | Organization | | | | + +---------+ + + | EXTERNAL LAB | | | | + +---------+ + + External Lab: Carbon Dioxide (12/05/2018) + +-------+ + + + | Component | Value | Ref Range | Performed | Pathologist | | | | | At | Signature | + +-------+ + + + | Carbon | | 21 - 32 | EXTERNAL | [...] + +---------+ + + External Lab: Chloride (12/05/2018) + +-------+ + + + | Component | Value | Ref Range | Performed | Pathologist | | | | | At | Signature | + +-------+ + + + | Chloride, | 104 | 98 - 107 | EXTERNAL | | | External | | | LAB | | + +-------+ + + + + +---------+ + + | Performing | Address | City/State/Zipcode | Phone Number | | Organization | | | | + +---------+ + + | EXTERNAL LAB | | | | + +---------+ + + External Lab: Potassium (12/05/2018) + +-------+ + + + | Component | Value | Ref Range | Performed | Pathologist | | | | | At | Signature | + +-------+ + + + | Potassium, | 4.3 | 3.5 - 5.1 | EXTERNAL | | | External | | | LAB | | + +-------+ + + + + +---------+ + + | Performing | Address | City/State/Zipcode | Phone Number | | Organization | | | | + +---------+ + + | EXTERNAL LAB | | | | + +---------+ + + External Lab: Sodium (12/05/2018) + +-------+ + + + | Component [...] + +---------+ + + External Lab: CBC (12/05/2018) + +-------+ + + + | Component | Value | Ref Range | Performed | Pathologist | | | | | At | Signature | + +-------+ + + + | WBC, | 9.3 | 3 - 10.6 | EXTERNAL | | | External | | | LAB | | + +-------+ + + + | HGB, | 14.4 | 11.8 - 17.1 | EXTERNAL | | | External | | | LAB | | + +-------+ + + + | HCT, | 43.6 | 36 - 51 | EXTERNAL | | | External | | | LAB | | + +-------+ + + + | PLT, | 190 | 150 - 400 | EXTERNAL | | | External | | | LAB | | + +-------+ + + + | RBC, | 4.76 | 3.86 - 5.7 | EXTERNAL | | | External | | | LAB | | + +-------+ + + + | MCV, | 92 | 81 - 102 | EXTERNAL | | | External | | | LAB | | + +-------+ + + + | RDW, | 13.2 | 11.2 - 16.2 | EXTERNAL | | | External | | | LAB | | + +-------+ + + + + +---------+ + + | Performing | Address | City/State/Zipcode | Phone Number | | Organization | | | | + +---------+ + + | EXTERNAL LAB | | | | + +---------+ + + External Lab: Triglycerides (12/05/2018) + +-------+ + + + | Component | Value | Ref Range | Performed | Pathologist | | | | | At | Signature | + +-------+ + + + | Triglycerid | 99 | 51 - 152 | EXTERNAL | [...] +---------+ + + External Lab: Cholesterol, HDL (12/05/2018) + +-------+ + + + | Component | Value | Ref Range | Performed | Pathologist | | | | | At | Signature | + +-------+ + + + | HDL | 43 | 35 - 80 mg/dl | EXTERNAL [...] +---------+ + + External Lab: Cholesterol, Total (12/05/2018) + +-------+ + + + | Component | Value | Ref Range | Performed | Pathologist | | | | | At | Signature | + +-------+ + + + | Cholesterol | 137 | 50 - 200 mg/dl | EXTERNAL [...] +---------+ + + External Lab: Cholesterol, LDL (12/05/2018) + +-------+ + + + | Component | Value | Ref Range | Performed | Pathologist | | | | | At | Signature | + +-------+ + + + | LDL | 74 | 0 - 130 | EXTERNAL | | | Cholesterol | [...] + +---------+ + + External Lab: eGFR (12/05/2018) + +-------+ + + + | Component [...] + +---------+ + + External Lab: Creatinine (12/05/2018) + +-------+ + + + | Component | Value | Ref Range | Performed | Pathologist | | | | | At | Signature | + +-------+ + + + | Creatinine, | 1.0 | 0.8 - 1.5 | EXTERNAL | [...]
--- OUTSIDE RECORDS SUMMARY | ~2019-10-24 | XMS | Encounter Summary ---
Demographics + + + | Address | [address] | | | [place] [address] | + + + | Home Phone | | + + + | Preferred Language | Unknown | + + + | Marital Status | | + + + | Christianity Affiliation | Unknown | + + + | Race | Unknown | + + + | Ethnic Group | Unknown | + + + Author + + + | Author | [facility] | | | and [place] | + + + | Organization | [facility] | | | and Tevinana [...] Team Providers + +------+ + | Care Fixed Income Trading Vice President Name | Role | Phone | + [...] + + | 12/19/ | Office | [facility] | Kavitha Davenport, | Post PTCA (Primary | | 2018 | Visit | MED CTR CARDIAC | MD [address] | Dx); Coronary artery | | | | REHABILITATION [address] | [place], | disease involving | | | | [address] [place] | [place] [address] | marshall coronary | | | | [place] [address] | [phone] | artery of marshall | | | | [phone] | | heart without angina | | [...] Eduardo Elizondo - 12/19/2017 12:00 PM PDT [facility] [address] [place] [address] Cardiac Rehab Date: 12/19/2017 Patient Information Patient Name: Cosme Michaud Date of : 1940 Age: 77 y.o. Encounter Diagnoses Code Name Primary? 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
--- OUTSIDE RECORDS SUMMARY | ~2019-10-24 | XMS | Encounter Summary ---
Demographics + + + | Address | [address] | | | [place] [address] | + + + | Home Phone | | + + + | Preferred Language | Unknown | + + + | Marital Status | | + + + | Yazdanism Affiliation | Unknown | + + + | Race | Unknown | + + + | Ethnic Group | Unknown | + + + Author + + + | Author | [facility] | | | and [place]evin[place] | + + + | Organization | [facility] | | | and [place] | [...] Team Providers + +------+ + | Care Tape Recording Machine Operator Name | Role | Phone | + +------+ + | Radha Feng | PCP | | + +------+ + Reason for Visit Evaluate & Treat (Routine) +--------+--------+ + + [...] | | | | hand pain | UT[address] | [address] | | | | | | [place] | [place], | | | | | | [address] [place] | [place] [address] | | | | | | [place] | Phone: | | | | | | [address] | [phone] | | | | | | Phone: | Fax: | | | | | | [phone] | [phone] | | | | | | Fax: | | | | | | | [phone] | | +--------+--------+ + + + + Encounter Details +--------+---------+ + + + | Date | Type | Department | Care Team | Description | +--------+---------+ + + + | 04/17/ | Office | [facility] | Héctor Frederick, | Right wrist pain | | 2019 | Visit | ORTHOPEDIC SURGERY | [address] | (Primary Dx) | | | | [address] | [place] | | | | | [place] | [address] | | | | | [address] | | | | | | [phone] | | | +--------+---------+ + + + [...] documented as of this encounter Progress Notes Héctor Frederick MD - 04/17/2019 2:45 PM PSTPatient took a fall on his right hand and had increase in wrist pain He wanted to get worked in to make sure he didn't have a fracture On exam today the location of his symptoms is the dorsal mid wrist There isn't any swelling or bruising Mini izabella images look the same as last visit No new changes 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
--- OUTSIDE RECORDS SUMMARY | ~2019-10-24 | XMS | Encounter Summary ---
Demographics + + + | Address | [address] | | | [place] [address] | + + + | Home Phone | | + + + | Preferred Language | Unknown | + + + | Marital Status | | + + + | Gnosticism Affiliation | Unknown | + + + | Race | Unknown | + + + | Ethnic Group | Unknown | + + + Author + + + | Author | [facility] | | | and [place] | + + + | Organization | [facility] | | | and [...] Team Providers + +------+ + | Care Artillery Maintenance Supervisor Name | Role | Phone | + +------+ + | Gia Feng NP | PCP | | + +------+ + Encounter Details +--------+ + + + + | Date | Type | Department | Care Team | Description | +--------+ + + + + | 12/19/ | Orders Only | [facility] | Conversion | | | 2011 | | CONVERSION | Transaction, | | | | | INTERFACES [address] | Provider Unknown | | | | | [address], [place] | | | | | | [address] | (Fax) | | | | | [phone] | | | +--------+ + + + [...] [place], | | | | | | [place] [address] | | | | | | [phone] | | | | | | | | +--------+---------+ + + + documented as of this encounter Procedures + +--------+ + + + | Procedure Name | Priori | Date/Time | Associated Diagnosis | Comments | | | ty | | | | + +--------+ + + + | MRI LUMBAR SPINE WO | Routin | 12/20/2011 | | Results for this | | CONTRAST | e | 1:56 PM | | procedure are in the | | | | PDT | | results section. | + +--------+ + + + documented in this encounter Results MRI Lumbar Spine wo Contrast (12/20/2011 1:56 PM PDT) + + | Specimen | + + | | + + + + + | Narrative | Performed At | + + + | This is a non-reportable procedure without a radiologist report and | | | is used for image storage only | | + + + + + | Procedure Note | + + | Maximo Arias - 02/01/2019 3:02 PM PDT This is a non-reportable procedure | | without a radiologist report and isused for image storage only | + + documented in this encounter Visit Diagnoses Not on filedocumented in this encounter"
--- OUTSIDE RECORDS SUMMARY | ~2019-10-24 | XMS | Clinical Summary ---
Demographics + + + | Address | [address] | | | [place] [address] | + + + | Home Phone | | + + + | Preferred Language | Unknown | + + + | Marital Status | Single | + + + | Advent Affiliation | Unknown | + + + | Race | Unknown | + + + | Ethnic Group | Unknown | + + + Author + + + | Author | [facility] (Historical as of | | | 01-26-19) | + + + | Organization | [facility] (Historical as of | | | 01-26-19) [...] Team Providers + +------+ + | Care Fire Investigation Manager Name | Role | Phone | [...] Vaccine: Influenza | | | | | (Season Ended) | 0 [...] Heart | [place] | | 02/02/ | [id number] | | Stent-10/10/2017Implanted: | | | SCIENTIFIC | | 2018 | [id number] | | 10/10/2017 by Kev Flores, | | | | | | 70 / | | MD (Quantity not on file) | | | | | | /[id number] | | | | | | | [...] + + | [place] | [place] | [id number] | | +- | [employer] [id number] | | ADMINISTRATION | CHOICE | | | [phone] | | | | | | | [address] [place] | | | | | | | [address] | + +--------+ +------+ + + | [place] | [place] | [id number] | | [phone] | [employer] [id number] | | ADMINISTRATION | [place] | | | [address] | [address] | | | ADMINI | | | | [place] | | | STRAT[place] | | | | [phone] | | | ON | | | [...] | | ns | | 1940 | [phone] | [place] | | | Admini | | | [phone] | [address] | | | guero | | | | | | | on | | | | | + +--------+ +--------+ + + | COSME BLACK | Person | Self | [birth year] | Home: | [address] | | | al/Fam | | 1940 | [phone] | [place] | | | [place] | | | [phone] | [address] | + +--------+ +--------+ + +
--- OUTSIDE RECORDS SUMMARY | ~2019-10-24 | XMS | Encounter Summary ---
Demographics + + + | Address | [address] | | | [place] [address] | + + + | Home Phone | | + + + | Preferred Language | Unknown | + + + | Marital Status | | + + + | Adventism Affiliation | Unknown | + + + | Race | Unknown | + + + | Ethnic Group | Unknown | + + + Author + + + | Author | [facility] | | | and [place] | + + + | Organization | [facility] | [...] Team Providers + +------+ + | Care Television Audio Engineer Name | Role | Phone | [...] | unspecified | [address] | [address] | | | | | type | [place] | [place] | | | | | Procedures | [address] | | | | | [place] Nuclear | [place] | [address] | | | | | Stress Test | [address] | Phone: | | | | | (Vasodilator | Phone: | [phone] | | | | | ) | [phone] | Fax: | | | | | | Fax: | [phone] | | | | | | [phone] | | +--------+--------+ + + + + [...] + + | 06/27/ | Hospital | [facility] | Gia Feng NP | Chest pain, | | 2018 | Encounter | MED CTR [facility] | [address] | unspecified type | | | | MEDICINE [address] | [place] [address] | | | | | [address] [place], | [phone] | | | | | [place] [address] | | | | | | [phone] | Um SpecialistJosé Luis | | +--------+ + + + [...] | | | | | | [place] [address] | | | | | | [phone] | | | | | | | [...] Kavitha Davenport MD [facility] 06/27/2017, 11:02 | | + + + [...]
--- OUTSIDE RECORDS SUMMARY | ~2019-10-24 | XMS | Encounter Summary ---
Demographics + + + | Address | [address] | | | [place] [address] | + + + | Home Phone | | + + + | Preferred Language | Unknown | + + + | Marital Status | | + + + | Quaker Affiliation | Unknown | + + + [...] Team Providers + +------+ + | Care Marble Cutter Name | Role | Phone | + +------+ + | Gia Feng NP | PCP | | + +------+ + Reason for Referral Evaluate & Treat (Urgent) +--------+ + + + + + | Status | Reason | Specialty | Diagnoses / | Referred By | Referred To | | | | | Procedures | Contact | Contact | +--------+ + + + + + | Closed | Specialty | | Diagnoses | Ethel, | Mark, | | | Services | | Coronary | MD Kavitha | MD Kev | | | Required | | artery | [address] | [address] | | | | | disease, | [address] | | | | | | angina | [place], | [place], [place] | | | | | presence | [place] [address] | [address] Phone: | | | | | unspecified, | Phone: | [phone] | | | | | unspecified | [phone] | Fax: | | | | | vessel or | Fax: | [phone] | | | | | lesion type, | [phone] | | | | | | unspecified | | | | | | | whether | | | | | | | hughes or | | | | | | | transplanted | | | | | | | heart | | | | | | | Procedures | | | | | | | ID OFFICE | | | | | | | OUTPATIENT | | | | | | | NEW 10 | | | | | | | MINUTES | | | +--------+ + + + + + Reason for Visit +--------+ + | Reason | Comments | +--------+ + | Other | plan of care | +--------+ + Encounter Details +--------+ + + + + | Date | Type | Department | Care Team | Description | +--------+ + + + + | 10/02/ | Telephone | [facility] | Kavitha Davenport, | Other (plan of care) | | 2017 | | CARDIOLOGY [address] | MD [address] | | | | | [place], | [place], | | | | | [place] [address] | [place] [address] | | | | | [phone] | [phone] | | | | | | | [...] [place], | | | | | | [place] [address] | | | | | | [phone] | | | | | | | | +--------+---------+ + + + + + +--------+ + + | Name | Type | Priori | Associated Diagnoses | Order Schedule | | | | ty | | | + + +--------+ + + | External Referral to | Outpatient | Routin | Coronary artery | Ordered: 10/02/2017 | | [facility] | Referral | e | disease, angina | | | Cardiology | | | presence | | | | | | unspecified, | | | | | | unspecified vessel | | | | | | or lesion type, | | | | | | unspecified whether | | | | | | hughes or | | | | | | transplanted heart | | + + +--------+ + + documented as of this encounter Visit Diagnoses + + | Diagnosis | + + | Coronary artery disease, angina presence unspecified, unspecified vessel or lesion | | type, unspecified whether hughes or transplanted heart - Primary | + + documented in this encounter"
--- OUTSIDE RECORDS SUMMARY | ~2019-10-24 | XMS | Encounter Summary ---
Demographics + + + | Address | [address] | | | [place] [address] | + + + | Home Phone | | + + + | Preferred Language | Unknown | + + + | Marital Status | | + + + | Episcopal Affiliation | Unknown | + + + | Race | Unknown | + + + | Ethnic Group | Unknown | + + + Author + + + | Author | [facility] | | | and [place]evinana | + + + | Organization | [facility] | | | and [...] Team Providers + +------+ + | Care Cell Tower Climber Name | Role | Phone | + [...] | CARDIOLOGY [address] | MD [address] | - [facility]) | | | | [place], | [place], | | | | | [address] | [address] | | | | | [phone] | [phone] | | | | | | | [...] [place] | | | | | | [place] [address] | | | | | | [phone] | | | | | | | | +--------+---------+ + + + documented as of this encounter Visit Diagnoses Not on filedocumented in this encounter"
--- OUTSIDE RECORDS SUMMARY | ~2019-10-24 | XMS | Encounter Summary ---
Demographics + + + | Address | [address] | | | [place] [address] | + + + | Home Phone [...] | [facility] | | | and Tevinana | + + + | Organization | [facility] | | | and [place] | + + + | Address | Unknown | + + + | Phone | Unavailable | + + + Support + + +---------+ + | Name | Relationship | Address | Phone | + + +---------+ + | Dorsi Neal ECON | Unknown | | + + +---------+ + Care Team Providers + +------+ + | Care Second Shift Supervisor Name | Role | Phone | + +------+ + PCP | Unavailable | + +------+ + Encounter Details +--------+ + + + + | Date | Type | Department | Care Team | Description | +--------+ + + + + | 06/15/ | Hospital | [facility] | Sd Rosales | | | 2011 - | Encounter | MED CTR OP REHAB | MD [address] | | | | | [address] | [place] | | | 07/12/ | | [place] [address] | [place] [address] | | | 2011 | | [phone] | [phone] | | | | | | | [...] [place], | | | | | | [place] [address] | | | | | | [phone] | | | | | | | | +--------+---------+ + + + documented as of this encounter Visit Diagnoses Not on filedocumented in this encounter"
--- OUTSIDE RECORDS SUMMARY | ~2019-10-24 | XMS | Encounter Summary ---
Demographics + + + | Address | [address] | | | [place] [address] | + + + | Home Phone [...] | Author | [facility] | | | and Tevinana | + + + | Organization | [facility] | | | and Tevinana [...] Team Providers + +------+ + | Care Cake Cutter Machine Name | Role | Phone | + [...] | | | | | | | chemehuevi | | | | | | | [...] + + + + | 01/02/ | Hospital | [facility] | Radha, | | | 2019 | Encounter | MED CTR LABORATORY | [place] [address] | | | | | [address] [place] | [address], | | | | | [place] | [place] [address] | | | | | [address] | [phone] | | | | | [phone] | | | +--------+ + + + [...] | | | | | | | [place] or | | | | | | | transplanted heart | | | | | | + + + +---------+ + + | losartan (COZAAR) | Take 1 tablet by | 90 | 3 | 01/03/20 | | | 25 mg tablet | mouth Daily. | tablet | | 19 | 0 | + + + +---------+ + + | metoprolol | Take 1 tablet by | 30 | 3 | 01/03/20 | | | succinate | mouth Daily. Take | tablet | | 19 | 9 | | (TOPROL-XL) 25 mg 24 | 1/2 tablet once at | | | | | | hr tablet | night | | | | | + + [...] [place], | | | | | | [place] [address] | | | | | | [phone] | | | | | | | | +--------+---------+ + + + documented as of this encounter Visit Diagnoses Not on filedocumented in this encounter"
--- OUTSIDE RECORDS SUMMARY | ~2019-10-24 | XMS | Encounter Summary ---
Demographics + + + | Address | [address] | | | [place] [address] | + + + | Home Phone | | + + + | Preferred Language | Unknown | + + + | Marital Status | | + + + | Alevism Affiliation | Unknown | + + + | Race | Unknown | + + + | Ethnic Group | Unknown | + + + Author + + + | Author | [facility] | | | and Tevinana | + + + | Organization | [facility] | | | and Tevinana | [...] Team Providers + +------+ + | Care Kids Activities Coach Name | Role | Phone | + +------+ + PCP | Unavailable | + +------+ + Encounter Details +--------+ + + + + | Date | Type | Department | Care Team | Description | +--------+ + + + + | 01/13/ | [facility] | [facility] | Sd Rosales | | | 2010 | Encounter | MED CTR XRAY [address] | MD [address] | | | | | [address] | [place] | | | | | [place] [address] | [place] [address] | | | | | [phone] | [phone] | | | | | | | [...] | | | | | | [place] [address] | | | | | | [phone] | | | | | | | | +--------+---------+ + + + documented as of this encounter Visit Diagnoses Not on filedocumented in this encounter"
--- OUTSIDE RECORDS SUMMARY | ~2019-10-24 | XMS | Encounter Summary ---
Demographics + + + | Address | [address] | | | [place] [address] | + + + | Home Phone [...] Author | [facility] | | | and Tevinana | + + + | Organization | [facility] | | | and [...] Team Providers + +------+ + | Care Collaborative Teacher Name | Role | Phone | + [...] + + | 01/25/ | Office | [facility] | Kavitha Davenport, | Post PTCA (Primary | | 2018 | Visit | MED CTR CARDIAC | MD [address] | Dx); Coronary artery | | | | REHABILITATION [address] | [place], | disease involving | | | | [address] [place] | [place] [address] | [place] coronary | | | | [place] [address] | [phone] | artery of [place] | | | | [phone] | | heart without angina | | [...] Eduardo Lee - [facility]/25/2018 12:00 PM [facility] [address] [place] [address] Cardiac Rehab Date: 01/25/2018 Patient Information Patient [...] [place], | | | | | | [place] [address] | | | | | | [phone] | | | | | | | | +--------+---------+ + + + documented as of this encounter Visit Diagnoses + + | Diagnosis | + + | Post PTCA - Primary Postsurgical percutaneous transluminal coronary angioplasty | | status | + + | Coronary artery disease involving [place] coronary artery of [place] heart without | | angina pectoris | + + documented in this encounter"
--- OUTSIDE RECORDS SUMMARY | ~2019-10-24 | XMS | Encounter Summary ---
Demographics + + + | Address | [address] | | | [place] [address] | + + + | Home Phone | | + + + | Preferred Language | Unknown | + + + | Marital Status | | + + + | Episcopal Affiliation | Unknown | + + + | Race | Unknown | + + + | Ethnic Group | Unknown | + + + Author + + + | Author | [facility] | | | and Tevinana | + + + | Organization | [facility] | | | and Tevinana [...] Team Providers + +------+ + | Care Medical Supply Technician Name | Role | Phone | + +------+ + | Darleen Feng | PCP | | + +------+ + Encounter Details +--------+ + + + + | Date | Type | Department | Care Team | Description | +--------+ + + + + | 01/02/ | Orders Only | [facility] | Linda Mtz | Coronary artery | | 2019 | | MED CTR LABORATORY | Conchis, User Experience Architect | disease involving | | | | [address] [place] | | [place] coronary | | | | [place], [place] | | artery of [place] | | | | [address] | | heart without angina | | | | [phone] | | pectoris; | | | | | | Hypertension, | | | | | | unspecified type | +--------+ + + + + Social [...] | | | | | | [place] [address] | | | | | | [phone] | | | | | | | | +--------+---------+ + + + documented as of this encounter Procedures + +--------+ + + + | Procedure Name | Priori | Date/Time | Associated Diagnosis | Comments | | | ty | | | | + +--------+ + + + | LIPID PANEL | Routin | 01/02/2019 | Coronary artery | Results for this | | | e | 10:04 AM | disease involving | procedure are in the | | | | PDT | [place] coronary | results section. | | | | | artery of [place] | | | | | | heart without angina | | | | | | pectoris | | | | | | Hypertension, | | | | | | unspecified type | | + +--------+ + + + | CBC WITH | Routin | 01/02/2019 | Coronary artery | Results for this | | DIFFERENTIAL | e | 10:04 AM | disease involving | procedure are in the | | | | PDT | [place] coronary | results section. | | | | | artery of [place] | | | | | | heart without angina | | | | | | pectoris | | | | | | Hypertension, | | | | | | unspecified type | | + +--------+ + + + | COMPREHENSIVE | Routin | 01/02/2019 | Coronary artery | Results for this | | METABOLIC PANEL | e | 10:04 AM | disease involving | procedure are in the | | | | PDT | [place] coronary | results section. | | | | | artery of [place] | | | | | | heart without angina | | | | | | pectoris | | | | | | Hypertension, | | | | | | unspecified type | | + +--------+ + + + documented in this encounter Results CBC with Differential (01/02/2019 10:04 AM PDT) + + + + + + | Component | Value | Ref Range | Performed | Pathologist | | | | | At | Signature | + + + + + + | WBC | 8.2 | 4.0 - 11.0 K/uL | [facility] | [facility] | | | | [facility] - | | | | | | LABORATORY | | + + + + + + | RBC | 4.70 | 4.30 - 5.70 | [facility] | | | | | M/uL | [facility] | | | | | | [facility] | | | | | | C[facility] - | | | | | | LABORATORY | | + + + + + + | Hemoglobin | 14.2 | 13.5 - 18.0 | [facility] | | | | | g/dL | [facility] | | | | | | [facility]ICAL | | | | | | CENTER - | | | | | | LABORATORY | | + + + + + + | Hematocrit | 43.1 | 40.0 - 51.0 % | [facility] | | | | | | [facility] | | | | | | [facility]ICAL | | | | | | CENTER - | | | | | | LABORATORY | | + + + + + + | MCV | 91.7 | 83.0 - 101.0 fL | [facility] | | | | | | [facility] | | [facility] | | | [facility] | | | | | | C[facility] - | | | | | | LABORATORY | | + + + + + + | MCH | 30.2 | 28.0 - 35.0 pg | [facility] | | | | | | [facility] | | | | | | [facility]ICAL | | | | | | CENTER - | | | | | | LABORATORY | | + + + + + + | MCHC | 32.9 | 32.0 - 36.0 | [facility] | | | | | g/dL | [facility] | | | | | | MEDICAL | | | | | | CENTER - | | | | | | LABORATORY | | + + + + + + | RDW-CV | 12.8 | <15.0 % | [facility] | | | | | | [facility] | | | | | | [facility]ICAL | | | | | | CENTER - | | | | | | LABORATORY | | + + + + + + | RDW-SD | 43.0 | 35.1 - 46.3 fL | [facility] | | | | | | [facility] | | | | | | [facility] | | | | | | CENTER - | | | | | | LABORATORY | | + + + + + + | Platelet | 187 | 140 - 440 K/uL | [facility] | | | Count | | | [facility] | | | | | | MEDICAL | | | | | | CENTER - | | | | | | LABORATORY | | + + + + + + | MPV | 10.1 | 6.5 - 12.4 fL | [facility] | | | | | | [facility] | | | | | | MEDICAL | | | | | | CENTER - | | | | | | LABORATORY | | + + + + + + | % | 65.8 | 45.0 - 82.0 % | [facility] | | | Neutrophils | | | [facility] | | | | | | MEDICAL | | | | | | CENTER - | | | | | | LABORATORY | | + + + + + + | % | 20.3 | 20.0 - 45.0 % | [facility] | | | Lymphocytes | | | [facility] | | | | | | MEDICAL | | | | | | CENTER - | | | | | | LABORATORY | | + + + + + + | % Monocytes | 7.3 | 4.0 - 12.0 % | [facility] | | | | | | [facility] | | | | | | MEDICAL | | | | | | CENTER - | | | | | | LABORATORY | | + + + + + + | % | 5.1 (H) | 0.0 - 5.0 % | [facility] | | | Eosinophils | | | [facility] | | [...] + + + + + | % Immature | 0.2 | 0.0 - 0.4 % | [facility] | | | Granulocyte | | | [facility] | | | s | | | MEDICAL | | | | | | CENTER - | | | | | | LABORATORY | | + + + + + + | Absolute | 5.37 | 1.80 - 8.50 | [facility] | | | Neutrophils | | K/uL | [facility] | | | | | | MEDICAL | | | | | | CENTER - | | | | | | LABORATORY | | + + + + + + | Absolute | 1.66 | 0.60 - 3.20 | [facility] | | | Lymphocytes | | K/uL | [facility] | | | | | | MEDICAL | | | | | | CENTER - | | | | | | LABORATORY | | + + + + + + | Absolute | 0.60 | 0.00 - 1.00 | [facility] | | | Monocytes | | K/uL | [facility] | | | | | | MEDICAL | | | | | | CENTER - | | | | | | LABORATORY | | + + + + + + | Absolute | 0.42 (H) | 0.00 - 0.40 | [facility] | | | Eosinophils | | K/uL | [facility] | | | | | | MEDICAL | | | | | | CENTER - | | | | | | LABORATORY | | + + + + + + | Absolute | 0.11 (H) | 0.00 - 0.10 | [facility] | | | Basophils | | K/uL | [facility] | | | | | | MEDICAL | | | | | | CENTER - | | | | | | LABORATORY | | + + + + + + | Absolute | 0.02 | 0.00 - 0.03 | [facility] | | | Immature | | K/uL | [facility] | | | Granulocyte | | | MEDICAL | | | s | | | CENTER - | | | | | | LABORATORY | | + + + + + + | % nRBC | 0 | 0 - 2 per 100 | [facility] | | | | | WBCs | [facility] | | | | | | MEDICAL | | | | | | CENTER - | | | | | | LABORATORY | | + + + + + + | Absolute | 0.00 | 0.00 - 0.01 | [facility] | | | nRBC | | K/uL | [facility] | | | | [...] [address] | [place] | [phone] | | [facility] | | [address] | | | - LABORATORY | | | | + + + + + Comprehensive Metabolic Panel (01/02/2019 10:04 AM PDT) + + + + + + | Component | Value | Ref Range | Performed | Pathologist | | | | | At | Signature | + + + + + + | Na | 138 | 136 - 145 | [facility] | | | | | mmol/L | [facility] | | | | | | MEDICAL | | | | | | CENTER - | | | | | | LABORATORY | | + + + + + + | K | 3.9 | 3.4 - 5.1 | [facility] | | | | | mmol/L | [facility] | | | | | | MEDICAL | | | | | | CENTER - | | | | | | LABORATORY | | + + + + + + | Cl | 104 | 98 - 107 mmol/L | [facility] | | | | | | [facility] | | | | | | MEDICAL | | | | | | CENTER - | | | | | | LABORATORY | | + + + + + + | CO2 | 28 | 20 - 31 mmol/L | [facility] | | | | | | [facility] | | | | | | MEDICAL | | | | | | CENTER - | | | | | | LABORATORY | | + + + + + + | Anion Gap | 6 | 3 - 16 mmol/L | [facility] | | | | | | [facility] | | | | | | [facility] | | | | | | CENTER - | | | | | | LABORATORY | | + + + + + + | Glucose | 110 (H) | 60 - 106 mg/dL | [facility] | | | | | | [facility] | | | | | | MEDICAL | | | | | | CENTER - | | | | | | LABORATORY | | + + + + + + | BUN | 23 | 9 - 23 mg/dL | [facility] | | | | | | [facility] | | | | | | MEDICAL | | | | | | CENTER - | | | | | | LABORATORY | | + + + + + + | Creatinine | 0.98 | 0.70 - 1.30 | [facility] | | | | | mg/dL | [facility] | | | | | | MEDICAL | | | | | | CENTER - | | | | | | LABORATORY | | + + + + + + | eGFR if not | >60Comment: GLOMERULAR | >=60 | [facility] | | | | FILTRATION | mL/min/1.73m2 | [facility] | | | SWAZI | RATE,ESTIMATED | | MEDICAL | | | | mL/min/1.43h5Rmpx than | | CENTER - | | [...] + + + + | Calcium | 9.4 | 8.7 - 10.4 | [facility] | | | | | mg/dL | [facility] | | | | | | MEDICAL | | | | | | CENTER - | | | | | | LABORATORY | | + + + + + + | Albumin | 4.5 | 3.2 - 4.8 g/dL | [facility] | | | | | | [facility] | | | | | | MEDICAL | | | | | | CENTER - | | | | | | LABORATORY | | + + + + + + | Bilirubin | 0.7 | 0.3 - 1.2 mg/dL | [facility] | | | Total | | | [facility] | | | | | | MEDICAL | | | | | | CENTER - | | | | | | LABORATORY | | + + + + + + | Total | 6.7 | 5.7 - 8.2 g/dL | [facility] | | | Protein | | | [facility] | | | | | | MEDICAL | | | | | | CENTER - | | | | | | LABORATORY | | + + + + + + | AST | 22 | 0 - 34 U/L | [facility] | | | | | | [facility] | | | | | | MEDICAL | | | | | | CENTER - | | | | | | LABORATORY | | + + + + + + | ALT | 14 | 10 - 49 U/L | [facility] | | | | | | [facility] | | | | | | MEDICAL | | | | | | CENTER - | | | | | | LABORATORY | | + + + + + + | Alkaline | 68 | 46 - 116 U/L | [facility] | | | Phosphatase | | | [facility] | | | | | | MEDICAL | | | | | | CENTER - | | | | | | LABORATORY | | + + + + + + | Globulin | 2.2 | 2.1 - 3.8 g/dL | [facility] | | | | | | [facility] | | | | | | MEDICAL | | | | | | CENTER - | | | | | | LABORATORY | | + + + + + + | Albumin/Jany | 2.0 (H) | 0.8 - 1.9 | [facility] | | | bulin Ratio | | | [facility] | | | | | | MEDICAL | | | | | | CENTER - | | | | | | LABORATORY | | + + + + + + | BUN/Creatin | 23.5 | | [facility] | | | ine Ratio | | | [facility] | [...] + + | [facility] | [address] | [place] | [phone] | | [facility] | | [address] | | | - LABORATORY | | | | + + + + + Lipid Panel (01/02/2019 10:04 AM PDT) + +--------+ + + + | Component | Value | Ref Range | Performed | Pathologist | | | | | At | Signature | + +--------+ + + + | Triglycerid | 85 | <=150 mg/dL | [facility] | | | es | | | [facility] | | | | | | MEDICAL | | | | | | CENTER - | | | | | | LABORATORY | | + +--------+ + + + | Cholesterol | 119 | <=200 mg/dL | [facility] | | | | | | [facility] | | | | | | MEDICAL | | | | | | CENTER - | | | | | | LABORATORY | | + +--------+ + + + | HDL | 34 (L) | 40 - 60 mg/dL | [facility] | | | | | | [facility] | | | | | | MEDICAL | | | | | | CENTER - | | | | | | LABORATORY | | + +--------+ + + + | Chol/HDL | 3.5 | | [facility] | | | Ratio | | | [facility] | | | | | | MEDICAL | | | | | | CENTER - | | | | | | LABORATORY | | + +--------+ + + + | LDL, | 68 | <=130 mg/dL | [facility] | | | Calculated | | | [facility] | | | | | | MEDICAL | | | | | | CENTER - | | | | | | LABORATORY | | + +--------+ + + + + + | Specimen | + + | Blood | + + + + + + + | Performing | Address | City/State/Zipcode | Phone Number | | Organization | | | | + + + + + | [facility] | [address] | [place], [place] | [phone] | | [facility] | | [address] | | | - LABORATORY | | | | + + + + + documented in this encounter Visit Diagnoses + + | Diagnosis | + + | Coronary artery disease involving [place] coronary artery of [place] heart without | | angina pectoris | + + | Hypertension, unspecified type | + + documented in this encounter"
--- OUTSIDE RECORDS SUMMARY | ~2019-10-24 | XMS | Encounter Summary ---
Demographics + + + | Address | [address] | | | [place] [address] | + + + | Home Phone [...] + | Author | [facility] | | | and Tevinana | + + + | Organization | [facility] | | | and Tevinana [...] Team Providers + +------+ + | Care Pediatric Speech Therapist Name | Role | Phone | + [...] + + | 09/12/ | Telephone | [facility] | Kavitha Davenport, | Other (appointment | | 2018 | | CARDIOLOGY [address] | MD [address] | rescheduled) | | | | [place], | [place], | | | | | [place] [address] | [place] [address] | | | | | [phone] | [phone] | | | | | | | [...] | | | | | | [place] [address] | | | | | | [phone] | | | | | | | | +--------+---------+ + + + documented as of this encounter Visit Diagnoses Not on filedocumented in this encounter"
--- OUTSIDE RECORDS SUMMARY | ~2019-10-24 | XMS | Encounter Summary ---
Demographics + + + | Address | [address] | | | [place] [address] | + + + | Home Phone [...] + | Author | [facility] | | | and Tevinana | + + + | Organization | [facility] | | | and Tevinana [...] Team Providers + +------+ + | Care .Net Developer Name | Role | Phone | [...] Closed | | Radiology | Diagnoses | Feng, | [facility] | | | | | Chest pain, | Gia, TOBACCO WEIGHER | Medicine | | | | | unspecified | [address] | [address] | | | | | type | [place] | [place], | | | | | Procedures | [address] [place] | [place] | | | | | [place] [facility] | [place], [place] | [address] | | | | | Stress Test | [address] | Phone: | | | | | (Vasodilator | Phone: | [phone] | | | | | ) | [phone] | Fax: | | | | | | Fax: | [phone] | | | | | | [phone] | | +--------+--------+ + + + + Encounter Details +--------+ + + + + | Date | Type | Department | Care Team | Description | +--------+ + + + + | 06/08/ | Transcribed | [facility] | Gia Feng NP | Chest pain, | | 2017 | Orders | CARDIOLOGY [address] | [address] | unspecified type | | | | [place] [address], | [place] [address] | (Primary Dx) | | | | [place] [address] | [phone] | | | | | [phone] | | | +--------+ + + + [...] [place], | | | | | | [place] [address] | | | | | | [phone] | | | | | | | | +--------+---------+ + + + documented as of this encounter Results [place] Nuclear Stress Test [...] | | Signed by: Kavitha Davenport MD [facility] 06/27/2017, 11:02 | | + + + + + --+ | Narrative | Performed At | + + --+ | | [facility] | | NUCLEAR MEDICINE STRESS TEST [...]
--- OUTSIDE RECORDS SUMMARY | ~2019-10-24 | XMS | Encounter Summary ---
Demographics + + + | Address | [address] | | | [place] [address] | + + + | Home Phone [...] | [facility] | | | and Tevinana | + + + | Organization | [facility] | | | and Tevinana [...] Team Providers + +------+ + | Care Administrative Manager Name | Role | Phone | + +------+ + PCP | Unavailable | + +------+ + Encounter Details +--------+ + + + + | Date | Type | Department | Care Team | Description | +--------+ + + + + | 11/30/ | [facility] | [facility] | Sd Rosales | | | 2010 | Encounter | MED CTR XRAY [address] | MD [address] | | | | | [address] | [place] | | | | | [place] [address] | [place] [address] | | | | | [phone] | [phone] | | | | | | | [...] [place], | | | | | | [place] [address] | | | | | | [phone] | | | | | | | | +--------+---------+ + + + documented as of this encounter Procedures + +--------+ + + + | Procedure Name | Priori | Date/Time | Associated Diagnosis | Comments | | | ty | | | | + +--------+ + + + | ECHO COMPLETE | | 11/30/2010 | | Results for this | | | | 11:29 AM | | procedure are in the | | | | PDT | | results section. | + +--------+ + + + documented in this encounter Results ECHO Complete (11/30/2010 11:29 AM PDT) + + | Specimen | + + | | + + + + + | Narrative | Performed At | + + + | [facility] Diagnostic Imaging Department | [facility] | | [address] [facility] | [facility] | | E C H O C A R D | DIAG IMG | | I O G R A P H Y R E P O R T HEIGHT: 5'8" | | | WEIGHT:220# ORDER DESK CLERK: KH REFERRING DR:JASON | | | READING DR: GOVIND DIAGNOSIS: LT ARM PAIN, EVAL FOR CARDIAC | | | ISCHEMIA | | | | | | M E A S U R E M E N T S | | | Aortic Root: 34 mm LV Diameter-diastole: 46 mm Aortic Cusp | | | Sep 12 mm LV Diameter--systole: --- mm LA: 37 mm | | | Fractional Shortenin% IVS--diastole: 10 mm PFV | | | Aortic Valve: m/s IVS--systole: --- mm MPG Mitral Valve: | | | mmHg LVPW--diastole: 09 mm PFV TR Jet 2.41 m/s | | | LVPW--systole: --- mm RA/RV PP.2 mmHg | | | | | | ECHOCARDIOGRAPHY, 11/30/2010 INDICATIONS FOR PROCEDURE: | | | CHEST PAIN. TECHNICAL DATA: The quality of the study is | | | adequate. This is a 2-D echo / M- mode / Doppler / color Doppler | | | study. FINDINGS: Left atrial size is normal. Left ventricular | | | size is normal with normal wall thickness and normal left | | | ventricular systolic function. LVEF is 60 %. There is grade 1 | | | left ventricular diastolic dysfunction. Aortic root is normal. | | | Right atrial size is normal. Right ventricular size is normal with | | | normal wall thickness and normal right ventricular systolic | | | function. Pericardium is normal. Pulmonary artery is normal. | | | Aortic valve is trileaflet and opens normally. Mitral valve is | | | normal. There is mild mitral valve regurgitation. Pulmonic valve | | | is normal. Tricuspid valve is normal. There is mild tricuspid | | | valve regurgitation. IVC is normal. IMPRESSION: 1. NORMAL | | | LEFT VENTRICULAR SIZE, WALL THICKNESS AND MOTION, PRESERVED LEFT | | | VENTRICULAR SYSTOLIC FUNCTION. LVEF IS 60%. 2. GRADE 1 LEFT | | | VENTRICULAR DIASTOLIC DYSFUNCTION. 3. MILD MITRAL VALVE | | | REGURGITATION. 4. MILD TRICUSPID VALVE REGURGITATION. | | | Dictated Date/Time: 11/30/2010 14:00 Transcribed Date/Time: | | | 11/30/2010 14:38 Biodiesel Division Manager: <Electronically Signed | | | by Kavitha Davenport MD [facility]> 12/03/10 0558 | | + + + + + | Procedure Note | + + | Hugo, Rad Conversion - 07/19/2013 3:11 PM [facility] | | Diagnostic Imaging Department | | [address] [facility] | | | | | | | | E C H O C A R D I O G R A P H Y R E P O R T | | | | | | HEIGHT: 5'8" WEIGHT:220# ORDER DESK CLERK: KH | | REFERRING DR:JASON JACKSON DR: GOVIND | | | | DIAGNOSIS: LT ARM PAIN, EVAL FOR CARDIAC ISCHEMIA | | | | | | M E A S U R E M E N T S | | | | Aortic Root: 34 mm LV Diameter-diastole: 46 mm | | Aortic Cusp Sep 12 mm LV Diameter--systole: --- mm | | LA: 37 mm Fractional Shortenin% | | IVS--diastole: 10 mm PFV Aortic Valve: m/s | | IVS--systole: --- mm MPG Mitral Valve: mmHg | | LVPW--diastole: 09 mm PFV TR Jet 2.41 m/s | | LVPW--systole: --- mm RA/RV PP.2 mmHg | | | | | | | | ECHOCARDIOGRAPHY, 11/30/2010 | | | | INDICATIONS FOR PROCEDURE: CHEST PAIN. | | | | TECHNICAL DATA: The quality of the study is adequate. This is a 2-D echo / M- | | mode / Doppler / color Doppler study. | | | | FINDINGS: Left atrial size is normal. Left ventricular size is normal with | | normal wall thickness and normal left ventricular systolic function. LVEF is 60 | | %. There is grade 1 left ventricular diastolic dysfunction. Aortic root is | | normal. Right atrial size is normal. Right ventricular size is normal with | | normal wall thickness and normal right ventricular systolic function. | | Pericardium is normal. Pulmonary artery is normal. Aortic valve is trileaflet | | and opens normally. Mitral valve is normal. There is mild mitral valve | | regurgitation. Pulmonic valve is normal. Tricuspid valve is normal. There is | | mild tricuspid valve regurgitation. IVC is normal. | | | | IMPRESSION: | | 1. NORMAL LEFT VENTRICULAR SIZE, WALL THICKNESS AND MOTION, PRESERVED LEFT | | VENTRICULAR SYSTOLIC FUNCTION. LVEF IS 60%. | | | | 2. GRADE 1 LEFT VENTRICULAR DIASTOLIC DYSFUNCTION. | | | | 3. MILD MITRAL VALVE REGURGITATION. | | | | 4. MILD TRICUSPID VALVE REGURGITATION. | | | | Dictated Date/Time: 11/30/2010 14:00 | | Transcribed Date/Time: 11/30/2010 14:38 | | Biodiesel Division Manager: | | <Electronically Signed by Kavitha Davenport MD [facility]> 12/03/10 0558 | + + + +---------+ + + | Performing | Address | City/State/Zipcode | Phone Number | | Organization | | | | + +---------+ + + | [place] | | | | | [place] | | | | + +---------+ + + documented in this encounter Visit Diagnoses Not on filedocumented in this encounter
--- OUTSIDE RECORDS SUMMARY | ~2019-10-24 | XMS | Encounter Summary ---
Demographics + + + | Address | [address] | | | [place] [address] | + + + | Home Phone | | + + + | Preferred Language | Unknown | + + + | Marital Status | | + + + | Christianity Affiliation | Unknown | + + + | Race | Unknown | + + + | Ethnic Group | Unknown | + + + Author + + + | Author | [facility] | | | and Tevinana | + + + | Organization | [facility] | | | and Tevinana [...] Team Providers + +------+ + | Care Kitchen Chef Name | Role | Phone | + [...] [place] | | | | | [address] [place], [place] | [address] | | | | | [address] | | | | | | [phone] | | | +--------+ + + + [...] | | | | | | [place] [address] | | | | | | [phone] | | | | | | | [...]
--- OUTSIDE RECORDS SUMMARY | ~2019-10-24 | XMS | Encounter Summary ---
Demographics + + + | Address | [address] | | | [place] [address] | + + + | Home Phone | | + + + | Preferred Language | Unknown | + + + | Marital Status | | + + + | Pentecostal Affiliation | Unknown | + + + | Race | Unknown | + + + | Ethnic Group | Unknown | + + + Author + + + | Author | [facility] | | | and Tevinana | + + + | Organization | [facility] | | | and [...] Team Providers + +------+ + | Care Tile Sprayer Name | Role | Phone | + [...] | | | | | | | [place] CATH PLMT | | | | | [...] + + | 10/02/ | Surgery | [facility] | Kavitha Davenport, | CV LHC | | 2018 | | MED CTR CV INTRA OP | MD [address] | | | | | [address] | [place], | | | | | [place], [place] | [place] [address] | | | | | [address] | [phone] | | | | | [phone] | | | +--------+---------+ + + + [...] stools Any unusual bleeding Date Last Reviewed: 03/12/201619994923-0972 [employer]. [address] [place] [address]. All righ ts reserved. This information is [...] | | | | | | [place] [address] | | | | | | [phone] | | | | | | | [...] (1940) OF PROCEDURE: | | | 10/02/2017 LIFE EDUCATOR: Kavitha Davenport MD PROCEDURES | | | [...] Dr. Flores, | | | interventionalists at [facility] in [facility]. Electronically | | | signed by: Kavitha [...] with Dr. Flores, interventionalists at | | |[facility] in [facility]. | | | | | | | [...] ST. | [address] | [place] | [phone] | | [facility] | | [address] | | | - LABORATORY | | [...] [address] | [place] | [phone] | | [facility] | | [address] | | | - LABORATORY | | [...] [facility] | | | | | | STFelxi MOREJON | | | | | | [...] | mL/min/1.73m2 | DARLEEN | | | UKRAINIAN | RATE,ESTIMATED | | MEDICAL | | | | mL/min/1.01z6Tbkt than | | CENTER - | | [...] [address] | [place] | [phone] | | [facility] | | [address] | | | - LABORATORY | | [...]
--- OUTSIDE RECORDS SUMMARY | ~2019-10-24 | XMS | Encounter Summary ---
Demographics + + + | Address | [address] | | | [place] [address] | + + + | Home Phone [...] Author | [facility] | | | and Tevinana | + + + | Organization | [facility] | | | and [...] Team Providers + +------+ + | Care Hopper Attendant Name | Role | Phone | + +------+ + PCP | Unavailable | + +------+ + Encounter Details +--------+ + + + + | Date | Type | Department | Care Team | Description | +--------+ + + + + | 01/13/ | [facility] | [facility] | Sd Rosales | | | 2010 | Encounter | MED CTR XRAY [address] | MD [address] | | | | | [address] | [place] | | | | | [place] [address] | [place] [address] | | | | | [phone] | [phone] | | | | | | | [...] | | | | | | [place] [address] | | | | | | [phone] | | | | | | | | +--------+---------+ + + + documented as of this encounter Visit Diagnoses Not on filedocumented in this encounter"
--- OUTSIDE RECORDS SUMMARY | ~2019-10-24 | XMS | Encounter Summary ---
Demographics + + + | Address | [address] | | | [place] [address] | + + + | Home Phone [...] | Author | [facility] | | | and Tevinana | + + + | Organization | [facility] | | | and [...] Team Providers + +------+ + | Care Carton Folder Name | Role | Phone | + [...] | MED CTR EXTERNAL | MD [address] | | | | | IMAGING [address] | [address]lene [address] | | | | | [address] [place] | [place] [address] | | | | | [place] [address] | | | | | | [phone] | | | +--------+ + + + [...] | | | | | | [place] [address] | | | | | | [phone] | | | | | | | | +--------+---------+ + + + documented as of this encounter Procedures + +--------+ + + + | Procedure Name | Priori | Date/Time | Associated Diagnosis | Comments | | | ty | | | | + +--------+ + + + | XR WRIST LEFT 3 + VW | Routin | 09/11/2014 | | Results for this | | | e | 12:05 AM | | procedure are in the | | | | PDT | | results section. | + +--------+ + + + documented in this encounter Results XR Wrist Left 3 + Vw (09/11/2014 12:05 AM PDT) + + | Specimen [...]
--- OUTSIDE RECORDS SUMMARY | ~2019-10-24 | XMS | Encounter Summary ---
Demographics + + + | Address | [address] | | | [place] [address] | + + + | Home Phone | | + + + | Preferred Language | Unknown | + + + | Marital Status | | + + + | Amish Affiliation | Unknown | + + + | Race | Unknown | + + + | Ethnic Group | Unknown | + + + Author + + + | Author | [facility] | | | and Tevinana | + + + | Organization | [facility] | | | and Tevinana [...] Team Providers + +------+ + | Care Spinning Doffer Name | Role | Phone | + [...] | MED CTR EXTERNAL | MD [address] | | | | | IMAGING [address] | [address]lene [address] | | | | | [address] [place] | [place] [address] | | | | | [place] [address] | | | | | | [phone] | | | +--------+ + + + [...] [place], | | | | | | [place] [address] | | | | | | [phone] | | | | | | | [...]
--- OUTSIDE RECORDS SUMMARY | ~2019-10-24 | XMS | Encounter Summary ---
Demographics + + + | Address | [address] | | | [place] [address] | + + + | Home Phone [...] Author | [facility] | | | and Tevinana | + + + | Organization | [facility] | | | and [...] Team Providers + +------+ + | Care Legislative Analyst Name | Role | Phone | [...] | | | INTERFACES [address] | [place] [address] | | | | | [address] [place], [place] | [phone] | | | | | [address] | | | | | | [phone] | | | +--------+ + + + [...] [place], | | | | | | [place] [address] | | | | | | [phone] | | | | | | | [...] Performed At | + + + | [facility] [address] Ph: | | | Patient Name: COSME BLACK Date of : | | | 1940 Medical Record: [id number] Account: [id number] | | | Exam Date/Time: 03/09/2011 11:37 Ordering | | | Physician: KEV DUDLEY Order Detail: [id number] Exam Description: | | | [facility] W CORONARY ANGIO | | | | [...] obtained via right femoral artery and a 6-Nepalese | | | arterial sheath was placed. A 6-Nepalese JL4 catheter was then advanced | | | under fluoroscopic guidance and engaged with the ostium of the left | | | main coronary artery, and multiple projections of the left coronary | | | systems were obtained with the use of contrast injections. The | | | catheter was then exchanged to a 6-Nepalese JR4 catheter, which was | | | advanced under fluoroscopic guidance and engaged with the ostium of | | | the right coronary artery, and multiple projections of the right | | | coronary artery were obtained with the use of contrast injections. | | | The catheter was then exchanged to a 6-Nepalese pigtail catheter which | | | was advanced into the left ventricle, and projections of left | | | ventricular function in the GONZALES view were done with contrast | | | injections. Because of the tortuosity of the iliac system, the | | | 6-Nepalese sheath was exchanged to a 35 cm 7-Nepalese sheath, which | | | allowed us [...] therapy. | | | P A KAMRYN/ana laura/[id number]/ | | | Read by KEV DUDLEY MD 03/09/2011 10:36 P Electronically | | | signed by Kev Dudley MD on 04/07/2011 9:14 AM | | + + + + + | Procedure Note | + + | Maximo Arias - 02/02/2019 10:51 AM PDT | | [facility] | | [facility] [address] | | | | | | Patient Name: COSME BLACK | | Date of : 1940 | | Medical Record: [id number] | | Account: [id number] | | | | | | Exam Date/Time: 03/09/2011 11:37 | | Ordering Physician: KEV DUDLEY | | Order Detail: [id number] | | Exam Description: [facility] W CORONARY ANGIO | | | | [...] obtained via right femoral artery and a 6-Nepalese arterial sheath was | | placed. A 6-Nepalese JL4 catheter was then advanced under fluoroscopic | | guidance and engaged with the ostium of the left main coronary artery, | | and multiple projections of the left coronary systems were obtained with | | the use of contrast injections. The catheter was then exchanged to a | | 6-Nepalese JR4 catheter, which was advanced under fluoroscopic guidance | | and engaged with the ostium of the right coronary artery, and multiple | | projections of the right coronary artery were obtained with the use of | | contrast injections. The catheter was then exchanged to a 6-Nepalese | | pigtail catheter which was advanced into the left ventricle, and | | projections of left ventricular function in the GONZALES view were done with | | contrast injections. Because of the tortuosity of the iliac system, the | | 6-Nepalese sheath was exchanged to a 35 cm 7-Nepalese sheath, which allowed | | us to [...] P | | A | | KAMRYN/ana laura/[id number]/ | | | | Read by | | KEV DUDLEY MD 03/09/2011 10:36 P | | | | | + + documented in this encounter Visit Diagnoses Not on filedocumented in this encounter"
--- OUTSIDE RECORDS SUMMARY | ~2019-10-24 | XMS | Encounter Summary ---
Demographics + + + | Address | [address] | | | [place] [address] | + + + | Home Phone [...] | Author | [facility] | | | and Tevinana | + + + | Organization | [facility] [...] Team Providers + +------+ + | Care Emissions Inspector Name | Role | Phone | [...] | Refill | [facility] [place] | [place], | Medication Refill | | 2019 | | CARDIOLOGY [address] | Jessica, OCCUPATIONAL HYGIENIST [address] | | | | | [place], | [place], | | | | | [place] [address] | [place] [address] | | | | | [phone] | [phone] | | | | | | | [...] [place] | | | | | | [place] [address] | | | | | | [phone] | | | | | | | | +--------+---------+ + + + documented as of this encounter Visit Diagnoses Not on filedocumented in this encounter"
--- OUTSIDE RECORDS SUMMARY | ~2019-10-24 | XMS | Encounter Summary ---
Demographics + + + | Address | [address] | | | [place] [address] | + + + | Home Phone | | + + + | Preferred Language | Unknown | + + + | Marital Status | | + + + | Alevism Affiliation | Unknown | + + + | Race | Unknown | + + + | Ethnic Group | Unknown | + + + Author + + + | Author | [facility] | | | and Tevinana | + + + | Organization | [facility] | | | and [...] Team Providers + +------+ + | Care Miller Distillery Name | Role | Phone | + [...] + + | 12/12/ | Office | [facility] | Kavitha Davenport, | Coronary artery | | 2018 | Visit | MED CTR CARDIAC | [address] [facility] | disease, angina | | | | REHABILITATION [address], | presence | | | | [address] [place] | [place] [address] | unspecified, | | | | [place] [address] | [phone] | unspecified vessel | | | | [phone] | | or lesion type, | | | | | Regla Light RN | unspecified whether | | | | | | [place] owing[place] or | | | | | | [...] Light RN - 12/12/2017 11:30 AM PDT [facility] CARDIAC RE[facility]ATION [address] [place] [address] Cardiac Rehab Evaluation Date: 12/12/2017 Patient Information Patient Name: Cosme Michaud Date of : 1940 Age: 77 y.o. Referring Provider: Kavitha Davenport MD Encounter Diagnoses Code Name Primary? I25.10 Coronary artery disease, angina presence unspecified, unspecified vessel or lesi on type, unspecified whether [place] or transplanted heart Z98.61 Post [facility] Cardiac Rehab Phase II Marcos atment Plan Cosme Michaud is a 77 y.o. male with a history of coronary artery disease, hypothyro idism, obesity, inactivity, hypertensionand COPD. He has a history of non-Q wave DC and st enting in 2010, and recent [...] Healthy Dietary Education Date: 12/12/17 -Referral to Mold Cooler: Date: -DVD: Healthy Eating For Life Date: [...] exercise until stable. Date: Range: -Referral to Prizer Hand Date: Education Points listed below- Date [...] [address] | | | | | | [place], | | | | | | [place] [address] | | | | | | [phone] | | | | | | | | +--------+---------+ + + + documented as of this encounter Visit Diagnoses + + | Diagnosis | + + | Coronary artery disease, angina presence unspecified, unspecified vessel or lesion | | type, unspecified whether [place] owing[place] or transplanted heart | + + | Post PTCA Postsurgical percutaneous transluminal coronary angioplasty status | + + documented in this encounter
--- OUTSIDE RECORDS SUMMARY | ~2019-10-24 | XMS | Encounter Summary ---
Demographics + + + | Address | [address] | | | [place] [address] | + + + | Home Phone [...] Author | [facility] | | | and Tevniana | + + + | Organization | [facility] | | | and Tevinana [...] Team Providers + +------+ + | Care Manager Payroll Name | Role | Phone | + +------+ + | Radha Feng | PCP | | + +------+ + Encounter Details +--------+ + + + + | Date | Type | Department | Care Team | Description | +--------+ + + + + | 09/18/ | Abstract | [facility] [place] | Lori Gsapar | | | 2020 | | CARDIOLOGY [address] | [address], [address] | | | | | [place], | [address] [place], | | | | | [place] [address] | [place] [address] | | | | | [phone] | [phone] | | | | | | | [...] | | | | | | [place] [address] | | | | | | [phone] | | | | | | | [...]
--- OUTSIDE RECORDS SUMMARY | ~2019-10-24 | XMS | Encounter Summary ---
Demographics + + + | Address | [address] | | | [place] [address] | + + + | Home Phone [...] Author | [facility] | | | and Tevinana | + + + | Organization | [facility] | [...] Team Providers + +------+ + | Care Radarman Name | Role | Phone | + [...] | | CARDIOLOGY [address] | Jessica PUBLIC HEALTH PHYSICIAN [address] | | | | | [place], | [place], | | | | | [place] [address] | [place] [address] | | | | | [phone] | [phone] | | | | | | | [...] [place], | | | | | | [place] [address] | | | | | | [phone] | | | | | | | | +--------+---------+ + + + documented as of this encounter Visit Diagnoses Not on filedocumented in this encounter"
--- OUTSIDE RECORDS SUMMARY | ~2019-10-24 | XMS | Encounter Summary ---
Demographics + + + | Address | [address] | | | [place] [address] | + + + | Home Phone [...] | [facility] | | | and Tevinana | + + + | Organization | [facility] | | | [...] Providers + +------+ + | Care Carton Inspector Name | Role | Phone | [...] | MED CTR EXTERNAL | MD [address] | | | | | IMAGING [address] | [address]lene [address] | | | | | [address] [place] | [place] [address] | | | | | [place] [address] | | | | | | [phone] | | | +--------+ + + + [...] [place], | | | | | | [place] [address] | | | | | | [phone] | | | | | | | | +--------+---------+ + + + documented as of this encounter Procedures + +--------+ + + + | Procedure Name | Priori | Date/Time | Associated Diagnosis | Comments | | | ty | | | | + +--------+ + + + | XR WRIST RIGHT 3 + | Routin | 09/11/2014 | | Results for this | | VW | e | 12:00 AM | | procedure are in the | | | | PDT | | results section. | + +--------+ + + + documented in this encounter Results XR Wrist Right 3 + Vw (09/11/2014 12:00 AM PDT) + + | Specimen [...]
--- OUTSIDE RECORDS SUMMARY | ~2019-10-24 | XMS | Encounter Summary ---
Demographics + + + | Address | [address] | | | [place] [address] | + + + | Home Phone | | + + + | Preferred Language | Unknown | + + + | Marital Status | | + + + | Cheondoism Affiliation | Unknown | + + + | Race | Unknown | + + + | Ethnic Group | Unknown | + + + Author + + + | Author | [facility] | | | and Tevinana | + + + | Organization | [facility] | | | [...] Team Providers + +------+ + | Care Kickboxing Instructor Name | Role | Phone | + [...] | MED CTR EXTERNAL | MD [address] | | | | | IMAGING [address] | [address]lene MICHEL | | | | | [address] [place] | [place] [address] | | | | | [place] [address] | | | | | | [phone] | | | +--------+ + + + [...] [place], | | | | | | [place] [address] | | | | | | [phone] | | | | | | | [...]
--- OUTSIDE RECORDS SUMMARY | ~2019-10-24 | XMS | Encounter Summary ---
Demographics + + + | Address | [address] | | | [place] [address] | + + + | Home Phone | | + + + | Preferred Language | Unknown | + + + | Marital Status | | + + + | Sabianist Affiliation | Unknown | + + + | Race | Unknown | + + + | Ethnic Group | Unknown | + + + Author + + + | Author | [facility] | | | and Tevinana | + + + | Organization | [facility] | | | and [...] Team Providers + +------+ + | Care Sewer Hand Name | Role | Phone | + [...] | | | | | disease, | [address] | | | | | | angina | [place], | [place], [place] | | | | | presence | [place] [address] | [address] Phone: | | | | | unspecified, | Phone: | [phone] | | | | | unspecified | [phone] | Fax: | | | | | vessel or | Fax: | [phone] | | | | | lesion type, | [phone] | | | | | | unspecified | | | | | | | whether | | | | | | | agua caliente or | | | | | | | transplanted | | | | | | | heart | | | | | | | Procedures | | | | | | | [place] OFFICE | | | | | | [...] + + | 10/02/ | Telephone | [facility] | Kavitha Davenport, | Other (plan of care) | | 2017 | | CARDIOLOGY [address] | MD [address] | | | | | [place], | [place], | | | | | [place] [address] | [place] [address] | | | | | [phone] | [phone] | | | | | | | [...] [place], | | | | | | [place] [address] | | | | | | [phone] | | | | | | | | +--------+---------+ + + + + + +--------+ + + | Name | Type | Priori | Associated Diagnoses | Order Schedule | | | | ty | | | + + +--------+ + + | External Referral to | Outpatient | Routin | Coronary artery | Ordered: 10/02/2017 | | Trent Johnston | Referral | e | disease, angina | | | Cardiology | | | presence | | | | | | unspecified, | | | | | | unspecified vessel | | | | | | or lesion type, | | | | | | unspecified whether | | | | | | ag[place] cal[place] or | | | | | | transplanted heart | | + + +--------+ + + documented as of this encounter Visit Diagnoses + + | Diagnosis | + + | Coronary artery disease, angina presence unspecified, unspecified vessel or lesion | | type, unspecified whether ag[place] cal[place] or transplanted heart - Primary | + + documented in this encounter"
--- OUTSIDE RECORDS SUMMARY | ~2019-10-24 | XMS | Encounter Summary ---
Demographics + + + | Address | [address] | | | [place] [address] | + + + | Home Phone [...] Author | [facility] | | | and Tevinana | + + + | Organization | [facility] | | | and [...] Team Providers + +------+ + | Care Sales Support Technician Name | Role | Phone | + +------+ + PCP | Unavailable | + +------+ + Encounter Details +--------+ + + + + | Date | Type | Department | Care Team | Description | +--------+ + + + + | 04/12/ | Hospital | [facility] | Sd Rosales | | | 2010 - | Encounter | MED CTR OP REHAB | MD [address] | | | | | [address] | [place] | | | 05/11/ | | [place] [address] | [place] [address] | | | 2010 | | [phone] | [phone] | | | | | | | [...] | | | | | | [place] [address] | | | | | | [phone] | | | | | | | | +--------+---------+ + + + documented as of this encounter Visit Diagnoses Not on filedocumented in this encounter"
--- OUTSIDE RECORDS SUMMARY | ~2019-10-24 | XMS | Encounter Summary ---
Demographics + + + | Address | [address] | | | [place] [address] | + + + | Home Phone [...] + | Author | [facility] | | | and Tevinana | + + + | Organization | [facility] | | | and Tevinana [...] Team Providers + +------+ + | Care Nailing Machine Feeder Name | Role | Phone | [...] + + | 12/28/ | Office | [facility] | Kavitha Davenport, | Coronary artery | | 2018 | Visit | MED CTR CARDIAC | [address] [facility] | disease involving | | | | REHABILITATION [address] | [place], | samish coronary | | | | [address] [place] | [place] [address] | artery of samish | | | | [place] [address] | [phone] | heart without angina | | | | [phone] | | pectoris (Primary | | | [...] Eduardo Lee - 12/28/2017 12:00 PM PDT [facility] CTR CARDIAC REHABILITATION [address] [facility] [address] Cardiac Rehab Date: 12/28/2017 Patient Information Patient Name: Cosme Michaud Date of : 1940 Age: 77 y.o. Encounter Diagnoses Code Name Primary? I25.10 Coronary artery disease involving samish coronary artery of samish heart without angina pectoris Yes Z98.61 Post [...] [place], | | | | | | [place] [address] | | | | | | [phone] | | | | | | | | +--------+---------+ + + + documented as of this encounter Visit Diagnoses + + | Diagnosis | + + | Coronary artery disease involving samish coronary artery of samish heart without | | angina pectoris - Primary | + + | Post PTCA Postsurgical percutaneous transluminal coronary angioplasty status | + + documented in this encounter"
--- OUTSIDE RECORDS SUMMARY | ~2019-10-24 | XMS | Encounter Summary ---
Demographics + + + | Address | [address] | | | [place] [address] | + + + | Home Phone | | + + + | Preferred Language | Unknown | + + + | Marital Status | | + + + | Confucianism Affiliation | Unknown | + + + | Race | Unknown | + + + | Ethnic Group | Unknown | + + + Author + + + | Author | [facility] | | | and Tevinana | + + + | Organization | [facility] | | | and [...] Team Providers + +------+ + | Care Rotary Soil Stabilizer Name | Role | Phone | + [...] | | / Cardiology | Atherosclero | VEHICLE MODIFICATION TECHNICIAN [address] | [address] | | | | | tic heart | [place] | [place] | | | | | disease of | [address] [place] | [place], [place] | | | | | [place] | [place], [place] | [address] | | | | | coronary | [address] | Phone: | | | | | artery | Phone: | [phone] | | | | | without | [phone] | Fax: | | | | | angina | Fax: | [phone] | | | | | pectoris | [phone] | | | | | | Essential | | | | | | | (primary) | | | | | | | hypertension | | | | | | | | | | | | | | Atherosclero | | | | | | | tic heart | | | | | | | disease of | | | | | | | [place] | | | | | | | [...] + + | 09/22/ | Office | [facility] | Radha, | Coronary artery | | 2020 | Visit | CARDIOLOGY [address] | [address] [address] | disease involving | | | | [place], | [place], | [place] coronary | | | | [place] [address] | [place] [address] | artery of [place] | | | | [phone] | [phone] | heart without angina | | | [...] whether | | | | | | [place] or | | | | | | [...] encounter Patient Instructions Patient Instructions Shyann Peterson, Vascular Technician - 09/23/2019 12:45 PM PDT1. We wi [...] Diagnosis Chest pain Coronary artery disease involving [place] coronary artery of [place] heart without angina pectoris Hypothyroidism AAA (abdominal [...] minute s as needed for Chest pain. Gtihnctiy-Nmidgtquvm-YJ-APAP (NYQUIL PO) Take 750 mg by mouth. [...] kg (226 lb 10.1 oz) | B IN 35.50 kg/m Physical Exam Constitutional: He is [...] needs review Confirmed by FREDDY DAVENPORT MD ([id number]) on 01/03/2019 11:29:26 AM LAB RESULTS reviewed during visit today primarily from [facility]: LIPID Lab Results Component Value Date [...] TSHEX 4.080 05/03/2019 I reviewed records from [facility] for office visit on 03/21/2019 w hich is summarized in the HPI. RESULTS- I reviewed reports from [facility]: US Aorta Limited on 03/25/19 shows fusiform [...] 75 %. D. Angiogram 10/02/[address] Davenprot shows borderline coronary art silvia disease; 70% [...] symptoms; no limitations of activities of the [place] [employer] functional class. Heart failure stage [...] will be buying a new bike to [employer]. 8. COPD: A. He mentions this has [...] been recommended to start bicycling again IShyann, Vascular Technician am acting as a scribe on behalf of, and in the prese nce of LOU Matamoros. - Shyann Peterson, Vascular Technician 09/23/2019 11:53 AM I, LOU Matamoros, personally performed the services described in this documentati on, as scribed in my presence and it is both accurate and complete. -LOU Matamoros 09/23/2019 Portions of this chart may have been created with [employer] voice recognition software. Occasi onal wrong-word or [...] | 03/24/ | Office | Cardiology | Radah, | | | 2019 | Visit | | [address] | | | | | | [place], | | | | | | [place] [address] | | | | | | [phone] | | | | | | | | +--------+---------+ + + + documented as of this encounter Visit Diagnoses + + | Diagnosis | + + | Coronary artery disease involving [place] coronary artery of [place] heart without | | angina pectoris - Primary | + + | Chest pain, unspecified type | + + | Essential hypertension with goal blood pressure less than 130/80 | + + | Abdominal aortic aneurysm (AAA) without rupture (HCC) | + + | Coronary artery disease, angina presence unspecified, unspecified vessel or lesion | | type, unspecified whether [place]ung[place] or transplanted heart | + + documented in this encounter
--- OUTSIDE RECORDS SUMMARY | ~2019-10-24 | XMS | Clinical Summary ---
Demographics + + + | Address | [address] | | | [place] [address] | + + + | Home Phone | | + + + | Preferred Language | Unknown | + + + | Marital Status | | + + + | Scientology Affiliation | Unknown | + + + | Race | Unknown | + + + | Ethnic Group | Unknown | + + + Author + + + | Author | [facility] | | | and Tevniana | + + + | Organization | [facility] | | [...] Team Providers + +------+ + | Care Property Loss Insurance Claim Adjuster Name | Role | Phone | + [...] | | | | | | | forest [...] + +---+ | Coronary artery disease involving [place] coronary artery of | | | [place] heart without angina pectoris | | + +---+ + + | Overview: [facility] on 03/09/2011 shows non-Q-wave myocardial | [...] involving | | | | | | [place] coronary | | | | | | artery of [place] | | | | | | heart [...] W | | | | | | [place], | | | | | | [place] [address] | | | | | | [phone] | | | | | | | [...] | + +-------+------+ +--------+--------+--------+ | Implant Id: [id number] - Synergy | Stent | | [place] | | 02/02/ | [id number] | | Stent-10/10/2017Implanted: | | | SCIENTIFIC | | 2017 | [id number] | | 10/10/2017 by Kev Flores, | | | ELIZABETH - BSCI | | | 70 / | | MD (Quantity not on file) | | | | | | /[id number] | | | | | | | [...] +--------+-------+---------+--------+ | VETERANS ADMIN | [place] | [id number] | 02/11/20 | | | Indemn | | | NS | | 14-Pre | | | ity | | | ADMIN | | sent | | | | | | [place] | | | | | | | | [place] | | | | | | + +--------+ +--------+-------+---------+--------+ | [place] ADMIN | [place] | [id number] | 06/12/19 | | | Indemn | [...] | 1940 | [phone] | [place] [address] | | | oliva | | | 1 (Home) | | + +--------+ +--------+ + + Advance Directives + + + + + | Type | Date Recorded | Patient | Explanation | | | | Mexican Food Cook | | + + + + + | Power of | | | | | Fws Faculty Assistant | | | | + + + + + | Advance | 02/24/2014 2:45 | | | | Directive | PM | | | + + + + +
--- OUTSIDE RECORDS SUMMARY | ~2019-10-24 | XMS | Clinical Summary ---
Demographics + + + | Address | [address] | | | [place] [address] | + + + | Home Phone | | + + + | Preferred Language | Unknown | + + + | Marital Status | Single | + + + | Gnosticist Affiliation | Unknown | + + + | Race | Unknown | + + + | Ethnic Group | Unknown | + + + Author + + + | Author | [facility] (Historical as of | | | 01-26-19) | + + + | Organization | [facility] (Historical as of | | | 01-26-19) [...] Team Providers + +------+ + | Care Hogshead Inspector Name | Role | Phone | [...] Heart | [place] | | 02/02/ | [id number] | | Stent-10/10/2017Implanted: | | | SCIENTIFIC | | 2018 | [id number] | | 10/10/2017 by Kev Flores, | | | | | | 70 / | | MD (Quantity not on file) | | | | | | /[id number] | | | | | | | [...] + + | [place]ANS | [place] | [id number] | | +- | FEE SERVICES [id number] | | ADMINISTRATION | CHOICE | | | [phone] | | | | | | | [address] [place] | | | | | | | [phone] | + +--------+ +------+ + + | VETERANS | [place] | [id number] | | [phone] FEE SERVICES A136 | | ADMINISTRATION | [place] | | | [phone] | [phone] | | | ADMINI | | | | [place] | | | STRATI | | | | [phone] | | | ON | | | [...] | | ns | | 1940 | [phone] | [place] | | | Admini | | | [phone] | [address] | | | guero | | | | | | | on | | | | | + +--------+ +--------+ + + | COSME BLACK | Person | Self | [birth year] | Home: | [address] | | | al/Fam | | 1940 | [phone] | [place] | | | [place] | | | [phone] | [address] | + +--------+ +--------+ + +
--- OUTSIDE RECORDS SUMMARY | ~2019-10-24 | XMS | Encounter Summary ---
Demographics + + + | Address | [address] | | | [place] [address] | + + + | Home Phone | | + + + | Preferred Language | Unknown | + + + | Marital Status | | + + + | Anabaptist Affiliation | Unknown | + + + | Race | Unknown | + + + | Ethnic Group | Unknown | + + + Author + + + | Author | [facility] | | | and Tevinana | + + + | Organization | [facility] | [...] Team Providers + +------+ + | Care Marine Consultant Name | Role | Phone | [...] [place] | | | | | [address], [place] | [address] | | | | | [address] | | | | | | [phone] | | | +--------+ + + + [...] | | | | | | [place] [address] | | | | | | [phone] | | | | | | | [...]
--- OUTSIDE RECORDS SUMMARY | ~2019-10-24 | XMS | Encounter Summary ---
Demographics + + + | Address | [address] | | | [place] [address] | + + + | Home Phone | | + + + | Preferred Language | Unknown | + + + | Marital Status | | + + + | Scientologist Affiliation | Unknown | + + + | Race | Unknown | + + + | Ethnic Group | Unknown | + + + Author + + + | Author | [facility] | | | and Tevinana | + + + | Organization | [facility] | | | [...] Team Providers + +------+ + | Care Veterans Service Officer Name | Role | Phone | [...] | | | | | | | [place] | | | | | | | [...] + | 01/02/ | Hospital | [facility] | Radha, | | | 2019 | Encounter | MED CTR LABORATORY | [address] | | | | | [address] [place] | [place], | | | | | [place] | [place] [address] | | | | | [address] | [phone] | | | | | [phone] | | | +--------+ + + + [...] | | | | | | | [place] or | | | | | | [...] | | | | | | [place] [address] | | | | | | [phone] | | | | | | | | +--------+---------+ + + + documented as of this encounter Visit Diagnoses Not on filedocumented in this encounter"
--- OUTSIDE RECORDS SUMMARY | ~2019-10-24 | XMS | Encounter Summary ---
Demographics + + + | Address | [address] | | | [place] [address] | + + + | Home Phone | | + + + | Preferred Language | Unknown | + + + | Marital Status | | + + + | Caodaism Affiliation | Unknown | + + + | Race | Unknown | + + + | Ethnic Group | Unknown | + + + Author + + + | Author | [facility] | | | and Tevinana | + + + | Organization | [facility] | | | and Tevinana [...] Team Providers + +------+ + | Care Welding Machine Operator Plasma Arc Name | Role | Phone | + +------+ + PCP | Unavailable | + +------+ + Encounter Details +--------+ + + + + | Date | Type | Department | Care Team | Description | +--------+ + + + + | 11/30/ | [facility] | [facility] | Sd Rosales | | | 2010 | Encounter | MED CTR XRAY [address] | [address] | | | | | [address] | [place] | | | | | [place] [address] | [place] [address] | | | | | [phone] | [phone] | | | | | | | [...] [place], | | | | | | [place] [address] | | | | | | [phone] | | | | | | | [...] Performed At | + + + | [facility] Diagnostic Imaging Department | [facility] | | [address] [facility] | [facility] | | E C H O C A R D | DIAG IMG | | I O G R A P H Y R E P O R T HEIGHT: 5'8" | | | WEIGHT:220# METER REPAIRER: K[facility] REFERRING DR:JASON | | | READING [...] Transcribed Date/Time: | | | 11/30/2010 14:38 Gauge Operator: <Electronically Signed | | | by Kavitha Davenport MD [facility]> 12/03/10 0558 | | + + + + + | Procedure Note | + + | Hugo, Rad Conversion - 07/19/2013 3:11 PM [facility] | | Diagnostic Imaging Department | | [address] [facility] | | | | | | | | E C H O C A R D I O G R A P H Y R E P O R T | | | | | | HEIGHT: 5'8" WEIGHT:220# METER REPAIRER: [facility] | | REFERRING DR:JASON JACKSON DR: [...] | Transcribed Date/Time: 11/30/2010 14:38 | | Gauge Operator: | | <Electronically Signed by Kavitha Davenport MD [facility]> 12/03/10 0558 | + + + [...]
--- OUTSIDE RECORDS SUMMARY | ~2019-10-24 | XMS | Encounter Summary ---
Demographics + + + | Address | [address] | | | [place] [address] | + + + | Home Phone [...] Author | [facility] | | | and Tevinana | + + + | Organization | [facility] | | | and Tevinana | + + + | Address | Unknown | + + + | Phone | Unavailable | + + + Support + + +---------+ + | Name | Relationship | Address | Phone | + + +---------+ + | Doris Neal ECON | Unknown | | + + +---------+ + Care Team Providers + +------+ + | Care Highway Patrol Officer Name | Role | Phone | + +------+ + | Gia eFng NP | PCP | | + +------+ [...] + + | 01/09/ | Office | [facility] | Kavitha Davenport, | Coronary artery | | 2018 | Visit | MED CTR CARDIAC | MD [address] | disease involving | | | | REHABILITATION [address] | [place], | habematolel coronary | | | | [address] [place] | [place] [address] | artery of habematolel | | | | [place] [address] | [phone] | heart without angina | | | | [phone] | | pectoris | +--------+---------+ + + [...] Maharaj RRT - [facility] [address] [place] [address] Cardiac Rehab Date: 01/09/2018 Patient Information Patient [...] | | | | | | [place] [address] | | | | | | [phone] | | | | | | | | +--------+---------+ + + + documented as of this encounter Visit Diagnoses + + | Diagnosis | + + | 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
--- OUTSIDE RECORDS SUMMARY | ~2019-10-24 | XMS | Encounter Summary ---
Demographics + + + | Address | [address] | | | [place] [address] | + + + | Home Phone | | + + + | Preferred Language | Unknown | + + + | Marital Status | | + + + | Spiritism Affiliation | Unknown | + + + | Race | Unknown | + + + | Ethnic Group | Unknown | + + + Author + + + | Author | [facility] | | | and Tevinana | + + + | Organization | [facility] | | | and Tevinana [...] Team Providers + +------+ + | Care Anthropological Linguist Name | Role | Phone | + [...] | CARDIOLOGY [address] | [address] | unspecified type; | | | | [place], | [place]lene [place] | Chronic obstructive | | | | [place] [address] | [place] [address] | pulmonary disease, | | | | [phone] | | unspecified COPD | | | [...] | | | | | | [place] [address] | | | | | | [phone] | | | | | | | [...]
--- OUTSIDE RECORDS SUMMARY | ~2019-10-24 | XMS | Encounter Summary ---
Demographics + + + | Address | [address] | | | [place] [address] | + + + | Home Phone [...] Author | [facility] | | | and Tevinana | + + + | Organization | [facility] | | | and [...] Team Providers + +------+ + | Care Welder Production Line Combination Name | Role | Phone | + [...] + + | 12/21/ | Office | [facility] | Kavitha Davenport, | Coronary artery | | 2018 | Visit | MED CTR CARDIAC | MD [address] [place] | disease involving | | | | REHABILITATION [address] | [place], | [place] coronary | | | | [address] [place] | [place] [address] | artery of [place] | | | | [place] [address] | [phone] | heart without angina | | | | [phone] | | pectoris (Primary | | | [...] Eduardo Elizondo - 12/21/2017 12:00 PM PDT [facility] CARDIAC REHABILITATION [address] [place] [address] Cardiac Rehab Date: 12/21/2017 Patient Information Patient Name: Cosme Michaud Date of : 1940 Age: 77 y.o. Encounter Diagnoses Code Name Primary? I25.10 Coronary artery disease involving [place] coronary artery of [place] heart without angina pectoris Yes Z98.61 Post [...] W | | | | | | [place], | | | | | | [place] [address] | | | | | | [phone] | | | | | | | | +--------+---------+ + + + documented as of this encounter Visit Diagnoses + + | Diagnosis | + + | Coronary artery disease involving [place] coronary artery of [place] heart without | | angina pectoris - Primary | + + | Post PTCA Postsurgical percutaneous transluminal coronary angioplasty status | + + documented in this encounter"
--- OUTSIDE RECORDS SUMMARY | ~2019-10-24 | XMS | Encounter Summary ---
Demographics + + + | Address | [address] | | | [place] [address] | + + + | Home Phone | | + + + | Preferred Language | Unknown | + + + | Marital Status | | + + + | Sabianism Affiliation | Unknown | + + + | Race | Unknown | + + + | Ethnic Group | Unknown | + + + Author + + + | Author | [facility] | | | and Tevinana | + + + | Organization | [facility] | | | and [...] Team Providers + +------+ + | Care First Calender Worker Name | Role | Phone | + [...] + + | 01/16/ | Office | [facility] | Kavitha Davenport, | Chronic obstructive | | 2017 | Visit | MED CTR CARDIAC | [address] [place] | pulmonary disease, | | | | REHABILITATION [address] | [facility] [place], | unspecified COPD | | | | [facility] | [place] [address] | type (HCC) (Primary | | | | [place] [address] | [phone] | Dx) | | | | [phone] | | | +--------+---------+ + + + [...] documented as of this encounter Progress Milagros Gael-Estela Pandey, UNIT CONTROL WORKER - 01/16/2018 12:00 PM PDT [facility] CARDIAC REHABILITATION [address] [facility] [address] Cardiac Rehab Date: 01/16/2018 Patient Information Patient [...] | | | | | | [place] [address] | | | | | | [phone] | | | | | | | | +--------+---------+ + + + documented as of this encounter Visit Diagnoses + + | Diagnosis | + + | Chronic obstructive pulmonary disease, unspecified COPD type (HCC) - Primary | + + documented in this encounter"
--- OUTSIDE RECORDS SUMMARY | ~2019-10-24 | XMS | Encounter Summary ---
Demographics + + + | Address | [address] | | | [place] [address] | + + + | Home Phone | | + + + | Preferred Language | Unknown | + + + | Marital Status | | + + + | Scientology Affiliation | Unknown | + + + | Race | Unknown | + + + | Ethnic Group | Unknown | + + + Author + + + | Author | [facility] | | | and Tevinana | + + + | Organization | [facility] | | | and Tevinana | [...] Team Providers + +------+ + | Care Electronics Processor Name | Role | Phone | + +------+ + PCP | Unavailable | + +------+ + Encounter Details +--------+ + + + + | Date | Type | Department | Care Team | Description | +--------+ + + + + | 09/20/ | Hospital | [facility] | Eddie Lyles, | | | 2012 | Encounter | MED CTR EMERGENCY | [address] | | | | | CENTER [address] | [place] | | | | | [place] | [address] | | | | | [address] | | | | | | [phone] | | | +--------+ + + + [...] [place], | | | | | | [place] [address] | | | | | | [phone] | | | | | | | [...] Performed At | + + + | [facility] | [place] | | [address] | [facility] | | [ rep [address]] [ rep [facility] | | st zip] Signed | - IMAGING | | | | | Patient Name: COSME BLACK | | | Physician: ALEXSANDER : 1940 Age: 72 Sex: M Unit | | | #: [id number] Exam Date: 09/20/12 Location: | | | ER Report #: [id number] Page: | | | %(RAD)RES..mtdd.print.filter("pg") of %(RAD) | | | RES..mtdd.print.filter("tpg") | | | | | | Accession Number: [id number] | | | CHEST X-RAY 09/20/2012 CLINICAL [...] Transcribed Date/Time: 09/20/2012 16:41 | | | Aerosol Supervisor: <<Signature on File>> | | | | | | Slade Lowe MD09/20/12 2301 <Electronically signed by Slade Lowe | | | MD> Slade Lowe MD 09/20/12 1633 Aerosol Supervisor: | | | [employer] Mugbzzkpanecp06/11/13 1641 Eddie Lyles MD | | | | | + + + + + + + + | Performing | Address | City/State/Zipcode | Phone Number | | Organization | | | | + + + + + | [facility] | [address] | [place] | [phone] | | [facility] | | [address] | | | - IMAGING | | | | + + + + + documented in this encounter Visit Diagnoses Not on filedocumented in this encounter
--- OUTSIDE RECORDS SUMMARY | ~2019-10-24 | XMS | Encounter Summary ---
Demographics + + + | Address | [address] | | | [place] [address] | + + + | Home Phone [...] Author | [facility] | | | and Tevinana | + + + | Organization | [facility] | | | and Tevinana [...] Team Providers + +------+ + | Care Nuclear Equipment Research Engineer Name | Role | Phone | [...] + + | 02/01/ | Office | [facility] | Kavitha Davenport, | Coronary artery | | 2018 | Visit | MED CTR CARDIAC | MD [address] [place] | disease involving | | | | REHABILITATION [address] | [facility], | campo coronary | | | | [address] [place] | [place] [address] | artery of campo | | | | [place] [address] | [phone] | heart without angina | | | | [phone] | | pectoris (Primary | | | [...] Maharaj RRT - 02/01/2018 12:00 PM PDT [facility] CARDIAC REHABILITATION [address] [place] [address] Cardiac Rehab Date: 02/01/2018 Patient Information Patient Name: Cosme Michaud Date of : 1940 Age: 77 y.o. Encounter Diagnoses Code Name Primary? I25.10 Coronary artery disease involving campo coronary artery of campo heart without angina pectoris Yes Number of [...] W | | | | | | [place], | | | | | | [place] [address] | | | | | | [phone] | | | | | | | | +--------+---------+ + + + documented as of this encounter Visit Diagnoses + + | Diagnosis | + + | Coronary artery disease involving campo coronary artery of campo heart without | | angina pectoris - Primary | + + documented in this encounter"
--- OUTSIDE RECORDS SUMMARY | ~2019-10-24 | XMS | Encounter Summary ---
Demographics + + + | Address | [address] | | | [place] [address] | + + + | Home Phone [...] Author | [facility] | | | and Tevinana | + + + | Organization | [facility] | | | and [...] Team Providers + +------+ + | Care Wax Room Supervisor Name | Role | Phone | [...] + | 04/11/ | Telephone | [facility] | NielsvishalrupinderKavitha, | Appointment (HOLTER | | 2018 | | CARDIOLOGY [address] | MD [address] | MONITOR) | | | | [place], | [place], | | | | | [place] [address] | [place] [address] | | | | | [phone] | [phone] | | | | | | | [...] | | | | | | [place] [address] | | | | | | [phone] | | | | | | | | +--------+---------+ + + + documented as of this encounter Visit Diagnoses Not on filedocumented in this encounter"
--- OUTSIDE RECORDS SUMMARY | ~2019-10-24 | XMS | Encounter Summary ---
Demographics + + + | Address | [address] | | | [place] [address] | + + + | Home Phone [...] | Author | [facility] | | | and Tevinana | + + + | Organization | [facility] | | | and [...] Providers + +------+ + | Care Fire Watcher Name | Role | Phone | + +------+ + | Gia Feng NP | PCP | | + +------+ + Reason for Visit +--------+ + | Reason | Comments | +--------+ + | LABS | | +--------+ + Encounter Details +--------+ + + + + | Date | Type | Department | Care Team | Description | +--------+ + + + + | 01/01/ | Telephone | [facility] | Radha, | LABS | | 2019 | | CARDIOLOGY [address] | Jessica ASSISTANT BUYER [address] | | | | | [place], | [place], | | | | | [place] [address] | [place] [address] | | | | | [phone] | [phone] | | | | | | | [...] [place], | | | | | | [place] [address] | | | | | | [phone] | | | | | | | | +--------+---------+ + + + documented as of this encounter Results CBC with Differential (01/02/2019 [...] | | | | M/uL | [facility] | | | | [...] | | | Granulocyte | | | [facility] | | | s | | | MEDICAL | | | | | | CENTER - | | | | | | LABORATORY | | + + + + + + | Absolute | 5.37 | 1.80 - 8.50 | [facility] | | | Neutrophils | | K/uL | [facility] | | | | | | MEDICAL | | | | | | CENTER - | | | | | | LABORATORY | | + + + + + + | Absolute | 1.66 | 0.60 - 3.20 | [facility] | | | Lymphocytes | | K/uL | [facility] | [...] | Immature | | K/uL | [facility] | | | Granulocyte | | | MEDICAL | | | s | | | CENTER - | | | | | | LABORATORY | | + + + + + + | % nRBC | 0 | 0 - 2 per 100 | [facility] | | | | | WBCs | [facility] | | | | [...] + | [facility] | [address] | [place] | [phone] | | [facility] | | [address] | | | - LABORATORY | | [...] | | | | | mg/dL | [facility] | | | | | | MEDICAL | | | | | | CENTER - | | | | | | LABORATORY | | + + + + + + | eGFR if not | >60Comment: GLOMERULAR | >=60 | [facility] | | | | FILTRATION | mL/min/1.73m2 | [facility] | | | [place] | RATE,ESTIMATED | | MEDICAL | | | | mL/min/1.75d1Lwcb than | | CENTER - | | [...] | 9.4 | 8.7 - 10.4 | [place] | | | | | mg/dL | [facility] | | | | | | MEDICAL | | | | | | CENTER - | | | | | | LABORATORY | | + + + + + + | Albumin | 4.5 | 3.2 - 4.8 g/dL | [facility] | | | | | | [facility] | | | | | | MEDICAL [...] | | ine Ratio | | | [facility] | | [...] + | [facility] | [address] | [place] | [phone] | | [facility] | | [address] | | | - LABORATORY | | [...] | | es | | | [facility] | | | | | | MEDICAL | | | | | | CENTER - | | | | | | LABORATORY | | + +--------+ + + + | Cholesterol | 119 | <=200 mg/dL | [facility] | | | | | | [facility] | | | | | | MEDICAL | | | | | | CENTER - | | | | | | LABORATORY | | + +--------+ + + + | HDL | 34 (L) | 40 - 60 mg/dL | [facility] | | | | [...] [address] | [place] | [phone] | | [facility] | | [address] | | | - LABORATORY | | | | + + + + + documented in this encounter Visit Diagnoses + + | Diagnosis | + + | Coronary artery disease involving ruby coronary artery of ruby heart without | | angina pectoris - Primary | + + | Hypertension, unspecified type | + + documented in this encounter"
--- OUTSIDE RECORDS SUMMARY | ~2019-10-24 | XMS | Encounter Summary ---
Demographics + + + | Address | [address] | | | [place] [address] | + + + | Home Phone | | + + + | Preferred Language | Unknown | + + + | Marital Status | | + + + | Yazidi Affiliation | Unknown | + + + | Race | Unknown | + + + | Ethnic Group | Unknown | + + + Author + + + | Author | [facility] | | | and Tevinana | + + + | Organization | [facility] | | | and [...] Team Providers + +------+ + | Care Surface Ship Usw Supervisor Name | Role | Phone | + +------+ + PCP | Unavailable | + +------+ + Encounter Details +--------+ + + + + | Date | Type | Department | Care Team | Description | +--------+ + + + + | 07/15/ | Hospital | [facility] | Sd Rosales | | | 2011 - | Encounter | MED CTR OP REHAB | MD [address] | | | | | [address] | [place] | | | / | | [place] [address] | [place] [address] | | | 2011 | | [phone] | | | | | | | [...] [place], | | | | | | [place] [address] | | | | | | [phone] | | | | | | | | +--------+---------+ + + + documented as of this encounter Visit Diagnoses Not on filedocumented in this encounter"
--- OUTSIDE RECORDS SUMMARY | ~2019-10-24 | XMS | Encounter Summary ---
Demographics + + + | Address | [address] | | | [place] [address] | + + + | Home Phone | | + + + | Preferred Language | Unknown | + + + | Marital Status | | + + + | Presybeterian Affiliation | Unknown | + + + | Race | Unknown | + + + | Ethnic Group | Unknown | + + + Author + + + | Author | [facility] | | | and Tevinana | + + + | Organization | [facility] | | | and [...] Team Providers + +------+ + | Care Self Sealing Fuel Tank Builder Name | Role | Phone | + [...] | | | INTERFACES [address] | [place] [address] | | | | | [address] [place], [place] | [phone] | | | | | [address] | | | | | | [phone] | | | +--------+ + + + [...] | | | | | | [place] [address] | | | | | | [phone] | | | | | | | [...] Performed At | + + + | [facility] [address] Ph: | | | Patient Name: COSME BLACK Date of : | | | 1940 Medical Record: [id number] Account: [id number] | | | Exam Date/Time: 03/09/2011 13:45 Ordering | | | Physician: KEV DUDLEY Order Detail: [id number] Exam Description: | | | CCL DE STENT INSERTION INITIAL | | | | | | PROCEDURES [...] obtained via right femoral artery and a 6-Pakistani | | | arterial sheath was placed. A 6-Pakistani JL4 catheter was then advanced | | | under fluoroscopic guidance and engaged with the ostium of the left | | | main coronary artery, and multiple projections of the left coronary | | | systems were obtained with the use of contrast injections. The | | | catheter was then exchanged to a 6-Pakistani JR4 catheter, which was | | | advanced under fluoroscopic guidance and engaged with the ostium of | | | the right coronary artery, and multiple projections of the right | | | coronary artery were obtained with the use of contrast injections. | | | The catheter was then exchanged to a 6-Pakistani pigtail catheter which | | | was advanced into the left ventricle, and projections of left | | | ventricular function in the GONZALES view were done with contrast | | | injections. Because of the tortuosity of the iliac system, the | | | 6-Pakistani sheath was exchanged to a 35 cm 7-Pakistani sheath, which | | | allowed us [...] therapy. | | | P A KAMRYN/ana laura/[id number]/ | | | Read by KEV DUDLEY MD 03/09/2011 10:36 P Electronically | | | signed by Kev Dudley MD on 04/07/2011 9:14 AM | | + + + + + | Procedure Note | + + | Maximo Arias - 02/02/2019 10:51 AM PDT | | [facility] | | [facility] [address] | | | | | | Patient Name: COSME BLACK | | Date of : 1940 | | Medical Record: [id number] | | Account: [id number] | | | | | | Exam Date/Time: 03/09/2011 13:45 | | Ordering Physician: KEV DUDLEY | | Order Detail: [id number] | | Exam Description: CCL DE STENT INSERTION INITIAL | | | | PROCEDURES | | [...] obtained via right femoral artery and a 6-Pakistani arterial sheath was | | placed. A 6-Pakistani JL4 catheter was then advanced under fluoroscopic | | guidance and engaged with the ostium of the left main coronary artery, | | and multiple projections of the left coronary systems were obtained with | | the use of contrast injections. The catheter was then exchanged to a | | 6-Pakistani JR4 catheter, which was advanced under fluoroscopic guidance | | and engaged with the ostium of the right coronary artery, and multiple | | projections of the right coronary artery were obtained with the use of | | contrast injections. The catheter was then exchanged to a 6-Pakistani | | pigtail catheter which was advanced into the left ventricle, and | | projections of left ventricular function in the GONZALES view were done with | | contrast injections. Because of the tortuosity of the iliac system, the | | 6-Pakistani sheath was exchanged to a 35 cm 7-Pakistani sheath, which allowed | | us to [...] P | | A | | KAMRYN/ana laura/[id number]/ | | | | Read by | | KEV DUDLEY MD 03/09/2011 10:36 P | | | | | + + documented in this encounter Visit Diagnoses Not on filedocumented in this encounter"
--- OUTSIDE RECORDS SUMMARY | ~2019-10-24 | XMS | Encounter Summary ---
Demographics + + + | Address | [address] | | | [place] [address] | + + + | Home Phone [...] + | Author | [facility] | | | and Tevinana | + + + | Organization | [facility] | | | and [...] Team Providers + +------+ + | Care Ultrasound Spec Name | Role | Phone | + +------+ + PCP | Unavailable | + +------+ + Encounter Details +--------+ + + + + | Date | Type | Department | Care Team | Description | +--------+ + + + + | 05/13/ | Hospital | [facility] | Sd Rosales | | | 2010 - | Encounter | MED CTR OP REHAB | MD [address] | | | | | [address] | [place] | | | 06/11/ | | [place] [address] | [place] [address] | | | 2010 | | [phone] | [phone] | | | | | | | [...] [place], | | | | | | [place] [address] | | | | | | [phone] | | | | | | | | +--------+---------+ + + + documented as of this encounter Visit Diagnoses Not on filedocumented in this encounter"
--- OUTSIDE RECORDS SUMMARY | ~2019-10-24 | XMS | Encounter Summary ---
Demographics + + + | Address | [address] | | | [place] [address] | + + + | Home Phone | | + + + | Preferred Language | Unknown | + + + | Marital Status | | + + + | Jainism Affiliation | Unknown | + + + | Race | Unknown | + + + | Ethnic Group | Unknown | + + + Author + + + | Author | [facility] | | | and Tevinana | + + + | Organization | [facility] | [...] Team Providers + +------+ + | Care Gym Manager Name | Role | Phone | [...] + + | 01/30/ | Office | [facility] | Kavitha Davenport, | Post PTCA (Primary | | 2018 | Visit | MED CTR CARDIAC | MD [address] | Dx); Coronary artery | | | | REHABILITATION [address] | [facility], | disease involving | | | | [address] [place] | [place] [address] | akhiok coronary | | | | [place] [address] | [phone] | artery of akhiok | | | | [phone] | | heart without angina | | [...] Eduardo Elizondo - 01/30/2018 12:00 PM PDT [facility] CARDIAC REHABILITATION [address] [place] [address] Cardiac Rehab Date: 01/30/2018 Patient Information Patient Name: Cosme Michaud Date of : 1940 Age: 77 y.o. Encounter Diagnoses Code Name Primary? Z98.61 Post PTCA Yes I25.10 Coronary artery disease involving akhiok coronary artery of akhiok heart without angina pectoris Number of Visits [...] W | | | | | | [place], | | | | | | [place] [address] | | | | | | [phone] | | | | | | | | +--------+---------+ + + + documented as of this encounter Visit Diagnoses + + | Diagnosis | + + | Post PTCA - Primary Postsurgical percutaneous transluminal coronary angioplasty | | status | + + | Coronary artery disease involving akhiok coronary artery of akhiok heart without | | angina pectoris | + + documented in this encounter"
--- OUTSIDE RECORDS SUMMARY | ~2019-10-24 | XMS | Encounter Summary ---
Demographics + + + | Address | [address] | | | [place] [address] | + + + | Home Phone | | + + + | Preferred Language | Unknown | + + + | Marital Status | | + + + | Faith Affiliation | Unknown | + + + | Race | Unknown | + + + | Ethnic Group | Unknown | + + + Author + + + | Author | [facility] | | | and Tevinana | + + + | Organization | [facility] | | | and Tevinana [...] Team Providers + +------+ + | Care Fondant Puff Maker Name | Role | Phone | [...] + + | 10/01/ | Telephone | [facility] [place] | [place], | Medication Related | | 2019 | | CARDIOLOGY [address] | Jessica KEYBOARD ACTION ASSEMBLER [address] | | | | | [place], | [place], | | | | | [place] [address] | [place] [address] | | | | | [phone] | [phone] | | | | | | | [...] W | | | | | | [place] | | | | | | [place] [address] | | | | | | [phone] | | | | | | | | +--------+---------+ + + + documented as of this encounter Visit Diagnoses Not on filedocumented in this encounter"
--- OUTSIDE RECORDS SUMMARY | ~2019-10-24 | XMS | Encounter Summary ---
Demographics + + + | Address | [address] | | | [place] [address] | + + + | Home Phone | | + + + | Preferred Language | Unknown | + + + | Marital Status | | + + + | Synagogue Affiliation | Unknown | + + + | Race | Unknown | + + + | Ethnic Group | Unknown | + + + Author + + + | Author | [facility] | | | and Tevinana | + + + | Organization | [facility] | | | and Tevinana [...] Team Providers + +------+ + | Care Brim Pouncer Name | Role | Phone | + [...] | | | | | | AL CATH PLMT | | | | | [...] + + + + | 10/02/ | Hospital | [facility] | Kavitha Davenport, | Precordial pain | | 2018 | Encounter | MED CTR CV INTRA OP | [address] | | | | | [address] | [facility] | | | | | [place], [place] | [place] [address] | | | | | [address] | [phone] | | | | | [phone] | | | | | | | Shravan Das MD | | | | | | [address] | | | | | | [address] | | | | | | [place] [address] | | | | | | [phone] | | | | | | | [...] stools Any unusual bleeding Date Last Reviewed: 03/12/201619994526-8600 [employer]. [address] [place] [address], [place] [address]. All righ ts reserved. This information is [...] W | | | | | | [place], | | | | | | [place] [address] | | | | | | [phone] | | | | | | | | +--------+---------+ + + + documented as of this encounter Procedures + +--------+ + + + | Procedure Name | Priori | Date/Time | Associated Diagnosis | Comments | | | ty | | | | + +--------+ + + + | CV MARIANA | Routin | 10/02/2017 | | Results for this | | | e | 9:46 AM | | procedure are in the | | | | PDT | | results section. | + +--------+ + + + | EXTRA JOSEPH RODRIGUES | Routin | 10/02/2017 | | Results [...] (1940) OF PROCEDURE: | | | 10/02/2017 MANAGER CREATIVE: Kavitha [place] MD PROCEDURES | | | [...] | | several sagittal and oblique projections. Swapsee diagnostic catheters | | | were used [...] | interventionalists at [facility] in [facility]. Electronically | | | signed [...] at | | |[facility] in [facility]. | | | | | [...] + | Extra | Done | | [facility] | | | Joseph | | | [facility] | | | Top Tube | [...] | + + + + + | [facility] | [address] | [place] | [phone] | | [facility] | | [address] | | | - LABORATORY | | [...] + | [facility] | [address] | [place] | [phone] | | [facility] | | [address] | | | - LABORATORY | | | | + + + + + Basic Metabolic Panel (10/02/2017 7:54 AM PDT) + + + + + + | Component | Value | Ref Range | Performed | Pathologist | | | | | At | Signature | + + + + + + | Na | 135 (L) | 136 - 149 | [facility] | | | | | mmol/L | [facility] | | | | | | MEDICAL [...] | | | | mg/dL | [facility] | | | | | | MEDICAL | | | | | | CENTER - | | | | | | LABORATORY | | + + + + + + | eGFR if not | >60Comment: GLOMERULAR | >=60 | [facility] | | | | FILTRATION | mL/min/1.73m2 | [facility] | | | INDON[place]IAN | RATE,ESTIMATED | | MEDICAL | | | | mL/min/1.73j3Hyyd than | | CENTER - | | [...] ST. | [address] | [place] | [phone] | | [facility] | | [address] | | | - LABORATORY | | | | + + + + + documented in this encounter Visit Diagnoses + + | Diagnosis | + + | Precordial pain | + + documented in this encounter Administered Medications + +--------+---------+------+------+------+ | Medication Order | MAR | Action | Dose | Rate | Site | | | Action | Date | | | | + +--------+---------+------+------+------+ + +---+ | acetaminophen (TYLENOL) tablet | | | 650 mg 650 mg, Oral, EVERY 6 | | | HOURS PRN, Pain, Fever, Starting | | | Mon10/02/17 at 1000, | | | Post-op/Phase II [...] | | | | + +-------+ +-------+---+---+ + +---+ | | | + +---+ [...] | | | + +---+ + +-------+ +--------+---+---+ | nitroglycerin (NITROSTAT) SL [...] PRN, Nausea, | | | Vomiting, Starting Mon10/02/17 at | | | 1000, Post-op/Phase II [...]
--- OUTSIDE RECORDS SUMMARY | ~2019-10-24 | XMS | Encounter Summary ---
Demographics + + + | Address | [address] | | | [place] [address] | + + + | Home Phone | | + + + | Preferred Language | Unknown | + + + | Marital Status | | + + + | Mosque Affiliation | Unknown | + + + | Race | Unknown | + + + | Ethnic Group | Unknown | + + + Author + + + | Author | [facility] | | | and Tevinana | + + + | Organization | [facility] | | | and Tevinana [...] Team Providers + +------+ + | Care Fingernail Technician Name | Role | Phone | [...] | MED CTR EXTERNAL | [address] | | | | | IMAGING [address] | Arlene MICHEL | | | | | [address] [place] | [place] [address] | | | | | [place] [address] | | | | | | [phone] | | | +--------+ + + + [...] | | | | | | [place] [address] | | | | | | [phone] | | | | | | | [...]
--- OUTSIDE RECORDS SUMMARY | ~2019-10-24 | XMS | Encounter Summary ---
Demographics + + + | Address | [address] | | | [place] [address] | + + + | Home Phone | | + + + | Preferred Language | Unknown | + + + | Marital Status | | + + + | Congregation Affiliation | Unknown | + + + | Race | Unknown | + + + | Ethnic Group | Unknown | + + + Author + + + | Author | [facility] | | | and Tevinana | + + + | Organization | [facility] | | | [...] Team Providers + +------+ + | Care Economic Consultant Name | Role | Phone | + +------+ + PCP | Unavailable | + +------+ + Encounter Details +--------+ + + + + | Date | Type | Department | Care Team | Description | +--------+ + + + + | 04/12/ | Hospital | [facility] | Sd Rosales | | | 2010 - | Encounter | MED CTR OP REHAB | MD Fernando [address] | | | | | [address] | [place] | | | 05/11/ | | [place] [address] | [place] [address] | | | 2010 | | [phone] | [phone] | | | | | | | [...] [place], | | | | | | [place] [address] | | | | | | [phone] | | | | | | | | +--------+---------+ + + + documented as of this encounter Visit Diagnoses Not on filedocumented in this encounter"
--- OUTSIDE RECORDS SUMMARY | ~2019-10-24 | XMS | Encounter Summary ---
Demographics + + + | Address | [address] | | | [place] [address] | + + + | Home Phone [...] Author | [facility] | | | and [place]evinana | + + + | Organization | [facility] | | | and [...] Team Providers + +------+ + | Care Pole Frame Construction Worker Name | Role | Phone | [...] | | | INTERFACES [address] | [place] [address] | | | | | [address], [place] | [phone] | | | | | [address] | | | | | | [phone] | | | +--------+ + + + [...] | | | | | | [place] [address] | | | | | | [phone] | | | | | | | [...] Performed At | + + + | [facility] [address] Ph: | | | Patient Name: COSME BLACK Date of : | | | 1940 Medical Record: [id number] Account: [id number] | | | Exam Date/Time: 03/09/2011 13:45 [...] obtained via right femoral artery and a 6-Israeli | | | arterial sheath was placed. A 6-Israeli JL4 catheter was then advanced | | | under fluoroscopic guidance and engaged with the ostium of the left | | | main coronary artery, and multiple projections of the left coronary | | | systems were obtained with the use of contrast injections. The | | | catheter was then exchanged to a 6-Israeli JR4 catheter, which was | | | advanced under fluoroscopic guidance and engaged with the ostium of | | | the right coronary artery, and multiple projections of the right | | | coronary artery were obtained with the use of contrast injections. | | | The catheter was then exchanged to a 6-Israeli pigtail catheter which | | | was advanced into the left ventricle, and projections of left | | | ventricular function in the GONZALES view were done with contrast | | | injections. Because of the tortuosity of the iliac system, the | | | 6-Israeli sheath was exchanged to a 35 cm 7-Israeli sheath, which | | | allowed us [...] therapy. | | | P A KAMRYN/ana laura/[id number]/ | | | Read by KEV DUDLEY MD 03/09/2011 10:36 P Electronically | | | signed by Kev Dudley MD on 04/07/2011 9:14 AM | | + + + + + | Procedure Note | + + | Maximo Arias - 02/02/2019 10:51 AM PDT | | [facility] | | [facility] [address] | | | | | | Patient Name: COSME BLACK | | Date of : 1940 | | Medical Record: [id number] | | Account: [id number] | | | | | | Exam [...] obtained via right femoral artery and a 6-Israeli arterial sheath was | | placed. A 6-Israeli JL4 catheter was then advanced under fluoroscopic | | guidance and engaged with the ostium of the left main coronary artery, | | and multiple projections of the left coronary systems were obtained with | | the use of contrast injections. The catheter was then exchanged to a | | 6-Israeli JR4 catheter, which was advanced under fluoroscopic guidance | | and engaged with the ostium of the right coronary artery, and multiple | | projections of the right coronary artery were obtained with the use of | | contrast injections. The catheter was then exchanged to a 6-Israeli | | pigtail catheter which was advanced into the left ventricle, and | | projections of left ventricular function in the GONZALES view were done with | | contrast injections. Because of the tortuosity of the iliac system, the | | 6-Israeli sheath was exchanged to a 35 cm 7-Israeli sheath, which allowed | | us to [...] P | | A | | KAMRYN/ana laura/[id number]/ | | | | Read by | | KEV DUDLEY MD 03/09/2011 10:36 P | | | | | + + documented in this encounter Visit Diagnoses Not on filedocumented in this encounter"
--- OUTSIDE RECORDS SUMMARY | ~2019-10-24 | XMS | Encounter Summary ---
Demographics + + + | Address | [address] | | | [place] [address] | + + + | Home Phone | | + + + | Preferred Language | Unknown | + + + | Marital Status | | + + + | Judaism Affiliation | Unknown | + + + | Race | Unknown | + + + | Ethnic Group | Unknown | + + + Author + + + | Author | [facility] | | | and Tevinana | + + + | Organization | [facility] | | [...] Team Providers + +------+ + | Care Handle Turner Name | Role | Phone | [...] | | | | | | | SD CATH PLMT | | | | | [...] + + | 10/02/ | Hospital | [facility] | Kavitha Davenport, | Precordial pain | | 2018 | Encounter | MED CTR CV INTRA OP | [address] | | | | | [address] | [facility] | | | | [place], [place] | [place] [address] | | | | | [address] | [phone] | | | | | [phone] | | | | | | | Shravan Das MD | | | | | | [address] | | | | | | [address] | | | | | | [place] [address] | | | | | | [phone] | | | | | | | [...] stools Any unusual bleeding Date Last Reviewed: 03/12/201619994724-9599 [employer]. [address] [place] [address], [place] [address]. All righ ts reserved. This information is [...] [address] | | | | | [address] [place], | | | | | | [place] [address] | | | | | | [phone] | | | | | | | [...] (1940) OF PROCEDURE: | | | 10/02/2017 FINANCIAL AID: Kavitha Davenport MD PROCEDURES | | | [...] | | several sagittal and oblique projections. Impermium diagnostic catheters | | | were used [...] Dr. Flores, | | | interventionalists at [facility] in [facility]. Electronically | | | signed [...] with Dr. Flores, interventionalists at | | |[facility] in [facility]. | | | | | [...] [address] | [place] | [phone] | | [facility] | | [address] | | | - LABORATORY | | [...] + | [facility] | [address] | [place] | [phone] | | [facility] | | [address] | | | - LABORATORY | | [...] | | | | mmol/L | [facility] | | | | | | MEDICAL [...] mL/min/1.73m2 | [facility] | | | AND[facility]RAN | RATE,ESTIMATED | | MEDICAL | | | | mL/min/1.45i2Wvso than | | CENTER - | | [...] [address] | [place] | [phone] | | [facility] | | [address] | | | - LABORATORY | | [...]
--- OUTSIDE RECORDS SUMMARY | ~2019-10-24 | XMS | Encounter Summary ---
Demographics + + + | Address | [address] | | | [place] [address] | + + + | Home Phone | | + + + | Preferred Language | Unknown | + + + | Marital Status | | + + + | Pentecostal Affiliation | Unknown | + + + | Race | Unknown | + + + | Ethnic Group | Unknown | + + + Author + + + | Author | [facility] | | | and [place]evinana | + + + | Organization | [facility] [...] Team Providers + +------+ + | Care Browning Processor Name | Role | Phone | [...] Description | +--------+---------+ + + + | 01/18/ | Office | [facility] | Kavitha Davenport, | Post PTCA (Primary | | 2018 | Visit | MED CTR CARDIAC | MD [address] | Dx); Coronary artery | | | | REHABILITATION [address] [place], | disease involving | | | | [address] [place] | [place] [address] | [place] coronary | | | | [place] [address] | [phone] | artery of [place] | | | | [phone] | | heart without angina | | [...] of this encounter Jose Eduardo Elizondo - 01/18/2018 12:00 PM PDT [facility] CARDIAC REHABILITATION [address] [place] [address] Cardiac Rehab 30 Day Review Date: 01/18/2018 Patient Information Patient Name: Cosme Michaud Date of : 1940 Age: 77 y.o. Referring Provider: Kavitha Davenport MD Encounter Diagnoses Code Name Primary? Z98.61 Post PTCA Yes I25.10 Coronary artery disease involving [place] coronary artery of [place] heart without angina pectoris Cardiac Rehab Phase II Marcos atment Plan Cosme Michaud is a 77 y.o. male with a history of coronary artery disease, hypothyro idism, obesity, inactivity, hypertensionand COPD. He has a history of non-Q wave AL and st enting in 2010, and recent [...] RPE: 3-4/10 30 Day exercise assessment: Date: 01/18/18 Mode: Biostep Duration: 30 X 3.37 METs RPE: /10 60 Day exercise assessment: Date: [...] with Heart Disease book Date received: 12/12/17 Dayne looney Goal(s) Aerobic- moderate intensity activity 30 to [...] minutes at a moderate pace each day. Date: 01/18/18 Notes: He has progressed quickly and safely. Enjoys pushing himself b ut does take to coaching well. Nutr ition and Weight Assessment: Height: 5'7 " Admission Weight: 231# 30 Day We ight: 229# BMI: 36 60 Day Weight: Discharge Weight: [...] Healthy Dietary Education Date: 12/12/17 -Referral to Technical Service Representative: Date: -DVD: Healthy Eating For Life Date: [...] Exercise BP: 162/80 30 Day Resting BP: 110/58 30 Day Exercise BP: 162/74 60 Day Resting BP: 60 Day Exercise [...] compliant with medi cation, willing to exercise. Date: 01/18/18 Notes: Still losing weight, no new labs taken since initial eval. Janis chairez Mellitus History of diabetes: No Treatment: Last hemoglobin A1C: Value: Date: Interventions -Evaluate blood sugar pre- and post- exercise until stable. Date: Range: -Referral to Grievance Manager Date: Education Points listed below- Date Completed: [...] support system Progression/Progress to squires Goals Date: 01/18/18 Notes: Done great Patients stated Goals for Cardiac Rehab: To get back into regular exercise and gain strengt h. Electronically signed by: Jose Eduardo Rice, 01/18/2018 14:12 Patient Name: Cosme Michaud/: 1940/ lly signed by Kavitha Davenport MD at 01/18/2018 2:30 PM PDTdocumented in this encounter Plan of Treatment +--------+---------+ + + + | Date | Type | Specialty | Care Team | Description | +--------+---------+ + + + | 03/24/ | Office | Cardiology | Radha, | | | 2019 | Visit | | [place] [address] | | | | | [address], | | | | | | [place] [address] | | | | | | [phone] | | | | | | | [...] pectoris | + + documented in this encounter
--- OUTSIDE RECORDS SUMMARY | ~2019-10-24 | XMS | Encounter Summary ---
Demographics + + + | Address | [address] | | | [place] [address] | + + + | Home Phone | | + + + | Preferred Language | Unknown | + + + | Marital Status | | + + + | Episcopalian Affiliation | Unknown | + + + | Race | Unknown | + + + | Ethnic Group | Unknown | + + + Author + + + | Author | [facility] | | | and [place]evin[place] | + + + | Organization | [facility] | [...] Team Providers + +------+ + | Care Employee'S Representative Name | Role | Phone | [...] [address] | | | | | [employer] APPLICATION SUPERVISOR - [employer] | [place] | [address] | | | | | READ STRESS | [address] [place] | [place], | | | | | TEST OF | [place] | [place] [address] | | | | | 06-27-17 | [address] | Phone: | | | | | | Phone: | [phone] | | | | | | [phone] | Fax: | | | | | | Fax: | [phone] | | | | | | [phone] | | +--------+--------+ + + + + Encounter Details +--------+---------+ + + + | Date | Type | Department | Care Team | Description | +--------+---------+ + + + | 03/19/ | Office | [facility] | Kavitha Davenport, | Coronary artery | | 2018 | Visit | CARDIOLOGY [address] | disease involving | | | | [place], | [place], | [place] coronary | | | | [place] [address] | [place] [address] | artery of [place] | | | | [phone] | [phone] | heart without angina | | | [...] 3 months Where to go for labs: [facility]- [address] [facility]. Follow up appointment: 6 months Provider: Kavitha [...] Diagnosis Chest pain Coronary artery disease involving [place] coronary artery of [place] heart without angina pectoris Hypothyroidism AAA (abdominal [...] minute s as needed for Chest pain. Bxlzfohpo-Akbbjmuohy-BD-APAP (NYQUIL PO) Take 750 mg by mouth. [...] LVEF is 60%, grade 1 left ventricular wets tolic dysfunction, mild mitral valve regurgitation, mild [...] He is in a class I of [place] Heart Association functional class. There is no [...] Enroll patient into cardiac rehab program in [place]. 7. I recommend a therapeutic lifestyle change including walking 30 minutes a day, choosing healthy choices of diet , including DASH diet and weight reduction. 8. Follow up in 6 months or sooner with concerns. I, Kiley Pringle, am acting as a scribe on behalf of, and in the presence of Kavitha valenzuela MD. I have reviewed and edited this note. Kiley Pringle Child'S Nurse 03/19/2018 I, Kavitha Davenport MD, personally performed the services described in this documentation, as scribed in my presence and it is both accurate and complete. Kiley Pringle Med Ass t 03/19/2018 14:36 Electronically signed by: Kavitha Davenport MD [facility] 03/19/2018 Portions of this chart may have been created with [employer] voice recognition software. Occasi onal wrong-word or [...] | | | | | | [place] [address] | | | | | | [phone] | | | | | | | [...] starting 03/19/2018 | | | | | [place] coronary | until 06/19/2018 | | | | | artery of [place] | | | | | | heart without angina | | | | | | pectoris | | + +------+--------+ + + | Lipid Panel | Lab | Routin | Coronary artery | 1 Occurrences | | | | e | disease involving | starting 03/19/2018 | | | | | [place] coronary | until 06/19/2018 | | | | | artery of [place] | | | | | | heart [...] PRIMARY CARE: Gia Feng | | | DRYWALL APPLICATION SUPERVISOR READING PHONOGRAPH CARTRIDGE ASSEMBLER: Kavitha Davenport MD 48-H[address] HOLTER | | [...] | | Signed by: Kavitha Davenport MD [facility] 12/21/2018, 15:36 | | + + + + +---------+ + + | Performing | Address | City/State/Zipcode | Phone Number | | Organization | | | | + +---------+ + + | [facility] | | | | + +---------+ + + documented in this encounter Visit Diagnoses + + | Diagnosis | + + | Coronary artery disease involving [place] coronary artery of [place] heart without | | angina pectoris - Primary | + + | Essential hypertension with goal blood pressure less than 130/80 | + + documented in this encounter
--- OUTSIDE RECORDS SUMMARY | ~2019-10-24 | XMS | Encounter Summary ---
Demographics + + + | Address | [address] | | | [place] [address] | + + + | Home Phone [...] | [facility] | | | and [place] | + + + | Organization | [facility] | | | and [...] Team Providers + +------+ + | Care Skiver Heel Tap Name | Role | Phone | + +------+ + | Gia Feng NP | PCP | | + +------+ + Reason for Visit + + + | Reason | Comments | + + + | Follow-up | | + + + | Chest Pain | | + + + | Coronary Artery | | | Disease | | + + + | Hypertension [...] | | aortic | 77 [address] | | | | | aneurysm, | YOMBA SHOSHONE | [address] | | | | | without | [address] [place] | [place], | | | | | rupture | [place], [place] | [place] [address] | | | | | ([facility]) | [address] | Phone: | | | | | Atherosclero | Phone: | [phone] | | | | | tic heart | [phone] | Fax: | | | | | disease of | Fax: | [phone] | | | | | [place] | [phone] | | | | | | coronary [...] + + | 01/02/ | Office | [facility] | Radha, | Chest pain, | | 2018 | Visit | CARDIOLOGY [address] | [address] [address] | unspecified type; | | | | [address], | [address] [place], | Coronary artery | | | | [place] [address] | [place] [address] | disease involving | | | | [phone] | [phone] | [place] coronary | | | | | | artery of [place] | | | | | | heart without angina | | | | | | pectoris; Essential | | | | | | hypertension with | | | | | | goal blood pressure | | | | | | less than 130/80; | | | | | | Coronary | | | | | | arteriosclerosis; | | | | | | Abdominal aortic | | | | | | aneurysm (AAA) | | | | | | without rupture | | | | | | (HCC); Hypertension, | | | | | | unspecified type; | | | | | | 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 | +--------+---------+ + + + Social History [...] + | Blood Pressure | 120/70 | 01/02/2019 11:12 AM | | | | | PDT | | + + + + + | Pulse | 72 | 01/02/2019 11:12 AM | | | | | PDT | | + + + + + | Temperature | - | - | | + + + + + | Respiratory Rate | 20 | 01/02/2019 11:12 AM | | | | | PDT | | + + + + + | Oxygen Saturation | - | - | | + + + + + | Inhaled Oxygen | - | - | | | Concentration | | | | + + + + + | Weight | 100.1 kg (220 lb | 01/02/2019 11:12 AM | | | | 10.9 oz) | PDT | | + + + + + | Height | 170.2 cm (5' 7") | 01/02/2019 11:12 AM | | | | | PDT | | + + + + + | Body Mass Index | 34.56 | 01/02/2019 11:12 AM | | | | | PDT | | + + + + + documented in this encounter Patient Instructions Patient Instructions Delilah Bob, Pecan Mallow Dipper - 01/02/2019 11:30 AM PDT1. Referra l to cardiac rehab at [facility] 2. Start metoprolol succinate 25 mg take 1/2 tablet (12.5 mg) once nightly 3. Continue taking Losartan 25 mg once daily 4. He will follow up in 2 months, or sooner with concerns. documented in this encounter Progress Notes Jessica Garcai ARNP - 01/02/2019 11:30 AM PDTFormatting of this note might be differen t from the original. PATIENT NAME: Cosme Michaud : 1940: AGE: 78 y.o. PRIMARY CARE: Gia Feng NP OUTPATIENT FOLLOW UP VISIT Date of Service: 01/02/2019 HISTORY OF PRESENT ILLNESS: Cosme Michaud is a 78 y.o. male with a history of coronary artery disease, hypothyro idism, obesity, inactivity, hypertensionand COPD. He is being seen today for follow up an d test results. He was last seen 03/19/2018 Dr. Bowser at which time he would stop metoprolol to bring his hea rt rate up.He was scheduled for 48 hour Holter monitor for bradycardia.He will increase ator vastatin to 40 mg once a day. Patient has history of CAD. Guidelines recommend high-intens ity statin, and have his LFT check and lipid in three months. He would increase losartan to 50 mg once a day to offset high blood pressure. Enroll patient into cardiac rehab program in [place]. Dr. Bowser recommend a therapeutic lifestyle change including walking 30 minutes a day, choosing healthy choices of diet , including DASH diet and weight reduction. Follow up in 6 months or sooner with concerns. Since that time, he has a holter monitor done on 12/21/2018. He has stopped metoprolol and i ncreased his atorvastatin to 40 mg and did not increase his losartan to 50 mg. He has had a good energy level. He tries to stay active with work, he is wanting to restar t cardiac rehab for exercise. He has not had any chest pain or discomfort at rest or with e xertion. He has not noticed shortness of breath. He has dizziness with lightheadedness wit h vertigo and due to his hearing loss. Has had this for several years. He has not noticed pa lpitations. He has not had leg swelling. He is able to sleep laying down at night without any symptoms of shortness of breath. He had sleep apnea but does not use a CPAP machine MEDICAL, SURGICAL, AND PERSONAL HISTORY Past Medical, Surgical, Family, and Social History are reviewed in EPIC. CURRENT PROBLEMS Patient Active Problem List Diagnosis Chest pain Coronary artery disease involving [place] coronary artery of [place] heart without angina pectoris Hypothyroidism AAA (abdominal [...] 25 mcg by mouth Daily. losartan (COZAAR) 50 mg tablet Take 1 tablet by mouth Daily. (Patient taking differentl y: Take 25 mg by mouth Daily.) 90 tablet 3 Misc Natural Products (TURMERIC CURCUMIN) CAPS Take 1 capsule by mouth Daily. Multiple Vitamins-Minerals (OCUVITE EXTRA) TABS Take 1 capsule by mouth Daily. nitroglycerin (NITROSTAT) 0.[address] 0.4 mg under the tongue every 5 minute s as needed for Chest pain. Zoxhypwty-Rnyjjsmykr-IQ-APAP (NYQUIL PO) Take 750 mg by mouth. No current facility-administered medications for this visit. ALLERGIES Allergies Allergen Reactions Tramadol Anxiety ROS Review of Systems Constitutional: Positive for malaise/fatigue. Negative for chills and fever. HENT: Negative. Negative for hearing loss, nosebleeds and tinnitus. Eyes: Negative. Negative for blurred vision and double vision. Respiratory: Positive for shortness of breath. Cardiovascular: Positive for chest pain. Negative for palpitations, orthopnea and leg swell ing. Gastrointestinal: Negative. Negative for abdominal pain, blood in stool, constipation, teo rrhea, heartburn, nausea and vomiting. Genitourinary: Negative. Negative for frequency, hematuria and urgency. Musculoskeletal: Negative. Negative for back pain, falls, joint pain, myalgias and neck pa in. Skin: Negative. Negative for itching and rash. Neurological: Negative. Negative for dizziness, tingling, tremors, seizures, loss of consc iousness and weakness. Lightheadedness - No Endo/Heme/Allergies: Negative. Does not bruise/bleed easily. Psychiatric/Behavioral: Negative. Negative for memory loss. The patient is not nervous/anx ious and does not have insomnia. OBJECTIVE: PHYSICAL EXAM BP 120/70 | Pulse 72 | Resp 20 | Ht 1.702 m (5' 7") | Wt 100.1 kg (220 lb 10.9 oz) | B CA 34.56 kg/m Physical Exam Constitutional: He is oriented [...] is no tenderness. Musculoskeletal: He exhibits edema (Mild leg swelling). Neurological: He is alert and [...] orders placed or performed in visit on 01/02/2019 ECG 12 lead Result Value Ref Range INTERPRETATION TEXT Sinus rhythm heart rate 74 bpm LAB RESULTS reviewed during visit today primarily from [facility]: LIPID Lab Results Component Value [...] 01/02/2019 CREA 0.98 01/02/2019 BUN 23 01/02/2019 EGFREX 60 12/05/2018 CREEX 1.0 12/05/2018 HEMATOLOGY Lab Results Component Value Date WBC 8.2 01/02/2019 WBCEX 9.3 12/05/2018 HGB 14.2 01/02/2019 HGBEX 14.4 12/05/2018 HCT 43.1 01/02/2019 HCTEX 43.6 12/05/2018 PLT 187 01/02/2019 PLTEX 190 12/05/2018 Lab Results Component Value Date TSHEX 4.570 (A) 12/05/2018 RESULTS- I reviewed reports from [facility]: Holter Monitor on 12/21/18 shows the predominant rhythm is normal sinus with the heart rate ranging between 54 and 97 beats per minute, the average heart rate was 75 beats per minute d uring the 44:37 hour recording, very rare premature ventricular beats including one couplet, occasional premature atrial beats including 6 paroxysmal atrial tachycardia runs and 8 coup lets, the longest run was 4 beats at a maximum rate of 156 beats per minute, 87 runs of sinu s bradycardia, the longest run 47 beats (10:43-2) and the minimum rate 51 beats per minute ( 09:25-2), the patient did not report any symptoms, by Freddy Davenport MD. Above data and testing is reviewed this visit; testing below is historical data unless othe rwise specified. ASSESSMENT: 1. Coronary artery disease with recurrent chest pain A. Echocardiogram on 11/30/2010 shows normal left ventricular size, wall thickne ss and motion, preserved left ventricular systolic function, LVEF is 60%, grade 1 left ventr icular diastolic dysfunction, mild mitral valve regurgitation, mild tricuspid valve regurgit ation. B. LHC on 03/09/2011 shows non-Q-wave myocardial infarction with acute coronary syndrome, three-vessel coronary artery disease. However, most important left anterior desce nding with subtotal occlusion status post percutaneous transluminal coronary angioplasty and stenting as above, abdominal aortic aneurysm, hypokinetic apex, likely secondary to stunned myocardium. The ejection fraction is around 60%. C. Stress Test on 06/27/2017 shows regadenoson EKG is negative, abnormal Regaden oson Sestamibi myocardial perfusion study with a small size, mainly reversible defect of a m ild severity in the mid and distal inferior wall, this suggests potential small size myocard ial ischemia of a dominant right coronary artery territories. However, due to the patient's body habitus, inferior/diaphragmatic soft tissue attenuation cannot be completely ruled out . Gated SPECT reveals a normal left ventricular wall thickness and motion, preserved left ve ntricular systolic function. LVEF by gated SPECT is 75 %. D. Angiogram 10/02/[address] Davenport shows borderline coronary artery disease; 70% stenosis at the midportion of the LAD and 70% stenosis to the distal RCA, there is a ri ght dominate circulation, normal LV systolic function with an EF of 60%, Systemic blood pres sure is normal, there was successful hemostasis with a TR hemostatic band. E. Radial artery approach, instantaneous wave-free ratio of the left anterior d escending, primary stenting of distal right coronary artery with a 2.75 x 24 mmsynergy kristi g-eluting stent on 10/10/[address] Flores. F. Holter Monitor on 12/21/18 shows the predominant rhythm is normal sinus with the heart rate ranging between 54 and 97 beats per minute, the average heart rate was 75 lionel ts per minute during the 44:37 hour recording, very rare premature ventricular beats includi ng one couplet, occasional premature atrial beats including 6 paroxysmal atrial tachycardia runs and 8 couplets, the longest run was 4 beats at a maximum rate of 156 beats per minute, 87 runs of sinus bradycardia, the longest run 47 beats (10:43-2) and the minimum rate 51 lionel ts per minute (09:25-2), the patient did not report any symptoms, by Freddy Davenport MD. G. Today, 01/02/2019, he is asymptomatic. He has no angina or dyspnea with exertion or at r ate, he does have stomach pain that could be from heart burn and at times it feels like ches t pain. He does not do any exercises and would like to restart cardiac rehab.Patient is due for a ultrasound of artery's to evaluate his aorta aneurysm He is on a medical regimen with dual antiplatelet therapy, aspirin, ARB and statin. He is in class I of the [place] [employer] Association functional class. He would benefit of low dose Metoprolol since he had a non-Q A CA 2. Bradycardia and history of 4 second pause right after the intervention A. Today, 01/02/2019, patient states that he has not had any episodes of palpita tions, he states that he has lightheaded and dizziness daily with vertigo and could be for h earing loss that he has had it for awhile. 3. Hypertension A. Today, 01/02/2019, his blood pressure is well controlled. He will start takin g metoprolol succinate 12.5 mg once in the evening. 4. Hyperlipidemia A. Today, 01/02/2019, he remains on atorvastatin.Patient states that he did not increasce his atorvastatin to 40 mg he continues taking 25 mg once daily. He states that his blood pressure has been well controlled. 5. Obstructive sleep apnea A. Today, 01/02/2019, patient has sleep apnea but does not use a CPAP machine at night. 6. Obesity A. Today, 01/02/2019, Body mass index is 34.56 kg/m. This is improved since his last visi t. 7. Inactivity A. Today, 01/02/2019, patient has not been doing any exercises but stays busy wi [employer] work for actives. He would like to restart cardiac rehab at [facility]. 8. COPD A. He mentions this has been better in the past month. PLAN: 1. Referral to cardiac rehab at [facility] for CAD 2. Start metoprolol succinate 12.5 mg once nightly 3. Continue taking losartan 25 mg once daily check blood pressure and pulse twice daily for two weeks and return the log to our office. 4. He will follow up in 2 months for office visit, or sooner with concerns. Delilah Ny, Pecan Mallow Dipper am acting as a scribe on behalf of, and in the presenc e of LOU Matamoros. - Delilah Bob Pecan Mallow Dipper 01/02/2019 12:06 Jessica Ny ARNP, personally performed the services described in this documentati on, as scribed in my presence and it is both accurate and complete. -LOU Matamoros 01/02/2019 Portions of this chart may have been created with [employer] voice recognition software. Occasi onal wrong-word or [...] | | | | | | [place] [address] | | | | | | [phone] | | | | | | | | +--------+---------+ + + + documented as of this encounter Procedures + +--------+ + + + | Procedure Name | Priori | Date/Time | Associated Diagnosis | Comments | | | ty | | | | + +--------+ + + + | ECG 12 LEAD | Routin | 01/02/2019 | Chest pain, | Results for this | | | e | 11:24 AM | unspecified type | procedure are in the | | | | PDT | Coronary artery | results section. | | | | | disease involving | | | | | | [place] coronary | | | | | | artery of [place] | | | | | | heart without angina | | | | | | pectoris Essential | | | | | | hypertension with | | | | | | goal blood pressure | | | | | | less than 130/80 | | + +--------+ + + + documented in this encounter Results US Aorta Limited (03/25/2019 10:44 AM PDT) + + | Specimen | + + | | + + + + + | Impressions | Performed At | + + + | Fusiform aneurysmal dilatation of the distal infrarenal abdominal | [facility] | | aorta measuring up to 4.8 x 4.4 cm. Dictated and Signed by: James | | | MD Benjie Electronically signed: 03/25/2019 11:33 AM | | [...] | Hugo, Rad Results In - 03/25/2019 11:36 AM PDT US AORTA LIMITED 03/25/2019 10:21 AM [...] + +---------+ + + ECG 12 lead (01/02/2019 11:24 AM PDT) + + + + + + | Component | Value | Ref Range | Performed | Pathologist | | | | | At | Signature | + + + + + + | VENTRICULAR | 74 | BPM | [facility] | | | RATE EKG | | | | | + + + + + + | ATRIAL RATE | 74 | BPM | [facility] | | + + + + + + | P-R | 178 | ms | [facility] | | | INTERVAL | | | | | + + + + + + | QRS | 74 | ms | [facility] | | | DURATION | | | | | + + + + + + | Q-T | 410 | ms | [facility] | | | INTERVAL | | | | | + + + + + + | Q-T | 455 | ms | [facility] | | | INTERVAL | | | | | | (CORRECTED) | | | | | + + + + + + | P WAVE AXIS | 55 | degrees | [facility] | | + + + + + + | QRS AXIS | 54 | degrees | [facility] | | + + + + + + | T AXIS | 64 | degrees | [facility] | | + + + + + + | INTERPRETAT | Sinus rhythmOtherwise | | [facility] | | | ION TEXT | normal ECGWhen compared | | | | | | with ECG of 17-NOV-2017 | | | | | | 13:41,Current | | | | | | undetermined rhythm | | | | | | precludes rhythm | | | | | | comparison, needs | | | | | | reviewConfirmed by | | | | | | ETHEL BROOKE, FREDDY | | | | | | ([id number]) on 01/03/2019 | | | | | | 11:29:26 AM | | | | + + + [...] pain, unspecified type | + + | Coronary artery disease involving [place] coronary artery of [place] heart without | | angina pectoris | + + | Essential hypertension with goal blood pressure less than 130/80 | + + | Coronary arteriosclerosis Coronary atherosclerosis of unspecified type of vessel, | | [place] or graft | + + | Abdominal aortic aneurysm (AAA) without rupture (HCC) | + + | Hypertension, unspecified type | + + | Tobacco dependence in remission Personal history of tobacco use, presenting hazards | | to health | + + documented in this encounter
--- OUTSIDE RECORDS SUMMARY | ~2019-10-24 | XMS | Encounter Summary ---
Demographics + + + | Address | [address] | | | [place] [address] | + + + | Home Phone | | + + + | Preferred Language | Unknown | + + + | Marital Status | | + + + | Orthodox Affiliation | Unknown | + + + | Race | Unknown | + + + | Ethnic Group | Unknown | + + + Author + + + | Author | [facility] | | | and [place] | + + + | Organization | [facility] [...] Team Providers + +------+ + | Care Wagon Driver Name | Role | Phone | + [...] + + | 03/25/ | Hospital | [facility] | [place], | Abdominal aortic | | 2019 | Encounter | MED CTR ULTR[facility]OUND | [address] | aneurysm (AAA) | | | | [address] [place] | [place], | without rupture | | | | [place], [place] | [place] [address] | (HCC) | | | | [address] | [phone] | | | | | [phone] | | | +--------+ + + + [...] tablet | | 19 | 0 | | tabletIndications: | | | | [...] | | | | | | | [place] or | | | | | | [...] tablets by | 45 | 3 | 01/09/20 | | | succinate | mouth Daily. At | tablet | | 19 | 0 | | (TOPROL-XL) 25 mg 24 | [...] Description | +--------+---------+ + + + | 10/13/ | Office | Cardiology | Radha, | | | 2019 | Visit | | [address] | | | | | | [place], | | | | | | [place] [address] | | | | | | [phone] | | | | | | | [...] this | | | e | 10:44 AM | aneurysm (AAA) | procedure are in the | | | | PDT | without rupture | results section. | [...]
--- OUTSIDE RECORDS SUMMARY | ~2019-10-24 | XMS | Encounter Summary ---
Demographics + + + | Address | [address] | | | [place] [address] | + + + | Home Phone | | + + + | Preferred Language | Unknown | + + + | Marital Status | | + + + | Hinduism Affiliation | Unknown | + + + | Race | Unknown | + + + | Ethnic Group | Unknown | + + + Author + + + | Author | [facility] | | | and [place] | + + + | Organization | [facility] | [...] Team Providers + +------+ + | Care Child Protective Investigator Name | Role | Phone | [...] + + | 01/18/ | Office | [facility] | Kavitha Davenport, | Post PTCA (Primary | | 2018 | Visit | MED CTR CARDIAC | MD [address] | Dx); Coronary artery | | | | REHABILITATION [address] | [place], | disease involving | | | | [address] [place] | [place] [address] | [place] coronary | | | | [place] [address] | [phone] | artery of [place] | | | | [phone] | | heart without angina | | [...] Eduardo Elizondo - 01/18/2018 12:00 PM PDT [facility] [address] [place] [address] Cardiac Rehab 30 Day Review Date: 01/18/2018 Patient Information Patient Name: Cosme Michaud Date of : 1940 Age: 77 y.o. Referring Provider: Kavitha Davenport MD Encounter Diagnoses Code Name Primary? Z98.61 Post PTCA Yes I25.10 Coronary artery disease involving [place] coronary artery of [place] heart without angina pectoris Cardiac Rehab Phase II [place] atment Plan Cosme Michaud is a 77 y.o. male with a history of coronary artery disease, hypothyro idism, obesity, inactivity, hypertensionand COPD. He has a history of non-Q wave [place] and st enting in 2010, and recent [...] Healthy Dietary Education Date: 12/12/17 -Referral to Manager Infusion: Date: -DVD: Healthy Eating For Life Date: [...] exercise until stable. Date: Range: -Referral to Gamma Operator Date: Education Points listed below- Date Completed: [...] | | | | | | [place] [address] | | | | | | [phone] | | | | | | | | +--------+---------+ + + + documented as of this encounter Visit Diagnoses + + | Diagnosis | + + | Post PTCA - Primary Postsurgical percutaneous transluminal coronary angioplasty | | status | + + | Coronary artery disease involving [place] coronary artery of [place] heart without | | angina pectoris | + + documented in this encounter
--- OUTSIDE RECORDS SUMMARY | ~2019-10-24 | XMS | Encounter Summary ---
Demographics + + + | Address | [address] | | | [place] [address] | + + + | Home Phone [...] + | Author | [facility] | | | and [place] | + + + | Organization | [facility] | | | [...] Providers + +------+ + | Care Product Handler Name | Role | Phone | + [...] Required | n | artery | [address] [facility] | | | | | disease | [address] | [address] | | | | | involving | [place], | [address]VE | | | | | [place] | [place] [address] | [place], [place] | | | | | coronary | Phone: | [phone] | | | | | artery of | [phone] | Phone: | | | | | [place] heart | Fax: | [phone] | | | | | without | [phone] | Fax: | | | | | angina | | [phone] | | | | | pectoris | [...] + + | 01/02/ | Telephone | [facility] | Kavitha Davenport, | Other (cardiac rehab | | 2019 | | CARDIOLOGY [address] | referral ) | | | | [address] [place], | [place], | | | | | [place] [address] | [place] [address] | | | | | [phone] | [phone] | | | | | | | [...] | | | | | | [place] [address] | | | | | | [phone] | | | | | | | [...] starting 01/03/2019 | | | | | [place] coronary | until 01/03/2020 | | | | | artery of [place] | | | | | | heart [...] + + | Coronary artery disease involving [place] coronary artery of [place] heart without | | angina pectoris - Primary | + + | Abdominal aortic aneurysm (AAA) without rupture (HCC) | + + | Coronary arteriosclerosis Coronary atherosclerosis of unspecified type of vessel, | | [place] or graft | + + | Hypertension, unspecified type | + + documented in this encounter"
--- OUTSIDE RECORDS SUMMARY | ~2019-10-24 | XMS | Encounter Summary ---
Demographics + + + | Address | [address] | | | [place] [address] | + + + | Home Phone | | + + + | Preferred Language | Unknown | + + + | Marital Status | | + + + | Catholic Affiliation | Unknown | + + + | Race | Unknown | + + + | Ethnic Group | Unknown | + + + Author + + + | Author | [facility] | | | and Tevinana | + + + | Organization | [facility] | | [...] Team Providers + +------+ + | Care Primary Products Inspectors Name | Role | Phone | + [...] | | MED CTR LABORATORY | Conch[employer] | disease involving | | | | [address] [place] | | lumbee coronary | | | | [place], [place] | | artery of lumbee | | | | [address] | | heart without angina | | | | [phone] | | pectoris; | | | | [...] [place], | | | | | | [place] [address] | | | | | | [phone] | | | | | | | [...] the | | | | PDT | lumbee coronary | results section. | | | | | artery of lumbee | | | | | | heart [...] the | | | | PDT | lumbee coronary | results section. | | | | | artery of lumbee | | | | | | heart [...] the | | | | PDT | lumbee coronary | results section. | | | | | artery of lumbee | | | | | | heart [...] [address] | [place] | [phone] | | [facility] | | [address] | | | - LABORATORY | | [...] | mL/min/1.73m2 | [place] | | | EMIRATI | RATE,ESTIMATED | | MEDICAL | | | | mL/min/1.77m2Fnwt than | | CENTER - | | [...] + | [facility] | [address] | [place] | [phone] | | [facility] | | [address] | | | - LABORATORY | | [...] + | [facility] | [address] | [place], [place] | [phone] | | [facility] | | [address] | | | - LABORATORY | | | | + + + + + documented in this encounter Visit Diagnoses + + | Diagnosis | + + | Coronary artery disease involving lum[place] coronary artery of [place]bee heart without | | angina pectoris | + + | Hypertension, unspecified type | + + documented in this encounter"
--- OUTSIDE RECORDS SUMMARY | ~2019-10-24 | XMS | Encounter Summary ---
Demographics + + + | Address | [address] | | | [place] [address] | + + + | Home Phone | | + + + | Preferred Language | Unknown | + + + | Marital Status | | + + + | Tenriism Affiliation | Unknown | + + + | Race | Unknown | + + + | Ethnic Group | Unknown | + + + Author + + + | Author | [facility] | | | and Tevinana | + + + | Organization | [facility] | | | and Tevinana [...] Providers + +------+ + | Care Product Test Specialist Name | Role | Phone [...] [place] | | | | | [address], [place] | [id number] | | | | | [address] | | | | | | [phone] | | | +--------+ + + + [...] [place], | | | | | | [place] [address] | | | | | | [phone] | | | | | | | [...] disease, would represents a | | | linoleum layer apprentice examination for further details | | + [...] endplate disease, would represents a | | linoleum layer apprentice examination for further details IMPRESSION: 1. Straightening [...]
--- OUTSIDE RECORDS SUMMARY | ~2019-10-24 | XMS | Encounter Summary ---
Demographics + + + | Address | [address] | | | [place] [address] | + + + | Home Phone | | + + + | Preferred Language | Unknown | + + + | Marital Status | | + + + | Yazidi Affiliation | Unknown | + + + | Race | Unknown | + + + | Ethnic Group | Unknown | + + + Author + + + | Author | [facility] | | | and Tevinana | + + + | Organization | [facility] | | | and [...] Team Providers + +------+ + | Care Seating Upholsterer Name | Role | Phone | + [...] | +--------+ + + + + | 03/27/ | Hospital | [facility] | Faviolarupinder Kavitha, | No Show | | 2018 | Encounter | MED CTR NUCLEAR | [place] [facility] | | | | | MEDICINE [address] | [facility], | | | | | [facility], | [place] [address] | | | | | [place] [address] | [phone] | | | | | [phone] | | | +--------+ + + + [...] | | | | | | [place] [address] | | | | | | [phone] | | | | | | | | +--------+---------+ + + + documented as of this encounter Visit Diagnoses Not on filedocumented in this encounter"
--- OUTSIDE RECORDS SUMMARY | ~2019-10-24 | XMS | Encounter Summary ---
Demographics + + + | Address | [address] | | | [place] [address] | + + + | Home Phone | | + + + | Preferred Language | Unknown | + + + | Marital Status | | + + + | Yarsanism Affiliation | Unknown | + + + | Race | Unknown | + + + | Ethnic Group | Unknown | + + + Author + + + | Author | [facility] | | | and Tevinana | + + + | Organization | [facility] | | | and Tevinana [...] Team Providers + +------+ + | Care Porcelain Enameler Name | Role | Phone | + [...] | CARDIOLOGY [address] | MD [address] | Anemia, unspecified | | | | [place], | [address] | type; Trichiasis, | | | | [place] [address] | [place] [address] | unspecified | | | | [phone] | | laterality; | | | | [...] | | | | | | [place] [address] | | | | | | [phone] | | | | | | | [...] of unspecified type of vessel, | | hopi or graft | + + | Left [...]
--- OUTSIDE RECORDS SUMMARY | ~2019-10-24 | XMS | Encounter Summary ---
Demographics + + + | Address | [address] | | | [place] [address] | + + + | Home Phone [...] Author | [facility] | | | and Tevinana | + + + | Organization | [facility] | | | and Tevinana [...] Team Providers + +------+ + | Care Neon Sign Worker Name | Role | Phone | [...] Provider Unknown | | | | | [address], [place] | | | | | | [address] | (Fax) | | | | | [phone] | | | +--------+ + + + [...] | | | | | | [place] [address] | | | | | | [phone] | | | | | | | [...]
--- OUTSIDE RECORDS SUMMARY | ~2019-10-24 | XMS | Encounter Summary ---
Demographics + + + | Address | [address] | | | [place] [address] | + + + | Home Phone [...] + | Author | [facility] | | | and Tevinana | + + + | Organization | [facility] | | | and Tevinana [...] Team Providers + +------+ + | Care Egg Tester Name | Role | Phone | + [...] [address] | | | | | FOOD SERVICE HOTEL RUNNER - [address] | [place] | [address] | | | | | READ STRESS | DR [address] | [place], | | | | | TEST OF | [place], [place] | [place] [address] | | | | | 06-27-17 | [address] | Phone: | | | | | | Phone: | [phone] | | | | | | [phone] | Fax: | | | | | | Fax: | [phone] | | | | | | [phone] | | +--------+--------+ + + + + Encounter Details +--------+---------+ + + + | Date | Type | Department | Care Team | Description | +--------+---------+ + + + | 09/14/ | Office | [facility] | Freddy Davenport, | Chest pain, | | 2018 | Visit | CARDIOLOGY [address] | MD [address] | unspecified type | | | | [place], | [place], | (Primary Dx) | | | | [place] [address] | [place] [address] | | | | | [phone] | [phone] | | | | | | | [...] procedure. 6. Make sure you have a local intermodal truck driver to take you home. Your local intermodal truck driver will also need to sign you ou [...] hospital line at and ask for nursing poultry processing supervisor t o let them know you [...] Diagnosis Chest pain Coronary artery disease involving the [place] coronary artery of the [place] heart without angina pectoris Hypothyroidism AAA (abdominal [...] kg (242 lb 11.6 oz) | [place] 39.18 kg/m Physical Exam Constitutional: He is [...] He is in a class II of [place] Heart [employer] functional class. There is bilateral [...] treatment were discussed with the patient in [facility]. The patient decides to proceed with the procedure. 5. I recommend a therapeutic lifestyle change including walking 30 minutes a day, choosing healthy choices of diet, including DASH diet and weight reduction. 6. Follow up in 2-3 months. Kiley Pringle am acting as a scribe on behalf of, and in the presence of Freddy Davneport MD. I have reviewed and edited this note. Kiley Pringle Public Transportation Inspector 09/14/2017 I, Freddy Davenport MD, personally performed the services described in this documentation, as scribed in my presence and it is both accurate and complete. Kiley Pringle Med Ass t 09/14/2017 14:02 Electronically signed by: Freddy Davenport MD [facility] 09/14/2017 Portions of this chart may have [...] | | | | | | [place] [address] | | | | | | [phone] | | | | | | | [...] MD | | | | | | ([id number]) on 09/14/2017 | | | | | [...]
--- OUTSIDE RECORDS SUMMARY | ~2019-10-24 | XMS | Encounter Summary ---
Demographics + + + | Address | [address] | | | [place] [address] | + + + | Home Phone | | + + + | Preferred Language | Unknown | + + + | Marital Status | | + + + | Muslim Affiliation | Unknown | + + + | Race | Unknown | + + + | Ethnic Group | Unknown | + + + Author + + + | Author | [facility] | | | and Tevinana | + + + | Organization | [facility] | | | and Tevinana [...] Team Providers + +------+ + | Care Skid Worker Name | Role | Phone | + +------+ + PCP | Unavailable | + +------+ + Encounter Details +--------+ + + + + | Date | Type | Department | Care Team | Description | +--------+ + + + + | 05/13/ | Hospital | [facility] | Sd Rosales | | | 2010 - | Encounter | MED CTR OP REHAB | MD [address] | | | | | [address] | [place] | | | 06/11/ | | [place] [address] | [place] [address] | | | 2010 | | [phone] | [phone] | | | | | | | [...] [place], | | | | | | [place] [address] | | | | | | [phone] | | | | | | | | +--------+---------+ + + + documented as of this encounter Visit Diagnoses Not on filedocumented in this encounter"
--- OUTSIDE RECORDS SUMMARY | ~2019-10-24 | XMS | Encounter Summary ---
Demographics + + + | Address | [address] | | | [place] [address] | + + + | Home Phone [...] Author | [facility] | | | and Tevinana | + + + | Organization | [facility] | [...] Team Providers + +------+ + | Care Crocheter Hand Name | Role | Phone | [...] | MED CTR EXTERNAL | MD [address] | | | | | IMAGING [address] | Arlene [address] | | | | | [address] [place] | [place] [address] | | | | | [place] [address] | | | | | | [phone] | | | +--------+ + + + [...] | | | | | | [place] [address] | | | | | | [phone] | | | | | | | [...]
--- OUTSIDE RECORDS SUMMARY | ~2019-10-24 | XMS | Encounter Summary ---
Demographics + + + | Address | [address] | | | [place] [address] | + + + | Home Phone [...] + | Author | [facility] | | | and Tevinana | + + + | Organization | [facility] | | | and Tevinana [...] Providers + +------+ + | Care Digital Strategy Manager Name | Role | Phone | [...] | | | | | | | [address] | | | | | | | Phone: | | | | | | | [phone] | | | | | | | Fax: | | | | | | | [phone] | | +--------+--------+ + + + + [...] + + | 06/20/ | Hospital | [facility] | Sd Rosales | Spinal stenosis | | 2015 | Encounter | MED CTR MRI [address] | MD [address] | | | | | [place], | [place] | | | | | [place] [address] | [place] [address] | | | | | [phone] | [phone] | | | | | | | [...] | | | | | | [place] [address] | | | | | | [phone] | | | | | | | [...] | | | narrowing. Mild right and scix-kb-sgvlihkz left neural foraminal | | | narrowing. This level has not significantly progressed. L3-4: | | | Circumferential disc bulge. Moderate bilateral facet arthrosis. | | | Encroachment in the subarticular recesses bilaterally. Posterior | | | decompressive changes. Moderate left and nkgo-to-bkxyoypa right | | | neural foraminal narrowing. [...] spinalcanal narrowing. Mild right | | and gmjg-rg-zqajkuij left neural foraminalnarrowing. This level has not significantly | | progressed.L3-4: Circumferential disc bulge. Moderate bilateral facet arthrosis. | | Encroachment in the subarticular recesses bilaterally. Posterior decompressivechanges. | | Moderate left and dnci-jf-sdfqaqbx right neural foraminal narrowing. This level is [...] + | MISCELLANEOUS LAB | | | [phone] | + +---------+ + + | MISCELANIOUS LAB | | | [phone] | + +---------+ + + documented in this encounter Visit Diagnoses + + | Diagnosis | + + | Spinal stenosis Spinal stenosis, unspecified region other than cervical | + + documented in this encounter"
--- OUTSIDE RECORDS SUMMARY | ~2019-10-24 | XMS | Encounter Summary ---
Demographics + + + | Address | [address] | | | [place] [address] | + + + | Home Phone [...] Author | [facility] | | | and Tevinana | + + + | Organization | [facility] [...] Team Providers + +------+ + | Care Smoking Pipe Coater Name | Role | Phone | + [...] + + | 03/27/ | Hospital | [facility] | Faviolarupinder Kavitha, | No Show | | 2018 | Encounter | MED CTR NUCLEAR | [place] [facility] | | | | | MEDICINE [address] | [facility], | | | | | [facility], | [place] [address] | | | | | [place] [address] | [phone] | | | | | [phone] | | | +--------+ + + + [...] | | | | | | [place] [id number] | | | | | | [phone] | | | | | | | | +--------+---------+ + + + documented as of this encounter Visit Diagnoses Not on filedocumented in this encounter"
--- OUTSIDE RECORDS SUMMARY | ~2019-10-24 | XMS | Encounter Summary ---
Demographics + + + | Address | [address] | | | [place] [address] | + + + | Home Phone [...] | Author | [facility] | | | and Tevinana | + + + | Organization | [facility] | | [...] Team Providers + +------+ + | Care Ice Cream Freezer Name | Role | Phone | + [...] + + | 03/25/ | Hospital | [facility] | [place], | Abdominal aortic | | 2019 | Encounter | MED CTR ULTRASOUND | [address] [address] | aneurysm (AAA) | | | | [address] [place] | [place], | without rupture | | | | [place], [place] | [place] [address] | (HCC) | | | | [address] | [phone] | | | | | [phone] | | | +--------+ + + + [...] | | | | | | | [place] | | | | | | [...] | | | | | | [place] [address] | | | | | | [phone] | | | | | | | [...]
--- OUTSIDE RECORDS SUMMARY | ~2019-10-24 | XMS | Encounter Summary ---
Demographics + + + | Address | [address] | | | [place] [address] | + + + | Home Phone [...] [facility] | | | and Tevinana | + + + | Organization | [facility] | | | and [...] Team Providers + +------+ + | Care Adult Neuropsychologist Name | Role | Phone | + [...] | | | Chest pain, | Gia, BOTTOM POUNDER CEMENT SHOES | Medicine | | | | | unspecified | [address] | [address] | | | | | type | [place] | [place], | | | | | Procedures | DR [address] | [place] | | | | | [place] Nuclear | [place] | [address] | | | | | Stress Test | [address] | Phone: | | | | | (Vasodilator | Phone: | [phone] | | | | | ) | [phone] | Fax: | | | | | | Fax: | [phone] | | | | | | [phone] | | +--------+--------+ + + + + [...] | unspecified type | | | | [address] [place], | [place] [address] | (Primary Dx) | | | | [place] [address] | [phone] | | | | | [phone] | | | +--------+ + + + [...] [place], | | | | | | [place] [address] | | | | | | [phone] | | | | | | | [...] | | Signed by: Kavitha Davenport MD [facility] 06/27/2017, 11:02 | | + + [...]
--- OUTSIDE RECORDS SUMMARY | ~2019-10-24 | XMS | Encounter Summary ---
Demographics + + + | Address | [address] | | | [place] [address] | + + + | Home Phone [...] Team Providers + +------+ + | Care Head Of Ethics And Compliance Name | Role | Phone | + [...] | | | | | aneurysm, | [address] | [address] | | | | | without | DR [place] | [place], | | | | | rupture | [place], [place] | [place] [address] | | | | | ([facility]) | [address] | Phone: | | | | | Atherosclero | Phone: | [phone] | | | | | tic heart | [phone] | Fax: | | | | | disease of | Fax: | [phone] | | | | | [place] | [phone] | | | | | | coronary [...] + + | 01/02/ | Office | [facility] | Radha, | Chest pain, | | 2018 | Visit | CARDIOLOGY [address] | [address] | unspecified type; | | | | [address] [place], | [address] [place], | Coronary artery | | | | [place] [address] | [place] [address] | disease involving | | | | [phone] | [phone] | [place] coronary | | | | | | artery of [place] | | | | | | heart [...] encounter Patient Instructions Patient Instructions Delilah Bob, Plate Maker Zinc - 01/02/2019 11:30 AM PDT1. Referra l to cardiac rehab at [facility] 2. Start metoprolol succinate 25 mg take 1/2 tablet (12.5 mg) once nightly 3. Continue taking Losartan 25 mg once daily 4. He will follow up in 2 months, or sooner with concerns. documented in this encounter Progress Notes Jessica Garcia ARNP - 01/02/2019 11:30 AM PDTFormatting of [...] Enroll patient into cardiac rehab program in [place]. Dr. Bowser recommend a therapeutic lifestyle change [...] Diagnosis Chest pain Coronary artery disease involving [place] coronary artery of [place] heart without angina pectoris Hypothyroidism AAA (abdominal [...] minute s as needed for Chest pain. Zmiovlfes-Pspjbjbuyx-ST-APAP (NYQUIL PO) Take 750 mg by mouth. [...] kg (220 lb 10.9 oz) | B [place] 34.56 kg/m Physical Exam Constitutional: He is [...] reviewed during visit today primarily from [facility]: LIPID Lab Results Component Value [...] (A) 12/05/2018 RESULTS- I reviewed reports from [facility]: Holter Monitor on 12/21/18 shows [...] He is in class I of the [place] Heart Association functional class. He would benefit of low dose Metoprolol since he had a non-Q A GA 2. Bradycardia and history of 4 second [...] doing any exercises but stays busy wi [employer] work for actives. He would like to restart cardiac rehab at [facility]. 8. COPD A. He mentions this has been better in the past month. PLAN: 1. Referral to cardiac rehab at [facility] for CAD 2. Start metoprolol succinate 12.5 mg once nightly 3. Continue taking losartan 25 mg once daily check blood pressure and pulse twice daily for two weeks and return the log to our office. 4. He will follow up in 2 months for office visit, or sooner with concerns. Delilah Ny, Plate Maker Zinc am acting as a scribe on behalf of, and in the presenc e of LOU Matamoros. - Delilah Bob Plate Maker Zinc 01/02/2019 12:06 Jessica Ny ARNP, personally performed the services described in this documentati on, as scribed in my presence and it is both accurate and complete. -LOU Matamoros 01/02/2019 Portions of this chart may have been created with [employer] voice recognition software. Occasi onal wrong-word or [...] | | | | | | [place] [address] | | | | | | [phone] | | | | | | | [...] involving | | | | | | [place] coronary | | | | | | artery of [place] | | | | | | heart [...] FREDDY | | | | | | ([id number]) on 01/03/2019 | | | | | [...] | Coronary artery disease involving [place] coronary artery of [place] heart without | | angina pectoris | + + | Essential hypertension with goal blood pressure less than 130/80 | + + | Coronary arteriosclerosis Coronary atherosclerosis of unspecified type of vessel, | | [place] or graft | + + | Abdominal aortic aneurysm (AAA) without rupture (HCC) | + + | Hypertension, unspecified type | + + | Tobacco dependence in remission Personal history of tobacco use, presenting hazards | | to health | + + documented in this encounter
--- OUTSIDE RECORDS SUMMARY | ~2019-10-24 | XMS | Encounter Summary ---
Demographics + + + | Address | [address] | | | [place] [address] | + + + | Home Phone | | + + + | Preferred Language | Unknown | + + + | Marital Status | | + + + | Mu-Ism Affiliation | Unknown | + + + | Race | Unknown | + + + | Ethnic Group | Unknown | + + + Author + + + | Author | [facility] | | | and Tevinana | + + + | Organization | [facility] | | | and Tevinana [...] Team Providers + +------+ + | Care Summer Clerk Name | Role | Phone | [...] | | CARDIOLOGY [address] | Jessica CREDIT AUTHORIZER [address] | | | | | [place], | [place], | | | | | [place] [address] | [place] [address] | | | | | [phone] | [phone] | | | | | | | [...] | | | | | | [place] [address] | | | | | | [phone] | | | | | | | [...] | | | | g/dL | [facility] | | | | | | MEDICAL [...] + | [facility] | [address] | [place] | [phone] | | [facility] | | [address] | | | - LABORATORY | | [...] mL/min/1.73m2 | [facility] [place] | | | KITTITIAN | RATE,ESTIMATED | | MEDICAL | | | | mL/min/1.71n6Stso than | | CENTER - | | [...] | 9.4 | 8.7 - 10.4 | AVA | | | | | mg/dL | [facility] | | | | | | MEDICAL | | | | | | CENTER - | | | | | | LABORATORY | | + + + + + + | Albumin | 4.5 | 3.2 - 4.8 g/dL | [facility] | | | | | | [facility] | | | | | | MEDICAL [...] [address] | [place] | [phone] | | [facility] | | [address] | | | - LABORATORY | | [...] [address] | [place] | [phone] | | [facility] | | [address] | | | - LABORATORY | | | | + + + + + documented in this encounter Visit Diagnoses + + | Diagnosis | + + | Coronary artery disease involving [place] coronary artery of [place] heart without | | angina pectoris - Primary | + + | Hypertension, unspecified type | + + documented in this encounter"
--- OUTSIDE RECORDS SUMMARY | ~2019-10-24 | XMS | Encounter Summary ---
Demographics + + + | Address | [address] | | | [place] [address] | + + + | Home Phone | | + + + | Preferred Language | Unknown | + + + | Marital Status | | + + + | Synagogue Affiliation | Unknown | + + + | Race | Unknown | + + + | Ethnic Group | Unknown | + + + Author + + + | Author | [facility] | | | and Tevinana | + + + | Organization | [facility] | | | and [...] Team Providers + +------+ + | Care Deputy Attorney General Name | Role | Phone | + [...] | | | hand pain | [employer] OF [employer] [address] | [address] | | | | | | [place] | [place], | | | | | | [address] [place] | [place] [address] | | | | | | [place] | Phone: | | | | | | [address] | [phone] | | | | | | Phone: | Fax: | | | | | | [phone] | [phone] | | | | | | Fax: | | | | | | | [phone] | | +--------+--------+ + + + + Encounter Details +--------+---------+ + + + | Date | Type | Department | Care Team | Description | +--------+---------+ + + + | 04/17/ | Office | [facility] | Héctor Frederick, | Right wrist pain | | 2019 | Visit | ORTHOPEDIC SURGERY | [address] | (Primary Dx) | | | | [address] [place] | [place] | | | | | [place] | [address] | | | | | [address] | | | | | | [phone] | | | +--------+---------+ + + + [...] | | | | | | [place] [address] | | | | | | [phone] | | | | | | | | +--------+---------+ + + + documented as of this encounter Visit Diagnoses + + | Diagnosis | + + | Right wrist pain - Primary Pain in joint, forearm | + + documented in this encounter"
--- OUTSIDE RECORDS SUMMARY | ~2019-10-24 | XMS | Encounter Summary ---
Demographics + + + | Address | [address] | | | [place] [address] | + + + | Home Phone [...] | Author | [facility] | | | and Tevinana | + + + | Organization | [facility] | | | and Tevinana [...] Team Providers + +------+ + | Care Care Clinician Name | Role | Phone | + [...] | | CARDIOLOGY [address] | | | | | [place], | [place], | | | | | [place] [address] | [place] [address] | | | | | [phone] | [phone] | | | | | | | [...] [place], | | | | | | [place] [address] | | | | | | [phone] | | | | | | | [...]
[~2019-10-24 14:33] MED LIST changes: +BACTRIM DS TAB1 EACH PO; +KEFLEX500 MG PO
[2019-10-24] MEDS ORDERED: KEFLEX500 MG PO (17:23)
== END 2019-10-24 17:50 | disposition home or self-care (01) ==
LOC: ED 14:33
PROC: 0XQTXZZ Repair Left Ring Finger, External Approach (ICD-10-PCS; principal; 2019-10-24)
DX: S61.215A Laceration without foreign body of left ring finger without damage to nail, initial encounter (principal); I10 Essential (primary) hypertension; J44.9 Chronic obstructive pulmonary disease, unspecified; Z88.5 Allergy status to narcotic agent; Z79.899 Other long term (current) drug therapy; Z79.82 Long term (current) use of aspirin; Z79.02 Long term (current) use of antithrombotics/antiplatelets; W01.0XXA Fall on same level from slipping, tripping and stumbling without subsequent striking against object, initial encounter
CPT/HCPCS: 12001; 73140; 99283-25; A9270

== ENCOUNTER 2021-03-14 13:28 | Emergency (ER) | payer OTHER ==
[~2021-03-14] VITALS: Ht 170.2 cm; Wt 88.9 kg
[2021-03-14] MEDS ORDERED: PREDNISONE20 MG PO (16:01)
--- NOTE | 2021-03-14 18:57 | EKG ---
[facility] [address] [place] [address] Signed Normal sinus rhythm Normal ECG When compared with ECG of 09-APR-2019 12:43, No significant change was found Confirmed by MAGDIEL CASANOVA MD ([id number]) on 03/14/2021 6:57:23 PM Electronically Signed By: MAGDIEL CASANOVA MD 03/14/21 1857 PATIENT NAME: SOFIAMICHELINE Electrocardiogram DATE OF : 40 PHYSICIAN: MAGDIEL CASANOVA MD REPORT #: [id number] REPORT IS CONFIDENTIAL AND NOT TO BE RELEASED WITHOUT AUTHORIZATION
== END 2021-03-14 17:26 | disposition home or self-care (01) ==
LOC: ED 13:28
DX: U07.1 COVID-19 (principal); J43.9 Emphysema, unspecified; R91.8 Other nonspecific abnormal finding of lung field; I10 Essential (primary) hypertension; M19.041 Primary osteoarthritis, right hand; M19.042 Primary osteoarthritis, left hand; Z88.5 Allergy status to narcotic agent; Z79.52 Long term (current) use of systemic steroids; Z79.899 Other long term (current) drug therapy
CPT/HCPCS: 71045; 80053; 84484; 85025; 93005; 93010; 94640; 96374; 99285-25; J1100; J7030

== ENCOUNTER 2023-06-18 13:30 | Emergency (ER) | payer OTHER ==
[~2023-06-18] VITALS: Ht 170.2 cm; Wt 104.3 kg
[~2023-06-18 13:30] MED LIST changes: +PREDNISONE20 MG PO
--- OUTSIDE RECORDS SUMMARY | 2023-06-18 13:38 | XMS ---
PreManage Notification: MICHELINE BLACK Security Business Support Assistant Events 1 event(s) in the past 18 months Most recent security events: Elopement at [facility] 10/30/2022 19:57 - Patient eloped with IV in place. - Patient eloped before treatment completed. - Patient with suicidal and/or homicidal ideations eloped. Details: Patient LWOB. CRITERIA MET - Group Notification CARE PROVIDERS There are no care providers on record at this time. Gena has no Care Guidelines for this patient. E.D. VISIT COUNT (12 MO.) [address] ([place]) TOTAL 3 NOTE: Visits indicate total known visits. ED/UCC VISIT TRACKING (12 MO.) 06/18/2023 13:30 [facility] [place] TYPE: Emergency COMPLAINT: - HEAD INJURY 11/21/2022 13:41 [facility] Radha [place] ([place]) TYPE: Emergency DIAGNOSES: - Pain in left shoulder - Fall - fall, left shoulder pain - Shoulder Pain 10/30/2022 19:57 [facility] [place] TYPE: Emergency COMPLAINT: - POSS BLOOD CLOT IN L LEG INPATIENT VISIT TRACKING (12 MO.) No inpatient visits to display in this time frame [id number]
[2023-06-18 14:55] VITALS: BP 109/63
== END 2023-06-18 14:57 | disposition home or self-care (01) ==
LOC: ED 13:30
DX: S01.81XA Laceration without foreign body of other part of head, initial encounter (principal); J43.9 Emphysema, unspecified; I10 Essential (primary) hypertension; W22.8XXA Striking against or struck by other objects, initial encounter; Z95.5 Presence of coronary angioplasty implant and graft; Z79.82 Long term (current) use of aspirin; Z79.899 Other long term (current) drug therapy
CPT/HCPCS: 12011; 70450; 99283-25

== ENCOUNTER 2024-06-05 21:10 | Inpatient (IN) | payer OTHER ==
[~2024-06-05] VITALS: Ht 170.2 cm
[~2024-06-05 21:10] MED LIST changes: +ADULT LOW DOSE81 MG PO; -ASPIRIN EC325 MG PO; -COZAAR25 MG PO; +DIOVAN40 MG PO; -KAPSPARGO SPRIN25 MG PO; +TOPROL XL25 MG PO
--- OUTSIDE RECORDS SUMMARY | 2024-06-05 21:17 | XMS ---
PreManage Notification: MICHELINE BLACK Security Lens Maker Events No recent Security Events currently on file CRITERIA MET - Group Notification CARE PROVIDERS There are no care providers on record at this time. Gena has no Care Guidelines for this patient. Tiffanie VISIT COUNT (12 MO.) 2 [facility] Radha Jones ([place]) TOTAL 3 NOTE: Visits indicate total known visits. ED/C VISIT TRACKING (12 MO.) 06/05/2024 21:10 [facility] [place] TYPE: Emergency COMPLAINT: - COLD SYMPTOMS [facility]04[facility]23 15:[facility]: Emergency DIAGNOSES: - Cellulitis of right upper limb - Hand Injury - rt hand injury 06/18/2023 13:30 [facility] [place] TYPE: Emergency COMPLAINT: - HEAD INJURY DIAGNOSES: - Emphysema, unspecified - Essential (primary) hypertension - Laceration without foreign body of other part of head, initial encounter - alf (current) use of aspirin - Other terminal gauger (current) drug therapy - Presence of coronary angioplasty implant and graft - Striking against or struck by other objects, initial encounter INPATIENT VISIT TRACKING (12 MO.) 12/08/2023 06:06 [facility] [place] TYPE: Surgical Services DIAGNOSES: - Other intervertebral disc displacement, lumbar region - Radiculopathy, lumbar region - Spinal stenosis, lumbar region with neurogenic claudication [id number]
[2024-06-05] MEDS ORDERED: PLAVIX75 MG PO (21:31)
[2024-06-05 21:40] LABS: PH, VENOUS 7.394 (7.31-7.41)
[2024-06-05 21:42] LABS: BASOPHILS 0.4 % (0-2); EOSINOPHILS 2.7 % (0-6); HEMATOCRIT 42.1 % (35.0-50.0); HEMOGLOBIN 14.5 g/dL (12.0-18.0); LYMPHOCYTES 5.3 % (24-44); MCH 31.3 (27-36); MCHC 34.4 g/dl (30-36); MONOCYTES 4.7 % (0-12); NEUTROPHILS 86.9 % (39-80); PLATELET COUNT 167 K/uL (140-440); RBC 4.62 M/ul (4.3-5.7); RDW 14.1 (10.5-15.0)
[2024-06-05] MEDS ORDERED: ALBUTEROL/IPRATROPIUM 3 ML NEB INH ONE (21:45)
[2024-06-05 22:02] LABS: LACTIC ACID, BLOOD 1.1 mmol/L (0.4-2.0)
[2024-06-05 22:11] LABS: ALBUMIN 3.9 g/dL (3.4-5.0); ALBUMIN/GLOBULIN RATIO 1.05 (1.1-2.4); ANION GAP 10.6 (7-21); BILIRUBIN, TOTAL 0.8 ng/dL (0.2-1.0); BUN/CREATININE RATIO 10.76 (6.0-28.6); CALCIUM 9.2 mg/dL (8.5-10.1); CREATININE, SERUM 1.3 mg/dL (0.70-1.30); POTASSIUM 4.6 mmol/L (3.5-5.1); PROTEIN, TOTAL 7.6 g/dL (6.4-8.2)
[2024-06-05 22:17] LABS: INFLUENZA B NAA NEGATIVE (NEGATIVE); RESPIRATORY SYNCYTIAL VIR NAA NEGATIVE (NEGATIVE)
[2024-06-05] MEDS ORDERED: AZITHROMYCIN/DEXTROSE 500 MG/250 ML PIGGYBACK IV ONE (23:00)
[2024-06-05] MEDS ORDERED: CEFTRIAXONE/SODIUM CHLORIDE 2 GM/100 ML PIGGYBACK IV ONE (23:00)
[2024-06-05] MEDS ORDERED: ACETAMINOPHEN 325 MG TAB PO PRN (23:45)
[2024-06-05] MEDS ORDERED: ALBUTEROL SULFATE 0.083% 3 ML VIAL INH PRN (23:45)
[2024-06-05] MEDS ORDERED: ALBUTEROL/IPRATROPIUM 3 ML NEB INH SCH (23:45)
[2024-06-05] MEDS ORDERED: ondansetron HCL 4 MG/2 ML VIAL IV PRN (23:45)
[2024-06-06] VITALS (11 sets, daily range): BP systolic 105–122; BP diastolic 50–57
--- NOTE | 2024-06-06 01:19 | NUR ---
PT ADMITTED TO ROOM 121 VIA STRETCHER W/ ALL BELONGINGS. VS OBTAINED. CALL LIGHT INSTRUCTIONS GIVEN. DENIES PAIN. PT ON 3L O2 N/C. SOB REPORTED. LS DIM, COARSE TO LLL. NOTED W/ MOIST PRODUCTIVE COUGH, SPUTUM THICK AND YELLOW/GREENISH. TELEMETRY PLACED. BTA, LBM 06/05. PT REPORTS EPSIODE OF INC IN ER. URINAL AT BEDSIDE, PT INSTRUCTED ON NEED FOR URINE SAMPLE. RAC IV, ATB COMPLETED AND LINE SL'D. PT PROVIDED SNACK AND ICE WATER PER REQUEST.
--- NOTE | 2024-06-06 03:01 | NUR ---
PT ASLEEP, APPEARS COMFORTABLE. CPOX IN PLACE.
--- NOTE | 2024-06-06 04:48 | NUR ---
PT AWAKE, STATES IS READY TO HEAD HOME HE HAS AN APPT IN [facility] TODAY. EXPLAINED TO PT THAT HE NEEDS TO WAIT FOR THE MD TO COME THIS MORNING AND THAT HE MAY NEED TO RESCHEDULE THE APPT. ASSISTED PT TO USE URINAL. URINE SAMPLE SENT TO LAB.
[2024-06-06 04:50] LABS: BILIRUBIN, URINE NEGATIVE (negative); BLOOD/HGB, URINE NEGATIVE (Negative); KETONE, URINE NEGATIVE (Negative); LEUK ESTERASE, URINE TRACE (negative); NITRITE, URINE NEGATIVE (negative)
--- NOTE | 2024-06-06 04:55 | NUR ---
CALL LIGHT ANSWERED. PT DONE USING URINAL. MILLER DISTILLERY COLLECTED AND SENT URINE SAMPLE TO LAB. MILLER DISTILLERY THEN OBTAINED AND DOCUMENTED VITALS AND I&O. PT REPOSITIONED IN BED ONTO LEFT SIDE. PT STATES NO FURTHER NEEDS AT THIS TIME. CALL LIGHT WITHINR REACH AND BED ALARM ON.
[2024-06-06 05:01] LABS: RED BLOOD CELLS, URINE 0-1 /hpf (0-5)
[2024-06-06 05:03] LABS: BACTERIA, URINE NONE SEEN /hpf (negative); CASTS, URINE HYALINE 1+ \\lpf; COLLECTION TYPE, URINE CLEAN CATCH; CRYSTALS, URINE NONE SEEN (0-1+); EPITHELIAL CELLS, URINE SQUAMOUS 1+ /lpf (0-1+); REFLEX CULTURE, URINE No (No)
[2024-06-06 05:40] LABS: BASOPHILS 1.5 % (0-2); EOSINOPHILS 0.7 % (0-6); HEMATOCRIT 36.7 % (35.0-50.0); HEMOGLOBIN 12.6 g/dL (12.0-18.0); LYMPHOCYTES 5.2 % (24-44); MCH 31.1 (27-36); MCHC 34.3 g/dl (30-36); MCV 90.8 fl (81-99); MONOCYTES 5.7 % (0-12); NEUTROPHILS 86.9 % (39-80); PLATELET COUNT 141 K/uL (140-440); RBC 4.04 M/ul (4.3-5.7)
[2024-06-06 05:58] LABS: ALBUMIN/GLOBULIN RATIO 0.88 (1.1-2.4); ANION GAP 9.1 (7-21); BILIRUBIN, TOTAL 0.6 ng/dL (0.2-1.0); BUN/CREATININE RATIO 12.29 (6.0-28.6); CALCIUM 8.5 mg/dL (8.5-10.1); CREATININE, SERUM 1.22 mg/dL (0.70-1.30); MAGNESIUM 1.8 mg/dL (1.8-2.4); POTASSIUM 4.1 mmol/L (3.5-5.1); PROTEIN, TOTAL 6.4 g/dL (6.4-8.2)
--- NOTE | 2024-06-06 07:00 | NUR ---
REPORT RECEIVED FROM KAYLEE ZEPEDA. PT RESTING IN BED WITH EYES CLOSED, RR EVEN AND UNLABORED. CALL LIGHT IN REACH.
--- NOTE | 2024-06-06 08:51 | NUR ---
Patient called asking for urinal to be emptied. Patient chose to eat breakfast sitting in their walker. CPOX alarm kept going off. Nasal cannula was repositioned and adjusted.
[2024-06-06] MEDS ORDERED: CEFTRIAXONE/SODIUM CHLORIDE 2 GM/100 ML PIGGYBACK IV SCH (09:00)
[2024-06-06] MEDS ORDERED: ENOXAPARIN SODIUM 40 MG/0.4 ML SYR SUB-Q SCH (09:00)
[2024-06-06] MEDS ORDERED: AZITHROMYCIN 500 MG in DEXTROSE 5% 250 ML IV SCH ×2 (09:00→10:31)
--- NOTE | 2024-06-06 09:37 | NUR ---
MORNING MEDICATIONS ADMINISTERED, SEE MAR. ASSESSMENT COMPLETE. PT IS RESTING IN BED AND CONVERSING. 3L O2 VIA NC IN PLACE, CPOX AT BEDSIDE. PT CURRENTLY REPORTS NO SOB BUT HAS MILD EXPIRATORY WHEEZING IN BLL. PT HAS PRODUCTIVE COUGH, EXPECTORATING INTO EMESIS BAG AND TISSUE PRESENT AT BEDSIDE, MUCOUS NOTED TO BE THICK AND YELLOW. PT IS REPORTING NO NAUSEA, PAIN, OR NEEDS AT THIS TIME. RESPIRATORY THERAPY ARRIVES TO PROVIDE PT WITH NEBULIZER TREATMENT AT THIS TIME. CALL LIGHT IN REACH.
[2024-06-06] MEDS ORDERED: BUDESONIDE 0.5 MG/2 ML VIAL INH SCH (09:59)
[2024-06-06] MEDS ORDERED: methylPREDNISolone SOD SUCC 125 MG/2 ML VIAL IV SCH (10:30)
[2024-06-06] MEDS ORDERED: CEFTRIAXONE/SODIUM CHLORIDE 1 GM/100 ML PIGGYBACK IV SCH (10:31)
--- NOTE | 2024-06-06 10:50 | NUR ---
ALERT AND ORIENTED IN BED. STATES HE LIVES ALONE IN HOUSE WITH STEPS TO GET INSIDE WELL STEPS TO THE BASEMENT. HE STATES HE DOES OK WITH STAIRS. HE HAS 2 PETS AT HOME THAT HE IS VERY WORRIED ABOUT. REQUESTS CALL TO DAUGHTER, TIA, TO SEE IF SHE KNOWS SOMEONE WHO CAN CHECK ON HIS PETS. STATES HIS EMERGENCY CONTACT IS NOW HIS DAUGHTER, TIA BLACK AT [phone]. ADMITTING UPDATED ON INFORMATION. PATIENT HAS 2 WALKERS. 1 WALKER IS IN FACILITY WITH HIM. HE DRIVES AT BASELINE. DENIES FINANCIAL HARDSHIP. ABLE TO PAY UTILITIES, OBTAIN FOOD AND MEDICATIONS WITHOUT DIFFICULTY. HE VERBALIZES MULTIPLE TIMES HE CAN NOT STAY FOR DAYS IN HOSPITAL BECAUSE HE HAS THINGS TO DO.
--- NOTE | 2024-06-06 10:59 | NUR ---
CALLED AND SPOKE WITH TIA, DAUGHTER. INFORMED HER PATIENT IS CURRENTLY IN HOSPITAL AND IS NEEDING HELP WITH HIS ANIMALS AT HOME. DAUGHTER, TIA, STATES SHE WILL COME TO FACILITY TO SPEAK WITH PATIENT AND HELP WITH IS ANIMALS.
[2024-06-06] MEDS ORDERED: CLOPIDOGREL BISULFATE 75 MG TAB PO SCH (11:05)
[2024-06-06] MEDS ORDERED: METOPROLOL TARTRATE 25 MG TAB PO SCH (11:06)
[2024-06-06] MEDS ORDERED: ALBUTEROL SULFATE 0.083% 3 ML VIAL INH PRN (11:15)
[2024-06-06] MEDS ORDERED: TYLENOL325 MG PO (11:42)
[2024-06-06] MEDS ORDERED: PROAIR DIGIHAL90 MCG INH (11:43)
[2024-06-06] MEDS ORDERED: ALFUZOSIN HCL10 MG PO (11:44)
[2024-06-06] MEDS ORDERED: PERIDEX473 M1 MM (11:45)
[2024-06-06] MEDS ORDERED: VITAMIN D325 MCG PO (11:46)
[2024-06-06] MEDS ORDERED: COLCRYS0.6 MG PO (11:51)
[2024-06-06] MEDS ORDERED: DICLOFENAC SODI75 MG PO (11:52)
[2024-06-06] MEDS ORDERED: SENOKOT-S TABL1 EACH PO (11:53)
[2024-06-06] MEDS ORDERED: PROSCAR5 MG PO (11:54)
[2024-06-06] MEDS ORDERED: FOLIC ACID1 MG PO (11:55)
[2024-06-06] MEDS ORDERED: FLONASE ALLERG9.9 ML NAS (11:55)
[2024-06-06] MEDS ORDERED: ALBUTEROL/IPRATROPIUM 3 ML NEB INH SCH ×2 (12:00)
[2024-06-06] MEDS ORDERED: ASPIRIN 325 MG TABEC PO SCH (12:00)
[2024-06-06] MEDS ORDERED: PHARMACY RENAL DOSE ADJUSTMENT 1 DOSE MISC PO SCH (12:00)
--- NOTE | 2024-06-06 12:05 | NUR ---
UR CLINICAL RE[place] [facility] FOR PNEUMONIA GUIDELINE [facility] FROM OBS TO INPT 06/06/24 @ 0955 ORDER MATCHES REG AUTH PENDING, WILL SEND CLINICALS VIA [email or web address] TODAY. PLAN TO DC TO HOME WHEN MEDICALLY STABLE, PER PATIENT. 06/08/24
[2024-06-06] MEDS ORDERED: ADULT TUSS100 MG/51 PO (12:06)
[2024-06-06] MEDS ORDERED: SYNTHROID100 MCG PO (12:06)
[2024-06-06] MEDS ORDERED: LIDOCAINE1 EAC1 TOP (12:07)
[2024-06-06] MEDS ORDERED: NITROSTAT0.4 MG SL (12:09)
[2024-06-06] MEDS ORDERED: CRESTOR40 MG PO (12:10)
--- NOTE | 2024-06-06 12:18 | NUR ---
IMAGING TAKES PT OFF THE FLOOR AT THIS TIME.
--- NOTE | 2024-06-06 12:48 | NUR ---
PT RETURNS FROM IMAGING, PHARMACY CURRENTLY IN SPEAKING WITH PT.
--- NOTE | 2024-06-06 13:27 | NUR ---
RESPIRATORY THERAPY JUST FINISHING WITH PT. PT RESTING IN BED WITH HOB ELEVATED, O2 VIA NC AT 2L, CPOX AT BEDSIDE. PT EXPECTORATING YELLOW MUCOUS INTO EMESIS BAG. NO REQUESTS AT THIS TIME, CALL LIGHT IN REACH.
--- NOTE | 2024-06-06 14:49 | NUR ---
PT CURRENTLY WORKING WITH PHYSICAL THERAPY.
[2024-06-06] MEDS ORDERED: HYDROCORTISON-A10 ML AU (15:09)
[2024-06-06] MEDS ORDERED: CARBOXYMETHYLC1 EAC1 OU (15:10)
[2024-06-06] MEDS ORDERED: REFRESH PLUS1 EACH OU (15:11)
--- NOTE | 2024-06-06 15:12 | NUR ---
MED REC COMPLETE
[2024-06-06] MEDS ORDERED: SAW PALMETTO450 MG PO (15:13)
--- NOTE | 2024-06-06 15:51 | NUR ---
SECOND ASSESSMENT COMPLETE. PT IS RESTING IN RECLINER WITH BLE ELEVATED. IV FLUSHES WNL. PT LUNG SOUNDS DIMINISHED THROUGHOUT WITH EXPIRATORY WHEEZES, PT REPORTS MILD EXPIRATORY IN THE BILATERAL BASES. PT REPORTS HE IS MILDLY SHORT OF BREATH BUT "MUCH BETTER THAN YESTERDAY!" SPO2 88% AT 1L, O2 TITRATED TO 2L AT THIS TIME, PT SPO2 MAINTAINS 91-92%. CPOX AT CHAIRSIDE, PT REQEUSTS A DRINK, PROVIDED. NO OTHER NEEDS AT THIS TIME, CALL LIGHT IN REACH.
--- NOTE | 2024-06-06 17:10 | NUR ---
PT AMBULATES TO RESTROOM WITH SEUN MASON AT THIS TIME. AMBULATES BACK TO RECLINER AND ELEVATES BLE. CALL LIGHT IN REACH.
--- NOTE | 2024-06-06 18:49 | NUR ---
PT RESTING IN RECLINER AT THIS TIME, BLE ELEVATED, DINNER TRAY IS IN FRONT OF HIM. CALL LIGHT IN REACH, NO REQUESTS AT THIS TIME.
--- NOTE | 2024-06-06 19:37 | NUR ---
Received report from AKYLEE Preston. Pt up in recliner working on dinner tray. Pt is very [place] and TRAN batteries are -pt reports packaging manager is coming. Denies any further needs. Call light within reach.
--- NOTE | 2024-06-06 20:30 | NUR ---
PT REMAINS UP IN RECLINER. VS OBTAINED, REQUIRED MULTIPLE ATTEMPTS FOR ACCURATE B/P PT MOVES ARM FREQUENTLY. PT REQUESTS COFFEE FOR HELP W/ BM. DENIES PAIN. 2L O2 N/C IN PLACE. CPOX IN PLACE. LS DIM W/ SCATTERED EXP WHEEZES. DENIES SOB. MPC CONTINUES, THICK SPUTUM-YELLOW COLORED. PT USING ACAPELLA IND. HRR, TELEMETRY IN PLACE. 1+ BLE GENERALIZED EDEMA. BTA. LBM 06/05. VOIDS VIA URINAL. RAC SL. CHAIR ALARM IN PLACE FOR SAFETY. CALL LIGHT WITHIN REACH.
--- NOTE | 2024-06-06 22:07 | NUR ---
FLUME TENDER REPLACED BATTERY ON THE TELE BOX AND SPOT SHAVED PT SO THE LEADS WOULD MAKE BETTER CONNECTION.
--- NOTE | 2024-06-06 22:30 | NUR ---
PT UP IN RECLINER, VISITOR AT BEDSIDE.
--- NOTE | 2024-06-06 23:12 | NUR ---
FILTERING MACHINE TENDER HELPER RECHECKED PT TEMP AT RN REQUEST. FILTERING MACHINE TENDER HELPER ALSO CHECKED PT ORTHOSTATIC B/P. STANDING B/P DONE WHILE SITTING, PT WAS UNABLE TO STAND. RN NOTIFED OF B/P. PT GIVEN A FAN UPON REQUEST. PT STATES NO FURTHER NEEDS AT THIS TIME. CALL LIGHT WITHIN REACH.
--- NOTE | 2024-06-06 23:15 | NUR ---
PT ASSISTED TO BED. WARM BLANKET PROVIDED. FRESH ICE WATER REFRESHED.
[2024-06-07] MEDS ORDERED: ACETAMINOPHEN 500 MG TAB PO PRN (01:00)
--- NOTE | 2024-06-07 01:00 | NUR ---
PT C/O SORE THROAT. DR MEDRANO NOTIFIED, NEW ORDER FOR TYLENOL PLACED.
--- NOTE | 2024-06-07 01:12 | NUR ---
TYLENOL ADMINISTERED PER EMAR FOR C/O SORE THROAT.
[2024-06-07 02:15] VITALS: BP 117/55
--- NOTE | 2024-06-07 02:39 | NUR ---
PT SLEEPING SOUNDLY, APPEARS COMFORTABLE.
--- NOTE | 2024-06-07 04:22 | NUR ---
PT AWAKE, CALLED FOR NEB TX, RT TO SEE.
[2024-06-07 04:43] VITALS: BP 113/52
[2024-06-07 04:48] VITALS: BP 113/52
[2024-06-07 05:31] LABS: BASOPHILS 0.3 % (0-2); HEMATOCRIT 37.1 % (35.0-50.0); HEMOGLOBIN 12.5 g/dL (12.0-18.0); LYMPHOCYTES 5.3 % (24-44); MCH 30.6 (27-36); MCHC 33.8 g/dl (30-36); MCV 90.5 fl (81-99); MONOCYTES 1.6 % (0-12); NEUTROPHILS 92.8 % (39-80); PLATELET COUNT 153 K/uL (140-440); RBC 4.09 M/ul (4.3-5.7)
[2024-06-07 05:42] LABS: ANION GAP 12.8 (7-21); BUN/CREATININE RATIO 17.82 (6.0-28.6); CALCIUM 8.9 mg/dL (8.5-10.1); CREATININE, SERUM 1.29 mg/dL (0.70-1.30); POTASSIUM 3.8 mmol/L (3.5-5.1)
--- NOTE | 2024-06-07 06:07 | NUR ---
PT AWAKE, SITTING EOB. AM SNACK & COFFEE PROVIDED PER REQUEST. MPC CONTINUES. O2 2L IN PLACE.
--- NOTE | 2024-06-07 07:00 | NUR ---
REPORT RECEIVED FROM KAYLEE ZEPEDA. PT RESTING IN BED WITH EYES CLOSED, RR EVEN AND UNLABORED, HOB ELEVATED. CPOX AT BEDSIDE, NC IN PLACE, CALL LIGHT IN REACH.
--- NOTE | 2024-06-07 07:39 | NUR ---
PT AMBULATES TO RESTROOM WITH 4WW. EDUCATED ON USING CALL LIGHT IN BATHROOM AND NOT TO GET UP ON HIS OWN, PT VERBALIZES UNDERSTANDING.
--- NOTE | 2024-06-07 07:46 | NUR ---
PT AMBULATES WITH 4WW FROM RESTROOM TO RECLINER, BLE ELEVATED ON A PILLOW, CPOX AT CHAIRSIDE. CALL LIGHT AND CELL PHONE ARE IN REACH, PT HAS NO OTHER REQUESTS AT THIS TIME.
--- NOTE | 2024-06-07 07:51 | NUR ---
PT SITTING ON EDGE OF BED WHEN ARRIVED TO ROOM, ASSISTED PT BACK TO BED AND BED ALARM SET. PT C/O BACK PAIN FROM LAYING IN BED. DID APPEAR SOB WHEN GETTING SELF MOVED UP ON EDGE OF BED AND GETTING FEET BACK TO BED. APPEARS DICKEY/PALE IN COLOR TO FACE STILL, SATS 90-91% ON RA AT THIS TIME, CPOX IN PLACE. IV FLUIDS INFUSING AT THIS TIME.
[2024-06-07] MEDS ORDERED: ALBUTEROL/IPRATROPIUM 3 ML NEB INH SCH (08:00)
--- NOTE | 2024-06-07 08:42 | NUR ---
PT UP IN RECLINER EATING BREAKFAST AT THIS TIME. HAS NO REQUESTS, CALL LIGHT IN REACH.
--- NOTE | 2024-06-07 09:15 | NUR ---
PT REMAINS UP IN RECLINER AT THIS TIME, NO REQUESTS, CALL LIGHT IN REACH.
[2024-06-07 09:36] VITALS: BP 133/62
--- NOTE | 2024-06-07 10:26 | NUR ---
Patient returned to bed once done with breakfast. Doctor entered room for evaluation.
[2024-06-07 10:29] VITALS: BP 133/62
--- NOTE | 2024-06-07 10:36 | NUR ---
MEDICATION ADMINISTERED, SEE MAR. ASSESSMENT COMPLETE. PT DOES NOT COMPLAIN OF SOB AT THIS TIME, NC IN PLACE AT 2L, CPOX AT BEDSIDE HAS SPO2 OF 93%. ACAPELLA AT BEDSIDE, PT STATES HE HAS BEEN USING IT AND IT "WORKS REALLY WELL". PT HAS FAMILY MEMBER PRESENT AT THIS TIME. IV ABX CURRENTLY INFUSING WNL. PT IS IN BED WITH HOB ELEVATED, STATES NO FURTHER NEEDS AT THIS TIME. CALL LIGHT IN REACH.
[2024-06-07] MEDS ORDERED: CEFDINIR300 MG PO (11:22)
[2024-06-07] MEDS ORDERED: AZITHROMYCIN500 MG PO (11:23)
[2024-06-07] MEDS ORDERED: PREDNISONE20 MG PO (11:24)
--- NOTE | 2024-06-07 11:40 | NUR ---
PT AMBULATES TO RESTROOM WITH SEUN MOREIRA AT THIS TIME.
--- NOTE | 2024-06-07 11:47 | NUR ---
ORDER, H&P, HOME O2 QUALIFIER FAXED TO [place]. CALLED AND VERIFIED TIME OF SET UP. STATE THEY CAN BE AT PATIENT'S TO SET UP OXYGEN AROUND 3 PM. NURSING STAFF NOTIFIED HE CAN DC. PATIENT INFORMED [facility] WILL BE IN TO SET UP OXYGEN THIS AFTERNOON.
--- NOTE | 2024-06-07 12:06 | NUR ---
DISCUSSED DISCHARGE WITH PT. THIS RN EXPRESSES CONCERNS WITH PT ABOUT HIM DRIVING HIMSELF HOME, THE PTs SISTER HAD STATED THAT SHE COULD DRIVE HIM HOME EARLIER THIS MORNING. 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 I DON'T DRINK ANYMORE, BUT I USED TO AND I NEVER ONCE GOT A DUI." ASKED PT WHERE HE WOULD PLACE HIS OXYGEN TANK IN THE CAR PT REPLIES "ON THE PASSENGER SEAT". ENCOURAGED PT TO CALL HIS SISTER AND GET A RIDE HOME TODAY, PT DECLINES THIS AND SAYS "I'LL BE JUST FINE." CHARGE NURSE ALERTED TO CONCERNS. NO OTHER NEEDS AT THIS TIME. CALL LIGHT IN REACH.
--- NOTE | 2024-06-07 12:06 | EKG ---
[facility] [address] [place] [address] Signed Sinus tachycardia Otherwise normal ECG When compared with ECG of 14-MAR-2021 14:44, Vent. rate has increased BY 38 BPM Confirmed by Bijan Medrano MD ([id number]) on 06/07/2024 12:05:52 PM Electronically Signed By: BIJAN MEDRANO 06/07/24 1206 PATIENT NAME: BLACKMICHELINE Electrocardiogram DATE OF : 40 PHYSICIAN: BIJAN MEDRANO REPORT #: [id number] REPORT IS CONFIDENTIAL AND NOT TO BE RELEASED WITHOUT AUTHORIZATION
--- NOTE | 2024-06-07 12:53 | NUR ---
PT DISCHARGE EDUCATION PROVIDED, PT VERBALIZES UNDERSTANDING AND IMPORTANCE OF OXYGEN USE AT THIS TIME. PT INFORMED HE CANNOT DRIVE HOME IT IS A SAFETY CONCERN, PT AGREEABLE TO TAKING A TAXI HOME WHILE DAUGHTER DRIVES HIS CAR HOME. PT FINISHING UP LUNCH AT THIS TIME, NO OTHER NEEDS, CALL LIGHT IN REACH.
== END 2024-06-07 13:25 | disposition home or self-care (01) | DRG 193 ==
LOC: ED 21:10 → MS 21:11
PROVIDERS: Family Medicine; ADMIT Internal Medicine; ATTEND Internal Medicine
DX: J18.9 Pneumonia, unspecified organism (principal); J96.01 Acute respiratory failure with hypoxia; J44.0 Chronic obstructive pulmonary disease with (acute) lower respiratory infection; J44.1 Chronic obstructive pulmonary disease with (acute) exacerbation; Z88.8 Allergy status to other drugs, medicaments and biological substances; J43.9 Emphysema, unspecified; M47.9 Spondylosis, unspecified; Z95.5 Presence of coronary angioplasty implant and graft; Z90.49 Acquired absence of other specified parts of digestive tract; Z98.890 Other specified postprocedural states; Z79.82 Long term (current) use of aspirin; Z79.02 Long term (current) use of antithrombotics/antiplatelets; Z79.899 Other long term (current) drug therapy; Z87.891 Personal history of nicotine dependence
CPT/HCPCS: 36415; 71045; 71260; 80048; 80053; 81001; 82803; 83605; 83735; 83880; 84484; 85025; 85060; 87040; 87502; 93005; 93010; 94640; 94667; 94668; 94761; 94762; 96372; 97161; 97165; 97535; A9270; G0378; J0456; J0696; J1650; J2919; J7060; Q9967; U0002

== ENCOUNTER 2024-10-27 18:36 | Emergency (ER) | payer OTHER | END 2024-10-27 20:45 | disposition home or self-care (01) | LOC: ED 18:36 | DX: S51.821A Laceration with foreign body of right forearm, initial encounter (principal); I10 Essential (primary) hypertension; J44.9 Chronic obstructive pulmonary disease, unspecified; W01.198A Fall on same level from slipping, tripping and stumbling with subsequent striking against other object, initial encounter; Z79.02 Long term (current) use of antithrombotics/antiplatelets; Z79.899 Other long term (current) drug therapy ==